=== PATIENT | female | born 1945 | race Caucasian/White ===

== ENCOUNTER → 2017-06-10 | Outpatient (CLI) | payer MEDICARE ==
--- NOTE | 2017-06-10 12:42 | CT ---
EXAMINATION TYPE: CT brain wo con DATE OF EXAM: 06/10/2017 COMPARISON: NONE HISTORY: Syncope and collapse CT DLP: 1029.90 mGycm. Automated Exposure Control for Dose Reduction was Utilized. TECHNIQUE: CT scan of the head is performed without contrast. FINDINGS: There is no acute intracranial hemorrhage or midline shift identified. There is diffuse v entricular and sulcal prominence consistent with diffuse age-related cerebral atrophy. There is low- attenuation in the periventricular white matter and subcortical white matter consistent with chronic small vessel ischemic change. 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 This is a benig n finding. No mass effect upon the temporal horn of the left lateral ventricle or evidence of hydroce phalus. The globes are intact and the visualized sinuses are clear. Chest patient is seen of the intr acranial vasculature. IMPRESSION: No acute intracranial hemorrhage, mass effect, or midline shift is seen.
--- NOTE | 2017-06-10 13:13 | US ---
EXAMINATION TYPE: US carotid duplex BILAT DATE OF EXAM: 06/10/2017 COMPARISON: NONE CLINICAL HISTORY: R55 Syncope and Collapse; Prior smoker per patient EXAM MEASUREMENTS: RIGHT: Peak Systolic Velocity (PSV) cm/sec ----- Right CCA: 45.3 ----- Right ICA: 109.9 ----- Right ECA: 118.9 ICA/CCA ratio: 2.4 RIGHT: End Diastole cm/sec ----- Right CCA: 11.3 ----- Right ICA: 15.4 ----- Right ECA: 7.4 LEFT: Peak Systolic Velocity (PSV) cm/sec ----- Left CCA: 64.4 ----- Left ICA: 69.9 ----- Left ECA: 87.5 ICA/CCA ratio: 1.1 LEFT: End Diastole cm/sec ----- Left CCA: 20.4 ----- Left ICA: 24.8 ----- Left ECA: 12.4 VERTEBRALS (direction of flow): Right Vertebral: Antegrade Left Vertebral: Antegrade Moderate intimal wall changes at bilateral carotid bifurcation, but PSV is wnl bilaterally. High resi stive waveform is noted in Right ICA throughout its course and as compared to Left ICA. IMPRESSION: 1. Peak systolic velocity within the right internal carotid artery approaching an abnormal value and abnormally elevated internal carotid artery to common carotid artery ratio relates to stenosis betwee n 50-69%, favored to be closer to 50%. 2. No evidence of hemodynamically significant stenosis within the left carotid system.
--- NOTE | 2017-06-10 17:32 | ECHOF ---
Referral Reason:R55 Sycnope and Collapse, MEASUREMENTS -------- HEIGHT: 167.6 cm WEIGHT: 86.2 kg BP: 140/92 RVIDd: 2.9 cm (< 3.3) IVSd: 1.0 cm (0.6 - 1.1) LVIDd: 4.4 cm (3.9 - 5.3) LVPWd: 1.0 cm (0.6 - 1.1) IVSs: 1.4 cm LVIDs: 2.7 cm LVPWs: 1.2 cm LA Diam: 2.9 cm (2.7 - 3.8) LAESV Index (A-L): 16.56 ml/m Ao Diam: 3.3 cm (2.0 - 3.7) AV Cusp: 2.0 cm (1.5 - 2.6) MV EXCURSION: 16.074 mm (> 18.000) MV EF SLOPE: 41 mm/s (70 - 150) EPSS: 0.7 cm MV E Rodolfo: 0.56 m/s MV DecT: 215 ms MV A Rodolfo: 0.71 m/s MV E/A Ratio: 0.79 RAP: 5.00 mmHg RVSP: 33.58 mmHg FINDINGS -------- Sinus rhythm. This was a technically adequate study. The left ventricular size is normal. There is borderline concentric left ventricular hypertrophy. Overall left ventricular systolic function is normal with, an EF between 55 - 60 %. The right ventricle is normal in size. Normal LA size by volume 22+/-6 ml/m2. The right atrium is normal in size. The aortic valve is trileaflet and appears structurally normal. Mild mitral annular calcification present. Mild tricuspid regurgitation present. Right ventricular systolic pressure is normal at < 35 mmHg. The pulmonic valve was not well visualized. The aortic root size is normal. Normal inferior vena cava with normal inspiratory collapse consistent with estimated right atrial pressure of 5 mmHg. There is no pericardial effusion. CONCLUSIONS -------- 1. Sinus rhythm. 2. Mild mitral annular calcification present. 3. Mild tricuspid regurgitation present. 4. Right ventricular systolic pressure is normal at < 35 mmHg. 5. The pulmonic valve was not well visualized. 6. The aortic root size is normal. 7. Normal inferior vena cava with normal inspiratory collapse consistent with estimated right atrial pressure of 5 mmHg. 8. There is no pericardial effusion. 9. This was a technically adequate study. 10. The left ventricular size is normal. 11. There is borderline concentric left ventricular hypertrophy. 12. Overall left ventricular systolic function is normal with, an EF between 55 - 60 %. 13. The right ventricle is normal in size. 14. Normal LA size by volume 22+/-6 ml/m2. 15. The right atrium is normal in size. 16. The aortic valve is trileaflet and appears structurally normal. SECRETARY TO THE VICE PRESIDENT: Denise Del Real RDCS
== END | disposition home or self-care (01) ==
LOC: RADCTMAIN 12:07
PROVIDERS: ATTEND Internal Medicine Geriatric Medicine
DX: I07.1 Rheumatic tricuspid insufficiency (principal); I34.8 Other nonrheumatic mitral valve disorders; R93.8 Abnormal findings on diagnostic imaging of other specified body structures; R55 Syncope and collapse
CPT/HCPCS: 70450; 93306; 93880

== ENCOUNTER → 2017-06-27 | Outpatient (CLI) | payer MEDICARE ==
[~2017-06-27] MED LIST: REGADENOSON 0.4 MG/5 ML SYRINGE IV ONE
--- NOTE | 2017-06-27 10:58 | NM ---
EXAMINATION TYPE: NM stress lexiscan cardiolite DATE OF EXAM: 06/27/2017 COMPARISON: NONE HISTORY: Syncope TECHNIQUE: After the intravenous administration of 10.5 mCi Tc 99m Sestamibi - Cardiolite resting SP ECT images acquired 45 minutes post injection. The patient received 0.4mg Lexiscan, 28.1 mCi Tc 99m Sestamibi - Stress images obtained [address] injection FINDINGS: Review of stress and rest SPECT images demonstrates no distinct perfusion abnormality. Gated analysi s shows normal wall motion with an estimated left ventricular ejection fraction of 63 %. IMPRESSION: No scintigraphic evidence for reversible ischemia.
--- NOTE | 2017-06-27 12:23 | P.STRESS ---
- Stress Test Note Stress Test Results/Findings: Exam Performed: NM stress lexiscan cardiolite Exam Date: 06/27/17 Reason for Exam: SYNCOPE Height: 5 ft 6 in Weight: 86.183 kg Protocol: Stage: Duration of Exercise: 5 Resting Heart Rate: 69 Resting Blood Pressure: 155/80 Maximum Achieved Heart Rate: 75 Maximum Achieved Blood Pressure: 162/74 85% PMHR: 125 100% PMHR: 147 METS: Technologist Comment: Stress Test Results/Findings: This is a 72-year-old female is being evaluated with the Lexiscan stress test because of hypertension and smoking and also history of syncope. An EKG showed sinus rhythm with normal HI interval, QRS duration. A standard dose of Lexiscan was infused KG taking during and after the x-ray did not reveal any changes to sized ischemia. #1. Negative legs scan stress test #2. Report on the nuclear images to be given by the radiologist
--- NOTE | 2017-06-28 09:32 | EST ---
Stress Test Results/Findings: Exam Performed: NM stress lexiscan cardiolite Exam Date: 06/27/17 Reason for Exam: SYNCOPE Height: 5 ft 6 in Weight: 86.183 kg Protocol: Stage: Duration of Exercise: 5 Resting Heart Rate: 69 Resting Blood Pressure: 155/80 Maximum Achieved Heart Rate: 75 Maximum Achieved Blood Pressure: 162/74 85% PMHR: 125 100% PMHR: 147 METS: Technologist Comment: Stress Test Results/Findings: This is a 72-year-old female is being evaluated with the Lexiscan stress test because of hypertension and smoking and also history of syncope. Baseline EKG showed sinus rhythm with normal [place] interval, QRS duration. A standard dose of Lexiscan was infused. EKG taken during and after the stess test did not reveal any changes to suggest ischemia. #1. Negative lexiscan scan stress test #2. Report on the nuclear images to be given by the radiologist BRADEN
== END | disposition home or self-care (01) ==
LOC: RADNMMAIN 08:16
PROVIDERS: ATTEND Internal Medicine Geriatric Medicine
DX: R55 Syncope and collapse (principal)
CPT/HCPCS: 93017; 78452; A9500; J2785

== ENCOUNTER → 2017-11-17 | Outpatient (CLI) | payer MEDICARE ==
--- NOTE | 2017-11-18 11:22 | MM ---
Reason for exam: screening (asymptomatic). Last mammogram was performed 1 year and 1 month ago. History: Patient is postmenopausal. Benign excisional biopsy of the right breast, November 19, 1998. Took hormonal contraceptives for 3 years beginning at age 20. Physical Findings: A clinical breast exam by your physician is recommended on an annual basis and results should be correlated with mammographic findings. MG 3D Screening Mammo W/Cad Bilateral CC and MLO view(s) were taken. Prior study comparison: October 06, 2016, bilateral MG 3d screening mammo w/cad. July 31, 2015, bilateral MG screening mammo w CAD. The breast tissue is heterogeneously dense. This may lower the sensitivity of mammography. There is chronic nodularity bilaterally. No significant changes when compared with prior studies. ASSESSMENT: Benign, BI-RAD 2 RECOMMENDATION: Routine screening mammogram of both breasts in 1 year.
== END | disposition home or self-care (01) ==
LOC: RADMAMWWP 10:00
PROVIDERS: ATTEND Internal Medicine Geriatric Medicine
DX: Z12.31 Encounter for screening mammogram for malignant neoplasm of breast (principal)
CPT/HCPCS: 77063; 77067

== ENCOUNTER → 2018-01-09 | Outpatient (CLI) | payer MEDICARE ==
[2018-01-09 17:04] LABS: HCT 45.3 % (34.0-46.0); HGB 14.3 gm/dL (11.4-16.0); MCH 28.1 pg (25.0-35.0); MCHC 31.6 g/dL (31.0-37.0); MCV 88.8 fL (80.0-100.0); Platelet Count 481 k/uL (150-450); RDW 13.7 % (11.5-15.5); WBC 13.5 k/uL (3.8-10.6)
[2018-01-09 17:16] LABS: Anion Gap 12 mmol/L; Blood Urea Nitrogen 16 mg/dL (7-17); Carbon Dioxide 26 mmol/L (22-30); Chloride 104 mmol/L (98-107); Potassium 4.9 mmol/L (3.5-5.1); Sodium 142 mmol/L (137-145)
== END | disposition home or self-care (01) ==
LOC: LABPAT 16:16
PROVIDERS: ATTEND Internal Medicine Interventional Cardiology
DX: Z01.812 Encounter for preprocedural laboratory examination (principal); R07.9 Chest pain, unspecified
CPT/HCPCS: 36415; 80051; 82565; 84520; 85027

== ENCOUNTER → 2018-01-17 | Day surgery (SDC) | payer MEDICARE ==
[2018-01-12 08:59] VITALS: BMI 29.0
[~2018-01-17] MED LIST changes: +ACETAMINOPHEN TAB 325 MG TAB ONE; +ALPRAZolam 0.25 MG TAB PO PRN; +ALPRAZolam 0.5 MG TAB PO PRN; +ASPIRIN 325 MG TAB PO STA; +ATORVASTATIN 80 MG TAB PO STA; +HEPARIN SODIUM 1,000 UN/ML (10ML VL) IV ONE; +HEPARIN SODIUM 1,000 UN/ML (10ML VL) ONE; +IOHEXOL 350 MG/ML 125ML BOTTLE INJ ONE; +LIDOCAINE 2% INJ 20 MG/ML (20 ML MDV) ONE; +LIDOCAINE 2% INJ 20 MG/ML SQ ONE; +MIDAZOLAM 2 MG/2 ML VIAL IV ONE; +MIDAZOLAM 2 MG/2 ML VIAL ONE; +NITROGLYCERIN 1000MCG/10ML SYRINGE INTRACORON ONE; +NITROGLYCERIN SL TABS 0.4 MG TAB SUBLINGUAL PRN; -REGADENOSON 0.4 MG/5 ML SYRINGE IV ONE; +RX INFO: IV CONTRAST WAS GIVEN 1 EACH MISC MISCELLANE PRN; +SODIUM CHLORIDE 0.9% 1,000 ML IV SCH; +SODIUM CHLORIDE 0.9% 1,000 ML in EMPTY BAG 1 BAG IV ONE; +VERAPAMIL 2.5 MG/ML 2 ML AMP ONE; +fentaNYL (PF) 50 MCG/ML 2 ML AMP ONE; +hydrALAZINE HCL 20 MG/ML 1 ML VIAL IVP STA; +hydrALAZINE HCL 20 MG/ML 1 ML VIAL ONE
[2018-01-17 06:59] VITALS: RESP 18; TEMP 98
[2018-01-17] MEDS: VERAPAMIL SYRINGE (5 MG/10 ML) INTRAARTER ONE ×2 (07:54→08:09)
[2018-01-17] MEDS: fentaNYL (PF) 50 MCG/ML 2 ML AMP IV ONE ×2 (07:56→07:58)
--- NOTE | 2018-01-17 08:40 | CC ---
CARDIAC CATHETERIZATION REPORT DATE OF SERVICE: 01/17/2018 PERFORMING PHYSICIAN: Kash Muniz MD, residential director. PROCEDURE PERFORMED: 1. Selective right and left coronary angiogram. 2. Left heart catheterization. INDICATION: This is a pleasant 72-year-old female patient who was experiencing chest discomfort concerning for angina. She underwent a myocardial perfusion imaging stress test in June of 2017 and that revealed no ischemia. Because of the intermittent episodes of chest discomfort, I recommended proceeding with a heart catheterization. APPROACH: Right radial artery. COMPLICATION: None. LEVEL OF SEDATION: Moderate with sedation length of 17 minutes. PROCEDURE DESCRIPTION: After obtaining an informed consent, the patient was brought to the cardiac rd lab technician. The right radial artery was cannulated using micropuncture technique, the micropuncture wire passed easily, then I placed a 6-Hungarian sheath in the right radial artery. After that I did give the patient 2 mg of verapamil IA and 10,000 units of heparin IV. After that, I did selective right and left coronary angiogram using JR4 and JL3.5 catheters. The procedure was completed without any complication. I did also left heart catheterization using 5-Hungarian pigtail catheter. The procedure was completed without any complication. SELECTIVE CORONARY ANGIOGRAM: 1. The RCA is a large caliber vessel and it is a dominant vessel. The RCA appeared to have mild disease only in the midportion. Distally, it bifurcates into PDA and PLV branches both are angiographically normal. 2. The left main is angiographically normal but is a short left main. It bifurcates into the left circumflex and left anterior descending artery. 3. Left circumflex is a large caliber vessel. It is a nondominant vessel. The proximal circ appeared to be angiographically normal. The mid circ is normal as well and gives rise into a large OM branch, which seems to be angiographically normal. The left circumflex distally is angiographically normal. 4. The LAD; the proximal LAD appeared to have mild eccentric lesion. It is calcified though. The mid LAD by the bifurcation of a large diagonal branch appeared to have a lesion in the range of 60% to 70%. The first diagonal branch which is a large caliber vessel appeared to be angiographically normal. The LAD distally becomes tortuous, but angiographically normal. HEMODYNAMICS: The left ventricular end-diastolic pressure was 14 mmHg and no gradient was identified across the aortic valve. CONCLUSION: 1. Calcified right and left coronary systems. 2. 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 PLAN: 1. Maximize medical treatment at this point of time. 2. If the patient continues to be symptomatic, I will consider doing a PCI of the LAD. DOLORES / ROBERTN: [id number] /
[2018-01-17 13:18] VITALS: BP 157/71; PULSE 67
== END ==
LOC: CATHCVL 06:17
PROVIDERS: ATTEND Internal Medicine Interventional Cardiology
DX: I25.110 Atherosclerotic heart disease of native coronary artery with unstable angina pectoris (principal); I25.84 Coronary atherosclerosis due to calcified coronary lesion; I77.1 Stricture of artery; I10 Essential (primary) hypertension; Z87.891 Personal history of nicotine dependence; E78.5 Hyperlipidemia, unspecified; Z79.899 Other long term (current) drug therapy; Z88.0 Allergy status to penicillin; Z88.8 Allergy status to other drugs, medicaments and biological substances
CPT/HCPCS: 93458; J2001; J2250; J0360; J3010; J1644; Q9967

== ENCOUNTER 2018-01-25 11:00 | Emergency (ER) | payer MEDICARE ==
[2018-01-25 11:14] VITALS: TEMP 98
[2018-01-25] MEDS ORDERED: ASPIRIN 81 MG PO STA (11:55)
[2018-01-25] MEDS ORDERED: SODIUM CHLORIDE 0.9% 1,000 ML IV STA (11:55)
[2018-01-25 12:42] VITALS: RESP 18
[2018-01-25 12:52] LABS: D-Dimer 0.3 mg/L FEU (<0.60)
[2018-01-25 12:55] LABS: Albumin 4.3 g/dL (3.5-5.0); Calcium 10.1 mg/dL (8.4-10.2); Magnesium 1.9 mg/dL (1.6-2.3); Potassium 4.4 mmol/L (3.5-5.1); Total Bilirubin 0.4 mg/dL (0.2-1.3); Total Protein 7.6 g/dL (6.3-8.2)
[2018-01-25 12:56] LABS: Partial Thromboplastin Time 24.6 sec (22.0-30.0); Prothrombin Time 10.1 sec (9.0-12.0)
--- NOTE | 2018-01-25 13:02 | XR ---
EXAMINATION TYPE: XR chest 2V DATE OF EXAM: 01/25/2018 COMPARISON: 10/07/2014 HISTORY: Right upper lobectomy. Chest pain. TECHNIQUE: Frontal and lateral views of the chest are obtained. FINDINGS: Right minor fissure is elevated secondary to right-sided hemithorax volume loss from the p rior right upper lobectomy. There is no focal consolidation, pleural effusion or pneumothorax. Cardia mediastinal silhouette is within normal limits. There was prominent bilaterally as seen on the prior 2013 and may relate to underlying coronary arterial hypertension. Mild multilevel degenerative morin es of the thoracic spine. Osseous structures are grossly intact. IMPRESSION: Chronic findings with no acute cardiopulmonary process. Hilar engorgement may relate to underlying pulmonary arterial hypertension and is similar to the prior 2013.
[2018-01-25 13:08] LABS: Creatine Kinase 33 U/L (30-135)
[2018-01-25 13:21] LABS: Creatine Kinase MB 0.6 ng/mL (0.0-2.4); Troponin I <0.012 ng/mL (0.000-0.034)
[2018-01-25 13:48] LABS: Basophils # (A) 0.1 k/uL (0-0.2); Basophils % (A) 1 %; Eosinophils # (A) 0.3 k/uL (0-0.7); Eosinophils % (A) 3 %; HCT 48.1 % (34.0-46.0); HGB 16.1 gm/dL (11.4-16.0); Lymphocytes # (A) 2.2 k/uL (1.0-4.8); Lymphocytes % (A) 22 %; MCH 28.8 pg (25.0-35.0); MCHC 33.6 g/dL (31.0-37.0); MCV 85.9 fL (80.0-100.0); Mean Platelet Volume 7.2; Monocytes # (A) 0.7 k/uL (0-1.0); Monocytes % (A) 7 %; Neutrophils # (A) 6.4 k/uL (1.3-7.7); Neutrophils % (A) 64 %; Platelet Count 422 k/uL (150-450); RDW 13.5 % (11.5-15.5)
[2018-01-25 14:11] VITALS: BP 146/75; PULSE 74
--- NOTE | 2018-01-25 14:12 | ED ---
General Adult HPI - General Chief complaint: Recheck/Abnormal Lab/Rx Stated complaint: poss blood clot, post Cath Time Seen by Provider: 01/25/18 11:41 Source: patient, RN notes reviewed Mode of arrival: ambulatory Limitations: no limitations - History of Present Illness Initial comments: Patient 72-year-old female status post heart catheterization times a week, presenting to the emergency room today with a chief complaint of right sided pain. She states that last night she felt like there was some pain behind her right eye. She states this is gone away is feeling better at this time but she woke up this morning with some right-sided pain. She states she was worried about possible blood clot. She states that she had a heart cath 1 week ago and no stents were placed. Patient denies any recent fever, chills, shortness of breath, back pain, abdominal pain, nausea or vomiting, numbness or tingling, dysuria or hematuria, constipation or diarrhea, headaches or visual changes, or any other complaints. - Related Data Home Medications Medication Instructions Recorded Confirmed Albuterol Sulfate [Proventil Hfa] 1 - 2 puff INHALATION RT-Q6H PRN 06/18/14 Levothyroxine Sodium [Synthroid] 75 mcg PO HS 06/18/14 01/25/18 Diphenox-Atrop 2.5-0.025 mg 1 tab PO DAILY PRN 10/07/17 01/25/18 [Lomotil] Ergocalciferol [Vitamin D2] 50,000 unit PO Q14D 01/25/18 01/25/18 [place] (Unknown Dose) 1 tab PO ONCE 01/25/18 01/25/18 Zolpidem Tartrate [Zolpidem 10 mg PO HS 01/25/18 01/25/18 Tartrate] Allergies Allergy/AdvReac Type Severity Reaction Status Date / Time bee pollen Allergy Anaphylaxis Verified 01/25/18 12:57 Penicillins Allergy Anaphylaxis Verified 01/25/18 12:57 adhesive AdvReac Rash/Hives Verified 01/25/18 12:57 prednisone AdvReac Nausea & Verified 01/25/18 12:57 Vomiting Review of Systems ROS Statement: Those systems with pertinent positive or pertinent negative responses have been documented in the HPI. ROS Other: All systems not noted in ROS Statement are negative. 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 History of Any Multi-Drug Resistant Organisms: None Reported Past Surgical History: Appendectomy, Cholecystectomy, Heart Catheterization, Hernia Repair, Hysterectomy Additional Past Surgical History / Comment(s): Right partial upper lobe of lung removed. Past Anesthesia/Blood Transfusion Reactions: No Reported Reaction Past Psychological History: Anxiety Smoking Status: Former smoker Past Alcohol Use History: Rare Past Drug Use History: None Reported - Past Family History Mother Family Medical History: No Reported History Father Family Medical History: Cancer Additional Family Medical History / Comment(s): Lung General Exam - General Exam Comments Initial Comments: General: The patient is awake and alert, in no distress, and does not appear acutely ill. Eye: Pupils are equal, round and reactive to light, extra-ocular movements are intact. No nystagmus. There is normal conjunctiva bilaterally. No signs of icterus. Ears, nose, mouth and throat: There are moist mucous membranes and no oral lesions. Neck: The neck is supple, there is no tenderness or JVD. Cardiovascular: There is a regular rate and rhythm. No murmur, rub or gallop is appreciated. Respiratory: Lungs are clear to auscultation, respirations are non-labored, breath sounds are equal. No wheezes, stridor, rales, or rhonchi. Gastrointestinal: Soft, non-distended, non-tender abdomen without masses or organomegaly noted. There is no rebound or guarding present. No CVA tenderness. Bowel sounds are unremarkable. Musculoskeletal: Normal ROM, no tenderness. Strength 5/5. Sensation intact. Pulses equal bilaterally 2+. Neurological: A&O x 3. CN II-XII intact, There are no obvious motor or sensory deficits. Coordination appears grossly intact. Speech is normal. Skin: Skin is warm and dry and no rashes or lesions are noted. Psychiatric: Cooperative, appropriate mood & affect, normal judgment. Limitations: no limitations Course Vital Signs 01/25/18 01/25/18 11:12 12:40 Temperature 98.0 F Pulse Rate 86 76 Respiratory 20 18 Rate Blood Pressure 148/103 169/79 O2 Sat by Pulse 98 97 Oximetry Medical Decision Making - Medical Decision Making Patient labs been reviewed and negative d-dimer. Cardiac enzymes are negative. EKG shows no acute changes. Results were discussed with patient. Vitals are stable. She is feeling better at this time. Case discussed with attending physician Dr. Garcia. Patient is advised follow-up the statue maker tomorrow. Advised return if any symptoms increase worsen. - Lab Data Result diagrams: 01/25/18 12:20 01/25/18 12:20 Lab Results 01/25/18 01/25/18 01/25/18 Range/Units 12:20 12:20 12:20 WBC 10.0 (3.8-10.6) k/uL RBC 5.60 H (3.80-5.40) m/uL Hgb 16.1 H (11.4-16.0) gm/dL Hct 48.1 H (34.0-46.0) % MCV 85.9 (80.0-100.0) fL MCH 28.8 (25.0-35.0) pg MCHC 33.6 (31.0-37.0) g/dL RDW 13.5 (11.5-15.5) % Plt Count 422 (150-450) k/uL Neutrophils % 64 % Lymphocytes % 22 % Monocytes % 7 % Eosinophils % 3 % Basophils % 1 % Neutrophils # 6.4 (1.3-7.7) k/uL Lymphocytes # 2.2 (1.0-4.8) k/uL Monocytes # 0.7 (0-1.0) k/uL Eosinophils # 0.3 (0-0.7) k/uL Basophils # 0.1 (0-0.2) k/uL PT (9.0-12.0) sec INR (<1.2) APTT (22.0-30.0) sec D-Dimer (<0.60) mg/L FEU Sodium 140 (137-145) mmol/L Potassium 4.4 (3.5-5.1) mmol/L Chloride 104 (98-107) mmol/L Carbon Dioxide 25 (22-30) mmol/L Anion Gap 11 mmol/L BUN 15 (7-17) mg/dL Creatinine 0.85 (0.52-1.04) mg/dL Est GFR (CKD-EPI)AfAm 79 (>60 ml/min/1.73 sqM) Est GFR (CKD-EPI)NonAf 68 (>60 ml/min/1.73 sqM) Glucose 95 (74-99) mg/dL Calcium 10.1 (8.4-10.2) mg/dL Magnesium 1.9 (1.6-2.3) mg/dL Total Bilirubin 0.4 (0.2-1.3) mg/dL AST 38 H (14-36) U/L ALT 37 (9-52) U/L Alkaline Phosphatase 97 (38-126) U/L Total Creatine Kinase 33 (30-135) U/L CK-MB (CK-2) 0.6 (0.0-2.4) ng/mL CK-MB (CK-2) Rel Index 1.8 Troponin I <0.012 (0.000-0.034) ng/mL NT-Pro-B Natriuret Pep pg/mL Total Protein 7.6 (6.3-8.2) g/dL Albumin 4.3 (3.5-5.0) g/dL 01/25/18 01/25/18 Range/Units 12:20 12:20 WBC (3.8-10.6) k/uL RBC (3.80-5.40) m/uL Hgb (11.4-16.0) gm/dL Hct (34.0-46.0) % MCV (80.0-100.0) fL MCH (25.0-35.0) pg MCHC (31.0-37.0) g/dL RDW (11.5-15.5) % Plt Count (150-450) k/uL Neutrophils % % Lymphocytes % % Monocytes % % Eosinophils % % Basophils % % Neutrophils # (1.3-7.7) k/uL Lymphocytes # (1.0-4.8) k/uL Monocytes # (0-1.0) k/uL Eosinophils # (0-0.7) k/uL Basophils # (0-0.2) k/uL PT 10.1 (9.0-12.0) sec INR 1.0 (<1.2) APTT 24.6 (22.0-30.0) sec D-Dimer 0.30 (<0.60) mg/L FEU Sodium (137-145) mmol/L Potassium (3.5-5.1) mmol/L Chloride (98-107) mmol/L Carbon Dioxide (22-30) mmol/L Anion Gap mmol/L BUN (7-17) mg/dL Creatinine (0.52-1.04) mg/dL Est GFR (CKD-EPI)AfAm (>60 ml/min/1.73 sqM) Est GFR (CKD-EPI)NonAf (>60 ml/min/1.73 sqM) Glucose (74-99) mg/dL Calcium (8.4-10.2) mg/dL Magnesium (1.6-2.3) mg/dL Total Bilirubin (0.2-1.3) mg/dL AST (14-36) U/L ALT (9-52) U/L Alkaline Phosphatase (38-126) U/L Total Creatine Kinase (30-135) U/L CK-MB (CK-2) (0.0-2.4) ng/mL CK-MB (CK-2) Rel Index Troponin I (0.000-0.034) ng/mL NT-Pro-B Natriuret Pep 44 pg/mL Total Protein (6.3-8.2) g/dL Albumin (3.5-5.0) g/dL Disposition Clinical Impression: Right-sided chest pain Disposition: HOME SELF-CARE Condition: Good Instructions: Flank Pain (ED) Additional Instructions: Please follow-up with statue maker tomorrow as discussed. Please return to emergency room if the symptoms increase or worsen or for any other concerns. Referrals: Celio Pollard MD [Primary Care Provider] - 1-2 days Kash Muniz MD [STAFF PHYSICIAN] - 1-2 days Time of Disposition: 14:11
== END 2018-01-25 14:34 | disposition home or self-care (01) ==
LOC: EC 11:00
DX: R07.9 Chest pain, unspecified (principal); H57.11 Ocular pain, right eye; E07.9 Disorder of thyroid, unspecified; Z87.891 Personal history of nicotine dependence; Z79.891 Long term (current) use of opiate analgesic; Z79.899 Other long term (current) drug therapy; Z88.0 Allergy status to penicillin; Z88.8 Allergy status to other drugs, medicaments and biological substances; Z91.018 Allergy to other foods; Z91.048 Other nonmedicinal substance allergy status; Z95.9 Presence of cardiac and vascular implant and graft, unspecified
CPT/HCPCS: 36415; 71046; 80053; 82550; 82553; 83735; 83880; 84484; 85025; 85379; 85610; 85730; 93005; 96360; 96361; 99284

== ENCOUNTER → 2018-06-08 | Outpatient (CLI) | payer MEDICARE ==
[2018-06-08 11:24] LABS: HCT 42.9 % (34.0-46.0); HGB 13.7 gm/dL (11.4-16.0); MCH 28.4 pg (25.0-35.0); MCHC 31.9 g/dL (31.0-37.0); MCV 89.1 fL (80.0-100.0); Mean Platelet Volume 6.7; Platelet Count 419 k/uL (150-450); RBC 4.82 m/uL (3.80-5.40); RDW 13.8 % (11.5-15.5)
[2018-06-08 11:35] LABS: Potassium 4.5 mmol/L (3.5-5.1)
== END | disposition home or self-care (01) ==
LOC: LABPAT 10:36
PROVIDERS: ATTEND Internal Medicine Interventional Cardiology
DX: Z01.812 Encounter for preprocedural laboratory examination (principal); I25.10 Atherosclerotic heart disease of native coronary artery without angina pectoris; I10 Essential (primary) hypertension; E78.1 Pure hyperglyceridemia
CPT/HCPCS: 36415; 80051; 82565; 84520; 85027

== ENCOUNTER 2018-06-12 07:48 | Day surgery (SDC) | payer MEDICARE ==
[2018-06-09 09:31] VITALS: BMI 28.5
[~2018-06-12 07:48] MED LIST changes: -ACETAMINOPHEN TAB 325 MG TAB ONE; -HEPARIN SODIUM 1,000 UN/ML (10ML VL) IV ONE; -HEPARIN SODIUM 1,000 UN/ML (10ML VL) ONE; -IOHEXOL 350 MG/ML 125ML BOTTLE INJ ONE; -LIDOCAINE 2% INJ 20 MG/ML (20 ML MDV) ONE; -LIDOCAINE 2% INJ 20 MG/ML SQ ONE; -MIDAZOLAM 2 MG/2 ML VIAL IV ONE; -MIDAZOLAM 2 MG/2 ML VIAL ONE; -NITROGLYCERIN 1000MCG/10ML SYRINGE INTRACORON ONE; -RX INFO: IV CONTRAST WAS GIVEN 1 EACH MISC MISCELLANE PRN; -SODIUM CHLORIDE 0.9% 1,000 ML IV SCH; -VERAPAMIL 2.5 MG/ML 2 ML AMP ONE; -fentaNYL (PF) 50 MCG/ML 2 ML AMP ONE; -hydrALAZINE HCL 20 MG/ML 1 ML VIAL IVP STA; -hydrALAZINE HCL 20 MG/ML 1 ML VIAL ONE
[2018-06-12] MEDS ORDERED: SODIUM CHLORIDE 0.9% 1,000 ML IV ONE (08:08)
[2018-06-12 08:22] VITALS: RESP 16; TEMP 98.2
[2018-06-12] MEDS ORDERED: MIDAZOLAM 2 MG/2 ML VIAL IV ONE ×2 (09:15→09:23)
[2018-06-12] MEDS ORDERED: LIDOCAINE 1% INJ 10MG/ML (20 ML MDV) SQ ONE (09:21)
[2018-06-12] MEDS ORDERED: fentaNYL (PF) 50 MCG/ML 2 ML AMP IV ONE (09:24)
[2018-06-12] MEDS ORDERED: BIVALIRUDIN BOLUS 250 MG/50 ML IV ONE (09:26)
[2018-06-12] MEDS ORDERED: BIVALIRUDIN 250 MG in SODIUM CHLORIDE 0.9% 50 ML IV ONE (09:28)
[2018-06-12] MEDS ORDERED: ADENOSINE 90 MG in SODIUM CHLORIDE 0.9% 60 ML IVP ONE (09:48)
[2018-06-12] MEDS ORDERED: RX INFO: IV CONTRAST WAS GIVEN 1 EACH MISC MISCELLANE PRN (09:58)
[2018-06-12] MEDS ORDERED: SODIUM CHLORIDE 0.9% 1,000 ML IV SCH (10:00)
--- NOTE | 2018-06-12 10:23 | LTR ---
June 12, 2018 Dr. Pollard RE: Brittanie Lim Dear Dr. Pollard: . Brittanie Lim underwent fractional flow reserve FFR of the LAD and that came in to be at 0.85, which is nonischemic. The percutaneous coronary intervention was deferred and the patient will be treated medically. I want to thank you for allowing me to participate in her care. Please do not hesitate to call if you have any questions or concerns. Sincerely, MD DOLORES Alvarenga / GLORIA: [id number] /
--- NOTE | 2018-06-12 10:47 | CE ---
CARDIAC ELECTROPHYSIOLOGY REPORT DATE OF SERVICE: June 12, 2018 PERFORMING PHYSICIAN: Kash Muniz MD, commercial lines account manager. PROCEDURE PERFORMED: Fractional flow reserve of the LAD. INDICATION: This is a pleasant 73-year-old female patient who is known to have intermediate disease involving the mid LAD, who was experiencing chest discomfort concerning for angina. She was brought today to undergo a fractional flow reserve of the LAD, FFR. APPROACH: Right common femoral artery. COMPLICATION: None. LEVEL OF SEDATION: Moderate with sedation length of 35 minutes. PROCEDURE DESCRIPTION: After obtaining an informed consent, the patient was brought to the cardiac roofing laborer. The right common femoral artery was cannulated using micropuncture technique, the micropuncture wire passed easily then I placed a 6-Uzbek sheath in the right common femoral artery. At that point, anticoagulation was initiated using Angiomax. Subsequently zeroing the Doppler wire and equalizing between the Doppler wire and the guiding catheter which was JL3 0.5 guiding catheter with an FFR per IV adenosine infusion and the FFR came in to be 0.85 which is not ischemic. The procedure was completed without any complication. CONCLUSION: Fractional flow reserve FFR of the LAD was performed and came in to be 0.85. POSTPROCEDURE MANAGEMENT: 1. Maximize medical treatment. 2. Follow up with the patient. MMODL / IJN: [id number] /
[2018-06-12 15:00] VITALS: BP 146/72; PULSE 68
== END 2018-06-12 15:00 | disposition home or self-care (01) ==
LOC: CATHCVL 07:48
PROVIDERS: ATTEND Internal Medicine Interventional Cardiology
DX: I25.10 Atherosclerotic heart disease of native coronary artery without angina pectoris (principal); E78.1 Pure hyperglyceridemia; I10 Essential (primary) hypertension; F17.210 Nicotine dependence, cigarettes, uncomplicated; Z79.82 Long term (current) use of aspirin; Z79.890 Hormone replacement therapy; Z79.899 Other long term (current) drug therapy; Z88.0 Allergy status to penicillin; Z88.8 Allergy status to other drugs, medicaments and biological substances
CPT/HCPCS: 93571; 93454; C1887; C1894; C1769 ×2; C1760; J2250; J2001; J3010; J0583; J0153

== ENCOUNTER 2018-08-04 21:01 | Emergency (ER) | payer MEDICARE ==
[2018-08-04 21:14] VITALS: TEMP 98
--- NOTE | 2018-08-04 21:45 | ED ---
Head Injury HPI - General Chief complaint: Head Injury Stated complaint: syncope, fall Time Seen by Provider: 08/04/18 21:41 Source: patient Mode of arrival: ambulatory Limitations: no limitations - History of Present Illness Initial comments: Ismael is a 73-year-old female with a past medical history recurrent episodes of syncope which they believed to be vasovagal in nature. Patient reports that she has undergone a very thorough evaluation of her syncope over the past 2 years. She's had tilt table testing, cardiac catheterizations, she's been evaluated by cardiology as well as neurology and even saw a second opinion by a specialist in [place]. Patient reports that after seeing specialist she was ascribed a new medication that begins with an enema, she believes this medication is Midrin. Patient reports that she took her first dose around 5 PM today. Patient reports that this evening she was in the restroom, she had a bout of diarrhea and then became very lightheaded. She thought she would be able to walk to her bedroom but upon standing she had a syncopal episode when she fell to the ground. Her came to the restroom after hearing her fall , he attempted to help her up but reports that she continued to every time he assisted her and standing. He was finally able to get her to stand by the bed at which time she fell and hit her left face on the nightstand. He then later in the bed and she returned to her baseline mental status. After a few minutes patient reports she was feeling well but she did know she had a laceration to her left forehead which prompted her to come the ER for repair. Ports syncopal episodes such as this is not atypical for her. She does not have any chest pain, palpitations or shortness of breath with these episodes. She's experienced these episodes multiple times in the past. She reports she thinks today's episodes happen recurrently because she tried to stand up too quickly immediately after she syncopized. - Related Data Home Medications Medication Instructions Recorded Confirmed Albuterol Sulfate [Proventil Hfa] 1 - 2 puff INHALATION RT-Q6H PRN 06/18/14 Levothyroxine Sodium [Synthroid] 75 mcg PO QAM 06/18/14 08/04/18 Diphenox-Atrop 2.5-0.025 mg 1 tab PO DAILY PRN 10/07/17 08/04/18 [Lomotil] Zolpidem Tartrate 10 mg PO HS 01/25/18 08/04/18 Aspirin 81 mg PO DAILY 06/09/18 08/04/18 Pravastatin Sodium [Pravachol] 20 mg PO DAILY 06/09/18 08/04/18 Eye Lubricant Combination No.1 1 applic BOTH EYES HS 08/04/18 08/04/18 [Freshkote] Ibuprofen [Advil] 600 mg PO Q6HR PRN 08/04/18 08/04/18 Isosorbide Mononitrate ER [Imdur] 30 mg PO DAILY 08/04/18 08/04/18 Metoprolol Tartrate 25 mg PO BID 08/04/18 08/04/18 Allergies/Adverse reactions: Allergies Allergy/AdvReac Type Severity Reaction Status Date / Time bee pollen Allergy Anaphylaxis Verified 08/04/18 21:33 latex Allergy Rash/Hives Verified 08/04/18 21:33 Penicillins Allergy Anaphylaxis Verified 08/04/18 21:33 adhesive AdvReac Rash/Hives Verified 08/04/18 21:33 prednisone AdvReac Nausea & Verified 08/04/18 21:33 Vomiting Review of Systems ROS Statement: Those systems with pertinent positive or pertinent negative responses have been documented in the HPI. ROS Other: All systems not noted in ROS Statement are negative. 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 History of Any Multi-Drug Resistant Organisms: None Reported Past Surgical History: Appendectomy, Cholecystectomy, Heart Catheterization, Hernia Repair, Hysterectomy Additional Past Surgical History / Comment(s): Right partial upper lobe of lung removed with repair of esophageal tear Past Anesthesia/Blood Transfusion Reactions: No Reported Reaction Additional Past Anesthesia/Blood Transfusion Reaction / Comment(s): no hx blood transfusion Past Psychological History: Anxiety Smoking Status: Former smoker Past Alcohol Use History: None Reported Past Drug Use History: None Reported - Past Family History Mother Family Medical History: No Reported History Father Family Medical History: Cancer Additional Family Medical History / Comment(s): Lung General Exam - General Exam Comments Initial Comments: GENERAL: Patient is well-developed and well-nourished. Patient is nontoxic and well- hydrated and is in no distress. HENT: 1 cm laceration to the left forehead with surrounding ecchymosis Healing bruising to the right had from previous falls EYES: The sclera were anicteric and conjunctiva were pink and moist. Extraocular movements were intact and pupils were equal round and reactive to light. Eyelids were unremarkable. PULMONARY: Unlabored respirations. Good breath sounds bilaterally. No audible rales rhonchi or wheezing was noted. CARDIOVASCULAR: There is a regular rate and rhythm without any murmurs gallops or rubs. No murmur ABDOMEN: Soft and nontender with normal bowel sounds. SKIN: Skin is clear with no lesions or rashes and otherwise unremarkable. NEUROLOGIC: Patient is alert and oriented x3. Cranial nerves II through XII are grossly intact. Motor and sensory are also intact. Normal speech, volume and content. Symmetrical smile. MUSCULOSKELETAL: Normal extremities with adequate strength and full range of motion. No lower extremity swelling or edema. No calf tenderness. LYMPHATICS: No significant lymphadenopathy is noted PSYCHIATRIC: Normal psychiatric evaluation. Limitations: no limitations Limitations: no limitations Course Vital Signs 08/04/18 08/05/18 21:10 00:16 Temperature 98.0 F Pulse Rate 85 73 Respiratory 18 16 Rate Blood Pressure 146/70 174/75 O2 Sat by Pulse 98 96 Oximetry Procedures - Laceration Laceration #1 Consent Obtained: verbal consent Indication: laceration Site: face Size (cm): 2 Description: linear Depth: simple, single layer Anesthetic Used: lidocaine 1% Anesthesia Technique: local infiltration Pre-repair: wound explored, irrigated extensively, deep structures intact Type of Sutures: nylon Size of Sutures: 6-0 Number of Sutures: 4 Technique: simple, interrupted Patient Tolerated Procedure: well Medical Decision Making - Medical Decision Making She was seen and evaluated history was obtained from the patient and her at bedside Patient has an extensive history of recurrent vasovagal syncopal episodes for which she was prescribed Midrin and took her first dose today. does note that she had some diarrhea and when attempting to get out of the bathroom she had a syncopal episode. Her attempted multiple times to help her stand to move her to the bed, in moving from the bathroom to the bedroom she had apparently 3 more syncopal episodes. Patient reports that she would not of come to the emergency department for this complaint however she did note that when she fell next to her bed she hit her head on her knee stand and sustained a laceration to her left forehead. No loss of consciousness with this. She woke immediately upon landing in the ground. She reports only tenderness at the laceration site. No headache, no vision changes no focal neurologic deficits no neck pain. Labs s and imaging were ordered EKG was reviewed, sinus rhythm with first- degree AV block no acute findings Labs were reviewed with no significant abnormalities Imaging with no significant injuries aside from soft tissue Laceration was repaired I offered the patient admission for syncopal episodes and further evaluation by cardiology. However at this time the patient would prefer to be discharged home. She is underwent a thorough evaluation of her syncope in the past. Reports that this episode was identical to previous she has no concerns and would like to be discharged home. All questions pertaining to care were answered the best my ability patient was discharged home in stable condition - Lab Data Result diagrams: 08/04/18 22:01 08/04/18 22:01 Lab Results 08/04/18 08/04/18 08/04/18 Range/Units 22:01 22:01 22:01 WBC 15.5 H (3.8-10.6) k/uL RBC 5.08 (3.80-5.40) m/uL Hgb 14.3 (11.4-16.0) gm/dL Hct 45.9 (34.0-46.0) % MCV 90.4 (80.0-100.0) fL MCH 28.2 (25.0-35.0) pg MCHC 31.1 (31.0-37.0) g/dL RDW 13.9 (11.5-15.5) % Plt Count 369 (150-450) k/uL Neutrophils % 72 % Lymphocytes % 16 % Monocytes % 8 % Eosinophils % 3 % Basophils % 1 % Neutrophils # 11.2 H (1.3-7.7) k/uL Lymphocytes # 2.4 (1.0-4.8) k/uL Monocytes # 1.2 H (0-1.0) k/uL Eosinophils # 0.4 (0-0.7) k/uL Basophils # 0.1 (0-0.2) k/uL PT (9.0-12.0) sec INR (<1.2) APTT (22.0-30.0) sec Sodium 140 (137-145) mmol/L Potassium 3.9 (3.5-5.1) mmol/L Chloride 103 (98-107) mmol/L Carbon Dioxide 26 (22-30) mmol/L Anion Gap 11 mmol/L BUN 19 H (7-17) mg/dL Creatinine 0.98 (0.52-1.04) mg/dL Est GFR (CKD-EPI)AfAm 66 (>60 ml/min/1.73 sqM) Est GFR (CKD-EPI)NonAf 57 (>60 ml/min/1.73 sqM) Glucose 76 (74-99) mg/dL Calcium 10.2 (8.4-10.2) mg/dL Total Bilirubin 0.3 (0.2-1.3) mg/dL AST 24 (14-36) U/L ALT 20 (9-52) U/L Alkaline Phosphatase 90 (38-126) U/L Total Creatine Kinase 34 (30-135) U/L CK-MB (CK-2) 0.6 (0.0-2.4) ng/mL CK-MB (CK-2) Rel Index 1.8 Troponin I <0.012 (0.000-0.034) ng/mL Total Protein 7.7 (6.3-8.2) g/dL Albumin 4.3 (3.5-5.0) g/dL Blood Type Blood Type Confirm Blood Type Recheck Antibody Screen Spec Expiration Date 08/04/18 08/04/18 08/04/18 Range/Units 22:01 22:01 22:02 WBC (3.8-10.6) k/uL RBC (3.80-5.40) m/uL Hgb (11.4-16.0) gm/dL Hct (34.0-46.0) % MCV (80.0-100.0) fL MCH (25.0-35.0) pg MCHC (31.0-37.0) g/dL RDW (11.5-15.5) % Plt Count (150-450) k/uL Neutrophils % % Lymphocytes % % Monocytes % % Eosinophils % % Basophils % % Neutrophils # (1.3-7.7) k/uL Lymphocytes # (1.0-4.8) k/uL Monocytes # (0-1.0) k/uL Eosinophils # (0-0.7) k/uL Basophils # (0-0.2) k/uL PT 9.6 (9.0-12.0) sec INR 1.0 (<1.2) APTT 22.7 (22.0-30.0) sec Sodium (137-145) mmol/L Potassium (3.5-5.1) mmol/L Chloride (98-107) mmol/L Carbon Dioxide (22-30) mmol/L Anion Gap mmol/L BUN (7-17) mg/dL Creatinine (0.52-1.04) mg/dL Est GFR (CKD-EPI)AfAm (>60 ml/min/1.73 sqM) Est GFR (CKD-EPI)NonAf (>60 ml/min/1.73 sqM) Glucose (74-99) mg/dL Calcium (8.4-10.2) mg/dL Total Bilirubin (0.2-1.3) mg/dL AST (14-36) U/L ALT (9-52) U/L Alkaline Phosphatase (38-126) U/L Total Creatine Kinase (30-135) U/L CK-MB (CK-2) (0.0-2.4) ng/mL CK-MB (CK-2) Rel Index Troponin I (0.000-0.034) ng/mL Total Protein (6.3-8.2) g/dL Albumin (3.5-5.0) g/dL Blood Type B Positive Blood Type Confirm B Positive Blood Type Recheck CABO Indicated Antibody Screen NEGATIVE Spec Expiration Date 08/07/2018 - 2300 - EKG Data EKG Comments: EKG obtained at 2214, rate is 73, rhythm is sinus with first-degree AV block. Normal axis, WI interval is prolonged at 222. QRS is 86, QTC is 425. There is no acute ST elevations or depressions and no evidence of acute ischemia or infarction or arrhythmia. Disposition Clinical Impression: Closed head injury, Hematoma of scalp, Facial laceration, Syncope and collapse Disposition: HOME SELF-CARE Instructions: Concussion (ED) Is patient prescribed a controlled substance at d/c from ED?: No Referrals: Celio Pollard MD [Primary Care Provider] - 1-2 days
[2018-08-04 23:13] LABS: Basophils # (A) 0.1 k/uL (0-0.2); Basophils % (A) 1 %; Eosinophils # (A) 0.4 k/uL (0-0.7); Eosinophils % (A) 3 %; HCT 45.9 % (34.0-46.0); HGB 14.3 gm/dL (11.4-16.0); Lymphocytes # (A) 2.4 k/uL (1.0-4.8); Lymphocytes % (A) 16 %; MCH 28.2 pg (25.0-35.0); MCHC 31.1 g/dL (31.0-37.0); MCV 90.4 fL (80.0-100.0); Mean Platelet Volume 6.8; Monocytes # (A) 1.2 k/uL (0-1.0); Monocytes % (A) 8 %; Neutrophils # (A) 11.2 k/uL (1.3-7.7); Neutrophils % (A) 72 %; Platelet Count 369 k/uL (150-450); RBC 5.08 m/uL (3.80-5.40); RDW 13.9 % (11.5-15.5); WBC 15.5 k/uL (3.8-10.6)
--- NOTE | 2018-08-04 23:13 | CT ---
EXAMINATION TYPE: CT brain laura han DATE OF EXAM: 08/04/2018 COMPARISON: CT brain 06/10/2017 HISTORY: syncope, fall, laceration above left eye CT DLP: 2044.2 mGycm Automated exposure control for dose reduction was used. TECHNIQUE: CT scan of the head and cervical spine are performed without contrast. FINDINGS: There is apparent old left anterior temporal lobe infarct. There is cerebral atrophy. The re is no mass effect nor midline shift. There is no sign of intracranial hemorrhage. There is moderat e patchy hypodensity in the periventricular white matter. The calvarium is intact. There is focal muc osal thickening in the right ethmoid sinus. The cervical vertebra have normal alignment. There is degenerative disc space narrowing at C5-6 C6-7 with spurring of the endplates. Posterior elements are intact. Vertebra show no evidence of a fractur e. Skull base is intact. Facet joints appear intact. IMPRESSION: Old left temporal lobe infarct. Chronic small vessel ischemia. No acute intracranial abnormality. No change. Mild spondylotic change in the lower cervical spine. No fracture.
--- NOTE | 2018-08-04 23:15 | CT ---
EXAMINATION TYPE: CT facial bones wo con DATE OF EXAM: 08/04/2018 COMPARISON: None HISTORY: syncope, fall, laceration above left eye. CT DLP: 618.1 mGycm Automated exposure control for dose reduction was used. TECHNIQUE: CT scan of the sinuses is performed without contrast, axial images are obtained, coronal r eformatted images are also reviewed. FINDINGS: The orbital margins are intact. There is 1.5 cm mucous retention cyst in the right ethmoid sinus. There is no evidence of a blowout fracture. There is bilateral patency of the ostiomeatal comp mona. Maxilla is intact. There is no evidence of orbital mass. The mandibular ring is intact. Zygomati c arches appear normal. I see no bony destructive process. IMPRESSION: No evidence of traumatic injury in the facial bones. Small mucus retention cyst right eth moid sinus.
[2018-08-04 23:27] LABS: Albumin 4.3 g/dL (3.5-5.0); Calcium 10.2 mg/dL (8.4-10.2); Partial Thromboplastin Time 22.7 sec (22.0-30.0); Potassium 3.9 mmol/L (3.5-5.1); Prothrombin Time 9.6 sec (9.0-12.0); Total Bilirubin 0.3 mg/dL (0.2-1.3); Total Protein 7.7 g/dL (6.3-8.2)
[2018-08-04 23:32] LABS: Creatine Kinase 34 U/L (30-135)
[2018-08-04] MEDS ORDERED: LIDOCAINE 1% INJ 10MG/ML (20 ML MDV) SQ STA (23:39)
[2018-08-04 23:44] LABS: Creatine Kinase MB 0.6 ng/mL (0.0-2.4); Troponin I <0.012 ng/mL (0.000-0.034)
[2018-08-05 00:27] VITALS: BP 174/75; PULSE 73; RESP 16
== END 2018-08-05 00:28 | disposition home or self-care (01) ==
LOC: EC 21:01
DX: S01.81XA Laceration without foreign body of other part of head, initial encounter (principal); R55 Syncope and collapse; I25.10 Atherosclerotic heart disease of native coronary artery without angina pectoris; E78.5 Hyperlipidemia, unspecified; Z79.82 Long term (current) use of aspirin; Z79.899 Other long term (current) drug therapy; Z88.0 Allergy status to penicillin; Z91.040 Latex allergy status; Z91.048 Other nonmedicinal substance allergy status; Z88.8 Allergy status to other drugs, medicaments and biological substances; Z91.030 Bee allergy status; Z87.891 Personal history of nicotine dependence; Z95.5 Presence of coronary angioplasty implant and graft; W18.09XA Striking against other object with subsequent fall, initial encounter; Y92.009 Unspecified place in unspecified non-institutional (private) residence as the place of occurrence of the external cause
CPT/HCPCS: 36415; 93005; 86900; 86901; 80053; 82550; 82553; 84484; 85025; 85610; 85730; 86850; 72125; 70486; 70450; 99284; 12011; J2001

== ENCOUNTER → 2018-12-18 | Outpatient (CLI) | payer MEDICARE ==
--- NOTE | 2018-12-19 10:45 | MM ---
Reason for exam: screening (asymptomatic). Last mammogram was performed 1 year and 1 month ago. History: Patient is postmenopausal. Benign excisional biopsy of the right breast, November 19, 1998. Took hormonal contraceptives for 3 years beginning at age 20. Physical Findings: A clinical breast exam by your physician is recommended on an annual basis and results should be correlated with mammographic findings. MG 3D Screening Mammo W/Cad Bilateral CC and MLO view(s) were taken. Prior study comparison: November 17, 2017, bilateral MG 3d screening mammo w/cad. October 06, 2016, bilateral MG 3d screening mammo w/cad. The breast tissue is heterogeneously dense. This may lower the sensitivity of mammography. Finding: There are typically benign vascular, round calcifications in both breasts. There is a chronic nodularity in the right lower inner quadrant and left anteriorly. There is no discrete abnormality. ASSESSMENT: Incomplete: need additional imaging evaluation, BI-RAD 0 RECOMMENDATION: Ultrasound of the right breast. (lump, palpable and dense tissue) [facility] will attempt to contact patient to return for ultrasound.
== END | disposition home or self-care (01) ==
LOC: RADMAMWWP 09:23
PROVIDERS: ATTEND Internal Medicine Geriatric Medicine
DX: Z12.31 Encounter for screening mammogram for malignant neoplasm of breast (principal)
CPT/HCPCS: 77063; 77067

== ENCOUNTER → 2018-12-28 | Outpatient (CLI) | payer MEDICARE ==
--- NOTE | 2018-12-28 14:23 | USB ---
Reason for exam: additional evaluation requested from abnormal screening. History: Patient is postmenopausal. Benign excisional biopsy of the right breast, November 19, 1998. Took hormonal contraceptives for 3 years beginning at age 20. Physical Findings: Nurse Summary: all soft, nodular, movable (nurse ts). US Breast Workup Limited RT Right limited breast ultrasound including focal area of concern, retroareolar and axilla demonstrates no cystic or solid lesion seen. Scanned 9-12 o'clock. Palpable at 12 o'clock. These results were verbally communicated with the patient and result sheet given to the patient on 12/28/18. ASSESSMENT: Negative, BI-RAD 1 RECOMMENDATION: Return to routine screening mammogram schedule for both breasts. Manage on a clinical basis with regard to any suspicious palpable abnormality.
== END | disposition home or self-care (01) ==
LOC: RADUSWWP 13:00
PROVIDERS: ATTEND Internal Medicine Geriatric Medicine
DX: R92.8 Other abnormal and inconclusive findings on diagnostic imaging of breast (principal)

== ENCOUNTER → 2019-07-23 | Outpatient (CLI) | payer MEDICARE ==
--- NOTE | 2019-07-24 07:20 | ECHOF ---
Referral Reason:R06.00 Dyspnea, unspecified MEASUREMENTS -------- HEIGHT: 167.6 cm WEIGHT: 77.1 kg BP: 150/78 RVIDd: 2.8 cm (< 3.3) IVSd: 1.4 cm (0.6 - 1.1) LVIDd: 3.7 cm (3.9 - 5.3) LVPWd: 1.2 cm (0.6 - 1.1) IVSs: 1.7 cm LVIDs: 2.4 cm LVPWs: 1.4 cm LA Diam: 2.7 cm (2.7 - 3.8) Ao Diam: 3.0 cm (2.0 - 3.7) AV Cusp: 2.1 cm (1.5 - 2.6) MV EXCURSION: 16.638 mm (> 18.000) MV EF SLOPE: 33 mm/s (70 - 150) EPSS: 0.5 cm MV E Rodolfo: 0.55 m/s MV DecT: 289 ms MV A Rodolfo: 0.83 m/s MV E/A Ratio: 0.66 RAP: 5.00 mmHg RVSP: 24.90 mmHg FINDINGS -------- Sinus rhythm. This was a technically adequate study. The left ventricular size is normal. There is moderate concentric left ventricular hypertrophy. O verall left ventricular systolic function is normal with, an EF between 55 - 60 %. The right ventricle is normal in size. The left atrial size is normal. The right atrial size is normal. Interatrial and interventricular septum intact. The aortic valve is trileaflet, and appears structurally normal. No aortic stenosis or regurgitation. The mitral valve is normal. No mitral regurgitation. The tricuspid valve appears structurally normal. Mild tricuspid regurgitation present. Right vent ricular systolic pressure is normal at < 35 mmHg. Trace/mild (physiologic) pulmonic regurgitation. The aortic root size is normal. Normal inferior vena cava with normal inspiratory collapse consistent with estimated right atrial pre ssure of 5 mmHg. There is no pericardial effusion. CONCLUSIONS -------- 1. Sinus rhythm. 2. This was a technically adequate study. 3. The left ventricular size is normal. 4. There is moderate concentric left ventricular hypertrophy. 5. Overall left ventricular systolic function is normal with, an EF between 55 - 60 %. 6. The left atrial size is normal. 7. The aortic valve is trileaflet, and appears structurally normal. No aortic stenosis or regurgitati on. 8. The mitral valve is normal. 9. Mild tricuspid regurgitation present. 10. Right ventricular systolic pressure is normal at < 35 mmHg. 11. Trace/mild (physiologic) pulmonic regurgitation. 12. The aortic root size is normal. 13. Normal inferior vena cava with normal inspiratory collapse consistent with estimated right atrial pressure of 5 mmHg. 14. There is no pericardial effusion. FILTER CHANGING TECHNICIAN: Denise Del Real RDCS
== END | disposition home or self-care (01) ==
LOC: RADECHMAIN 15:54
PROVIDERS: ATTEND Internal Medicine
DX: I07.1 Rheumatic tricuspid insufficiency (principal); I37.1 Nonrheumatic pulmonary valve insufficiency; R06.00 Dyspnea, unspecified; Z91.030 Bee allergy status; Z88.8 Allergy status to other drugs, medicaments and biological substances; Z88.1 Allergy status to other antibiotic agents; Z88.0 Allergy status to penicillin
CPT/HCPCS: 93306

== ENCOUNTER 2020-04-29 12:13 | Day surgery (SDC) | payer MEDICARE ==
[2020-04-28 13:38] VITALS: BMI 28.0
[2020-04-29] MEDS: SODIUM CHLORIDE 0.9% 1,000 ML IV SCH (13:00)
[2020-04-29 13:21] LABS: Basophils # (A) 0.1 k/uL (0-0.2); Basophils % (A) 1 %; Eosinophils # (A) 0.3 k/uL (0-0.7); Eosinophils % (A) 3 %; HGB 14.2 gm/dL (11.4-16.0); Lymphocytes % (A) 19 %; MCH 28.4 pg (25.0-35.0); MCHC 31.6 g/dL (31.0-37.0); MCV 90.1 fL (80.0-100.0); Mean Platelet Volume 7.1; Monocytes # (A) 0.7 k/uL (0-1.0); Monocytes % (A) 7 %; Neutrophils # (A) 7.3 k/uL (1.3-7.7); Neutrophils % (A) 69 %; Platelet Count 484 k/uL (150-450); WBC 10.5 k/uL (3.8-10.6)
[2020-04-29 13:33] LABS: Calcium 9.8 mg/dL (8.4-10.2); Potassium 4.5 mmol/L (3.5-5.1)
[2020-04-29] MEDS ORDERED: CLINDAMYCIN 900 MG in DEXTROSE 5% IN WATER 50 ML IVPB ONE ×2 (14:00)
[2020-04-29] MEDS ORDERED: HYDROmorphone (PF) 1 MG/ML ONE (14:51)
[2020-04-29] MEDS ORDERED: hydrALAZINE HCL 20 MG/ML 1 ML VIAL ONE (14:51)
[2020-04-29] MEDS ORDERED: fentaNYL (PF) 50 MCG/ML 2 ML AMP ONE (14:51)
[2020-04-29] MEDS ORDERED: PROPOFOL 10 MG/ML 20 ML VIAL IV ONE (14:51)
[2020-04-29] MEDS ORDERED: ISOPROTERENOL 250 MCG/1.25 ML SYR IV ONE (14:51)
[2020-04-29] MEDS ORDERED: MIDAZOLAM 2 MG/2 ML VIAL ONE (14:51)
[2020-04-29] MEDS ORDERED: LIDOCAINE 1% INJ 10MG/ML (20 ML MDV) SQ ONE ×3 (15:14→17:51)
[2020-04-29] MEDS ORDERED: PROCAINAMIDE 100 MG/ML 10 ML VIAL IV ONE (17:19)
[2020-04-29] MEDS ORDERED: LIDOCAINE 1% INJ 10MG/ML (20 ML MDV) ONE (17:40)
[2020-04-29] MEDS ORDERED: LACTATED RINGERS 1,000 ML IV ONE (17:44)
--- NOTE | 2020-04-29 17:44 | P.PRLE ---
RE: Brittanie Lim Ambrosio Dear Imad Brittanie has a history of recurrent syncope and one particular type is particularly worrisome. She has had at least 3 episodes over the last 2 years these episodes are not associated with a prodrome. She has 2 types of syncope The more frequent 1 she describes as a hot episode and she passes out very briefly The other one she describes as a violent episode where she completely loses consciousness without a prodrome She underwent a diagnostic EP study with both Isuprel stimulation as well as with procainamide infusion Sinus node function is normal AV node function is normal Her baseline MN interval is mildly prolonged and so is her baseline AH interval There was no inducible sustained SVT or VT which could explain her syncope. Procainamide stress test for the His bundle was performed and the longest HV interval was 65 ms Therefore at this time a loop monitor was implanted It is quite likely that bradycardia will be noted during her episodes of syncope associated with the prodrome of feeling hot and flushed, typical for neurocardiogenic syncope However I'm interested in the ECG rhythm when she has her episodes which she describes as violent and without a prodrome So far she has had 3 such unheralded episodes I will keep you posted on her progress Thank you for entrusting me with the care of the patient Warm regards Sincerely Hugo Vences
--- NOTE | 2020-04-29 18:07 | P.PCN ---
Preoperative Diagnosis: Loop monitor implant Primary physicians: Dr. Pollard Multimedia Engineer: Dr. Muniz and Dr. Vences Indication: Recurrent syncope of 2 different types. Loop monitor implanted to diagnose any rhythm abnormalities associated with her'violent syncopal spells' She describes the first which is frequent, associated with warmth and flushing and she calls it the 'HOT" episodes. 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 She has had 3 such episodes We're looking for the rhythm during this particular syncopal spell "THE VIOLENT SPELLS ASSOCIATED WITH TRAUMA" Patient was brought to the EP lab in a fasting state. Written informed consent was obtained prior to the procedure. The left pectoral area was prepped and draped per protocol. Intravenous antibiotic was administered preoperatively. A subcutaneous Loop monitor was implanted successfully and the wound was closed per protocol. The device was programmed to detect significant sheela- arrhythmic and tachy-arrhythmic events, per protocol. Device and programming details: Syncope protocol Anesthesia was in attendance as this was performed after her diagnostic EP study No inducible arrhythmias noted HV interval was stressed with procainamide. Longest HV interval was 65 ms after 1 g of procainamide
[2020-04-29] MEDS ORDERED: ACETAMINOPHEN TAB 325 MG TAB PO PRN (18:17)
--- NOTE | 2020-04-29 18:21 | P.DS ---
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 very different from the above Diagnostic EP study was performed to evaluate for this type of a syncopal spells Procainamide challenge was also performed Longest HV interval was 65 ms Baseline HV interval was 52 ms No sustained inducible arrhythmias noted on her off Isuprel that could explain her syncopal spells A loop monitor was therefore implanted to diagnose any tachycardia or bradycardia arrhythmias during her malignant syncopal spells which she describes as the "violent episodes" Plan - Discharge Summary Discharge Rx Participant: No New Discharge Prescriptions: Continue Albuterol Sulfate [Proventil Hfa] 1 - 2 puff INHALATION RT-Q6H PRN PRN Reason: Shortness Of Breath Levothyroxine Sodium [Synthroid] 75 mcg PO QAM Diphenox-Atrop 2.5-0.025 mg [Lomotil] 1 tab PO DAILY PRN PRN Reason: Diarrhea Zolpidem Tartrate 10 mg PO HS Pravastatin Sodium [Pravachol] 40 mg PO HS Ergocalciferol [Vitamin D2 (DRISDOL)] 50,000 unit PO Q14D Olopatadine HCl [Pataday] 1 drop BOTH EYES DAILY Discharge Medication List Albuterol Sulfate [Proventil Hfa] 1 - 2 puff INHALATION RT-Q6H PRN 06/18/14 [History] Levothyroxine Sodium [Synthroid] 75 mcg PO QAM 06/18/14 [History] Diphenox-Atrop 2.5-0.025 mg [Lomotil] 1 tab PO DAILY PRN 10/07/17 [History] Zolpidem Tartrate 10 mg PO HS 01/25/18 [History] Pravastatin Sodium [Pravachol] 40 mg PO HS 06/09/18 [History] Ergocalciferol [Vitamin D2 (DRISDOL)] 50,000 unit PO Q14D 04/28/20 [History] Olopatadine HCl [Pataday] 1 drop BOTH EYES DAILY 04/28/20 [History] Follow up Appointment(s)/Referral(s): Kash Muniz MD [STAFF PHYSICIAN] - 1 Week (Device clinic follow-up in 5-[address] Muniz within one month) Activity/Diet/Wound Care/Special Instructions: Post EP study - Ablation instructions 1. Keep access sites dry for 2 days. 2. No heavy lifting or straining for 2 days. 3. Avoid bending the hips repeatedly for 2 days. 4. You may go up and down stairs slowly Call if the following is noted 1. Bleeding, increasing swelling or pain at the access sites. 2. Increasing chest discomfort, especially upon taking a deep breath. 3. Increasing shortness of breath, at rest or with exertion. 4. Undue cough / phlegm 5. Difficulty or pain while swallowing. 6. Pain or change in color in the extremities. 7. Fever, chills, rigors. 8. Increasing headache or neurologic symptoms. 9. Dizziness, fainting, palpitations Discharge Disposition: HOME SELF-CARE
[2020-04-29] MEDS ORDERED: ACETAMINOPHEN IV (For NPO) 1,000 MG in EMPTY BAG 1 BAG IVPB ONE (19:00)
[2020-04-29] MEDS: LACTATED RINGERS 1,000 ML IV SCH (19:56)
[2020-04-30] MEDS ORDERED: ONDANSETRON 4 MG/2 ML VIAL IVP STA (00:12)
[2020-04-30] MEDS: SODIUM CHLORIDE 0.9% 1,000 ML IV SCH (05:12)
[2020-04-30] MEDS: LACTATED RINGERS 1,000 ML IV SCH (05:12)
--- NOTE | 2020-04-30 06:01 | CE ---
CARDIAC ELECTROPHYSIOLOGY REPORT Brittanie Lim is a 75-year-old female with recurrent syncope of 2 different types. The first type is consistent with neurocardiogenic syncope and associated with a prodrome with feeling hot, flushed. She calls this the frequent heart episodes associated with brief loss of consciousness. However, she has a more malignant variety, which is not associated with any prodrome. The diagnostic EP study was performed to see if there was any inducible tachy or sheela arrhythmias that could explain this type of her syncope. Patient was brought to the EP lab in a fasting state. Written informed consent was obtained prior to the procedure. The right groin was prepped and draped as per protocol. Venous sheaths were placed in the right femoral vein. Via this, diagnostic catheters were placed in the coronary sinus, high right atrium, His bundle area, right ventricle. A complete diagnostic EP study was performed. Baseline measurements were as follows: Sinus cycle length 802 milliseconds, AR interval 206 milliseconds, QRS 112 milliseconds, QT 401 milliseconds. AH interval 100 milliseconds, HV interval 52 milliseconds. AV node Wenckebach block from the coronary sinus 340 milliseconds. Atrial ERP from the coronary sinus 600\270 milliseconds. No SVT induced burst stimulation of the coronary sinus from 400 milliseconds down to 200 milliseconds. No SVT induced ERP in the coronary sinus 400\220 milliseconds. Pacing maneuvers were performed from the high right atrium. Straight pacing was performed. Extra stimulation was performed. No arrhythmias induced. Ventricular extra stimulation was performed up to double extrastimuli at two different drive trains from the right ventricle. No arrhythmias were induced. Isuprel was then started wide open and then at 2 mcg. Later, ventricular stimulation was performed during the washout phase. AV node Wenckebach block 240 milliseconds. AV node ERP 400\200 milliseconds. Burst stimulation from the right ventricle from 400 milliseconds down to 200 milliseconds performed. No arrhythmias induced. Ventricular extra stimulation was performed at two different drive trains up to double extra stimuli. No arrhythmias induced. Burst stimulation was once again performed. Burst stimulation was performed from the right ventricle. No arrhythmias induced during the washout phase. There was one episode of nonsustained PMVT lasting for a few seconds, but no sustained arrhythmias. There was one nonsustained episode of nonsustained atrial tachycardia also. Isuprel was stopped. Procainamide infusion was started. The baseline HV interval was 52 milliseconds. A full gram of procainamide was infused over 30 minutes and the longest HV interval at the end of 35 minutes was 65 milliseconds. No other abnormalities were noted. All catheters were then removed and preparation was made for implantation of a loop monitor. IMPRESSION: 1. Normal sinus node function. 2. Mildly abnormal AR interval with normal AH interval and normal HV interval at baseline. 3. Provokable prolongation of the HV interval only up to 65 milliseconds with a full gram of procainamide. 4. Nonsustained atrial tachycardia and one episode of nonsustained ventricular tachycardia. Both were nonreproducible findings. 5. Mechanical right bundle branch block induced with catheter placement in the His bundle area. PLAN: Proceed with loop monitor implantation to diagnose her malignant episodes that occur without any warning associated with trauma. Her second more frequent episodes are associated with brief syncope preceded by a typical prodrome of neurocardiogenic syncope. Her tilt table test in the past has shown dysautonomia. MMODL / IJN: [id number] /
[2020-04-30 07:39] VITALS: BP 143/66; PULSE 69; RESP 18; TEMP 98.1
== END 2020-04-30 11:58 | disposition home or self-care (01) ==
LOC: CATHEP 12:13 → 1SOBS 17:58 → CATHEP 04-30 11:58
PROVIDERS: ATTEND Internal Medicine Clinical Cardiac Electrophysiology
DX: R55 Syncope and collapse (principal); I10 Essential (primary) hypertension; I25.10 Atherosclerotic heart disease of native coronary artery without angina pectoris; E07.9 Disorder of thyroid, unspecified; G90.1 Familial dysautonomia [Riley-Day]; E78.5 Hyperlipidemia, unspecified; Z79.890 Hormone replacement therapy; Z79.82 Long term (current) use of aspirin; Z79.899 Other long term (current) drug therapy; Z88.0 Allergy status to penicillin; Z88.8 Allergy status to other drugs, medicaments and biological substances; Z72.0 Tobacco use
CPT/HCPCS: 93005; 93623; 93620; 33285; 80048; 85025; C1894; C1769 ×2; C1730; C1764; C1893; J2690; J2001

== ENCOUNTER 2020-06-26 11:17 | Observation (INO) | payer MEDICARE ==
[2020-06-26] MEDS ORDERED: SODIUM CHLORIDE 0.9% 500 ML 500 ML IV ONE (11:33)
--- NOTE | 2020-06-26 11:59 | ED ---
General Adult HPI - General Chief complaint: Altered Mental Status Stated complaint: confusion Time Seen by Provider: 06/26/20 11:20 Source: patient, EMS, RN notes reviewed, old records reviewed Mode of arrival: EMS Limitations: no limitations - History of Present Illness Initial comments: This is a 75-year-old female presents emergency department by EMS because family called them and told them that she had altered mental status. Patient fell out of bed on Tuesday night and hit her head but the states after that she seemed to be fine. Last night at midnight she woke up and was talking to people in the room that weren't there and becoming hostile to the telling the she would hit him with a hammer area this morning she called her brother and was talking to him about things that were not actually happening. So she's been significantly altered off and on since midnight. Currently she seems alert and oriented 3 family does agree. She does not remember any of the events of last night as the family has described. Patient herself has no complaints and does not think she needs to be here but she does agree if her family says this she believes. Patient has no history of any headache she denies fever chills she denies any new neck pain. Patient denies chest pain difficulty breathing shortness of breath per patient denies abdominal pain patient has not vomiting diarrhea. - Related Data Home Medications Medication Instructions Recorded Confirmed Albuterol Sulfate [Proventil Hfa] 1 - 2 puff INHALATION RT-Q6H PRN 06/18/14 06/26/20 Levothyroxine Sodium [Synthroid] 75 mcg PO QAM 06/18/14 06/26/20 Diphenox-Atrop 2.5-0.025 mg 1 tab PO BID PRN 10/07/17 06/26/20 [Lomotil] Pravastatin Sodium [Pravachol] 40 mg PO HS 06/09/18 06/26/20 Ergocalciferol [Vitamin D2 50,000 unit PO Q14D 04/28/20 06/26/20 (DRISDOL)] Olopatadine HCl [Pataday] 1 drop BOTH EYES DAILY 04/28/20 06/26/20 Temazepam [Restoril] 7.5 mg PO HS PRN 06/26/20 06/26/20 Allergies Allergy/AdvReac Type Severity Reaction Status Date / Time adhesive Allergy Rash/Hives Verified 06/26/20 12:36 bee pollen Allergy Anaphylaxis Verified 06/26/20 12:36 latex Allergy Rash/Hives Verified 06/26/20 12:36 Penicillins Allergy Anaphylaxis Verified 06/26/20 12:36 prednisone AdvReac Nausea & Verified 06/26/20 12:36 Vomiting Review of Systems ROS Statement: Those systems with pertinent positive or pertinent negative responses have been documented in the HPI. ROS Other: All systems not noted in ROS Statement are negative. 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 History of Any Multi-Drug Resistant Organisms: None Reported Past Surgical History: Appendectomy, Cholecystectomy, Heart Catheterization, Hernia Repair, Hysterectomy Additional Past Surgical History / Comment(s): Right partial upper lobe of lung removed with repair of esophageal tear Past Anesthesia/Blood Transfusion Reactions: No Reported Reaction Additional Past Anesthesia/Blood Transfusion Reaction / Comment(s): no hx blood transfusion Past Psychological History: No Psychological Hx Reported Past Alcohol Use History: None Reported Past Drug Use History: None Reported - Past Family History Mother Family Medical History: No Reported History Father Family Medical History: Cancer Additional Family Medical History / Comment(s): Lung General Exam - General Exam Comments Initial Comments: GENERAL: Patient is well-developed and well-nourished. Patient is nontoxic and well- hydrated and is in no acute distress. ENT: Neck is soft and supple. No significant lymphadenopathy is noted. Oropharynx is clear. Moist mucous membranes. Neck has full range of motion without eliciting any pain. EYES: The sclera were anicteric and conjunctiva were pink and moist. Extraocular movements were intact and pupils were equal round and reactive to light. Eyelids were unremarkable. PULMONARY: Unlabored respirations. Good breath sounds bilaterally. No audible rales rhonchi or wheezing was noted. CARDIOVASCULAR: There is a regular rate and rhythm without any murmurs gallops or rubs. ABDOMEN: Soft and nontender with normal bowel sounds. No palpable organomegaly was noted. There is no palpable pulsatile mass. SKIN: Skin is clear with no lesions or rashes and otherwise unremarkable. NEUROLOGIC: Patient is alert and oriented x3. Cranial nerves II through XII are grossly intact. Motor and sensory are also intact. Normal speech, volume and content. Symmetrical smile. MUSCULOSKELETAL: Normal extremities with adequate strength and full range of motion. No lower extremity swelling or edema. No calf tenderness. LYMPHATICS: No significant lymphadenopathy is noted PSYCHIATRIC: Normal psychiatric evaluation. Limitations: no limitations Course Vital Signs 06/26/20 11:18 Temperature 98.8 F Pulse Rate 77 Respiratory 16 Rate Blood Pressure 153/78 O2 Sat by Pulse 96 Oximetry Medical Decision Making - Medical Decision Making EKG shows normal sinus rhythm at 76 bpm ND interval is 206 QRS is 86 QT interval 392 QTC is 441. Patient's EKG shows no ST segment elevation or depression or T wave abnormalities are noted. CT of the brain shows no acute abnormality. Patient does seem improved but she does continue to have some altered mental status. I spoke with Dr. Pollard he agreed to admit the patient admitted the patient wrote admitting orders. - Lab Data Result diagrams: 06/26/20 11:43 06/26/20 11:43 Lab Results 06/26/20 06/26/20 06/26/20 Range/Units 11:43 11:43 11:43 WBC 11.0 H (3.8-10.6) k/uL RBC 4.44 (3.80-5.40) m/uL Hgb 12.5 (11.4-16.0) gm/dL Hct 39.6 (34.0-46.0) % MCV 89.0 (80.0-100.0) fL MCH 28.2 (25.0-35.0) pg MCHC 31.7 (31.0-37.0) g/dL RDW 13.7 (11.5-15.5) % Plt Count 413 (150-450) k/uL Neutrophils % 70 % Lymphocytes % 17 % Monocytes % 6 % Eosinophils % 4 % Basophils % 1 % Neutrophils # 7.7 (1.3-7.7) k/uL Lymphocytes # 1.9 (1.0-4.8) k/uL Monocytes # 0.7 (0-1.0) k/uL Eosinophils # 0.4 (0-0.7) k/uL Basophils # 0.1 (0-0.2) k/uL PT 9.6 (9.0-12.0) sec INR 0.9 (<1.2) APTT 24.7 (22.0-30.0) sec Sodium 139 (137-145) mmol/L Potassium 4.6 (3.5-5.1) mmol/L Chloride 107 (98-107) mmol/L Carbon Dioxide 25 (22-30) mmol/L Anion Gap 7 mmol/L BUN 17 (7-17) mg/dL Creatinine 0.89 (0.52-1.04) mg/dL Est GFR (CKD-EPI)AfAm 73 (>60 ml/min/1.73 sqM) Est GFR (CKD-EPI)NonAf 63 (>60 ml/min/1.73 sqM) Glucose 111 H (74-99) mg/dL Calcium 9.3 (8.4-10.2) mg/dL Total Bilirubin 0.4 (0.2-1.3) mg/dL AST 29 (14-36) U/L ALT 20 (4-34) U/L Alkaline Phosphatase 76 (38-126) U/L Troponin I (0.000-0.034) ng/mL Total Protein 6.8 (6.3-8.2) g/dL Albumin 3.9 (3.5-5.0) g/dL Urine Color Urine Appearance (Clear) Urine pH (5.0-8.0) Ur Specific [place] (1.001-1.035) Urine Protein (Negative) Urine Glucose (UA) (Negative) Urine Ketones (Negative) Urine Blood (Negative) Urine Nitrite (Negative) Urine Bilirubin (Negative) Urine Urobilinogen (<2.0) mg/dL Ur Leukocyte Esterase (Negative) Urine Opiates Screen (NotDetected) Ur Oxycodone Screen (NotDetected) Urine Methadone Screen (NotDetected) Ur Propoxyphene Screen (NotDetected) Ur Barbiturates Screen (NotDetected) U Tricyclic Antidepress (NotDetected) Ur Phencyclidine Scrn (NotDetected) Ur Amphetamines Screen (NotDetected) U Methamphetamines Scrn (NotDetected) U Benzodiazepines Scrn (NotDetected) Urine Cocaine Screen (NotDetected) U Marijuana (THC) Screen (NotDetected) Serum Alcohol <10 mg/dL 06/26/20 06/26/20 Range/Units 11:43 12:09 WBC (3.8-10.6) k/uL RBC (3.80-5.40) m/uL Hgb (11.4-16.0) gm/dL Hct (34.0-46.0) % MCV (80.0-100.0) fL MCH (25.0-35.0) pg MCHC (31.0-37.0) g/dL RDW (11.5-15.5) % Plt Count (150-450) k/uL Neutrophils % % Lymphocytes % % Monocytes % % Eosinophils % % Basophils % % Neutrophils # (1.3-7.7) k/uL Lymphocytes # (1.0-4.8) k/uL Monocytes # (0-1.0) k/uL Eosinophils # (0-0.7) k/uL Basophils # (0-0.2) k/uL PT (9.0-12.0) sec INR (<1.2) APTT (22.0-30.0) sec Sodium (137-145) mmol/L Potassium (3.5-5.1) mmol/L Chloride (98-107) mmol/L Carbon Dioxide (22-30) mmol/L Anion Gap mmol/L BUN (7-17) mg/dL Creatinine (0.52-1.04) mg/dL Est GFR (CKD-EPI)AfAm (>60 ml/min/1.73 sqM) Est GFR (CKD-EPI)NonAf (>60 ml/min/1.73 sqM) Glucose (74-99) mg/dL Calcium (8.4-10.2) mg/dL Total Bilirubin (0.2-1.3) mg/dL AST (14-36) U/L ALT (4-34) U/L Alkaline Phosphatase (38-126) U/L Troponin I <0.012 (0.000-0.034) ng/mL Total Protein (6.3-8.2) g/dL Albumin (3.5-5.0) g/dL Urine Color Light Yellow Urine Appearance Clear (Clear) Urine pH 5.5 (5.0-8.0) Ur Specific [place] 1.007 (1.001-1.035) Urine Protein Negative (Negative) Urine Glucose (UA) Negative (Negative) Urine Ketones Negative (Negative) Urine Blood Negative (Negative) Urine Nitrite Negative (Negative) Urine Bilirubin Negative (Negative) Urine Urobilinogen <2.0 (<2.0) mg/dL Ur Leukocyte Esterase Negative (Negative) Urine Opiates Screen Detected H (NotDetected) Ur Oxycodone Screen Not Detected (NotDetected) Urine Methadone Screen Not Detected (NotDetected) Ur Propoxyphene Screen Not Detected (NotDetected) Ur Barbiturates Screen Not Detected (NotDetected) U Tricyclic Antidepress Detected H (NotDetected) Ur Phencyclidine Scrn Not Detected (NotDetected) Ur Amphetamines Screen Not Detected (NotDetected) U Methamphetamines Scrn Not Detected (NotDetected) U Benzodiazepines Scrn Detected H (NotDetected) Urine Cocaine Screen Not Detected (NotDetected) U Marijuana (THC) Screen Not Detected (NotDetected) Serum Alcohol mg/dL Disposition Clinical Impression: Altered mental status Disposition: ADMITTED IP TO THIS HOSP Referrals: Celio Pollard MD [Primary Care Provider] - 1-2 days Time of Disposition: 13:42
[2020-06-26 12:14] LABS: INR 0.9 (<1.2); Partial Thromboplastin Time 24.7 sec (22.0-30.0); Prothrombin Time 9.6 sec (9.0-12.0)
--- NOTE | 2020-06-26 12:19 | CT ---
EXAMINATION TYPE: CT brain cspine wo con DATE OF EXAM: 06/26/2020 COMPARISON: 08/04/[address] chest 04/09/2016 HISTORY: 75-year-old female with pain, Confusion, falls. CT DLP: 1420.1 mGycm Automated exposure control for dose reduction was used. Technique: Examination of the head was done in axial plane without intravenous contrast. Coronal and sagittal reconstructions performed. CT of the cervical spine was obtained in axial plane without intravenous injection of contrast mater ial. Coronal and sagittal reformatted images were obtained from the axial views for evaluation of f ractures, spinal alignment and canal. FINDINGS: Head: There is no evidence of acute intracranial hemorrhage, acute ischemic changes, mass, mass-effect, or extra-axial fluid collection. There is no effacement of cerebral sulci or basal subarachnoid cister ns. There is [id number] ventriculomegaly with evidence of ratio calculated at 0.36 as compared to 0 .34, previously. There is no midline shift. Reilly-white matter distinction is preserved. Probable area of encephalomalacia anterior left temporal lobe. Moderate confluent white matter hypode nsities in posterior left hemisphere is redemonstrated. Mild mucosal thickening posterior right ethmoid air cells. Mastoid air cells are pneumatized. Orbits and globes appear intact. Cervical spine: Surgical change in pleural parenchymal scarring along the medial right upper lobe appears similar to 2016. No craniocervical junction abnormality, predental space widening, or prevertebral soft tissue s welling. The patient's head is turned slightly toward the left. Moderate disc/endplate degenerative change C5-C7 levels. Scattered facet and uncovertebral joint arthropathy also noted especially mid to lower cervical spine . No acute fracture of the cervical spine. Alignment is maintained. Mild multilevel neuroforaminal narr owing. More moderate on the left at C6-C7. The alignment of the cervical spine is normal on coronal and reformatted images. There is no cranial vertebral abnormality. Fracture of the cervical spine is not seen. . There is no evidence of focal d isk herniation. There is no central spinal canal stenosis. Sagittal and coronal reformatted images confirm above findings. COMBINED IMPRESSION: 1. Mild to moderate ventriculomegaly minimally increased from 2018 with Roni's ratio calculated at 0. 36. Findings probably secondary to central cerebral atrophy. Correlate to exclude a component of NPH. 2. Moderate confluent burden of chronic small vessel ischemic disease. 3. Stable anterior left temporal lobe encephalomalacia suggesting sequela of prior vascular or trauma tic insult. No acute intracranial abnormality seen. 4. No acute fracture or malalignment of the cervical spine. Moderate spondylotic change C5-C7 levels.
[2020-06-26 12:21] LABS: Basophils # (A) 0.1 k/uL (0-0.2); Basophils % (A) 1 %; Eosinophils # (A) 0.4 k/uL (0-0.7); Eosinophils % (A) 4 %; HCT 39.6 % (34.0-46.0); HGB 12.5 gm/dL (11.4-16.0); Lymphocytes # (A) 1.9 k/uL (1.0-4.8); Lymphocytes % (A) 17 %; MCH 28.2 pg (25.0-35.0); MCHC 31.7 g/dL (31.0-37.0); Mean Platelet Volume 7.5; Monocytes # (A) 0.7 k/uL (0-1.0); Monocytes % (A) 6 %; Neutrophils # (A) 7.7 k/uL (1.3-7.7); Neutrophils % (A) 70 %; Platelet Count 413 k/uL (150-450); RBC 4.44 m/uL (3.80-5.40); RDW 13.7 % (11.5-15.5)
[2020-06-26 12:23] LABS: Appearance,Urine Clear (Clear); Bilirubin,Urine Negative (Negative); Blood,Urine Negative (Negative); Color,Urine Light Yellow; Glucose,Urine (UA) Negative (Negative); Ketones,Urine Negative (Negative); Leukocyte Esterase,Urine Negative (Negative); Nitrite,Urine Negative (Negative); PH, Urine 5.5 (5.0-8.0); Protein,Urine Negative (Negative); Specific Gravity,Urine 1.007 (1.001-1.035); Urobilinogen,Urine <2.0 mg/dL (<2.0)
[2020-06-26 12:23] LABS: ALT 20 U/L (4-34); AST 29 U/L (14-36); African American GFR (CKD) 73 (>60 ml/min/1.73 sqM); Albumin 3.9 g/dL (3.5-5.0); Alcohol <10 mg/dL; Alkaline Phosphatase 76 U/L (38-126); Anion Gap 7 mmol/L; Blood Urea Nitrogen 17 mg/dL (7-17); Calcium 9.3 mg/dL (8.4-10.2); Carbon Dioxide 25 mmol/L (22-30); Chloride 107 mmol/L (98-107); Glucose 111 mg/dL (74-99); Non-African American GFR(CKD) 63 (>60 ml/min/1.73 sqM); Potassium 4.6 mmol/L (3.5-5.1); Sodium 139 mmol/L (137-145); Total Bilirubin 0.4 mg/dL (0.2-1.3); Total Protein 6.8 g/dL (6.3-8.2)
--- NOTE | 2020-06-26 12:26 | XR ---
EXAMINATION TYPE: XR chest 2V DATE OF EXAM: 06/26/2020 COMPARISON: 01/25/2018 HISTORY: 75-year-old female confusion, altered mental status TECHNIQUE: AP and lateral views FINDINGS: Low lung volumes. Strandy atelectasis at the left base. Loop recorder device projecting over the hear t. Calcified right hilar lymph nodes. Heart is upper limits of normal in size. No consolidation or pl eural effusion seen. IMPRESSION: Limitations due to hypoventilatory changes. Strandy left basilar atelectasis. Prior granulomatous dis ease with calcified mediastinal lymph nodes. No definite acute process.
[2020-06-26 12:35] LABS: Amphetamine Screen,Urine Not Detected (NotDetected); Benzodiazepines Screen,Urine Detected (NotDetected); Cocaine Screen,Urine Not Detected (NotDetected); Opiate Screen,Urine Detected (NotDetected); Phencyclidine Screen,Urine Not Detected (NotDetected); Urn Cannabinoid Scrn Not Detected (NotDetected)
[2020-06-26 12:36] LABS: Barbiturate Screen,Urine Not Detected (NotDetected); Methadone Screen, Urine Not Detected (NotDetected); Oxycodone Screen, Urine Not Detected (NotDetected); Tricyclic Antidepressant,Urine Detected (NotDetected)
[2020-06-26] MEDS ORDERED: SODIUM CHLORIDE 0.9% 1,000 ML IV ONE (13:42)
[2020-06-26] MEDS ORDERED: ALBUTEROL NEBULIZED 2.5 MG/3 ML INHALATION PRN (16:00)
[2020-06-26] MEDS ORDERED: PRAVASTATIN SODIUM 20 MG TAB PO SCH (21:00)
--- NOTE | 2020-06-26 22:25 | P.HPIM ---
History of Present Illness H&P Date: 06/26/20 Chief Complaint: Altered mental status, bizarre behavioral, diffusion and co nfusion 75-year-old female one of my office patient is known to have multiple medical problem known to have history of multiple syncope, history of CAD, hypertension hyperlipidemia hypothyroidism who has arrhythmia as well and history of histoplasmosis 2007 was treated. Patient has been study by multiple subspecialists for the last 2 years for recurrent syncope had multiple study and testing included not limited to heart cath, tilt table study, multiple CT MRI, heart monitor, event monitor, loop recorder, seizure testing, referral to neurology as well. No major finding with all her testing was concluded. Apparently patient developed to have significant pain and discomfort in the middle of the night last night she remember taking 1 of her hydrocodone and Flexeril but developed to have worsening symptoms she had 2 syncopal episode had severe confusion and delusion Patient was in the office a week ago for UTI and was in yesterday for repeat UA came back negative but she mentioned to the nurse practitioner she had slight trauma did not was talking to people in the room were not there and become very annoyed by her she told him with have hit him with a hammer if she c ould, also talk to her brother about event did not exist at the time describing some event with her family. Family brought patient to the emergency department at [facility] for the above problem was complaining of no headache at the time but she mentioned close head trauma over 2 weeks ago with CAT scan of the brain failed to show any abnormality except? Off possible normal pressure hydrocephalus. Patient was started on hydration drug screen showed opiates with benzodiazepine. Patient is on temazepam and Lomotil for diarrhea can explain partially both finding also from which he mention about taking her mention any fall or head trauma at the time. Review of Systems CONSTITUTIONAL: Well-developed no acute respiratory distress. EYES: No icterus sclerae, no conjunctivitis. EARS, NOSE, MOUTH, THROAT, and FACE: No sore throat, lymphadenopathy, carotid bruits or deformity. RESPIRATORY: Mild shortness of breath no cough or wheezes. CARDIOVASCULAR: No chest pain positive PND or to and palpitation. Possible multiple syncopal episode. GASTROINTESTINAL: No Abd pain, Nausea or vomiting, no Diarrhea or constipation, No GI Bleed, no distention or masses. GENITOURINARY: Negative for Hematuria or UTI, no kidney stones. INTEGUMENT/BREAST: Negative for any muscular injury with mild osteoarthritis.. HEMATOLOGIC/LYMPHATIC: Negative for bleed or purpura. MUSCULOSKELTAL: Negative for Myalgia or arthralgia. NEURLOGICAL: Closed head trauma recently with? Of concussion multiple syncope today, no seizure, generalized weakness no focal deficit. BEHAVIORAL/PSYCH: Bizarre behavior with worsening confusion and effusion and hallucination. ENDOCRINE: Negative. 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 Father was an exsmoker. Medications and Allergies Home Medications Medication Instructions Recorded Confirmed Type Albuterol Sulfate [Proventil Hfa] 1 - 2 puff INHALATION RT-Q6H PRN 06/18/14 History Levothyroxine Sodium [Synthroid] 75 mcg PO QAM 06/18/14 06/26/20 History Diphenox-Atrop 2.5-0.025 mg 1 tab PO BID PRN 10/07/17 06/26/20 History [Lomotil] Pravastatin Sodium [Pravachol] 40 mg PO HS 06/09/18 06/26/20 History Ergocalciferol [Vitamin D2 50,000 unit PO Q14D 04/28/20 06/26/20 History (DRISDOL)] Olopatadine HCl [Pataday] 1 drop BOTH EYES DAILY 04/28/20 06/26/20 History Temazepam [Restoril] 7.5 mg PO HS PRN 06/26/20 06/26/20 History Allergies Allergy/AdvReac Type Severity Reaction Status Date / Time adhesive Allergy Rash/Hives Verified 06/26/20 12:36 bee pollen Allergy Anaphylaxis Verified 06/26/20 12:36 latex Allergy Rash/Hives Verified 06/26/20 12:36 Penicillins Allergy Anaphylaxis Verified 06/26/20 12:36 prednisone AdvReac Nausea & Verified 06/26/20 12:36 Vomiting Physical Exam Vitals: Vital Signs Temp Pulse Pulse Resp BP BP Pulse Ox 06/26/20 15:31 97.8 F 75 18 153/63 99 06/26/20 14:41 76 18 158/78 98 06/26/20 11:18 98.8 F 77 16 153/78 96 Intake and Output 06/26/20 06/26/20 06/26/20 06:59 14:59 22:59 Other: Voiding Method Toilet # Voids 1 Weight 77.111 kg 77.111 kg General Appearance: Alert, cooperative, no distress, appears stated age. Neck HEENT: Supple, no lymphadenopathy, no thyroid enlargement, no carotid bruits. Lungs: Decreased breath some relative final rhonchi no crackles or wheezes. Chest Wall: Decrease expansion with deep inspiration no tenderness and no deformity was found on exam, no costochondral pain or discomfort. Heart: Regular rate and rhythm, S1, S2 normal, no murmur, rub or gallop. Back: Symmetric, no curvature, ROM normal, no CVA tenderness. Abdomen: Soft, non-tender, bowel sounds active all four quadrants, no masses, no organomegaly. Extremities: Extremities normal, atraumatic, no cyanosis or edema. Pulses: 2+ and symmetric. Skin: Skin color, texture, tugor normal, no rashes or lesions. Neurologic: Alert, slightly confused moving all her 4 extremity has generalized weakness no focal deficit. She is back to her almost baseline at the time was exam which was 3 hours after admission. Results CBC & Chem 7: 06/26/20 11:43 06/26/20 11:43 Labs: Abnormal Lab Results - Last 24 Hours (Table) 06/26/20 06/26/20 06/26/20 Range/Units 11:43 11:43 12:09 WBC 11.0 H (3.8-10.6) k/uL Glucose 111 H (74-99) mg/dL Urine Opiates Screen Detected H (NotDetected) U Tricyclic Antidepress Detected H (NotDetected) U Benzodiazepines Scrn Detected H (NotDetected) Thrombosis Risk Factor Assmnt - DVT/VTE Prophylaxis DVT/VTE Prophylaxis: Pharmacologic Prophylaxis ordered, Mechanical Prophylaxis ordered - Choose All That Apply Any of the Below Risk Factors Present?: Yes Each Factor Represents 1 point: Obesity (BMI >25) Other Risk Factors: Yes Each Risk Factor Represents 3 Points: Age 75 years or older Other congenital or acquired thrombophilia - If yes, enter type in comment: No Thrombosis Risk Factor Assessment Total Risk Factor Score: 4 Thrombosis Risk Factor Assessment Level: Moderate Risk Assessment and Plan Assessment: 1 altered mental status: Most likely combination of medication specially Flexeril and hydrocodone for someone has not been on it, also close head trauma with head concussion with no sign of bleed. Also the possibility of normal pressure hydrocephalus. Try to exclude any other possibility such as a stroke or mini stroke infection process or other. 2 close head trauma with negative for bleeding, continue Tylenol and avoid muscle relaxer or narcotics possible. 3 severe diffusion and confusion with bizarre behavioral: Could be explained by the narcotic she is taking with patient is not on anything regular at the time. 4 coronary artery disease: Has been seen cardiology on regular basis. 5 hyperlipidemia: Continue Pravachol at 40 mg daily. 6 hypothyroidism: Continue levothyroxine 75 g daily. 7 chronic irritable bowel syndrome with diarrhea has been on Lomotil as needed. 8 reactive airway/asthma: Still on Proventil HFA as needed. 9 multiple syncopal episode: Mostly vasovagal could be medication related or arrhythmia patient still seen electrophysiology and might need pacemaker in the future. 10 possible normal pressure hydrocephalus: Will be seen neurology if patient need to have CSF pressure measure I'll refer to Niro for possible need for shunt can be managed as an outpatient. 11 History of histoplasmosis: With no active or reactive disease at this point 12 GI prophylaxis: Patient be on Pepcid. 13 DVT prophylaxis: Knee-high GLORIA hose and early mobilization. CODE STATUS: Full code. Admit patient to observation status for 1-2 nights stay.
[2020-06-27] MEDS ORDERED: LEVOTHYROXINE 75 MCG TAB PO SCH (06:30)
[2020-06-27] MEDS ORDERED: KETOTIFEN 0.025% OPHTH DROPS 5 ML BTL BOTH EYES SCH (09:00)
--- NOTE | 2020-06-27 12:56 | P.CRDCN ---
History of Present Illness Consult date: 06/27/20 Chief complaint: Syncope History of present illness: This is a very pleasant 75-year-old female patient with a past medical history significant for coronary artery disease with known disease involving the LAD based on heart catheterization in 2018, hypertension, dyslipidemia, and recurrent syncope, presented to the hospital again with another episode of syncope. The patient is known to have recurrent syncope probably related to vasovagal. She underwent an EP study and subsequently appropriate order placement by Dr. Vences and according to her she was told that she needs to have a permanent pacemaker. She was in her usual state of health until yesterday when she did have 2 episodes of syncope at home witnessed by her family. She was brought to the hospital. The patient does not recall having any symptoms of dizziness or lightheadedness or any symptoms of chest pain or chest discomfort around the episode. The EKG showed sinus rhythm without any significant ST or T-wave abnormalities. Enzymes were checked and came in to be unremarkable. The chest x-ray did not show any acute abnormalities. Computed tomography scan of the brain was performed and revealed evidence of chronic vessel disease without any acute abnormality. The patient underwent extensive cardiovascular workup for the syncope. In 2018 she underwent a heart catheterization and that revealed intermediate to severe disease involving the LAD and at that point and FFR was performed and came in to be an 0.85. Also she underwent an echocardiogram in 2018 at that revealed normal left ventricular systolic function. Then she underwent an EP study which revealed multiple short episode of nonsustained ventricular tachycardia and SVT and subsequently she un derwent a loop recorder placement. When she was seen and examined this morning she stated that she not having any symptoms of chest pain or chest discomfort or shortness of breath. No significant arrhythmia was noted throughout her hospital stay Past Medical History Past Medical History: Coronary Artery Disease (CAD), GERD/Reflux, Hyperlipidemia, Hypertension, Respiratory Disorder, Syncope, Thyroid Disorder Additional Past Medical History / Comment(s): Syncope-neurocardiogenic and malignant/vasovagal syndrome/pt states she was to get a pacemaker but had a recent UTI, falls, 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 and infection had went into her esophagus causing fistula that was repaired, hypothyroid. History of Any Multi-Drug Resistant Organisms: None Reported Past Surgical History: Appendectomy, Breast Surgery, Cholecystectomy, Heart Catheterization, Hernia Repair, Hysterectomy Additional Past Surgical History / Comment(s): Right partial upper lobe of lung removed with repair of esophageal fistula, hernia surgery as an infant, LOOP recoder, EPS, EGDs, colonoscopies, L breast benign bx Past Anesthesia/Blood Transfusion Reactions: No Reported Reaction Additional Past Anesthesia/Blood Transfusion Reaction / Comment(s): no hx blood transfusion Smoking Status: Former smoker - Past Family History Mother Family Medical History: No Reported History Additional Family Medical History / Comment(s): Mother was healthy Father Family Medical History: Cancer Additional Family Medical History / Comment(s): Lung. Father was an exsmoker. Medications and Allergies Home Medications Medication Instructions Recorded Confirmed Type Albuterol Sulfate [Proventil Hfa] 1 - 2 puff INHALATION RT-Q6H PRN 06/18/14 06/26/20 History Levothyroxine Sodium [Synthroid] 75 mcg PO QAM 06/18/14 06/26/20 History Diphenox-Atrop 2.5-0.025 mg 1 tab PO BID PRN 10/07/17 06/26/20 History [Lomotil] Pravastatin Sodium [Pravachol] 40 mg PO HS 06/09/18 06/26/20 History Ergocalciferol [Vitamin D2 50,000 unit PO Q14D 04/28/20 06/26/20 History (DRISDOL)] Olopatadine HCl [Pataday] 1 drop BOTH EYES DAILY 04/28/20 06/26/20 History Temazepam [Restoril] 7.5 mg PO HS PRN 06/26/20 06/26/20 History Allergies Allergy/AdvReac Type Severity Reaction Status Date / Time adhesive Allergy Rash/Hives Verified 06/26/20 12:36 bee pollen Allergy Anaphylaxis Verified 06/26/20 12:36 latex Allergy Rash/Hives Verified 06/26/20 12:36 Penicillins Allergy Anaphylaxis Verified 06/26/20 12:36 prednisone AdvReac Nausea & Verified 06/26/20 12:36 Vomiting Physical Exam Vitals: Vital Signs Temp Pulse Pulse Resp BP BP Pulse Ox 06/27/20 07:00 97.6 F 63 95 H 148/83 06/27/20 02:07 98.0 F 69 157/72 95 06/26/20 21:00 97.9 F 77 18 167/81 98 06/26/20 15:31 97.8 F 75 18 153/63 99 06/26/20 14:41 76 18 158/78 98 Intake and Output 06/26/20 06/27/20 06/27/20 22:59 06:59 14:59 Intake Total 262.5 Balance 262.5 Intake: Intake, IV Titration 262.5 Amount Sodium Chloride 0.9% 1, 262.5 000 ml @ 75 mls/hr IV . [id number] ONE Rx#:[id number] Other: Voiding Method Toilet Toilet # Voids 1 2 Weight 77.111 kg - Constitutional General appearance: no acute distress - Respiratory Respiratory: bilateral: CTA - Cardiovascular Rhythm: regular Heart sounds: normal: S1, S2 Results 06/26/20 11:43 06/26/20 11:43 Current Medications Generic Name Dose Route Start Last Admin Trade Name Freq PRN Reason Stop Dose Admin Albuterol Sulfate 2.5 mg 06/26/20 16:00 Ventolin Nebulized INHALATION RT-Q6H PRN Shortness Of Breath Ketotifen Fumarate 1 drops 06/27/20 09:00 06/27/20 07:24 Zaditor BOTH EYES Not Given BID RONNY Levothyroxine Sodium 75 mcg 06/27/20 06:30 06/27/20 05:17 Synthroid PO 75 mcg DAILY@0630 RONNY Administration Pravastatin Sodium 40 mg 06/26/20 21:00 06/26/20 19:51 Pravachol PO 40 mg HS RONNY Administration Intake and Output 06/26/20 06/27/20 06/27/20 22:59 06:59 14:59 Intake Total 262.5 Balance 262.5 Intake: Intake, IV Titration 262.5 Amount Sodium Chloride 0.9% 1, 262.5 000 ml @ 75 mls/hr IV . [id number] ONE Rx#:[id number] Other: Voiding Method Toilet Toilet # Voids 1 2 Weight 77.111 kg 06/26/20 11:43 06/26/20 11:43 Assessment and Plan Assessment: Assessment #1 syncopal episode of unknown etiology but probably vasovagal #2 known recurrent syncope #3 intermediate to severe disease involving the LAD #4 hypertension #5 dyslipidemia #6 multiple comorbid conditions Plan #1 is no precordial knee to be interrogated to rule out any cardiac arrhythmia #2 I am concerned about the progression in the severity of the CAD in the LAD which could be related to her syncope #3 I am going to discuss her case with Dr. Vences and the concern regarding severe or progression in the severity of the CAD #4 at this point and from the cardiac standpoint, she can be discharged home. Thank you for allowing us participate in her care
--- NOTE | 2020-06-27 14:15 | P.DS ---
Providers Date of admission: 06/26/20 13:43 Expected date of discharge: 06/27/20 Attending physician: Celio Pollard Consults: 06/26/20 16:04 Consult Physician Routine Consulting Provider: Hugo Vences Consult Reason/Comments: vasovagal episodes Do you want consulting provider notified?: Yes 06/26/20 16:05 Consult Physician Routine Consulting Provider: Francisco Bradley Consult Reason/Comments: ams Do you want consulting provider notified?: Yes Primary care physician: Celio Pollard [facility] Course: 75-year-old female one of my office patient is known to have multiple medical problem known to have history of multiple syncope, history of CAD, hypertension hyperlipidemia hypothyroidism who has arrhythmia as well and history of histoplasmosis 2007 was treated. Patient has been study by multiple subspecialists for the last 2 years for recurrent syncope had multiple study and testing included not limited to heart cath, tilt table study, multiple CT MRI, heart monitor, event monitor, loop recorder, seizure testing, referral to neurology as well. No major finding with all her testing was concluded. Apparently patient developed to have significant pain and discomfort in the middle of the night last night she remember taking 1 of her hydrocodone and Flexeril but developed to have worsening symptoms she had 2 syncopal episode had severe confusion and delusion Patient was in the office a week ago for UTI and was in yesterday for repeat UA came back negative but she mentioned to the nurse practitioner she had slight trauma did not was talking to people in the room were not there and become very annoyed by her she told him with have hit him with a hammer if she could, also talk to her brother about event did not exist at the time describing some event with her family. Family brought patient to the emergency department at [facility] for the above problem was complaining of no headache at the time but she mentioned close head trauma over 2 weeks ago with CAT scan of the brain failed to show any abnormality except? Off possible normal pressure hydrocephalus. Patient was started on hydration drug screen showed opiates with benzodiazepine. Patient is on temazepam and Lomotil for diarrhea can explain partially both finding also from which he mention about taking her mention any fall or head trauma at the time. 06/27: Patient states that she feels she has completely back to normal. She's had no syncopal, lightheadedness or dizziness episodes while here. She has been afebrile, heart rate 63, blood pressure 140/83, pulse ox 95% on room air. Patient has been seen by cardiology and concerned that there is progression of her coronary artery disease. Plan to discuss with Dr. Vences and patient is cleared for discharge from cardiology with plan to follow-up with Dr. Vences in the office. Patient also been seen by neurology and has been cleared for discharge. Patient will be discharged home today in stable condition. Discharge diagnoses: 1 metabolic encephalopathy most likely secondary to combination of medication effect with Flexeril and hydrocodone. 2 close head trauma with negative for bleeding 3 syncopal episode thought to be related to medication effect with Flexeril and hydrocodone. Cannot rule out progression of coronary artery disease. 4 coronary artery disease 5 hyperlipidemia 6 hypothyroidism 7 chronic irritable bowel syndrome with diarrhea 8 reactive airway/ mild intermittent asthma 9 multiple syncopal episode, history of 10 possible normal pressure hydrocephalus 11 History of histoplasmosis Discharge plan: Home Impression and plan of care have been directed as dictated by the signing physician. [place] nurse practitioner acting as scribe for signing ph ysician. Patient Condition at Discharge: Good Plan - Discharge Summary Discharge Rx Participant: No New Discharge Prescriptions: Continue Albuterol Sulfate [Proventil Hfa] 1 - 2 puff INHALATION RT-Q6H PRN PRN Reason: Shortness Of Breath Levothyroxine Sodium [Synthroid] 75 mcg PO QAM Diphenox-Atrop 2.5-0.025 mg [Lomotil] 1 tab PO BID PRN PRN Reason: Diarrhea Pravastatin Sodium [Pravachol] 40 mg PO HS Ergocalciferol [Vitamin D2 (DRISDOL)] 50,000 unit PO Q14D Olopatadine HCl [Pataday] 1 drop BOTH EYES DAILY Temazepam [Restoril] 7.5 mg PO HS PRN PRN Reason: Insomnia Discharge Medication List Albuterol Sulfate [Proventil Hfa] 1 - 2 puff INHALATION RT-Q6H PRN 06/18/14 [History] Levothyroxine Sodium [Synthroid] 75 mcg PO QAM 06/18/14 [History] Diphenox-Atrop 2.5-0.025 mg [Lomotil] 1 tab PO BID PRN 10/07/17 [History] Pravastatin Sodium [Pravachol] 40 mg PO HS 08/03/18 [History] Ergocalciferol [Vitamin D2 (DRISDOL)] 50,000 unit PO Q14D 04/28/20 [History] Olopatadine HCl [Pataday] 1 drop BOTH EYES DAILY 04/28/20 [History] Temazepam [Restoril] 7.5 mg PO HS PRN 06/26/20 [History] Follow up Appointment(s)/Referral(s): Celio Pollard MD [Primary Care Provider] - 1 Week Hugo Vences MD [STAFF PHYSICIAN] - 1 Week Discharge Disposition: HOME SELF-CARE
[2020-06-27 14:48] VITALS: BP 144/80; PULSE 70; RESP 18; TEMP 98.1
--- NOTE | 2020-06-27 15:27 | P.CNNES ---
History of Present Illness Consult date: 06/27/20 Requesting physician: Celio Pollard Reason for Consult: Altered mental status History of Present Illness: Patient is a 75-year-old female came to the hospital yesterday at 11:17 AM for altered mental status. Patient fell out of bed on Tuesday night and hit her head but the states after that she seemed to be fine. Patient states she has history of syncopal spells for several years. She has been diagnosed with v asovagal syncope, and also is in the process of getting a pacemaker. Patient states that she had a fall a few days ago. Her back was hurting. She took her 's Shannock 10/325 tablet few days ago and after that patient developed altered mental status. As per EMS flow sheet patient had increased confusion over the past several days along with hallucinations. Patient has been staying up all night, not sleeping. She was cooking for people who were not there are coming over. Her blood pressure at the scene was 148/84, pulse rate 75 blood sugar 110. Patient's blood pressure on arrival was 153/78, pulse is 77 temperature 98.8. Patient underwent CT head showed mild to moderate ventriculomegaly minimally increased from 2018 with evidence ratio regulated and 0.36. Findings probably secondary to central cerebral atrophy. Clinically correlate to exclude component of NPH. Moderate confluent burden of chronic small vessel ischemic disease. Stable anterior left temporal lobe encephalomalacia suggesting sequela of prior vascular or traumatic insults. No acute intracranial abnormality. CT of the cervical spine showed no acute fracture or malalignment of the cervical spine. Moderate spondylitic changes C5 7 levels. Chest x-ray showed limitations due to hypoventilatory changes. Strandy left basilar atelectasis. Prior granulomatous disease with calcified mediastinal lymph nodes. No acute process. EKG shows normal sinus rhythm, minimal voltage criteria for LVH. Patient's 2-D echo from 07/23/2019 showed sinus rhythm, left ventricular size is normal. Moderate concentric LVH, EF is 55-60%. Left atrial size is normal. Mitral valve normal. Patient's previous carotid Doppler from 06/10/2017 showed peak systolic velocity within the right ICA approaching an abnormal value and abnormally elevated internal carotid artery to common carotid artery ratio relates to stenosis between 50-69%, favored to be closer to 50%. No significant stenosis left carotid system. Patient's urine drug screen positive for opiates, tricyclic antidepressant, benzodiazepine. UA negative. Chem-20, PT/PTT normal. CBC with WBC 11.0, hemoglobin 12.5. Patient denies any focal symptoms like slurred speech facial droop or loss of vision double vision. Patient denies any problems with memory. Patient states that she does have syncopal spells, but denies any problem with balance otherwi se. She denies any problem with control of bladder, leaking urgency or incontinence. Does not use any diapers. No clinical stigmata of NPH. Patient was a light smoker in the past, quit at age 29. Denies any alcohol abuse. Patient has hyperlipidemia. 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 Review of Systems As above. All other 14 point of review of systems reviewed, noncontributory and unremarkable. 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 Father was an exsmoker. Medications and Allergies Home Medications Medication Instructions Recorded Confirmed Type Albuterol Sulfate [Proventil Hfa] 1 - 2 puff INHALATION RT-Q6H PRN 06/18/14 06/26/20 History Levothyroxine Sodium [Synthroid] 75 mcg PO QAM 06/18/14 06/26/20 History Diphenox-Atrop 2.5-0.025 mg 1 tab PO BID PRN 10/07/17 06/26/20 History [Lomotil] Pravastatin Sodium [Pravachol] 40 mg PO HS 06/09/18 06/26/20 History Ergocalciferol [Vitamin D2 50,000 unit PO Q14D 04/28/20 06/26/20 History (DRISDOL)] Olopatadine HCl [Pataday] 1 drop BOTH EYES DAILY 04/28/20 06/26/20 History Temazepam [Restoril] 7.5 mg PO HS PRN 06/26/20 06/26/20 History Allergies Allergy/AdvReac Type Severity Reaction Status Date / Time adhesive Allergy Rash/Hives Verified 06/26/20 12:36 bee pollen Allergy Anaphylaxis Verified 06/26/20 12:36 latex Allergy Rash/Hives Verified 06/26/20 12:36 Penicillins Allergy Anaphylaxis Verified 06/26/20 12:36 prednisone AdvReac Nausea & Verified 06/26/20 12:36 Vomiting Physical Examination - Vital Signs Vital Signs: Vital Signs Temp Pulse Pulse Resp BP BP Pulse Ox 06/27/20 07:00 97.6 F 63 95 H 148/83 06/27/20 02:07 98.0 F 69 157/72 95 06/26/20 21:00 97.9 F 77 18 167/81 98 06/26/20 15:31 97.8 F 75 18 153/63 99 06/26/20 14:41 76 18 158/78 98 06/26/20 11:18 98.8 F 77 16 153/78 96 Intake and Output 06/26/20 06/27/20 06/27/20 22:59 06:59 14:59 Intake Total 262.5 Balance 262.5 Intake: Intake, IV Titration 262.5 Amount Sodium Chloride 0.9% 1, 262.5 000 ml @ 75 mls/hr IV . [id number] Rx#:[id number] Other: Voiding Method Toilet Toilet # Voids 1 2 Weight 77.111 kg On examination patient is an elderly female, in no acute distress. Patient is fully alert and awake, oriented to time place and person. Patient knows it is 06/27/2020 and that she is in [facility]. Speech and language functions are normal. Attention and concentration fund of knowledge is adequate. On cranial nerve examination pupils are round and reactive to light, visual reynoso are full on confrontation, extraocular muscles are intact with no nystagmus. Face is symmetric, tongue protrudes to midline. Palatal elevation sensation normal. Hearing and shoulder shrug normal. On muscle strength testing there is no pronator drift and the strength is normal in arms and legs distally and proximally. Reflexes are 1+ and plantars downgoing. Sensory to touch is equal. No ataxia for [id number] testing tone and bulk of muscles normal. Patient's gait appears fairly normal. Patient walks with a normal stride, normal base. No parkinsonian feature, no magnetic gait. Results - Laboratory Findings CBC and BMP: 06/26/20 11:43 06/26/20 11:43 Abnormal Lab Findings: Abnormal Labs 06/26/20 06/26/20 06/26/20 11:43 11:43 12:09 WBC 11.0 H Glucose 111 H Urine Opiates Screen Detected H U Tricyclic Antidepress Detected H U Benzodiazepines Scrn Detected H Assessment and Plan Assessment: * Altered mental status, likely due to delirium from taking 's Shannock tablet. * No clinical evidence of normal pressure hydrocephalus. * History of recurrent syncope, possible sheela-arrhythmia. * History of carotid stenosis. * Hypertension * Hyperlipidemia Plan: * Patient's altered mental status was likely due to delirium, from ingesting her 's Shannock. At this time her mentation is completely clear. Patient was counseled not to take her 's prescriptions particularly narcotics. * Patient has no clinical signs of normal pressure hydrocephalus. Her gait is normal. Denies any bladder or memory issues. * Suggest checking carotid Doppler, B12 and folate level. * Follow up with cardiology regarding vasovagal syncope/arrhythmia. * Neurologically clear for discharge.
== END 2020-06-27 15:08 | disposition home or self-care (01) ==
LOC: EC 11:17 → 1SOBS 13:43 → 4SSUR 14:28
PROVIDERS: ADMIT Internal Medicine Geriatric Medicine; ATTEND Internal Medicine Geriatric Medicine
DX: G93.41 Metabolic encephalopathy (principal); S09.90XA Unspecified injury of head, initial encounter; R55 Syncope and collapse; I25.10 Atherosclerotic heart disease of native coronary artery without angina pectoris; E78.5 Hyperlipidemia, unspecified; E03.9 Hypothyroidism, unspecified; K58.0 Irritable bowel syndrome with diarrhea; J45.20 Mild intermittent asthma, uncomplicated; K21.9 Gastro-esophageal reflux disease without esophagitis; I10 Essential (primary) hypertension; I49.9 Cardiac arrhythmia, unspecified; G93.89 Other specified disorders of brain; I67.82 Cerebral ischemia; M47.892 Other spondylosis, cervical region; J98.11 Atelectasis; J84.10 Pulmonary fibrosis, unspecified; I89.8 Other specified noninfective disorders of lymphatic vessels and lymph nodes; E66.9 Obesity, unspecified; Z68.28 Body mass index [BMI] 28.0-28.9, adult; Z91.81 History of falling; Z87.09 Personal history of other diseases of the respiratory system; Z79.899 Other long term (current) drug therapy; Z79.890 Hormone replacement therapy; Z91.09 Other allergy status, other than to drugs and biological substances; Z91.030 Bee allergy status; Z91.040 Latex allergy status; Z88.0 Allergy status to penicillin; Z88.8 Allergy status to other drugs, medicaments and biological substances; Z90.49 Acquired absence of other specified parts of digestive tract; Z98.890 Other specified postprocedural states; Z87.19 Personal history of other diseases of the digestive system; Z90.710 Acquired absence of both cervix and uterus; Z90.2 Acquired absence of lung [part of]; Z87.440 Personal history of urinary (tract) infections; Z87.891 Personal history of nicotine dependence; Z80.1 Family history of malignant neoplasm of trachea, bronchus and lung; Z81.2 Family history of tobacco abuse and dependence; W06.XXXA Fall from bed, initial encounter
CPT/HCPCS: 99285; 36415; 93005; 80053; 84484; 85025; 85610; 85730; 81003; 80306; 71046; 72125; 70450; G0378 ×2; G0480; 80320

== ENCOUNTER 2020-07-29 08:40 | Day surgery (SDC) | payer MEDICARE ==
[2020-07-28 09:09] VITALS: BMI 27.7
[~2020-07-29 08:40] MED LIST changes: -ALPRAZolam 0.25 MG TAB PO PRN; -ALPRAZolam 0.5 MG TAB PO PRN; -ASPIRIN 325 MG TAB PO STA; -ATORVASTATIN 80 MG TAB PO STA; +CLINDAMYCIN 600 MG in SODIUM CHLORIDE 0.9% IRRIGATIO 250 ML IRRIGATION ONE; +CLINDAMYCIN 900 MG in DEXTROSE 5% IN WATER 50 ML IVPB ONE; -NITROGLYCERIN SL TABS 0.4 MG TAB SUBLINGUAL PRN; -SODIUM CHLORIDE 0.9% 1,000 ML in EMPTY BAG 1 BAG IV ONE
[2020-07-29] MEDS ORDERED: SODIUM CHLORIDE 0.9% 1,000 ML IV ONE (09:17)
[2020-07-29 09:28] LABS: Basophils # (A) 0.1 k/uL (0-0.2); Basophils % (A) 1 %; Eosinophils # (A) 0.4 k/uL (0-0.7); Eosinophils % (A) 3 %; HCT 48.2 % (34.0-46.0); HGB 15.4 gm/dL (11.4-16.0); Lymphocytes # (A) 2.5 k/uL (1.0-4.8); Lymphocytes % (A) 20 %; MCH 28.5 pg (25.0-35.0); MCHC 31.9 g/dL (31.0-37.0); MCV 89.2 fL (80.0-100.0); Mean Platelet Volume 6.8; Monocytes # (A) 0.9 k/uL (0-1.0); Monocytes % (A) 8 %; Neutrophils # (A) 8.3 k/uL (1.3-7.7); Neutrophils % (A) 66 %; Platelet Count 503 k/uL (150-450); RBC 5.41 m/uL (3.80-5.40); RDW 13.5 % (11.5-15.5); WBC 12.5 k/uL (3.8-10.6)
--- NOTE | 2020-07-29 09:34 | P.PCN ---
Preoperative Diagnosis: Procedure: Loop explant under sedation and local anesthesia. Diagnosis: Loop monitor at [facility] Patient was brought to the EP lab in a fasting state. Written informed consent was obtained prior to the procedure. The subcutaneous device was successfully explanted under local anesthesia. Preoperative antibiotics were administered. The wound was closed in layers and dressed per protocol. Result: Successful loop monitor explantation. Patient underwent EP procedure under conscious sedation/moderate sedation, monitoring of the level of consciousness and physiologic parameters including but not limited to vital signs and oxygenation. Patient tolerated the procedure well without any acute complications. Start time: 916 Stop time: 925
[2020-07-29] MEDS ORDERED: ONDANSETRON 4 MG/2 ML VIAL ONE (10:11)
[2020-07-29] MEDS ORDERED: diphenhydrAMINE 50 MG/ML 1 ML VIAL ONE (10:11)
[2020-07-29] MEDS ORDERED: KETAMINE 10 MG/ML 20 ML VIAL ONE (10:11)
[2020-07-29] MEDS ORDERED: PROPOFOL 10 MG/ML 20 ML VIAL IV ONE (10:11)
[2020-07-29] MEDS ORDERED: MIDAZOLAM 2 MG/2 ML VIAL ONE (10:11)
[2020-07-29] MEDS ORDERED: SCOPOLAMINE 1.5MG/72HR PATCH TRANSDERM STA (10:23)
[2020-07-29] MEDS ORDERED: IOPAMIDOL-370 50ML BTL INJ ONE (10:29)
[2020-07-29] MEDS ORDERED: LIDOCAINE 1% INJ 10MG/ML (20 ML MDV) ONE ×2 (10:37→13:08)
[2020-07-29] MEDS ORDERED: LIDOCAINE 1% INJ 10MG/ML (20 ML MDV) SQ ONE ×2 (11:01→13:11)
--- NOTE | 2020-07-29 13:01 | P.PCN ---
Preoperative Diagnosis: Increase procedures services Patient has an abnormal AV node function with bradycardia with intermittent paroxysmal complete AV block. A biventricular device, pacemaker was implanted Physical except pacing was performed The right atrium was large and His bundle mapping was prolonged on account of sheath instability in the region of the tricuspid annulus This was a deep His bundle, His bundle became prominent only after the lead was screwed in Greater than 1 hour was spent in mapping and positioning this lead
[2020-07-29] MEDS ORDERED: ACETAMINOPHEN TAB 325 MG TAB PO PRN (13:02)
--- NOTE | 2020-07-29 13:34 | P.PCN ---
Preoperative Diagnosis: Procedure: Loop explant under sedation and local anesthesia. Diagnosis: Loop monitor at [facility]. Patient complains of a lot of pain around the Loop insertion site Patient was brought to the EP lab in a fasting state. Written informed consent was obtained prior to the procedure. The subcutaneous device was successfully explanted under local anesthesia. Preoperative antibiotics were administered. The wound was closed in layers and dressed per protocol. Device was deep and had to be located under fluoroscopy first, the skin marked at the appropriate position and then an incision of 2 cm made We had to make a 2 cm incision to find the device. This was located deep very close to the costal chondral cartilage and ribs Result: Successful loop monitor explantation. Wound closed in 2 layers
[2020-07-29] MEDS ORDERED: ACETAMINOPHEN IV (For NPO) 1,000 MG in EMPTY BAG 1 BAG IVPB ONE (14:00)
[2020-07-29 15:11] LABS: Calcium 9.5 mg/dL (8.4-10.2); Potassium 4.8 mmol/L (3.5-5.1)
[2020-07-29] MEDS: SODIUM CHLORIDE 0.9% 1,000 ML IV SCH ×2 (16:00→16:01)
[2020-07-29] MEDS: HYDROcodone/APAP 5-325MG 1 EACH TAB PO PRN ×3 (16:25→23:30)
--- NOTE | 2020-07-29 16:33 | XR ---
EXAMINATION TYPE: XR chest 1V portable DATE OF EXAM: 07/29/2020 COMPARISON: 06/26/2020 HISTORY: Pacemaker TECHNIQUE: Single frontal view of the chest is obtained. FINDINGS: There is no focal air space opacity, pleural effusion, or pneumothorax seen. The cardiac silhouette size is within normal limits. The osseous structures are intact. MultiLink pacemaker is seen. No overt failure. Diffuse osteopenia. Degenerative changes spine and arthropathy of the shoulde rs. IMPRESSION: No postprocedural complication.
[2020-07-29] MEDS: CLINDAMYCIN 900 MG in DEXTROSE 5% IN WATER 50 ML IVPB SCH ×4 (17:00→23:31)
[2020-07-29] MEDS ORDERED: ZOLPIDEM 5 MG TAB PO SCH (21:00)
[2020-07-29] MEDS ORDERED: PRAVASTATIN SODIUM 40 MG TAB PO SCH (21:00)
--- NOTE | 2020-07-29 21:31 | PCN ---
PROCEDURE NOTE Brittanie is a 75-year-old female with recurrent dizzy spells, presyncope and syncope, who has a loop monitor implanted. This showed episodes of paroxysmal AV block. At baseline during one-to-one conduction, she has a right bundle branch block with a prolonged p.r.n. interval. She is brought in for a biventricular pacing to minimize high RV pacing percentage. Patient was brought to the EP lab in a fasting state. Written informed consent was obtained prior to the procedure. The left shoulder area was prepped and draped as per protocol. 1% lidocaine was used for local anesthesia. A 4 cm incision was made parallel to the deltopectoral groove, about 1.5 cm medial to it. The incision was carried down to the level of the pectoralis muscle. A subfascial pocket was made. Hemostasis was assured. The left axillary vein was accessed at 3 separate points and via appropriately-sized introducer sheaths, 3 leads were positioned. The atrial lead was a Medtronic model #4574, 53 cm length and serial number [id number]. This was a passive lead that was positioned in the right atrial appendage. P waves were 2 mV. Pacing impedance 1140 ohms, and pacing threshold 0.8 V at 0.4 milliseconds. The RV lead was Medtronic 58 cm, passive lead model #4074, 58 cm in length and serial number [id number]. This was positioned in the RV apex. R-waves 14 mV, pacing impedance 1125 ohms, pacing threshold 0.4 V at 0.5 milliseconds. 10 V test negative. The His bundle lead was positioned in the His bundle area. Mapping to considerable time on account of excessive tricuspid valve motion that affected stability of the lead. In addition, the His bundle was deep. However, we were able to secure the lead in a position with excellent His bundle signals with a current of injury. Nonselective capture was noted up to 1 V at 1 millisecond. Pacing impedance 437 ohms, R-waves 2 mV. Nonselective His bundle capture, loss of threshold occurred at 1 V at 1 millisecond. Loss of ventricular capture at 0.8 V at 1 millisecond. All 3 leads were secured to the underlying pectoralis fascia using 2 nonabsorbable sutures. Pocket was irrigated with antibiotic solution. Leads were connected to the generator (Medtronic biventricular pacemaker, Anastasia CRTP model number W1PR02, serial number [id number]. The leads and generator were then placed in subfascial pocket. The wound was closed in 3 layers and dressed per protocol. The device was programmed to DDD mode with preferential HIS bundle pacing with RV pacing 80 milliseconds following HIS bundle pacing. The patient tolerated the procedure well without any acute complications. DOLORES / ROBERTN: [id number] /
[2020-07-30 01:41] VITALS: RESP 16
[2020-07-30] MEDS: SODIUM CHLORIDE 0.9% 1,000 ML IV SCH ×2 (04:31→04:32)
[2020-07-30] MEDS: HYDROcodone/APAP 5-325MG 1 EACH TAB PO PRN ×2 (05:14→09:08)
[2020-07-30] MEDS ORDERED: LEVOTHYROXINE 75 MCG TAB PO SCH (06:30)
[2020-07-30 07:56] VITALS: BP 164/79; PULSE 67; TEMP 97.7
[2020-07-30] MEDS ORDERED: ONDANSETRON 4 MG/2 ML VIAL IVP PRN (08:12)
== END 2020-07-30 10:31 | disposition home or self-care (01) ==
LOC: CATHEP 08:40 → 3NCARDOBS 12:48 → CATHEP 07-30 10:31
PROVIDERS: ATTEND Internal Medicine Clinical Cardiac Electrophysiology
DX: I44.2 Atrioventricular block, complete (principal); I45.10 Unspecified right bundle-branch block; I48.0 Paroxysmal atrial fibrillation; T82.847A Pain due to cardiac prosthetic devices, implants and grafts, initial encounter; I77.89 Other specified disorders of arteries and arterioles; I25.10 Atherosclerotic heart disease of native coronary artery without angina pectoris; I11.0 Hypertensive heart disease with heart failure; I50.9 Heart failure, unspecified; E78.5 Hyperlipidemia, unspecified; K21.9 Gastro-esophageal reflux disease without esophagitis; E07.9 Disorder of thyroid, unspecified; Z91.048 Other nonmedicinal substance allergy status; Z91.040 Latex allergy status; Z88.0 Allergy status to penicillin; Z91.030 Bee allergy status; Z88.8 Allergy status to other drugs, medicaments and biological substances; Z79.890 Hormone replacement therapy; Z79.899 Other long term (current) drug therapy; Z86.19 Personal history of other infectious and parasitic diseases; Z98.890 Other specified postprocedural states; Z87.440 Personal history of urinary (tract) infections; Z72.0 Tobacco use
CPT/HCPCS: 33225; 33208; 33286; 80048; 85025; 71045; C1769 ×3; C1892; C1898; C2621; J2250; J1200; J2405; J2001; J0131; J2704; Q9967

== ENCOUNTER → 2021-05-06 | Outpatient (CLI) | payer MEDICARE ==
--- NOTE | 2021-05-08 14:13 | MM ---
Reason for exam: screening (asymptomatic). Last mammogram was performed 2 years and 5 months ago. History: Patient is postmenopausal. Benign excisional biopsy of the right breast, November 19, 1998. Took hormonal contraceptives for 3 years beginning at age 20. Physical Findings: A clinical breast exam by your physician is recommended on an annual basis and results should be correlated with mammographic findings. MG 3D Screening Mammo W/Cad Bilateral CC and MLO view(s) were taken. XCCL view(s) were taken of the right breast. Prior study comparison: December 18, 2018, bilateral MG 3d screening mammo w/cad. November 17, 2017, bilateral MG 3d screening mammo w/cad. The breast tissue is heterogeneously dense. This may lower the sensitivity of mammography. Left pacemaker axilla. ASSESSMENT: Benign, BI-RAD 2 RECOMMENDATION: Routine screening mammogram of both breasts in 1 year.
== END | disposition home or self-care (01) ==
LOC: RADMAMWWP 14:01
PROVIDERS: ATTEND Internal Medicine Geriatric Medicine
DX: Z12.31 Encounter for screening mammogram for malignant neoplasm of breast (principal); Z78.0 Asymptomatic menopausal state; Z79.3 Long term (current) use of hormonal contraceptives
CPT/HCPCS: 77063; 77067

== ENCOUNTER → 2022-07-13 | Outpatient (CLI) | payer MEDICARE ==
--- NOTE | 2022-07-13 10:49 | US ---
EXAMINATION TYPE: US carotid duplex BILAT DATE OF EXAM: 07/13/2022 COMPARISON: US 2017 CLINICAL HISTORY: I65.23 Occlusion and stenosis of bilateral carotid. TECHNIQUE: Carotid duplex ultrasound examination. Indirect Doppler criteria was utilized. FINDINGS: EXAM MEASUREMENTS: RIGHT: Peak Systolic Velocity (PSV) cm/sec ----- Right CCA: 44.7 ----- Right ICA: 136.6 ----- Right ECA: 116.2 ICA/CCA ratio: 3.1 RIGHT: End Diastole cm/sec ----- Right CCA: 8.5 ----- Right ICA: 13.9 ----- Right ECA: 6.2 LEFT: Peak Systolic Velocity (PSV) cm/sec ----- Left CCA: 56.4 ----- Left ICA: 81.1 ----- Left ECA: 158.1 ICA/CCA ratio: 1.4 LEFT: End Diastole cm/sec ----- Left CCA: 10.8 ----- Left ICA: 21.7 ----- Left ECA: 0.0 VERTEBRALS (direction of flow): Right Vertebral: Antegrade Left Vertebral: Antegrade Rhythm: Normal Increased peak systolic velocity and abnormal ratio on the right with grayscale images showing modera te to severe shadowing plaque at right carotid bulb. Moderate peripheral plaque left carotid bulb wit hout elevated velocities. IMPRESSION: Moderate to severe atherosclerotic changes bilaterally. Hemodynamically significant stenosis proximal right internal carotid artery cannot be excluded. Furth er investigation with CTA or MRA of the neck is advised. Criteria for Assigning % of Stenosis / Diameter reduction (Estimation based on the indirect measurements of the internal carotid artery velocities (ICA PSV). 1. Normal (no stenosis)=ICA PSV < 125 cm/s: ratio < 2.0: ICA EDV<40 cm/s. 2. Less than 50% stenosis=ICA PSV < 125 cm/s: ratio < 2.0: ICA EDV<40 cm/s. 3. 50 to 69% stenosis=ICA PSV of 125 to 230 cm/s: ration 2.0 ? 4.0: ICA EDV 40-100 cm/s. 4. Greater than 70% stenosis to near occlusion= ICA PSV > 230 cm/s: ratio > 4.0: ICA EDV > 100 cm/s. 5. Near occlusion= ICA PSV velocities may be low or undetectable: variable ratio and ICA EDV. 6. Total occlusion=unable to detect flow.
== END | disposition home or self-care (01) ==
LOC: RADUSWWP 10:09
PROVIDERS: ATTEND Internal Medicine Geriatric Medicine
DX: I65.23 Occlusion and stenosis of bilateral carotid arteries (principal)
CPT/HCPCS: 93880

== ENCOUNTER → 2022-07-20 | Outpatient (CLI) | payer MEDICARE ==
--- NOTE | 2022-07-20 15:54 | CT ---
EXAMINATION TYPE: CT brain wo/w con DATE OF EXAM: 07/20/2022 COMPARISON: June 26, [address] brain report. Direct correlation cannot be performed due to PACS downtime HISTORY: possible stroke CT DLP: 2197.6 mGycm Automated exposure control for dose reduction was used. CONTRAST: CT scan of the head is performed without and with IV Contrast, patient injected with 65 mL of Isovue 370. FINDINGS: There is mild to moderate ventricular and sulcal prominence. Degree of ventricular prominence out of proportion to degree of sulcal effacement as detailed on prior report. Severe low attenuation in the deep and periventricular white matter. Focal encephalomalacia anterior aspect left temporal lobe dis cussed on prior report. Postcontrast images show no suspicious enhancing masses. The globes are intac t and the visualized sinuses are clear. 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 No abnormal enhancement noted.
--- NOTE | 2022-07-20 16:00 | CT ---
EXAMINATION TYPE: CT angio neck DATE OF EXAM: 07/20/2022 HISTORY: possible stroke COMPARISON: Carotid ultrasound one week ago CT DLP: 2197.6 mGycm. Automated Exposure Control for Dose Reduction was Utilized. TECHNIQUE: CTA scan of the head and neck is performed without and with IV Contrast, patient injected with 65 mL of Isovue 370, axial images are obtained, coronal and sagittal reformatted images are rev iewed. 3D reconstructed images are created on an independent workstation and reviewed. FINDINGS: Carotid/Vascular Structures: Mild peripheral calcified plaque in the aortic arch . Mild calcified joanne que anterior left common carotid origin. No significant stenosis and three-vessel takeoff. Mild to mo derate noncalcified plaque anteriorly in the midportion of the left common carotid artery medially. M oderate mixed plaque right carotid bulb extending into the proximal internal carotid artery without s ignificant stenosis. Similar moderate peripheral plaque left carotid bulb extending into proximal int ernal carotid artery without significant stenosis. Patent External carotid arteries bilaterally with significant stenosis on the left present. There are codomi nant vertebral arteries patent to the basilar junction. Other: Partial visualization of left sided pacemaker and pacemaker leads. Calcified right hilar and s ubcarinal lymph nodes suggest old granulomatous disease. Coronary artery calcification is partially i steven. Somewhat small size thyroid gland noted. Moderate disc space narrowing C5-C6 and C6-C7 levels. IMPRESSION: No hemodynamically significant stenosis in either internal carotid artery. NASCET criteria was used in interpretation of this exam?
== END ==
LOC: RADCTMAIN 12:58
PROVIDERS: ATTEND Internal Medicine Geriatric Medicine
DX: G31.9 Degenerative disease of nervous system, unspecified (principal); I67.82 Cerebral ischemia; I65.23 Occlusion and stenosis of bilateral carotid arteries
CPT/HCPCS: 82565; 84520; 70470; 70498; 36415; Q9967

== ENCOUNTER 2022-08-19 02:45 | Emergency (ER) | payer MEDICARE ==
[2022-08-19 02:53] VITALS: BP 133/88; PULSE 76; RESP 16; TEMP 98
[2022-08-19] MEDS ORDERED: SODIUM CHLORIDE 0.9% 1,000 ML IV ONE (02:57)
--- NOTE | 2022-08-19 03:17 | ED ---
Altered Mental Status HPI - General Chief Complaint: Altered Mental Status Stated Complaint: Altered Mental Status Time Seen by Provider: 08/19/22 02:47 Source: patient, EMS, RN notes reviewed, old records reviewed Mode of arrival: EMS Limitations: altered mental status - History of Present Illness Initial Comments: This is a 77-year-old female to the emergency room for evaluation. Patient's called EMS because patient was acting inappropriately last night. Patient may or may not have taken too much over nighttime medication or sleeping medication. Patient is going in and out of alertness, she remains responsive but sometimes confused. She had no trauma. No recent fevers or illness. No change in medications. MD Complaint: altered mental status, confusion, weakness -: hour(s) Severity: moderate Consistency of Symptoms: waxing and waning, getting worse, constant Context: history of similar presentation Associated Symptoms: weakness - Related Data Home Medications Medication Instructions Recorded Confirmed Albuterol Sulfate [Proventil Hfa] 1 - 2 puff INHALATION RT-Q6H PRN 06/18/14 07/28/20 Levothyroxine Sodium [Synthroid] 75 mcg PO QAM 06/18/14 07/28/20 Diphenox-Atrop 2.5-0.025 mg 1 tab PO BID PRN 10/07/17 07/28/20 [Lomotil] Pravastatin Sodium [Pravachol] 40 mg PO HS 06/09/18 07/28/20 Ergocalciferol [Vitamin D2 50,000 unit PO Q14D 04/28/20 07/28/20 (DRISDOL)] Soothe Xp 1 drop BOTH EYES HS 07/28/20 07/28/20 Zolpidem [Ambien] 10 mg PO HS 07/28/20 07/28/20 Allergies Allergy/AdvReac Type Severity Reaction Status Date / Time adhesive Allergy Rash/Hives Verified 07/28/20 08:45 bee pollen Allergy Anaphylaxis Verified 07/28/20 08:45 latex Allergy Rash/Hives Verified 07/28/20 08:45 Penicillins Allergy Anaphylaxis Verified 07/28/20 08:45 prednisone AdvReac Nausea & Verified 07/28/20 08:45 Vomiting Review of Systems ROS Statement: Those systems with pertinent positive or pertinent negative responses have been documented in the HPI. ROS Other: All systems not noted in ROS Statement are negative. 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 Past Psychological History: No Psychological Hx Reported Additional Psychological History / Comment(s): . Smoking Status: Former smoker Past Alcohol Use History: None Reported Additional Past Alcohol Use History / Comment(s): Pt started smoking in 1962 and quit in 1972. Past Drug Use History: None Reported - Past Family History Father Family Medical History: Cancer Additional Family Medical History / Comment(s): Lung. General Exam Limitations: altered mental status General appearance: alert, in no apparent distress Head exam: Present: atraumatic, normocephalic, normal inspection Eye exam: Present: normal appearance, PERRL, EOMI. Absent: scleral icterus, conjunctival injection, periorbital swelling ENT exam: Present: normal exam, mucous membranes moist Neck exam: Present: normal inspection. Absent: tenderness, meningismus, lymphadenopathy Respiratory exam: Present: normal lung sounds bilaterally. Absent: respiratory distress, wheezes, rales, rhonchi, stridor Cardiovascular Exam: Present: regular rate, normal rhythm, normal heart sounds. Absent: systolic murmur, diastolic murmur, rubs, gallop, clicks GI/Abdominal exam: Present: soft, normal bowel sounds. Absent: distended, ten derness, guarding, rebound, rigid Extremities exam: Present: normal inspection, full ROM, normal capillary refill. Absent: tenderness, pedal edema, joint swelling, calf tenderness Back exam: Present: normal inspection Neurological exam: Present: alert, oriented X3, CN II-XII intact Psychiatric exam: Present: normal affect, normal mood Skin exam: Present: warm, dry, intact, normal color. Absent: rash Course Vital Signs 08/19/22 02:47 Temperature 98 F Pulse Rate 76 Respiratory 16 Rate Blood Pressure 133/88 O2 Sat by Pulse 94 L Oximetry - Reevaluation(s) Reevaluation #1: 08/19/22 05:27 Medical record is reviewed Reevaluation #2: 08/19/22 05:27 Patient informed results and questions answered Reevaluation #3: 08/19/22 05:27 Patient symptoms are gradually improving Reevaluation #4: 08/19/22 06:27 at bedside willing to take patient home Medical Decision Making - Medical Decision Making 77 female to the ER for evaluation of altered mental status. Likely too much over nighttime sleeping medication. Patient symptoms are improving here in the ER she can be discharged home - Lab Data Result diagrams: 08/19/22 03:48 08/19/22 03:20 Lab Results 08/19/22 08/19/22 08/19/22 Range/Units 03:20 03:20 03:20 WBC (3.8-10.6) k/uL RBC (3.80-5.40) m/uL Hgb (11.4-16.0) gm/dL Hct (34.0-46.0) % MCV (80.0-100.0) fL MCH (25.0-35.0) pg MCHC (31.0-37.0) g/dL RDW (11.5-15.5) % Plt Count (150-450) k/uL MPV Neutrophils % % Lymphocytes % % Monocytes % % Eosinophils % % Basophils % % Neutrophils # (1.3-7.7) k/uL Lymphocytes # (1.0-4.8) k/uL Monocytes # (0-1.0) k/uL Eosinophils # (0-0.7) k/uL Basophils # (0-0.2) k/uL PT (9.0-12.0) sec INR (<1.2) APTT (22.0-30.0) sec Sodium 139 (137-145) mmol/L Potassium 3.3 L (3.5-5.1) mmol/L Chloride 106 (98-107) mmol/L Carbon Dioxide 19 L (22-30) mmol/L Anion Gap 14 mmol/L BUN 29 H (7-17) mg/dL Creatinine 1.37 H (0.52-1.04) mg/dL Est GFR (CKD-EPI)AfAm 43 (>60 ml/min/1.73 sqM) Est GFR (CKD-EPI)NonAf 37 (>60 ml/min/1.73 sqM) Glucose 131 H (74-99) mg/dL Calcium 9.5 (8.4-10.2) mg/dL Total Bilirubin 0.4 (0.2-1.3) mg/dL AST 26 (14-36) U/L ALT 18 (4-34) U/L Alkaline Phosphatase 70 (38-126) U/L Ammonia 49 H (<30) umol/L Troponin I <0.012 (0.000-0.034) ng/mL Total Protein 7.1 (6.3-8.2) g/dL Albumin 4.1 (3.5-5.0) g/dL Serum Alcohol <10 mg/dL 08/19/22 08/19/22 Range/Units 03:48 03:48 WBC 13.5 H (3.8-10.6) k/uL RBC 4.78 (3.80-5.40) m/uL Hgb 13.9 (11.4-16.0) gm/dL Hct 42.9 (34.0-46.0) % MCV 89.7 (80.0-100.0) fL MCH 29.1 (25.0-35.0) pg MCHC 32.4 (31.0-37.0) g/dL RDW 13.7 (11.5-15.5) % Plt Count 371 (150-450) k/uL MPV 7.8 Neutrophils % 80 % Lymphocytes % 7 % Monocytes % 8 % Eosinophils % 3 % Basophils % 1 % Neutrophils # 10.8 H (1.3-7.7) k/uL Lymphocytes # 1.0 (1.0-4.8) k/uL Monocytes # 1.1 H (0-1.0) k/uL Eosinophils # 0.4 (0-0.7) k/uL Basophils # 0.1 (0-0.2) k/uL PT 11.1 (9.0-12.0) sec INR 1.0 (<1.2) APTT 22.3 (22.0-30.0) sec Sodium (137-145) mmol/L Potassium (3.5-5.1) mmol/L Chloride (98-107) mmol/L Carbon Dioxide (22-30) mmol/L Anion Gap mmol/L BUN (7-17) mg/dL Creatinine (0.52-1.04) mg/dL Est GFR (CKD-EPI)AfAm (>60 ml/min/1.73 sqM) Est GFR (CKD-EPI)NonAf (>60 ml/min/1.73 sqM) Glucose (74-99) mg/dL Calcium (8.4-10.2) mg/dL Total Bilirubin (0.2-1.3) mg/dL AST (14-36) U/L ALT (4-34) U/L Alkaline Phosphatase (38-126) U/L Ammonia (<30) umol/L Troponin I (0.000-0.034) ng/mL Total Protein (6.3-8.2) g/dL Albumin (3.5-5.0) g/dL Serum Alcohol mg/dL - EKG Data -: EKG Interpreted by Me (EKG shows paced 71 CT 155 QRS 20 QTc 457) Disposition Clinical Impression: Delirium due to general medical condition, Altered mental status Disposition: HOME SELF-CARE Condition: Good Instructions (If sedation given, give patient instructions): Altered Mental Status (ED) Is patient prescribed a controlled substance at d/c from ED?: No Referrals: Celio Pollard MD [Primary Care Provider] - 1-2 days Time of Disposition: 05:35
[2022-08-19 03:41] LABS: ALT 18 U/L (4-34); AST 26 U/L (14-36); African American GFR (CKD) 43 (>60 ml/min/1.73 sqM); Albumin 4.1 g/dL (3.5-5.0); Alcohol <10 mg/dL; Alkaline Phosphatase 70 U/L (38-126); Anion Gap 14 mmol/L; Blood Urea Nitrogen 29 mg/dL (7-17); Calcium 9.5 mg/dL (8.4-10.2); Carbon Dioxide 19 mmol/L (22-30); Chloride 106 mmol/L (98-107); Glucose 131 mg/dL (74-99); Non-African American GFR(CKD) 37 (>60 ml/min/1.73 sqM); Potassium 3.3 mmol/L (3.5-5.1); Sodium 139 mmol/L (137-145); Total Bilirubin 0.4 mg/dL (0.2-1.3); Total Protein 7.1 g/dL (6.3-8.2)
[2022-08-19 04:09] LABS: Basophils # (A) 0.1 k/uL (0-0.2); Basophils % (A) 1 %; Eosinophils # (A) 0.4 k/uL (0-0.7); Eosinophils % (A) 3 %; HCT 42.9 % (34.0-46.0); HGB 13.9 gm/dL (11.4-16.0); Lymphocytes % (A) 7 %; MCH 29.1 pg (25.0-35.0); MCHC 32.4 g/dL (31.0-37.0); MCV 89.7 fL (80.0-100.0); Mean Platelet Volume 7.8; Monocytes # (A) 1.1 k/uL (0-1.0); Monocytes % (A) 8 %; Neutrophils # (A) 10.8 k/uL (1.3-7.7); Neutrophils % (A) 80 %; Platelet Count 371 k/uL (150-450); RBC 4.78 m/uL (3.80-5.40); RDW 13.7 % (11.5-15.5); WBC 13.5 k/uL (3.8-10.6)
[2022-08-19 04:29] LABS: Partial Thromboplastin Time 22.3 sec (22.0-30.0); Prothrombin Time 11.1 sec (9.0-12.0)
[2022-08-19 05:38] LABS: Amphetamine Screen,Urine Not Detected (NotDetected); Appearance,Urine Clear (Clear); Barbiturate Screen,Urine Not Detected (NotDetected); Benzodiazepines Screen,Urine Not Detected (NotDetected); Bilirubin,Urine Negative (Negative); Blood,Urine Negative (Negative); Cocaine Screen,Urine Not Detected (NotDetected); Color,Urine Yellow; Glucose,Urine (UA) Negative (Negative); Ketones,Urine Negative (Negative); Leukocyte Esterase,Urine Moderate (Negative); Methadone Screen, Urine Not Detected (NotDetected); Mucus,Urine Rare /hpf; Nitrite,Urine Negative (Negative); Opiate Screen,Urine Not Detected (NotDetected); Oxycodone Screen, Urine Not Detected (NotDetected); PH, Urine 5.5 (5.0-8.0); Phencyclidine Screen,Urine Not Detected (NotDetected); Protein,Urine Trace (Negative); Specific Gravity,Urine 1.016 (1.001-1.035); Squamous Epithelial Cell,Urine 1 /hpf (0-4); Tricyclic Antidepressant,Urine Not Detected (NotDetected); Urn Cannabinoid Scrn Not Detected (NotDetected); Urobilinogen,Urine <2.0 mg/dL (<2.0); WBC,Urine 16 /hpf (0-5)
== END 2022-08-19 07:13 | disposition home or self-care (01) ==
LOC: EC 02:45
DX: R41.82 Altered mental status, unspecified (principal); F05 Delirium due to known physiological condition; I25.10 Atherosclerotic heart disease of native coronary artery without angina pectoris; K21.9 Gastro-esophageal reflux disease without esophagitis; E78.5 Hyperlipidemia, unspecified; I10 Essential (primary) hypertension; E07.9 Disorder of thyroid, unspecified; Z88.8 Allergy status to other drugs, medicaments and biological substances; Z91.030 Bee allergy status; Z91.040 Latex allergy status; Z87.891 Personal history of nicotine dependence; Z88.0 Allergy status to penicillin; Z79.890 Hormone replacement therapy; Z79.899 Other long term (current) drug therapy
CPT/HCPCS: 99285 ×2; 96360 ×2; 36415; 93005; 80053; 82140; 84484; 85025; 85610; 85730; 81001; 80306; G0480; 80320

== ENCOUNTER 2022-09-16 12:27 | Observation (INO) | payer MEDICARE ==
[2022-09-16 13:04] LABS: Basophils # (A) 0.1 k/uL (0-0.2); Basophils % (A) 1 %; Eosinophils # (A) 0.4 k/uL (0-0.7); Eosinophils % (A) 5 %; HCT 43.7 % (34.0-46.0); HGB 14.5 gm/dL (11.4-16.0); Lymphocytes # (A) 1.5 k/uL (1.0-4.8); Lymphocytes % (A) 19 %; MCH 29.3 pg (25.0-35.0); MCHC 33.1 g/dL (31.0-37.0); MCV 88.7 fL (80.0-100.0); Monocytes # (A) 0.5 k/uL (0-1.0); Monocytes % (A) 7 %; Neutrophils # (A) 5.1 k/uL (1.3-7.7); Neutrophils % (A) 65 %; Platelet Count 429 k/uL (150-450); RBC 4.93 m/uL (3.80-5.40); RDW 14.2 % (11.5-15.5); WBC 7.8 k/uL (3.8-10.6)
[2022-09-16 13:13] LABS: Partial Thromboplastin Time 24.1 sec (22.0-30.0); Prothrombin Time 10.6 sec (9.0-12.0)
[2022-09-16 13:15] LABS: Albumin 4.4 g/dL (3.5-5.0); Calcium 9.1 mg/dL (8.4-10.2); Potassium 3.4 mmol/L (3.5-5.1); Total Bilirubin 0.6 mg/dL (0.2-1.3)
--- NOTE | 2022-09-16 13:27 | ED ---
General Adult HPI - General Chief complaint: Altered Mental Status Stated complaint: Syncope Time Seen by Provider: 09/16/22 12:32 Source: patient Mode of arrival: EMS Limitations: altered mental status - History of Present Illness Initial comments: Dictation was produced using [employer] dictation software. please excuse any grammatical, word or spelling errors. Chief Complaint: 77-year-old female past medical history of pacer/AICD, syncope presents to the ER for syncopal episode History of Present Illness: Patient is 69-year-old female she has extensive cardiac history. Patient has history of AICD and ventricular pacer. Patient was at the store going grocery shopping when all of a sudden she syncopized. According to EMS they were called to the scene several minutes after the event. EMS reports the patient did appear to be postictal. There was an however any observed tonic-clonic activity. Patient has been evaluated multiple times for syncopal episodes in the past. After several minutes and while en route to the emergency department patient's mentation improved. Patient has any complaints at the bedside. States that she does not know why she keeps passing out. Mrs. Price with states that patient takes medications before she goes shopping and oriented prevent syncopal episodes. Patient was in her usual state of health this morning over the last several days. The ROS documented in this emergency department record has been reviewed and confirmed by me. Those systems with pertinent positive or negative responses have been documented in the HPI. All other systems are other negative and/or noncontributory. PHYSICAL EXAM: General Impression: Alert and oriented x3, not in acute distress HEENT: Normocephalic atraumatic, extra-ocular movements intact, pupils equal and reactive to light bilaterally, mucous membranes moist. Cardiovascular: Heart regular rate and rhythm Chest: Able to complete full sentences, no retractions, no tachypnea Abdomen: abdomen soft, non-tender, non-distended, no organomegaly Musculoskeletal: Pulses present and equal in all extremities, no peripheral edema Motor: no focal deficits noted Neurological: CN II-XII grossly intact, no focal motor or sensory deficits noted Skin: Intact with no visualized rashes Psych: Normal affect and mood ED course: 77-year-old female presents emergency department for syncopal episode. She has extensive cardiac history. She does have a AICD/pacer. Vital signs upon arrival are within acceptable limits. EKG shows ventricular paced rhythm with no ice abnormalities. My EKG interpretation: Ventricular rate 77, paced rhythm,. 174, Q is 116, QTc 447. No [place] prolongation, no QTC prolongation, no ST or T-wave changes noted. Overall, this EKG is unremarkable Laboratory evaluation obtained. CBC unremarkable. Hemoglobin stable. No leukocytosis. Coag panel is unremarkable. Metabolic panel is negative. El ectrolytes normal. Troponin is negative. Patient observed in emergency department for one hour and 52 minutes. Reevaluated bedside at 2:20 PM on the be in stable medical condition. Given the patient has extensive cardiac history she'll be admitted to observation with cardiology consult, cardiac monitoring and pacer interrogation. - Related Data Home Medications Medication Instructions Recorded Confirmed Albuterol Sulfate [Proventil Hfa] 1 - 2 puff INHALATION RT-Q6H PRN 06/18/14 07/28/20 Levothyroxine Sodium [Synthroid] 75 mcg PO QAM 06/18/14 07/28/20 Diphenox-Atrop 2.5-0.025 mg 1 tab PO BID PRN 10/07/17 07/28/20 [Lomotil] Pravastatin Sodium [Pravachol] 40 mg PO HS 06/09/18 07/28/20 Ergocalciferol [Vitamin D2 50,000 unit PO Q14D 04/28/20 07/28/20 (DRISDOL)] Soothe Xp 1 drop BOTH EYES HS 07/28/20 07/28/20 Zolpidem [Ambien] 10 mg PO HS 07/28/20 07/28/20 Allergies Allergy/AdvReac Type Severity Reaction Status Date / Time adhesive Allergy Rash/Hives Verified 09/16/22 12:38 bee pollen Allergy Anaphylaxis Verified 09/16/22 12:38 latex Allergy Rash/Hives Verified 09/16/22 12:38 Penicillins Allergy Anaphylaxis Verified 09/16/22 12:38 prednisone AdvReac Nausea & Verified 09/16/22 12:38 Vomiting Review of Systems ROS Statement: Those systems with pertinent positive or pertinent negative responses have been documented in the HPI. ROS Other: All systems not noted in ROS Statement are negative. 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 Past Psychological History: No Psychological Hx Reported Smoking Status: Former smoker Past Alcohol Use History: None Reported Past Drug Use History: None Reported - Past Family History Father Family Medical History: Cancer Additional Family Medical History / Comment(s): Lung. General Exam Limitations: altered mental status Course Vital Signs 09/16/22 09/16/22 12:30 13:46 Temperature 97.9 F Pulse Rate 81 75 Respiratory 20 18 Rate Blood Pressure 139/80 149/79 O2 Sat by Pulse 97 97 Oximetry Medical Decision Making - Lab Data Result diagrams: 09/16/22 12:47 09/16/22 12:47 Lab Results 09/16/22 09/16/22 09/16/22 Range/Units 12:47 12:47 12:47 WBC 7.8 (3.8-10.6) k/uL RBC 4.93 (3.80-5.40) m/uL Hgb 14.5 (11.4-16.0) gm/dL Hct 43.7 (34.0-46.0) % MCV 88.7 (80.0-100.0) fL MCH 29.3 (25.0-35.0) pg MCHC 33.1 (31.0-37.0) g/dL RDW 14.2 (11.5-15.5) % Plt Count 429 (150-450) k/uL MPV 8.0 Neutrophils % 65 % Lymphocytes % 19 % Monocytes % 7 % Eosinophils % 5 % Basophils % 1 % Neutrophils # 5.1 (1.3-7.7) k/uL Lymphocytes # 1.5 (1.0-4.8) k/uL Monocytes # 0.5 (0-1.0) k/uL Eosinophils # 0.4 (0-0.7) k/uL Basophils # 0.1 (0-0.2) k/uL PT 10.6 (9.0-12.0) sec INR 1.0 (<1.2) APTT 24.1 (22.0-30.0) sec Sodium 140 (137-145) mmol/L Potassium 3.4 L (3.5-5.1) mmol/L Chloride 109 H (98-107) mmol/L Carbon Dioxide 24 (22-30) mmol/L Anion Gap 7 mmol/L BUN 11 (7-17) mg/dL Creatinine 0.96 (0.52-1.04) mg/dL Est GFR (CKD-EPI)AfAm 66 (>60 ml/min/1.73 sqM) Est GFR (CKD-EPI)NonAf 57 (>60 ml/min/1.73 sqM) Glucose 107 H (74-99) mg/dL Plasma Lactic Acid Yuri (0.7-2.0) mmol/L Calcium 9.1 (8.4-10.2) mg/dL Magnesium 2.0 (1.6-2.3) mg/dL Total Bilirubin 0.6 (0.2-1.3) mg/dL AST 35 (14-36) U/L ALT 27 (4-34) U/L Alkaline Phosphatase 81 (38-126) U/L Troponin I (0.000-0.034) ng/mL Total Protein 7.0 (6.3-8.2) g/dL Albumin 4.4 (3.5-5.0) g/dL 09/16/22 09/16/22 Range/Units 12:47 12:47 WBC (3.8-10.6) k/uL RBC (3.80-5.40) m/uL Hgb (11.4-16.0) gm/dL Hct (34.0-46.0) % MCV (80.0-100.0) fL MCH (25.0-35.0) pg MCHC (31.0-37.0) g/dL RDW (11.5-15.5) % Plt Count (150-450) k/uL MPV Neutrophils % % Lymphocytes % % Monocytes % % Eosinophils % % Basophils % % Neutrophils # (1.3-7.7) k/uL Lymphocytes # (1.0-4.8) k/uL Monocytes # (0-1.0) k/uL Eosinophils # (0-0.7) k/uL Basophils # (0-0.2) k/uL PT (9.0-12.0) sec INR (<1.2) APTT (22.0-30.0) sec Sodium (137-145) mmol/L Potassium (3.5-5.1) mmol/L Chloride (98-107) mmol/L Carbon Dioxide (22-30) mmol/L Anion Gap mmol/L BUN (7-17) mg/dL Creatinine (0.52-1.04) mg/dL Est GFR (CKD-EPI)AfAm (>60 ml/min/1.73 sqM) Est GFR (CKD-EPI)NonAf (>60 ml/min/1.73 sqM) Glucose (74-99) mg/dL Plasma Lactic Acid Yuri 1.4 (0.7-2.0) mmol/L Calcium (8.4-10.2) mg/dL Magnesium (1.6-2.3) mg/dL Total Bilirubin (0.2-1.3) mg/dL AST (14-36) U/L ALT (4-34) U/L Alkaline Phosphatase (38-126) U/L Troponin I <0.012 (0.000-0.034) ng/mL Total Protein (6.3-8.2) g/dL Albumin (3.5-5.0) g/dL Disposition Clinical Impression: Syncope Disposition: ADMITTED IP TO THIS [facility] Condition: Fair Referrals: Celio Pollard MD [Primary Care Provider] - 1-2 days Decision Time: 14:21
[2022-09-16] MEDS ORDERED: NALOXONE 0.4 MG/ML 1 ML VIAL IV PRN (14:18)
[2022-09-16] MEDS ORDERED: SODIUM CHLORIDE 0.9% 1,000 ML IV SCH (14:30)
[2022-09-16] MEDS: HEPARIN SODIUM,PORCINE/PF 5,000 UNIT/0.5 ML SYRINGE SQ SCH ×2 (17:17→23:19)
[2022-09-16] MEDS ORDERED: Potassium Replacement Protocol 1 EACH MISC MISCELLANE PRN ×2 (18:32→20:12)
[2022-09-16] MEDS: POTASSIUM CHLORIDE ER 20 MEQ TAB.ER PO SCH ×3 (20:21→23:20)
[2022-09-16] MEDS ORDERED: PRAVASTATIN SODIUM 40 MG TAB PO SCH (21:00)
[2022-09-16] MEDS ORDERED: ZOLPIDEM 5 MG TAB PO SCH (21:00)
[2022-09-17] MEDS: POTASSIUM CHLORIDE ER 20 MEQ TAB.ER PO SCH (01:02)
[2022-09-17 07:47] VITALS: BP 177/91; PULSE 73; RESP 18; TEMP 97.9
[2022-09-17] MEDS: HEPARIN SODIUM,PORCINE/PF 5,000 UNIT/0.5 ML SYRINGE SQ SCH (08:50)
[2022-09-17 08:51] LABS: BUN/Creat Ratio 12.22 Ratio (12.00-20.00); Calcium 9.7 mg/dL (8.7-10.3); Non-African American GFR(CKD) 61.2 (60.0-200.0); Potassium 4.8 mmol/L (3.5-5.5)
[2022-09-17] MEDS ORDERED: CLOPIDOGREL 75 MG TAB PO SCH (09:00)
[2022-09-17] MEDS ORDERED: FLUDROCORTISONE 0.1 MG TAB PO SCH (09:00)
[2022-09-17] MEDS ORDERED: MIDODRINE 5 MG TAB PO SCH (09:00)
--- NOTE | 2022-09-17 09:07 | P.CRDCN ---
History of Present Illness History of present illness: HISTORY OF PRESENT ILLNESS: This is a 77-year-old female with a past medical history significant for dysautonomia with syncope, hypertension, complete heart block with permanent pacemaker, and coronary artery disease. Patient follows in the office with Dr. Vences. We have been asked to see the patient in consultation for syncope. Patient examined at the bedside. Patient states that she was at the grocery story yesterday and was in the checkout naz. She states that she felt hot and sweaty and felt like she was going to pass out. The next thing she room or was laying on the floor and had a syncopal episode. She does report having loss of consciousness. She states that she began to have a headache about 2-3 hours after the episode. The patient does have a history of recurrent syncope secondary to her dysautonomia. She states the last time that this happened was in July. Orthostatic blood pressures were checked and were unremarkable. * EKG reveals paced rhythm * Laboratory data: WBC 7.8. Hemoglobin 14.5. Platelet count 429. Sodium 141. Potassium 4.8. BUN 11. Creatinine 0.9. Troponin negative 1. * Current home cardiac medications include Pravachol 40 mg at night, Plavix 75 mg daily, Florinef 0.1 mg daily, and Midodrine 5 mg daily * Most recent echocardiogram obtained in April 2020 revealing ejection fraction 55%, mild LVH * Cardiac catheterization history: 2018 with FFR of the LAD resulting in 0.85. * Patient underwent Lexiscan stress test in November 2020 which was negative for ischemia REVIEW OF SYSTEMS: At the time of my exam: CONSTITUTIONAL: Denies fever or chills. HEENT: Denies blurred vision, vision changes, or eye pain. Denies hemoptysis CARDIOVASCULAR: Denies chest pain. Denies orthopnea. Denies PND. Denies palpitations RESPIRATORY: Denies shortness of breath. GASTROINTESTINAL: Denies abdominal pain. Denies nausea or vomiting. HEMATOLOGIC: Denies bleeding disorders. GENITOURINARY: Denies any blood in urine. SKIN: Denies pruitis. Denies rash. PHYSICAL EXAM: VITAL SIGNS: Reviewed. GENERAL: Well-developed in no acute distress. HEENT: Head is normocephalic. Pupils are equal, round. Sclerae anicteric. Mucous membranes of the mouth are moist. Neck supple. No JVD or thyromegaly LUNGS: Respirations even and unlabored. Lungs essentially clear to auscultation bilaterally. HEART: Regular rate and rhythm. S1 and S2 heard. ABDOMEN: Soft. Nondistended. Nontender. EXTREMITIES: Normal range of motion. No clubbing or cyanosis. Peripheral pulses intact. No lower extremity edema NEUROLOGIC: Awake and alert. Oriented x 3. ASSESSMENT: Syncope secondary to dysautonomia History of complete heart block with permanent pacemaker insertion Coronary artery disease Hypertension Hyperlipidemia PLAN: Orthostatics obtained and reviewed Pacemaker interrogated with no events noted Continue home cardiac medications Patient may be discharged home today from a cardiac standpoint and follow up outpatient Nurse practitioner note has been reviewed by physician. Signing provider agrees with the documented findings, assessment, and plan of care. 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 Type of Cardiac Device: Permanent Pacemaker Device Placement Date:: 07/29/20 Past Psychological History: No Psychological Hx Reported Additional Psychological History / Comment(s): . Smoking Status: Former smoker Past Alcohol Use History: None Reported Additional Past Alcohol Use History / Comment(s): Pt started smoking in 1962 and quit in 1972. Past Drug Use History: None Reported - Past Family History Father Family Medical History: Cancer Additional Family Medical History / Comment(s): Lung. Medications and Allergies Home Medications Medication Instructions Recorded Confirmed Type Zolpidem [Ambien] 10 mg PO HS 07/28/20 09/16/22 History Clopidogrel [Plavix] 75 mg PO DAILY 09/16/22 09/16/22 History Fludrocortisone [Florinef] 0.1 mg PO DAILY 09/16/22 09/16/22 History Midodrine [ProAmatine] 5 mg PO DAILY 09/16/22 09/16/22 History Pravastatin Sodium [Pravachol] 40 mg PO HS 09/16/22 09/16/22 History Allergies Allergy/AdvReac Type Severity Reaction Status Date / Time adhesive Allergy Rash/Hives Verified 09/16/22 14:42 bee pollen Allergy Anaphylaxis Verified 09/16/22 14:42 latex Allergy Rash/Hives Verified 09/16/22 14:42 Penicillins Allergy Anaphylaxis Verified 09/16/22 14:42 prednisone AdvReac Nausea & Verified 09/16/22 14:42 Vomiting Physical Exam Vitals: Vital Signs Temp Pulse Pulse Pulse Pulse Pulse Resp 09/17/22 07:00 97.9 F 73 18 09/17/22 02:04 98.3 F 70 17 09/16/22 18:47 98.1 F 70 19 09/16/22 16:25 97.4 F L 89 16 09/16/22 15:00 97.4 F L 76 93 80 16 09/16/22 14:50 98.1 F 71 18 09/16/22 13:46 75 18 09/16/22 12:30 97.9 F 81 20 BP BP BP BP Pulse Ox 09/17/22 07:00 177/91 94 L 09/17/22 02:04 161/72 97 09/16/22 18:47 179/91 97 09/16/22 16:25 187/82 169/86 206/76 99 09/16/22 15:00 187/82 169/86 206/76 100 09/16/22 14:50 174/91 153/81 151/83 09/16/22 13:46 149/79 97 09/16/22 12:30 139/80 97 Intake and Output 09/16/22 09/17/22 09/17/22 22:59 06:59 14:59 Intake Total 118 Balance 118 Intake: Oral 118 Other: # Voids 2 1 Weight 75.7 kg Results 09/16/22 12:47 09/17/22 05:40 Cardiac Enzymes 09/16/22 09/16/22 Range/Units 12:47 12:47 AST 35 (14-36) U/L Troponin I <0.012 (0.000-0.034) ng/mL Coagulation 09/16/22 Range/Units 12:47 PT 10.6 (9.0-12.0) sec APTT 24.1 (22.0-30.0) sec CBC 09/16/22 Range/Units 12:47 WBC 7.8 (3.8-10.6) k/uL RBC 4.93 (3.80-5.40) m/uL Hgb 14.5 (11.4-16.0) gm/dL Hct 43.7 (34.0-46.0) % Plt Count 429 (150-450) k/uL Comprehensive Metabolic Panel 09/16/22 09/16/22 Range/Units 12:47 22:41 Sodium 140 (137-145) mmol/L Potassium 3.4 L 3.4 L (3.5-5.1) mmol/L Chloride 109 H (98-107) mmol/L Carbon Dioxide 24 (22-30) mmol/L BUN 11 (7-17) mg/dL Creatinine 0.96 (0.52-1.04) mg/dL Glucose 107 H (74-99) mg/dL Calcium 9.1 (8.4-10.2) mg/dL AST 35 (14-36) U/L ALT 27 (4-34) U/L Alkaline Phosphatase 81 (38-126) U/L Total Protein 7.0 (6.3-8.2) g/dL Albumin 4.4 (3.5-5.0) g/dL Current Medications Generic Name Dose Route Start Last Admin Trade Name Basia PRN Reason Stop Dose Admin Clopidogrel Bisulfate 75 mg 09/17/22 09:00 Clopidogrel 75 Mg Tab PO DAILY RONNY Fludrocortisone Acetate 0.1 mg 09/17/22 09:00 Fludrocortisone 0.1 Mg Tab PO DAILY [facility] Heparin Sodium (Porcine) 5,000 unit 09/16/22 16:00 09/16/22 23:19 Heparin Sodium,Porcine/Pf 5,000 Unit/0.5 Ml Syringe SQ 5,000 unit Q8HR RONNY Administration Sodium Chloride 1,000 mls @ 20 mls/hr 09/16/22 14:30 09/16/22 15:06 Saline 0.9% IV 20 mls/hr .Q24H RONNY Administration Midodrine 5 mg 09/17/22 09:00 Midodrine 5 Mg Tab PO DAILY RONNY Miscellaneous Information 1 each 09/16/22 18:32 Potassium Replacement Protocol 1 Each Misc MISCELLANE DAILY PRN Per Protocol Protocol Miscellaneous Information 1 each 09/16/22 20:12 Potassium Replacement Protocol 1 Each Misc MISCELLANE DAILY PRN Per Protocol Protocol Naloxone HCl 0.2 mg 09/16/22 14:18 Naloxone 0.4 Mg/Ml 1 Ml Vial IV Q2M PRN Opioid Reversal Pravastatin Sodium 40 mg 09/16/22 21:00 09/16/22 20:02 Pravastatin Sodium 40 Mg Tab PO 40 mg HS RONNY Administration Zolpidem Tartrate 10 mg 09/16/22 21:00 09/16/22 20:05 Zolpidem 5 Mg Tab PO 10 mg HS RONNY Administration Intake and Output 09/16/22 09/17/22 09/17/22 22:59 06:59 14:59 Intake Total 118 Balance 118 Intake: Oral 118 Other: # Voids 2 1 Weight 75.7 kg 09/16/22 12:47 09/16/22 22:41
--- NOTE | 2022-09-17 11:03 | P.HPIM ---
History of Present Illness H&P Date: 09/16/22 Chief Complaint: Syncope Patient is a 77-year-old female with a known history of coronary artery disease, recurrent syncopal episodes, history of pacemaker placement, hypothyroidism, prior history of smoking presents to ER status post syncopal episode. Patient states that she went to the market and while she was She felt very warm and dizzy and lost his consciousness. Bystander was able to hold her and she did not sustain a fall. Last consciousness about 2-3 seconds. No compressive chest pain. No palpitations. No nausea vomiting abdominal pain or diarrhea. No recent illnesses. No cough is from production. No fever no chills. EKG showed electronic ventricular paced rhythm., sodium 140 potassium 3.4 chloride 109 bicarb is 24 BUN 11 and creatinine 0.96 Blood sugar is 107, liver enzymes are not elevated. Troponin 1 negative. Lactic acid 1.4. Currently denied any complaints of dizziness or lightheadedness. Review of Systems Constitutional: Patient denies any fever or chills . No generalized weakness or weight loss. Abdomen: Patient denied nausea vomiting and diarrhea and abdominal pain. Cardiovascular: Patient denies any chest pain or short of breath no palpitations. Respiratory: patient denied any cough is from production. No shortness of breath Neurologic: Patient denied any numbness or tingling headache. Musculoskeletal: Patient denies any complaints of joint swelling or deformity. Skin: Negative Psychiatric: Negative Endocrine: No heat or cold intolerance. No recent weight gain. Genitourinary: No dysuria or hematuria. 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 Past Psychological History: No Psychological Hx Reported Smoking Status: Former smoker Past Alcohol Use History: None Reported Past Drug Use History: None Reported - Past Family History Father Family Medical History: Cancer Additional Family Medical History / Comment(s): Lung. Medications and Allergies Home Medications Medication Instructions Recorded Confirmed Type Zolpidem [Ambien] 10 mg PO HS 07/28/20 09/16/22 History Clopidogrel [Plavix] 75 mg PO DAILY 09/16/22 09/16/22 History Fludrocortisone [Florinef] 0.1 mg PO DAILY 09/16/22 09/16/22 History Midodrine [ProAmatine] 5 mg PO DAILY 09/16/22 09/16/22 History Pravastatin Sodium [Pravachol] 40 mg PO HS 09/16/22 09/16/22 History Allergies Allergy/AdvReac Type Severity Reaction Status Date / Time adhesive Allergy Rash/Hives Verified 09/16/22 14:42 bee pollen Allergy Anaphylaxis Verified 09/16/22 14:42 latex Allergy Rash/Hives Verified 09/16/22 14:42 Penicillins Allergy Anaphylaxis Verified 09/16/22 14:42 prednisone AdvReac Nausea & Verified 09/16/22 14:42 Vomiting Physical Exam Vitals: Vital Signs Temp Pulse Pulse Resp BP BP BP 09/16/22 14:50 98.1 F 71 18 174/91 153/81 09/16/22 13:46 75 18 149/79 09/16/22 12:30 97.9 F 81 20 139/80 BP Pulse Ox 09/16/22 14:50 151/83 09/16/22 13:46 97 09/16/22 12:30 97 Intake and Output 09/16/22 09/16/22 09/16/22 06:59 14:59 22:59 Other: Weight 75.7 kg PHYSICAL EXAMINATION: Patient is lying in the bed comfortably, no acute distress, awake alert and oriented.. HEENT: Normocephalic. Neck is supple. Pupils reactive. Nostrils clear. Oral cavity is moist. Neck reveals no JVD, carotid bruits, or thyromegaly. CHEST EXAMINATION: Trachea is central. Symmetrical expansion. Lung reynoso clear to auscultation and percussion. CARDIAC: Normal S1, S2 with no gallops. No murmurs ABDOMEN: Soft. Bowel sounds normal. No organomegaly. No abdominal bruits. Extremities: reveal no edema. No clubbing or cyanosis Neurologically awake, alert, oriented x3 with well-coordinated movements. No focal deficits noted Skin: No rash or skin lesions. Psychiatric: Coperative. Nonsuicidal Musculoskeletal: No joint swelling or deformity. Normal range of motion. Results CBC & Chem 7: 09/16/22 12:47 09/17/22 05:40 Labs: Abnormal Lab Results - Last 24 Hours (Table) 09/16/22 Range/Units 12:47 Potassium 3.4 L (3.5-5.1) mmol/L Chloride 109 H (98-107) mmol/L Glucose 107 H (74-99) mg/dL Thrombosis Risk Factor Assmnt - DVT/VTE Prophylaxis DVT/VTE Prophylaxis: Pharmacologic Prophylaxis ordered Assessment and Plan Assessment: Acute syncopal episode likely due to orthostatic hypotension. History of complete heart block status post permanent pacemaker placement Coronary artery disease with no prior PCI. History of cardiac catheterization in 2018 Uncontrolled hypertension Hyperlipidemia Hypothyroidism History of right lung lobectomy due to infection and is esophageal fistula Prior history of smoking DVT prophylaxis with heparin subcu Plan: Patient will be current on telemetry monitoring. Follow-up orthostatic vitals. Continue with home medications including Florinef and Midodrin and cardiology consultation for pacemaker interrogation. Continue to follow closely. Replace potassium. Time with Patient: Greater than 30
== END 2022-09-17 11:52 | disposition home or self-care (01) ==
LOC: EC 12:27 → 6NMEDSUR 14:19 → INTOOBSV 14:19 → 6NMEDSUR 14:47
PROVIDERS: ADMIT Hospitalist; ATTEND Hospitalist
DX: R55 Syncope and collapse (principal); G90.1 Familial dysautonomia [Riley-Day]; I44.2 Atrioventricular block, complete; I25.10 Atherosclerotic heart disease of native coronary artery without angina pectoris; K21.9 Gastro-esophageal reflux disease without esophagitis; E78.5 Hyperlipidemia, unspecified; I10 Essential (primary) hypertension; E03.9 Hypothyroidism, unspecified; Z95.810 Presence of automatic (implantable) cardiac defibrillator; Z79.890 Hormone replacement therapy; Z79.899 Other long term (current) drug therapy; Z91.040 Latex allergy status; Z88.0 Allergy status to penicillin; Z90.49 Acquired absence of other specified parts of digestive tract; Z90.710 Acquired absence of both cervix and uterus; Z87.891 Personal history of nicotine dependence; Z80.1 Family history of malignant neoplasm of trachea, bronchus and lung; Z79.02 Long term (current) use of antithrombotics/antiplatelets; Z79.52 Long term (current) use of systemic steroids; Z90.2 Acquired absence of lung [part of]
CPT/HCPCS: 96372 ×2; 99285; 36415; 93005; 80053; 80048; 83605; 83735; 84132; 84484; 85025; 85610; 85730; G0378 ×2; J1644 ×2

== ENCOUNTER 2022-11-05 12:24 | Inpatient (IN) | payer MEDICARE ==
--- NOTE | 2022-11-05 13:04 | ED ---
General Adult HPI - General Chief complaint: Syncope Stated complaint: Syncope Time Seen by Provider: 11/05/22 12:32 Source: patient, family, EMS, RN notes reviewed Mode of arrival: EMS Limitations: no limitations - History of Present Illness Initial comments: Patient is a pleasant 77-year-old female brought to the emergency room by EMS for dizziness and potential syncopal event. Patient is a poor historian regarding the events but is currently alert and orientated 4. She reports that she recalls the room spinning and being out with her and then here in the emergency room. She denies any pain in any extremity. She denies falling. She denies any dizziness, focal neurological deficits, abdominal pain, chest pain, shortness of breath, nausea, vomiting, fevers or chills. Her who has arrived to the bedside does confirm her story of becoming dizzy and staff at the [employer] where she was escorted her to a chair. They consequently called EMS for transportation to the emergency room. According to the spouse has had similar events where she becomes dizzy and unresponsive without any convulsive activity. He reports that she was here in the emergency room approximately one month ago for similar symptoms; report reviewed from 09/16/2022 where she had presentation for syncopal event and admission with further workup at that time. 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 - Related Data Home Medications Medication Instructions Recorded Confirmed Zolpidem [Ambien] 10 mg PO HS 07/28/20 11/05/22 Clopidogrel [Plavix] 75 mg PO DIRECTED 09/16/22 11/05/22 Fludrocortisone [Florinef] 0.05 mg PO Q2D 09/16/22 11/05/22 Midodrine [ProAmatine] 5 mg PO DAILY 09/16/22 11/05/22 Pravastatin Sodium [Pravachol] 40 mg PO HS 09/16/22 11/05/22 Diphenoxylate HCl/Atropine 1 tab PO BID PRN 11/05/22 11/05/22 [Lomotil 2.5-0.025 mg Tablet] Donepezil [Aricept] 5 mg PO HS 11/05/22 11/05/22 Allergies Allergy/AdvReac Type Severity Reaction Status Date / Time adhesive Allergy Rash/Hives Verified 11/05/22 14:18 bee pollen Allergy Anaphylaxis Verified 11/05/22 14:18 latex Allergy Rash/Hives Verified 11/05/22 14:18 Penicillins Allergy Anaphylaxis Verified 11/05/22 14:18 prednisone AdvReac Nausea & Verified 11/05/22 14:18 Vomiting Review of Systems ROS Statement: Those systems with pertinent positive or pertinent negative responses have been documented in the HPI. ROS Other: All systems not noted in ROS Statement are negative. 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 Type of Cardiac Device: Permanent Pacemaker Device Placement Date:: 07/29/20 Past Psychological History: No Psychological Hx Reported Smoking Status: Former smoker Past Alcohol Use History: None Reported Past Drug Use History: None Reported - Past Family History Father Family Medical History: Cancer Additional Family Medical History / Comment(s): Lung. General Exam - General Exam Comments Initial Comments: GENERAL: No acute distress, well developed, well nourished. HEENT: Normocephalic, atraumatic. Pupils equal, round, reactive to light. Moist mucous membranes. Full range of motion neck. EOMI. LUNGS: No respiratory distress. Clear to auscultation, no adventitious sounds, no use of accessory muscles. HEART: Regular rate and rhythm without murmur, rub, or gallop. ABDOMEN: Normal bowel sounds. Soft, non-tender, non-distended. BACK: Normal inspection. EXTREMITIES: No edema. No tenderness. Moves all extremities. Bilateral upper and lower extremity strength equal and strong. NEUROLOGIC: Poor historian of event prior to arrival to hospital via EMS otherwise alert & oriented x 3. CN II-XII grossly intact. NIH 0 PSYCHIATRIC: Normal affect and behavior. DERMATOLOGIC: Skin intact, without rashes or lesions noted. Course Vital Signs 11/05/22 11/05/22 11/05/22 12:30 12:36 16:00 Temperature 97.9 F Pulse Rate 71 62 Pulse Rate [ 66 [employer] ] Respiratory 18 18 Rate Blood Pressure 172/95 160/75 O2 Sat by Pulse 96 98 Oximetry 11/05/22 17:00 Temperature Pulse Rate 63 Pulse Rate [ [employer] ] Respiratory 18 Rate Blood Pressure 112/90 O2 Sat by Pulse 98 Oximetry Medical Decision Making - Medical Decision Making Was pt. sent in by a medical professional or institution? @ -No Did you speak to anyone other than the patient for history? @ -EMS and spouse Did you review nursing and triage notes? @ -Yes and agree Were old charts reviewed? @ -Previous admission records and EKG Differential Diagnosis? @ -Differential Syncope: Valvular disease, hypertrophic cardiomyopathy, pulmonary embolism, tamponade, tachycardia, bradycardia, DE, hypovolemia, hemorrhage, dissection, anemia, intracranial hemorrhage, seizure, hypoglycemia, carbon monoxide poisoning, this is not meant to be an all-inclusive list. EKG interpreted by me (3pts min.)? @ -AV paced, ventricular rate 61 bpm, OR interval 174 ms, QRS duration 106 ms QT/QTC 474/177 ms, PRT axes 59, 12, 85 X-rays interpreted by me (1pt min.)? @ -None CT interpreted by me (1pt min.)? @ -Area of concerning ischemia left occipital lobe report received by [facility] . Findings discussed with my attending Dr. Garcia. Left temporal lobe white matter changes noted as well. Likely remote. U/S interpreted by me (1pt. min.)? @ -None What testing was considered but not performed? (CT, X-rays, U/S, labs)? Why? @ CTA head and neck considered but deferred due to return to baseline and previous symptomatology presentation and unknown last well. What meds were considered but not given? Why? @ -None Did you discuss the management of the patient with other professionals? @ -Dr. martínez with [facility] admission provider. Did you reconcile home meds? @ -Reviewed not reconciled Was smoking cessation discussed for >3mins.? @ -Not Applicable Was critical care preformed (if so, how long)? @ -None Were there social determinants of health that impacted care today? How? (Homelessness, low income, unemployed, alcoholism, drug addiction, transportation, low edu. Level, literacy, decrease access to med. care, custodial, rehab)? @ -No Was there de-escalation of care discussed even if they declined? (Discuss DNR or withdrawal of care, Hospice)? @ -No What co-morbidities impacted this encounter? (DM, HTN, Smoking, COPD, CAD, Cancer, CVA, Hep., AIDS, mental health diagnosis, sleep apnea, morbid obesity)? @ -Prior syncope Was patient admitted / discharged? @ -Syncopal workup revealed acute ischemic stroke to occipital region with unknown last well NIH score of 0 with back to baseline presentation upon arrival to the emergency room. Not a candidate for TPA as risks outweigh benefits with an age scale of 0 and unknown last well. Labs of CBC and coags unremarkable CMP reveals slightly elevated BUN at 20 otherwise no abnormalities. Troponin negative. Glucose normal. Urinalysis with large leukocyte Estrace without bacteria sent for culture will defer antibiotic treatment at this time. Patient resting comfortably in back at baseline no indication for further diagnostic imaging or laboratory studies will plan for admission for further monitoring and evaluation. Spoke with Dr. Martínez with [facility] who is accepting of admission requesting neurology consult no further orders received at this time. Patient to be admitted to [facility] in stable condition. Undiagnosed new problem with uncertain prognosis? @ -None Drug Therapy requiring intensive monitoring for toxicity (Heparin, Nitro, Insulin, Cardizem)? @ -None Were any procedures done? @ -None Diagnosis/symptom? @ -Syncope Acute, or Chronic, or Acute on Chronic? @ -Acute Uncomplicated (without systemic symptoms) or Complicated (systemic symptoms)? @ -Uncomplicated back to baseline mental status without neurological deficits Side effects of treatment? @ -None Exacerbation, Progression, or Severe Exacerbation] @ -No Poses a threat to life or bodily function? @ -no Diagnosis/symptom? @ -Left occipital lobe acute ischemia Chronic, or Acute on Chronic? @ -acute Uncomplicated (without systemic symptoms) or Complicated (systemic symptoms)? @ -uncomplicated Side effects of treatment? @ -none Exacerbation, Progression, or Severe Exacerbation] @ -no Poses a threat to life or bodily function? @ -yes Case discussed with Dr. Garcia. - Lab Data Result diagrams: 11/05/22 13:16 11/05/22 13:16 Lab Results 11/05/22 11/05/22 11/05/22 Range/Units 13:16 13:16 13:16 WBC 9.5 (3.8-10.6) k/uL RBC 5.12 (3.80-5.40) m/uL Hgb 15.3 (11.4-16.0) gm/dL Hct 45.0 (34.0-46.0) % MCV 87.9 (80.0-100.0) fL MCH 29.9 (25.0-35.0) pg MCHC 34.0 (31.0-37.0) g/dL RDW 13.9 (11.5-15.5) % Plt Count 375 (150-450) k/uL MPV 7.7 Neutrophils % 71 % Lymphocytes % 15 % Monocytes % 7 % Eosinophils % 4 % Basophils % 1 % Neutrophils # 6.7 (1.3-7.7) k/uL Lymphocytes # 1.4 (1.0-4.8) k/uL Monocytes # 0.7 (0-1.0) k/uL Eosinophils # 0.4 (0-0.7) k/uL Basophils # 0.1 (0-0.2) k/uL PT 10.4 (9.0-12.0) sec INR 1.0 (<1.2) APTT 24.1 (22.0-30.0) sec Sodium 141 (137-145) mmol/L Potassium 3.9 (3.5-5.1) mmol/L Chloride 105 (98-107) mmol/L Carbon Dioxide 29 (22-30) mmol/L Anion Gap 7 mmol/L BUN 20 H (7-17) mg/dL Creatinine 0.85 (0.52-1.04) mg/dL Est GFR (CKD-EPI)AfAm 76 (>60 ml/min/1.73 sqM) Est GFR (CKD-EPI)NonAf 66 (>60 ml/min/1.73 sqM) Glucose 98 (74-99) mg/dL Calcium 9.2 (8.4-10.2) mg/dL Total Bilirubin 0.4 (0.2-1.3) mg/dL AST 28 (14-36) U/L ALT 19 (4-34) U/L Alkaline Phosphatase 73 (38-126) U/L Troponin I (0.000-0.034) ng/mL Total Protein 7.1 (6.3-8.2) g/dL Albumin 4.2 (3.5-5.0) g/dL Urine Color Urine Appearance (Clear) Urine pH (5.0-8.0) Ur Specific [place] (1.001-1.035) Urine Protein (Negative) Urine Glucose (UA) (Negative) Urine Ketones (Negative) Urine Blood (Negative) Urine Nitrite (Negative) Urine Bilirubin (Negative) Urine Urobilinogen (<2.0) mg/dL Ur Leukocyte Esterase (Negative) Urine RBC (0-5) /hpf Urine WBC (0-5) /hpf Ur Squamous Epith Cells (0-4) /hpf Amorphous Sediment (None) /hpf Hyaline Casts (0-2) /lpf Urine Mucus (None) /hpf 11/05/22 11/05/22 Range/Units 13:16 13:16 WBC (3.8-10.6) k/uL RBC (3.80-5.40) m/uL Hgb (11.4-16.0) gm/dL Hct (34.0-46.0) % MCV (80.0-100.0) fL MCH (25.0-35.0) pg MCHC (31.0-37.0) g/dL RDW (11.5-15.5) % Plt Count (150-450) k/uL MPV Neutrophils % % Lymphocytes % % Monocytes % % Eosinophils % % Basophils % % Neutrophils # (1.3-7.7) k/uL Lymphocytes # (1.0-4.8) k/uL Monocytes # (0-1.0) k/uL Eosinophils # (0-0.7) k/uL Basophils # (0-0.2) k/uL PT (9.0-12.0) sec INR (<1.2) APTT (22.0-30.0) sec Sodium (137-145) mmol/L Potassium (3.5-5.1) mmol/L Chloride (98-107) mmol/L Carbon Dioxide (22-30) mmol/L Anion Gap mmol/L BUN (7-17) mg/dL Creatinine (0.52-1.04) mg/dL Est GFR (CKD-EPI)AfAm (>60 ml/min/1.73 sqM) Est GFR (CKD-EPI)NonAf (>60 ml/min/1.73 sqM) Glucose (74-99) mg/dL Calcium (8.4-10.2) mg/dL Total Bilirubin (0.2-1.3) mg/dL AST (14-36) U/L ALT (4-34) U/L Alkaline Phosphatase (38-126) U/L Troponin I <0.012 (0.000-0.034) ng/mL Total Protein (6.3-8.2) g/dL Albumin (3.5-5.0) g/dL Urine Color Yellow Urine Appearance Clear (Clear) Urine pH 6.5 (5.0-8.0) Ur Specific [place] 1.015 (1.001-1.035) Urine Protein Trace H (Negative) Urine Glucose (UA) Negative (Negative) Urine Ketones Negative (Negative) Urine Blood Negative (Negative) Urine Nitrite Negative (Negative) Urine Bilirubin Negative (Negative) Urine Urobilinogen <2.0 (<2.0) mg/dL Ur Leukocyte Esterase Large H (Negative) Urine RBC 1 (0-5) /hpf Urine WBC 19 H (0-5) /hpf Ur Squamous Epith Cells 1 (0-4) /hpf Amorphous Sediment Occasional H (None) /hpf Hyaline Casts 46 H (0-2) /lpf Urine Mucus Occasional H (None) /hpf - Radiology Data Radiology results: report reviewed, image reviewed Disposition Clinical Impression: Syncope, Occipitotemporal infarct, acute Disposition: ADMITTED IP TO THIS HOSP Condition: Stable Is patient prescribed a controlled substance at d/c from ED?: No Time of Disposition: 14:20
[2022-11-05 13:24] LABS: Basophils # (A) 0.1 k/uL (0-0.2); Basophils % (A) 1 %; Eosinophils # (A) 0.4 k/uL (0-0.7); Eosinophils % (A) 4 %; HGB 15.3 gm/dL (11.4-16.0); Lymphocytes # (A) 1.4 k/uL (1.0-4.8); Lymphocytes % (A) 15 %; MCH 29.9 pg (25.0-35.0); MCV 87.9 fL (80.0-100.0); Mean Platelet Volume 7.7; Monocytes # (A) 0.7 k/uL (0-1.0); Monocytes % (A) 7 %; Neutrophils # (A) 6.7 k/uL (1.3-7.7); Neutrophils % (A) 71 %; Platelet Count 375 k/uL (150-450); RBC 5.12 m/uL (3.80-5.40); RDW 13.9 % (11.5-15.5); WBC 9.5 k/uL (3.8-10.6)
[2022-11-05 13:33] LABS: Albumin 4.2 g/dL (3.5-5.0); Calcium 9.2 mg/dL (8.4-10.2); Total Bilirubin 0.4 mg/dL (0.2-1.3); Total Protein 7.1 g/dL (6.3-8.2)
[2022-11-05 13:43] LABS: Potassium 3.9 mmol/L (3.5-5.1)
--- NOTE | 2022-11-05 13:46 | CT ---
EXAMINATION TYPE: CT brain wo con CT DLP: 1099.4 mGycm, Automated exposure control for dose reduction was used. DATE OF EXAM: 11/05/2022 1:33 PM COMPARISON: Prior CT Brain from 07/20/2022. CLINICAL INDICATION:Female, 77 years old with history of syncope, TECHNIQUE: Brain: Multiple axial CT images of the brain were obtained without IV contrast. Coronal and sagittal reformats reviewed FINDINGS: Brain: Extra-axial spaces: No abnormal extra-axial fluid collections. Ventricular system: Dilatation in proportion to cerebral atrophy. Cerebral parenchyma: No acute intraparenchymal hemorrhage region of low attenuation with loss of jacobs -white differentiation within the left occipital lobe. Focal encephalomalacia redemonstrated within t he anterior aspect of the left upper lobe. The remaining jacobs-white junction is well differentiated. Scattered hypoattenuating areas are seen within the periventricular subcortical white matter. Cerebellum: Unremarkable. Mass effect: No evidence of midline shift. Intracranial vasculature: Atherosclerotic calcifications of the intracranial vessels. Soft tissues: Normal. Calvarium/osseous structures: No depressed skull fracture. Paranasal sinuses and mastoid air cells: Clear Visualized orbits: Orbital contents are intact. IMPRESSION: 1. New region of low attenuation with loss of jacobs-white differentiation within the left occipital l obe concerning for acute ischemia. 2. 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 Findings called to and discussed with ELIJAH Jauregui at 1:43 PM on 11/05/2022
[2022-11-05 14:42] LABS: Partial Thromboplastin Time 24.1 sec (22.0-30.0); Prothrombin Time 10.4 sec (9.0-12.0)
[2022-11-05 14:45] LABS: Amorphous Sediment,Urine Occasional /hpf; Appearance,Urine Clear (Clear); Bilirubin,Urine Negative (Negative); Blood,Urine Negative (Negative); Color,Urine Yellow; Glucose,Urine (UA) Negative (Negative); Hyaline Casts,Urine 46 /lpf (0-2); Ketones,Urine Negative (Negative); Leukocyte Esterase,Urine Large (Negative); Mucus,Urine Occasional /hpf; Nitrite,Urine Negative (Negative); PH, Urine 6.5 (5.0-8.0); Protein,Urine Trace (Negative); RBC,Urine 1 /hpf (0-5); Specific Gravity,Urine 1.015 (1.001-1.035); Squamous Epithelial Cell,Urine 1 /hpf (0-4); Urobilinogen,Urine <2.0 mg/dL (<2.0); WBC,Urine 19 /hpf (0-5)
--- NOTE | 2022-11-05 14:52 | P.HPIM ---
History of Present Illness This is a pleasant 77 years old female with significant past history of syncope thought secondary to presence of a cough and thought to bradycardia arrhythmia has been evaluated by urogynecology physician and neurologist services before for similar complaint. Her PCP is Dr. Burleson This time presents with another episode of blacking out. Patient was standing in the queue of [employer] market today when she started feeling dizzy and asked staff for chair, once she sat in the chair she passed out and the next thing she remembers she is not hospital. Patient estimated she's been off for about half an hour or so, was at bedside, no reports of seizure- like activity, no tongue biting, no urine or bowel incontinence. Also she denies weakness numbness blurred vision or double vision, no other neurological symptoms. She states she still been feeling well for the last 3-4 weeks, she was feeling somewhat stomach hurt like flu, no appetite for the last 2-3 weeks, she lost about 7 pounds and yesterday also she was not eating and drinking well, she had some mild episodes of diarrhea for the last 2 days, this once per day, loose but no abdominal pain, no vomiting. Also she has been feeling some vague pain in her right side of the chest which she rated as less than 1/10. She went to see her urogynecology physician Dr. Caal, she saw his nurse practitioner and she supposed to get echocardiogram in 2 weeks. Also patient supposed to be on baby aspirin and fludrocortisone but she forgot about them for the last few weeks, yesterday and her appointment she was reminded about these medication, but they instructed her to take the fludrocortisone every other day because her blood pressure was on the high side. Currently patient feels thirsty and she looks somewhat dehydrated Patient has been forgetful since last September. She denies any urinary symptoms like urgency or dysuria. No vertigo-like symptoms. No smoking alcohol or illicit drugs. Blood pressure slightly elevated 172/95, rest of Vitas looks stable and patient is afebrile. She has unremarkable labs including CBC, INR, BMP, liver enzymes and troponin. CT of the brain without contrast showing new region of low attenuation with loss of jacobs-white differentiation within the left occipital lobe concerning for acute ischemia. Her mental left temporal infarct, nonspecific could be related to chronic microangiopathic Review of Systems Review of systems CONSTITUTIONAL: No fever, no malaise, no fatigue. HEENT: No recent visual problems or hearing problems. Denied any sore throat. CARDIOVASCULAR: No orthopnea, PND, no palpitations, no syncope. PULMONARY: No shortness of breath, no cough, no hemoptysis. GASTROINTESTINAL: No diarrhea, no nausea, no vomiting, no abdominal pain. Normoactive bowel sounds. NEUROLOGICAL: No headaches, no weakness, no numbness. HEMATOLOGICAL: Denies any bleeding or petechiae. GENITOURINARY: Denies any burning micturition, frequency, or urgency. MUSCULOSKELETAL/RHEUMATOLOGICAL: Denies any joint pain, swelling, or any muscle pain. ENDOCRINE: Denies any polyuria or polydipsia. 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 Type of Cardiac Device: Permanent Pacemaker Device Placement Date:: 07/29/20 Past Psychological History: No Psychological Hx Reported Smoking Status: Former smoker Past Alcohol Use History: None Reported Past Drug Use History: None Reported - Past Family History Father Family Medical History: Cancer Additional Family Medical History / Comment(s): Lung. Medications and Allergies Home Medications Medication Instructions Recorded Confirmed Type Zolpidem [Ambien] 10 mg PO HS 07/28/20 09/16/22 History Clopidogrel [Plavix] 75 mg PO DAILY 09/16/22 09/16/22 History Fludrocortisone [Florinef] 0.1 mg PO DAILY 09/16/22 09/16/22 History Midodrine [ProAmatine] 5 mg PO DAILY 09/16/22 09/16/22 History Pravastatin Sodium [Pravachol] 40 mg PO HS 09/16/22 09/16/22 History Allergies Allergy/AdvReac Type Severity Reaction Status Date / Time adhesive Allergy Rash/Hives Verified 11/05/22 14:18 bee pollen Allergy Anaphylaxis Verified 11/05/22 14:18 latex Allergy Rash/Hives Verified 11/05/22 14:18 Penicillins Allergy Anaphylaxis Verified 11/05/22 14:18 prednisone AdvReac Nausea & Verified 11/05/22 14:18 Vomiting Physical Exam Vitals: Vital Signs Temp Pulse Pulse Resp BP Pulse Ox 11/05/22 12:36 66 11/05/22 12:30 97.9 F 71 18 172/95 96 Intake and Output 11/04/22 11/05/22 11/05/22 22:59 06:59 14:59 Other: Weight 58.967 kg GENERAL: The patient is alert and oriented x3, not in any acute distress. Well developed, well nourished. HEENT: Pupils are round and equally reacting to light. EOMI. No scleral icterus. No conjunctival pallor. Normocephalic, atraumatic. No pharyngeal erythema. No thyromegaly. -CARDIOVASCULAR: S1 and S2 present. No murmurs, rubs, or gallops. Left upper chest pacemaker in place PULMONARY: Chest is clear to auscultation, no wheezing or crackles. ABDOMEN: Soft, nontender, nondistended, normoactive bowel sounds. No palpable organomegaly. MUSCULOSKELETAL: No joint swelling or deformity. EXTREMITIES: No cyanosis, clubbing, or pedal edema. NEUROLOGICAL: Gross neurological examination did not reveal any focal deficits. SKIN: No rashes. no petechiae. Results CBC & Chem 7: 11/05/22 13:16 11/05/22 13:16 Labs: Abnormal Lab Results - Last 24 Hours (Table) 11/05/22 Range/Units 13:16 BUN 20 H (7-17) mg/dL Assessment and Plan Assessment: Recurrent syncope Acute left occipital stroke is suspected with Acute occipital ischemia on CAT scan of the brain History of coronary artery disease, status post pacemaker Hypertension Hyperlipidemia History of GERD Hypothyroidism Plan: We'll give her gentle hydration of D5 normal saline 24 hours Check orthostatic vitals Check TSH again check serum cortisol in the morning Cardiology and pulmonary consult Labs and medication were reviewed.. Continue same treatment. Continue with symptomatic treatment. Resume home medication. Monitor labs and vitals. DVT and GI prophylaxis. Further recommendations as per clinical course of the patient DVT prophylaxis: Subcutaneous heparin GI Prophylaxis: Pepcid PT/OT: Pending Prognosis is guarded
[2022-11-05] MEDS ORDERED: NALOXONE 0.4 MG/ML 1 ML VIAL IV PRN (15:23)
[2022-11-05] MEDS: DEXTROSE 5%-0.9% NACL 1,000 ML IV SCH (15:40)
--- NOTE | 2022-11-05 21:03 | P.CNNES ---
History of Present Illness Consult date: 11/05/22 Requesting physician: Joanna Grimes Reason for Consult: Acute occipital ischemia and syncope History of Present Illness: Patient is a 77-year-old female who came to the hospital by ambulance today at 12:24 PM for recurrent syncopal spells. Patient states that she has been having syncopal spells off and on for last 2 years. She underwent pacemaker placement about a year ago, but the syncopal spells have not resolved. Patient states that she was walking to the grocery stores, bought some food from [employer] and was i n the [employer] market when she was standing, suddenly felt it coming, and she asked the staff "can you get me the chair". She sat in the chair, and then she started to fall. Other shoppers helped her, and she did not fall, hit her head. Patient was brought to the hospital. She says that she is "tired of passing out". Patient's last syncopal spell was on 09/16/2022, when she was going to grocery store, shopping when all of a sudden she she had a syncopal spell. It was reported the patient did appear to be postictal. No observed tonic-clonic activity. Patient was seen by promotions firm accounts manager and her syncope was felt to be related to dysautonomia. Pacemaker was interrogated with no events noted. Patient was cleared for discharge. Patient had another ER visit on 08/19/2022 for some confusional spell. She was released from the ER. Vital signs on arrival blood pressure 172/95, pulse rate 71 temperature 97.9. Blood test shows normal CBC, PT/PTT, normal CMP. Troponin negative. UA shows large amount of leukocyte esterase and [address] head showed new region of low attenuation with loss of jacobs-white differentiation within the left occipital lobe concerning for acute ischemia. I personally reviewed CT head, appears chronic in nature, although the lower part may have subacute component. Also evidence of old encephalomalacia in the left anterior temporal lobe. EKG shows AV dual paced rhythm. Patient states that she has been taking Florinef 0.1 mg, one tablet every day for last 1 month. She was called by the nurse practitioner from cardiology office to decrease the dose of Florinef to half tablet every other day. Patient states that she was also informed to stop Plavix, which she has been on for last 2 years. She has not done it so far. Patient denies any focal symptoms Speech, facial droop, or loss of vision. Home medications include Ambien 10 mg, Lipitor 40 mg, midodrine 5 mg daily, Plavix 75 mg, Florinef 0.05 mg every 2 days, donepezil 5 mg at bedtime and Lo motil. Patient has been seen by myself on 06/27/2020, when she had developed altered mental status, which was felt to be related to accidentally taking her 's [place] tablet. Review of Systems Constitutional: Denies chills, Denies fever Eyes: denies blurred vision, denies pain Ears: bilateral: decreased hearing Ears, nose, mouth and throat: Denies headache, Denies sore throat Cardiovascular: Denies chest pain, Denies shortness of breath Respiratory: Denies cough Gastrointestinal: Denies abdominal pain, Denies diarrhea, Denies nausea, Denies vomiting Musculoskeletal: Denies myalgias Integumentary: Denies pruritus, Denies rash Neurological: Reports as per HPI Endocrine: Denies fatigue, Denies weight change 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 and 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 Type of Cardiac Device: Permanent Pacemaker Device Placement Date:: 07/29/20 Past Psychological History: No Psychological Hx Reported Smoking Status: Former smoker Past Alcohol Use History: None Reported Past Drug Use History: None Reported - Past Family History Father Family Medical History: Cancer Additional Family Medical History / Comment(s): Lung. Medications and Allergies Home Medications Medication Instructions Recorded Confirmed Type Zolpidem [Ambien] 10 mg PO HS 07/28/20 11/05/22 History Clopidogrel [Plavix] 75 mg PO DIRECTED 09/16/22 11/05/22 History Fludrocortisone [Florinef] 0.05 mg PO Q2D 09/16/22 11/05/22 History Midodrine [ProAmatine] 5 mg PO DAILY 09/16/22 11/05/22 History Pravastatin Sodium [Pravachol] 40 mg PO HS 09/16/22 11/05/22 History Diphenoxylate HCl/Atropine 1 tab PO BID PRN 11/05/22 11/05/22 History [Lomotil 2.5-0.025 mg Tablet] Donepezil [Aricept] 5 mg PO HS 11/05/22 11/05/22 History Allergies Allergy/AdvReac Type Severity Reaction Status Date / Time adhesive Allergy Rash/Hives Verified 11/05/22 14:18 bee pollen Allergy Anaphylaxis Verified 11/05/22 14:18 latex Allergy Rash/Hives Verified 11/05/22 14:18 Penicillins Allergy Anaphylaxis Verified 11/05/22 14:18 prednisone AdvReac Nausea & Verified 11/05/22 14:18 Vomiting Physical Examination - Vital Signs Vital Signs: Vital Signs Temp Pulse Pulse Resp BP Pulse Ox 11/05/22 12:36 66 11/05/22 12:30 97.9 F 71 18 172/95 96 Intake and Output 11/05/22 11/05/22 11/05/22 06:59 14:59 22:59 Other: Weight 58.967 kg Patient is an elderly female, very pleasant, in no acute distress. Patient is alert awake oriented to time place and person. Speech and language functions are normal. Patient can name and repeat very well. No aphasia or dysarthria. Attention, concentration and fund of knowledge is adequate. On cranial nerve examination, pupils are equal, round and reacting to light, visual ryenoso reveal right homonymous hemianopia. Extraocular muscles are intact with no nystagmus. Face is symmetric, tongue protrudes to the midline. Palatal elevation and sensation normal, hearing is slightly decreased and shoulder shrug normal, facial sensation normal. On muscle strength testing, there is no pronator drift and the strength is normal in arms and legs distally and proximally. Deep tendon reflexes are symmetric 1 all over and plantars downgoing bilaterally. Sensory to touch is equal with no neglect on double simultaneous stimulation. Cerebellar function showed no ataxia for [id number] testing. No dysdiadochokinesia. No ataxia for [id number] testing on either side. Tone and bulk of muscles normal. Gait deferred.. On general examination, there is no carotid bruit or murmur, S1-S2 audible. Chest is clear on consultation. Abdomen is soft nontender. No organomegaly, bowel sounds present. Peripheral pulses are present. No edema. 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 This may have occurred in August 2022, when she presented with some confusional spell. * Recurrent syncope, all occurring while standing, therefore orthostatics likely possibility. * Hypertension * Hyperlipidemia * Coronary artery disease Plan: * 2-D echo with bubble study to rule out PFO. * Carotid Doppler on 07/13/2022 revealed moderate to severe atherosclerotic changes bilaterally. Hemodynamically significant stenosis proximal right ICA cannot be excluded. Antegrade flow in both vertebral arteries. * CTA of the neck on 07/20/2022 showed no hemodynamically significant stenosis in either ICA. * Continue Plavix 75 mg daily. * Check B12, folate, lipid panel, hemoglobin A1c * Orthostatics. * Suggest tilt table test. * Patient currently on midodrine 5 mg daily and Florinef 0.1 mg daily. Her b lood pressure is running high. Cardiology on board, recommending to decrease Florinef to 0.05 mg every other day.. * EEG rule out epileptiform activity * Neurology will follow. Thank you for the consult Time with Patient: Greater than 30
[2022-11-05] MEDS ORDERED: DIPHENOX-ATROP 2.5-0.025 MG 1 EACH TAB PO PRN (21:10)
[2022-11-05] MEDS ORDERED: CLOPIDOGREL 75 MG TAB PO SCH (21:15)
[2022-11-05] MEDS: CLOPIDOGREL 75 MG TAB PO SCH (21:59)
--- NOTE | 2022-11-06 07:08 | P.CRDCN ---
History of Present Illness Consult date: 11/06/22 Chief complaint: syncope History of present illness: The patient is a pleasant 77-year-old female patient with a past medical history significant for CAD as well as permanent pacemaker for complete heart block as well as dysautonomia was admitted to the hospital with syncope. This is another admission for her with syncope. She was in her usual state of over she was doing shopping at the store when she felt dizzy and subsequently she lost her consciousness. She lost her consciousness for a few minutes. No symptoms of chest pain or chest discomfort and no feeling of heart racing or fluttering. She was admitted to the hospital for further evaluation that she underwent a workup including orthostatic blood pressure and that came to be abnormal. She was seen by the neurology service and she underwent also workup and in process of having more workup to rule out any neurology etiology for her syncope. She is known to have severe dysautonomia and she was on fludrocortisone as an outpatient. Also she did have history of TIA/stroke in the past and for that reason she is taking Plavix. Currently she is mechanically stable. We are going to interrogate her pacemaker. 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 Type of Cardiac Device: Permanent Pacemaker Device Placement Date:: 07/29/20 Past Psychological History: No Psychological Hx Reported Smoking Status: Former smoker Past Alcohol Use History: None Reported Past Drug Use History: None Reported - Past Family History Father Family Medical History: Cancer Additional Family Medical History / Comment(s): Lung. Medications and Allergies Home Medications Medication Instructions Recorded Confirmed Type Zolpidem [Ambien] 10 mg PO HS 07/28/20 11/05/22 History Clopidogrel [Plavix] 75 mg PO DIRECTED 09/16/22 11/05/22 History Fludrocortisone [Florinef] 0.05 mg PO Q2D 09/16/22 11/05/22 History Midodrine [ProAmatine] 5 mg PO DAILY 09/16/22 11/05/22 History Pravastatin Sodium [Pravachol] 40 mg PO HS 09/16/22 11/05/22 History Diphenoxylate HCl/Atropine 1 tab PO BID PRN 11/05/22 11/05/22 History [Lomotil 2.5-0.025 mg Tablet] Donepezil [Aricept] 5 mg PO HS 11/05/22 11/05/22 History Allergies Allergy/AdvReac Type Severity Reaction Status Date / Time adhesive Allergy Rash/Hives Verified 11/05/22 14:18 bee pollen Allergy Anaphylaxis Verified 11/05/22 14:18 latex Allergy Rash/Hives Verified 11/05/22 14:18 Penicillins Allergy Anaphylaxis Verified 11/05/22 14:18 prednisone AdvReac Nausea & Verified 11/05/22 14:18 Vomiting Physical Exam Vitals: Vital Signs Temp Pulse Pulse Resp BP BP BP 11/06/22 04:00 97.5 F L 64 18 195/88 166/82 11/06/22 00:00 98.1 F 66 18 11/05/22 20:00 98.3 F 69 18 11/05/22 17:00 63 18 112/90 11/05/22 16:00 62 18 160/75 11/05/22 12:36 66 11/05/22 12:30 97.9 F 71 18 172/95 BP Pulse Ox 11/06/22 04:00 190/87 97 11/06/22 00:00 168/77 94 L 11/05/22 20:00 184/84 95 11/05/22 17:00 98 11/05/22 16:00 98 11/05/22 12:36 11/05/22 12:30 96 Intake and Output 11/05/22 11/06/22 11/06/22 22:59 06:59 14:59 Other: Voiding Method Toilet # Voids 1 Weight 58.967 kg - Constitutional General appearance: no acute distress - Respiratory Respiratory: bilateral: CTA - Cardiovascular Rhythm: regular Heart sounds: normal: S1, S2 Results 11/05/22 13:16 11/05/22 13:16 Cardiac Enzymes 11/05/22 11/05/22 Range/Units 13:16 13:16 AST 28 (14-36) U/L Troponin I <0.012 (0.000-0.034) ng/mL Coagulation 11/05/22 Range/Units 13:16 PT 10.4 (9.0-12.0) sec APTT 24.1 (22.0-30.0) sec CBC 11/05/22 Range/Units 13:16 WBC 9.5 (3.8-10.6) k/uL RBC 5.12 (3.80-5.40) m/uL Hgb 15.3 (11.4-16.0) gm/dL Hct 45.0 (34.0-46.0) % Plt Count 375 (150-450) k/uL Comprehensive Metabolic Panel 11/05/22 Range/Units 13:16 Sodium 141 (137-145) mmol/L Potassium 3.9 (3.5-5.1) mmol/L Chloride 105 (98-107) mmol/L Carbon Dioxide 29 (22-30) mmol/L BUN 20 H (7-17) mg/dL Creatinine 0.85 (0.52-1.04) mg/dL Glucose 98 (74-99) mg/dL Calcium 9.2 (8.4-10.2) mg/dL AST 28 (14-36) U/L ALT 19 (4-34) U/L Alkaline Phosphatase 73 (38-126) U/L Total Protein 7.1 (6.3-8.2) g/dL Albumin 4.2 (3.5-5.0) g/dL Current Medications Generic Name Dose Route Start Last Admin Trade Name Freq PRN Reason Stop Dose Admin Clopidogrel Bisulfate 75 mg 11/05/22 21:15 11/05/22 21:59 Clopidogrel 75 Mg Tab PO 75 mg DAILY RONNY Administration Diphenoxylate HCl/Atropine 1 each 11/05/22 21:10 Diphenox-Atrop 2.5-0.025 Mg 1 Each Tab PO BID PRN Diarrhea Donepezil HCl 5 mg 11/06/22 21:00 Donepezil 5 Mg Tab PO HS RONNY Fludrocortisone Acetate 0.05 mg 11/06/22 09:00 Fludrocortisone 0.1 Mg Tab PO Q2D RONNY Dextrose/Sodium Chloride 1,000 mls @ 75 mls/hr 11/05/22 16:00 11/05/22 15:40 Dextrose 5%-Ns Iv Soln IV 11/06/22 16:01 75 mls/hr .[id number] RONNY Administration Midodrine 5 mg 11/06/22 09:00 Midodrine 5 Mg Tab PO DAILY RONNY Naloxone HCl 0.2 mg 11/05/22 15:23 Naloxone 0.4 Mg/Ml 1 Ml Vial IV Q2M PRN Opioid Reversal Pravastatin Sodium 40 mg 11/06/22 21:00 Pravastatin Sodium 40 Mg Tab PO HS RONNY Zolpidem Tartrate 10 mg 11/05/22 21:43 Zolpidem 5 Mg Tab PO HS RONNY Intake and Output 11/05/22 11/06/22 11/06/22 22:59 06:59 14:59 Other: Voiding Method Toilet # Voids 1 Weight 58.967 kg 11/05/22 13:16 11/05/22 13:16 Assessment and Plan Assessment: Assessment Syncopal episode Orthostatic hypertension Dyslipidemia CAD Permanent pacemaker Plan Follow-up with the neurology workup Pacemaker interrogation Follow-up with the patient
[2022-11-06] MEDS: ZOLPIDEM 5 MG TAB PO SCH ×2 (08:00→19:47)
[2022-11-06] MEDS: DEXTROSE 5%-0.9% NACL 1,000 ML IV SCH (08:46)
[2022-11-06] MEDS: FLUDROCORTISONE 0.1 MG TAB PO SCH (08:47)
[2022-11-06] MEDS: CLOPIDOGREL 75 MG TAB PO SCH (08:47)
[2022-11-06] MEDS ORDERED: MIDODRINE 5 MG TAB PO SCH (09:00)
[2022-11-06 09:22] LABS: Basophils # (A) 0.1 k/uL (0-0.2); Basophils % (A) 1 %; Eosinophils # (A) 0.3 k/uL (0-0.7); Eosinophils % (A) 4 %; HCT 44.5 % (34.0-46.0); HGB 14.4 gm/dL (11.4-16.0); Hypochromasia Slight; Lymphocytes # (A) 1.1 k/uL (1.0-4.8); Lymphocytes % (A) 15 %; MCH 29.3 pg (25.0-35.0); MCHC 32.3 g/dL (31.0-37.0); MCV 90.5 fL (80.0-100.0); Mean Platelet Volume 7.7; Monocytes # (A) 0.3 k/uL (0-1.0); Monocytes % (A) 5 %; Neutrophils # (A) 5.3 k/uL (1.3-7.7); Neutrophils % (A) 74 %; Platelet Count 368 k/uL (150-450); RBC 4.91 m/uL (3.80-5.40); RDW 13.5 % (11.5-15.5); WBC 7.1 k/uL (3.8-10.6)
[2022-11-06 09:44] LABS: African American GFR (CKD) 87 (>60 ml/min/1.73 sqM); Anion Gap 5 mmol/L; Blood Urea Nitrogen 12 mg/dL (7-17); Carbon Dioxide 30 mmol/L (22-30); Chloride 106 mmol/L (98-107); Glucose 103 mg/dL (74-99); Non-African American GFR(CKD) 76 (>60 ml/min/1.73 sqM); Potassium 3.5 mmol/L (3.5-5.1); Sodium 141 mmol/L (137-145)
--- NOTE | 2022-11-06 11:37 | P.PN ---
Subjective This is a pleasant 77 years old female with significant past history of syncope thought secondary to presence of a cough and thought to bradycardia arrhythmia has been evaluated by medical insurance collector and neurologist services before for similar complaint. Her PCP is Dr. Burleson This time presents with another episode of blacking out. Patient was standing in the queue of [employer] market today when she started feeling dizzy and asked staff for chair, once she sat in the chair she passed out and the next thing she remembers she is not hospital. Patient estimated she's been off for about half an hour or so, was at bedside, no reports of seizure-like activity, no tongue biting, no urine or bowel incontinence. Also she denies weakness numbness blurred vision or double vision, no other neurological symptoms. She states she still been feeling well for the last 3-4 weeks, she was feeling somewhat stomach hurt like flu, no appetite for the last 2-3 weeks, she lost about 7 pounds and yesterday also she was not eating and drinking well, she had some mild episodes of diarrhea for the last 2 days, this once per day, loose but no abdominal pain, no vomiting. Also she has been feeling some vague pain in her right side of the chest which she rated as less than 1/10. She went to see her medical insurance collector Dr. Caal, she saw his nurse practitioner and she supposed to get echocardiogram in 2 weeks. Also patient supposed to be on baby aspirin and fludrocortisone but she forgot about them for the last few weeks, yesterday and her appointment she was reminded about these medication, but they instructed her to take the fludrocortisone every other day because her blood pressure was on the high side. Currently patient feels thirsty and she looks somewhat dehydrated Patient has been forgetful since last September. She denies any urinary symptoms like urgency or dysuria. No vertigo-like symptoms. No smoking alcohol or illicit drugs. Blood pressure slightly elevated 172/95, rest of Vitas looks stable and patient is afebrile. She has unremarkable labs including CBC, INR, BMP, liver enzymes and troponin. CT of the brain without contrast showing new region of low attenuation with loss of jacobs-white differentiation within the left occipital lobe concerning for acute ischemia. Her mental left temporal infarct, nonspecific could be related to chronic microangiopathic 11/06/2022 Patient generally doing well clinically with no more episodes of syncope or dizziness. No other new complaints. Also patient denies any specific urinary symptoms, her urinalysis was suspicious for UTI and she is hemodynamically covered with Rocephin pending urine culture final result. Neurology team on the case and they recommended EEG which is pending, however she was started on the Plavix. Also patient have evidence with bilateral significant significant internal carotid artery stenosis based on old carotid Doppler duplex done on 07/13/2022, patient informed we will go to consult vascular surgery team for further recommendation given the patient subacute stroke. Also shows some evidence of mild systolic postural hypotension with blood pressure dropped from 190s got 160s, blood pressure on the high side. We stopped her midodrine. She remains on the fludrocortisone. Also she was on dementia medication. Discontinue IV fluids Patient may need pacemaker interrogation for medical insurance collector Objective - Vital Signs Vital signs: Vital Signs Temp 97.4 F L 11/06/22 08:41 Pulse 68 11/06/22 09:52 Resp 18 11/06/22 09:52 BP 189/89 11/06/22 08:41 Pulse Ox 95 11/06/22 08:45 FiO2 Intake & Output 11/05/22 11/06/22 11/06/22 18:59 06:59 18:59 Weight 58.967 kg 58.967 kg Other: Voiding Method Toilet Toilet # Voids 1 - Labs CBC & Chem 7: 11/06/22 08:25 11/06/22 08:25 Labs: Abnormal Lab Results - Last 24 Hours (Table) 11/05/22 11/05/22 11/06/22 Range/Units 13:16 13:16 08:25 BUN 20 H (7-17) mg/dL Glucose 103 H (74-99) mg/dL Urine Protein Trace H (Negative) Ur Leukocyte Esterase Large H (Negative) Urine WBC 19 H (0-5) /hpf Amorphous Sediment Occasional H (None) /hpf Hyaline Casts 46 H (0-2) /lpf Urine Mucus Occasional H (None) /hpf Microbiology - Last 24 Hours (Table) 11/05/22 13:16 Urine Culture - Preliminary Urine,Voided
--- NOTE | 2022-11-06 12:56 | P.GSCN ---
History of Present Illness Consult date: 11/06/22 Reason for Consult: Carotid stenosis History of present illness: 77-year-old female presented to the hospital secondary to passing out. Patient states she has been passing out occasionally over the last several months and does not understand why. She states currently she feels good and wants to go home. Her previous admission to the hospital and workup demonstrated some mild stenosis of the right internal carotid artery. She denies any lateralizing symptoms such as weakness, vision changes or speech issues. She denies any pain with ambulation or at rest. 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 She denies any fevers, chills, chest pain or shortness of breath. 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 Type of Cardiac Device: Permanent Pacemaker Device Placement Date:: 07/29/20 Past Psychological History: No Psychological Hx Reported Smoking Status: Former smoker Past Alcohol Use History: None Reported Past Drug Use History: None Reported - Past Family History Father Family Medical History: Cancer Additional Family Medical History / Comment(s): Lung. Medications and Allergies Home Medications Medication Instructions Recorded Confirmed Type Zolpidem [Ambien] 10 mg PO HS 07/28/20 11/05/22 History Clopidogrel [Plavix] 75 mg PO DIRECTED 09/16/22 11/05/22 History Fludrocortisone [Florinef] 0.05 mg PO Q2D 09/16/22 11/05/22 History Midodrine [ProAmatine] 5 mg PO DAILY 09/16/22 11/05/22 History Pravastatin Sodium [Pravachol] 40 mg PO HS 09/16/22 11/05/22 History Diphenoxylate HCl/Atropine 1 tab PO BID PRN 11/05/22 11/05/22 History [Lomotil 2.5-0.025 mg Tablet] Donepezil [Aricept] 5 mg PO HS 11/05/22 11/05/22 History Allergies Allergy/AdvReac Type Severity Reaction Status Date / Time adhesive Allergy Rash/Hives Verified 11/05/22 14:18 bee pollen Allergy Anaphylaxis Verified 11/05/22 14:18 latex Allergy Rash/Hives Verified 11/05/22 14:18 Penicillins Allergy Anaphylaxis Verified 11/05/22 14:18 prednisone AdvReac Nausea & Verified 11/05/22 14:18 Vomiting Surgical - Exam Vital Signs Temp Pulse Resp BP Pulse Ox 97.9 F 71 18 172/95 96 11/05/22 12:30 11/05/22 12:30 11/05/22 12:30 11/05/22 12:30 11/05/22 12:30 - General well developed, well nourished, no distress - Eyes PERRL - ENT normal pinna - Neck no masses - Respiratory normal expansion, normal respiratory effort - Cardiovascular Rhythm: regular - Abdomen Abdomen: soft, non tender - Neurologic normal coordination, normal sensation - Psychiatric oriented to time, oriented to person, oriented to place, speech is normal Palpable radial, DP and PT pulses bilaterally Results - Labs 11/06/22 08:25 11/06/22 08:25 Abnormal Lab Results - Last 24 Hours (Table) 11/05/22 11/05/22 11/06/22 Range/Units 13:16 13:16 08:25 BUN 20 H (7-17) mg/dL Glucose 103 H (74-99) mg/dL Folate (4.40-31.00) ng/mL Urine Protein Trace H (Negative) Ur Leukocyte Esterase Large H (Negative) Urine WBC 19 H (0-5) /hpf Amorphous Sediment Occasional H (None) /hpf Hyaline Casts 46 H (0-2) /lpf Urine Mucus Occasional H (None) /hpf 11/06/22 Range/Units 08:25 BUN (7-17) mg/dL Glucose (74-99) mg/dL Folate 3.60 L (4.40-31.00) ng/mL Urine Protein (Negative) Ur Leukocyte Esterase (Negative) Urine WBC (0-5) /hpf Amorphous Sediment (None) /hpf Hyaline Casts (0-2) /lpf Urine Mucus (None) /hpf Microbiology - Last 24 Hours (Table) 11/05/22 13:16 Urine Culture - Preliminary Urine,Voided Diabetes panel 11/05/22 11/06/22 11/06/22 Range/Units 13:16 08:25 08:25 Sodium 141 141 (137-145) mmol/L Potassium 3.9 3.5 (3.5-5.1) mmol/L Chloride 105 106 (98-107) mmol/L Carbon Dioxide 29 30 (22-30) mmol/L BUN 20 H 12 (7-17) mg/dL Creatinine 0.85 0.76 (0.52-1.04) mg/dL Glucose 98 103 H (74-99) mg/dL Hemoglobin A1c 5.3 (0.0-6.0) % Calcium 9.2 9.0 (8.4-10.2) mg/dL AST 28 (14-36) U/L ALT 19 (4-34) U/L Alkaline Phosphatase 73 (38-126) U/L Total Protein 7.1 (6.3-8.2) g/dL Albumin 4.2 (3.5-5.0) g/dL Thyroid panel 11/06/22 Range/Units 08:25 TSH 1.160 (0.465-4.680) mIU/L Calcium panel 11/05/22 11/06/22 Range/Units 13:16 08:25 Calcium 9.2 9.0 (8.4-10.2) mg/dL Albumin 4.2 (3.5-5.0) g/dL Pituitary panel 11/05/22 11/06/22 Range/Units 13:16 08:25 Sodium 141 141 (137-145) mmol/L Potassium 3.9 3.5 (3.5-5.1) mmol/L Chloride 105 106 (98-107) mmol/L Carbon Dioxide 29 30 (22-30) mmol/L BUN 20 H 12 (7-17) mg/dL Creatinine 0.85 0.76 (0.52-1.04) mg/dL Glucose 98 103 H (74-99) mg/dL Calcium 9.2 9.0 (8.4-10.2) mg/dL TSH 1.160 (0.465-4.680) mIU/L Adrenal panel 11/05/22 11/06/22 Range/Units 13:16 08:25 Sodium 141 141 (137-145) mmol/L Potassium 3.9 3.5 (3.5-5.1) mmol/L Chloride 105 106 (98-107) mmol/L Carbon Dioxide 29 30 (22-30) mmol/L BUN 20 H 12 (7-17) mg/dL Creatinine 0.85 0.76 (0.52-1.04) mg/dL Glucose 98 103 H (74-99) mg/dL Calcium 9.2 9.0 (8.4-10.2) mg/dL Total Bilirubin 0.4 (0.2-1.3) mg/dL AST 28 (14-36) U/L ALT 19 (4-34) U/L Alkaline Phosphatase 73 (38-126) U/L Total Protein 7.1 (6.3-8.2) g/dL Albumin 4.2 (3.5-5.0) g/dL Assessment and Plan Assessment: Syncope Mild carotid stenosis Plan: Reviewed previous imaging from her last visit carotid Doppler and CTA of the neck which demonstrated some mild stenosis. When reviewed the carotid Doppler demonstrates less than 50% stenosis of bilateral internal carotid arteries. CTA demonstrates mild stenosis of the right internal carotid artery. No surgical intervention at this time is required. Agree with current medications and continue syncope workup per cardiology and internal medicine. follow up as outpatient in 6 months. thank you for allowing me to participate in your patient's care.
[2022-11-06] MEDS: FOLIC ACID 1 MG TAB PO SCH (12:58)
[2022-11-06] MEDS: amLODIPine 2.5 MG TAB PO SCH (13:28)
[2022-11-06 18:12] LABS: Chol/HDL Ratio 2.42 Ratio; LDL Cholesterol,Calculated 74.8 mg/dL (0.0-131.0); VLDL Calculation 19.24 mg/dL (5.00-40.00)
[2022-11-06] MEDS: PRAVASTATIN SODIUM 40 MG TAB PO SCH (19:47)
[2022-11-06] MEDS: DONEPEZIL 5 MG TAB PO SCH (19:47)
[2022-11-06] MEDS ORDERED: ZOLPIDEM 5 MG TAB PO SCH (21:00)
[2022-11-06] MEDS: hydrALAZINE HCL 20 MG/ML 1 ML VIAL IVP PRN (21:27)
[2022-11-07] MEDS ORDERED: ALPRAZolam 0.5 MG TAB PO STA (08:02)
[2022-11-07] MEDS: amLODIPine 2.5 MG TAB PO SCH (08:55)
[2022-11-07] MEDS: CLOPIDOGREL 75 MG TAB PO SCH (08:55)
[2022-11-07] MEDS: FOLIC ACID 1 MG TAB PO SCH (08:55)
--- NOTE | 2022-11-07 09:25 | P.PN ---
Subjective Progress Note Date: 11/07/22 Principal diagnosis: Syncopal episode The patient is a pleasant 77-year-old female patient with a past medical history significant for CAD as well as permanent pacemaker for complete heart block as well as dysautonomia was admitted to the hospital with syncope. This is another admission for her with syncope. She was in her usual state of over she was doing shopping at the store when she felt dizzy and subsequently she lost her consciousness. She lost her consciousness for a few minutes. No symptoms of chest pain or chest discomfort and no feeling of heart racing or fluttering. She was admitted to the hospital for further evaluation that she underwent a workup including orthostatic blood pressure and that came to be abnormal. She was seen by the neurology service and she underwent also workup and in process of having more workup to rule out any neurology etiology for her syncope. She is known to have severe dysautonomia and she was on fludrocortisone as an ou tpatient. Also she did have history of TIA/stroke in the past and for that reason she is taking Plavix. Currently she is mechanically stable. We are going to interrogate her pacemaker. November 07 The patient was seen and evaluated this morning. She remains stable. She remains asymptomatic. No work episode of syncope. No arrhythmia was detected. The echo still pending but the patient can be discharged home from the cardiovascular standpoint of view which is her request which is fine. Objective - Vital Signs Vital signs: Vital Signs Temp 97.6 F 11/07/22 08:00 Pulse 70 11/07/22 08:00 Resp 16 11/07/22 08:00 BP 188/81 11/07/22 08:00 Pulse Ox 96 11/07/22 08:22 FiO2 Intake & Output 11/06/22 11/07/22 11/07/22 18:59 06:59 18:59 Intake Total 150 120 Balance 150 120 Intake: Intake, IV Titration 150 Amount Dextrose 5%-0.9% NaCl 1, 150 000 ml @ 75 mls/hr IV . [id number] [facility] Rx#:[id number] Oral 120 Other: Voiding Method Toilet Toilet # Voids 1 1 1 - Constitutional General appearance: Present: no acute distress - Respiratory Respiratory: bilateral: CTA - Cardiovascular Rhythm: regular - Labs CBC & Chem 7: 11/06/22 08:25 11/06/22 08:25 Labs: Abnormal Lab Results - Last 24 Hours (Table) 11/06/22 11/06/22 Range/Units 08:25 08:25 Glucose 103 H (74-99) mg/dL HDL Cholesterol 66.00 H (40.00-60.00) mg/dL Folate 3.60 L (4.40-31.00) ng/mL Assessment and Plan Assessment: Assessment Syncopal episode Orthostatic hypertension Dyslipidemia CAD Permanent pacemaker Plan Continue the current medical regimen The patient can be discharged home
[2022-11-07] MEDS ORDERED: CYANOCOBALAMIN 1,000 MCG/ML 1 ML VIAL IM ONE (09:57)
--- NOTE | 2022-11-07 10:01 | P.PN ---
Subjective Progress Note Date: 11/06/22 Patient was seen for a follow-up. Patient wants to go home. Patient's blood pressure has been running high. Patient was started on Norvasc by primary physician. Denies any focal symptoms. No new concerns. Patient desperate to go home. Objective - Vital Signs Vital signs: Vital Signs Temp 97.4 F L 11/06/22 08:41 Pulse 73 11/06/22 16:08 Resp 18 11/06/22 16:08 BP 145/96 11/06/22 16:08 Pulse Ox 94 L 11/06/22 16:08 FiO2 Intake & Output 11/05/22 11/06/22 11/06/22 18:59 06:59 18:59 Weight 58.967 kg 58.967 kg Other: Voiding Method Toilet Toilet # Voids 1 1 - Exam Examination significant for right homonymous hemianopia, otherwise nonfocal. 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 This may have occurred in August 2022, when she presented with some confusional spell. * Recurrent syncope, all occurring while standing, therefore orthostatics likely possibility. * Hypertension * Hyperlipidemia * Coronary artery disease Plan: * 2-D echo with bubble study to rule out PFO. * Carotid Doppler on 07/13/2022 revealed moderate to severe atherosclerotic changes bilaterally. Hemodynamically significant stenosis proximal right ICA cannot be excluded. Antegrade flow in both vertebral arteries. * CTA of the neck on 07/20/2022 showed no hemodynamically significant stenosis in either ICA. * Continue Plavix 75 mg daily. * B12 206, folate 3.6, patient will need B12, folate replacement. Patient to be given B12 1000 g IM 1 dose. Suggest B12 injections if possible weekly for a month and then twice a month. Start folic acid 1 mg daily. * Lipid panel cholesterol 160, LDL 74, HDL 66 and triglycerides 160. Lipids well controlled, continue Pravachol 40 mg at bedtime. * Hemoglobin A1c 5.3. * Orthostatics with supine blood pressure 145/96, sitting 168/86 and standing 182/90. Orthostatics are negative. * Control of blood pressure as per cardiology and IM. * Suggest tilt table test, may be done as an outpatient. * Patient currently on midodrine 5 mg daily and Florinef 0.1 mg daily. Her blood pressure is running high. Cardiology on board, recommending to decrease Florinef to 0.05 mg every other day, and midodrine has been stopped. * EEG rule out epileptiform activity. Suggest performing it preferably while inpatient, but if deemed discharge, then may be performed as an outpatient. . * Neurologically clear, if cleared by cardiology.
[2022-11-07 12:00] LABS: Glucose,Whole Blood 92 mg/dL (70-110)
--- NOTE | 2022-11-07 12:38 | P.PN ---
Subjective This is a pleasant 77 years old female with significant past history of syncope thought secondary to presence of a cough and thought to bradycardia arrhythmia has been evaluated by digital media analyst and neurologist services before for similar complaint. Her PCP is Dr. Burleson This time presents with another episode of blacking out. Patient was standing in the queue of meat market today when she started feeling dizzy and asked staff for chair, once she sat in the chair she passed out and the next thing she remembers she is not hospital. Patient estimated she's been off for about half an hour or so, was at bedside, no reports of seizure-like activity, no tongue biting, no urine or bowel incontinence. Also she denies weakness numbness blurred vision or double vision, no other neurological symptoms. She states she still been feeling well for the last 3-4 weeks, she was feeling somewhat stomach hurt like flu, no appetite for the last 2-3 weeks, she lost about 7 pounds and yesterday also she was not eating and drinking well, she had some mild episodes of diarrhea for the last 2 days, this once per day, loose but no abdominal pain, no vomiting. Also she has been feeling some vague pain in her right side of the chest which she rated as less than 1/10. She went to see her digital media analyst Dr. Caal, she saw his nurse practitioner and she supposed to get echocardiogram in 2 weeks. Also patient supposed to be on baby aspirin and fludrocortisone but she forgot about them for the last few weeks, yesterday and her appointment she was reminded about these medication, but they instructed her to take the fludrocortisone every other day because her blood pressure was on the high side. Currently patient feels thirsty and she looks somewhat dehydrated Patient has been forgetful since last September. She denies any urinary symptoms like urgency or dysuria. No vertigo-like symptoms. No smoking alcohol or illicit drugs. Blood pressure slightly elevated 172/95, rest of Vitas looks stable and patient is afebrile. She has unremarkable labs including CBC, INR, BMP, liver enzymes and troponin. CT of the brain without contrast showing new region of low attenuation with loss of jacobs-white differentiation within the left occipital lobe concerning for acute ischemia. Her mental left temporal infarct, nonspecific could be related to chronic microangiopathic 11/06/2022 Patient generally doing well clinically with no more episodes of syncope or dizziness. No other new complaints. Also patient denies any specific urinary symptoms, her urinalysis was suspicious for UTI and she is hemodynamically covered with Rocephin pending urine culture final result. Neurology team on the case and they recommended EEG which is pending, however she was started on the Plavix. Also patient have evidence with bilateral significant significant internal carotid artery stenosis based on old carotid Doppler duplex done on 07/13/2022, patient informed we will go to consult vascular surgery team for further recommendation given the patient subacute stroke. Also shows some evidence of mild systolic postural hypotension with blood pressure dropped from 190s got 160s, blood pressure on the high side. We stopped her midodrine. She remains on the fludrocortisone. Also she was on dementia medication. Discontinue IV fluids Patient may need pacemaker interrogation for digital media analyst 11/07/2022 Patient denies any more dizziness or syncope, she denies chest pain or any other symptoms. Patient was eager to go home today, I have elected discussion with the patient, patient is medically not ready for discharge although she has been cleared by digital media analyst later on. Patient also does not want to leave [facility] because of insurance billing. I updated the patient about the problems, not only syncope but also patient has subacute stroke Patient blood pressure still uncontrolled, this morning 188/81, we started small dose of Norvasc 2.5 mg we will keep close monitoring of blood pressure. We are going to increase medication slowly because of her risk of postural hypotension and recurrent syncope. Vitals and labs are reviewed. Cortisol level is 14, vitamin B12 is low-normal 206 and injection of vitamin B12 is provided by neurologist, we will defer to neurology service management of vitamin deficiency. TSH is normal, urine culture is negative. Vascular surgery already evaluated the patient and patient has mild carotid artery disease and the recommend no need for surgical intervention for now and follow-up as an outpatient, patient informed about his updates. Patient currently on Plavix. Also she is on fludrocortisone. Midodrine was stopped. Patient's currently off IV fluids Objective - Vital Signs Vital signs: Vital Signs Temp 97.6 F 11/07/22 08:00 Pulse 70 11/07/22 08:00 Resp 16 11/07/22 08:00 BP 188/81 11/07/22 08:00 Pulse Ox 96 11/07/22 08:22 FiO2 Intake & Output 11/06/22 11/07/22 11/07/22 18:59 06:59 18:59 Intake Total 150 120 Balance 150 120 Intake: Intake, IV Titration 150 Amount Dextrose 5%-0.9% NaCl 1, 150 000 ml @ 75 mls/hr IV . [id number] [facility] Rx#:[id number] Oral 120 Other: Voiding Method Toilet Toilet # Voids 1 1 1 - Exam GENERAL: The patient is alert and oriented x3, not in any acute distress. Well developed, well nourished. HEENT: Pupils are round and equally reacting to light. EOMI. No scleral icterus. No conjunctival pallor. Normocephalic, atraumatic. No pharyngeal erythema. No thyromegaly. CARDIOVASCULAR: S1 and S2 present. No murmurs, rubs, or gallops. PULMONARY: Chest is clear to auscultation, no wheezing or crackles. ABDOMEN: Soft, nontender, nondistended, normoactive bowel sounds. No palpable organomegaly. MUSCULOSKELETAL: No joint swelling or deformity. EXTREMITIES: No cyanosis, clubbing, or pedal edema. NEUROLOGICAL: Gross neurological examination did not reveal any focal deficits. SKIN: No rashes. no petechiae. - Labs CBC & Chem 7: 11/06/22 08:25 11/06/22 08:25 Labs: Abnormal Lab Results - Last 24 Hours (Table) 11/06/22 11/06/22 Range/Units 08:25 08:25 Glucose 103 H (74-99) mg/dL HDL Cholesterol 66.00 H (40.00-60.00) mg/dL Folate 3.60 L (4.40-31.00) ng/mL Assessment and Plan Assessment: Recurrent syncope Subacute left occipital stroke is suspected with subacute occipital ischemia on CAT scan of the brain. To rule out seizure given her prolonged period being unconscious upon admission History of coronary artery disease, status post pacemaker Hypertension Hyperlipidemia History of GERD Hypothyroidism Anxiety Plan: Patient currently off IV fluids Echocardiogram with PFO is pending, EEG is pending. Vitamin B12 been replaced by neurologist. Folic acid a started. Start Norvasc 2.5 mg for better blood pressure control, however when doing slowly because of her risk of postural hypotension. Xanax when necessary for anxiety, patient informed and she agrees Cardiology and neurology consult Cardiology and vascular surgery team ordered. The patient Labs and medication were reviewed.. Continue same treatment. Continue with symptomatic treatment. Resume home medication. Monitor labs and vitals. DVT and GI prophylaxis. Further recommendations as per clinical course of the patient DVT prophylaxis: Subcutaneous heparin GI Prophylaxis: Pepcid Prognosis is guarded
[2022-11-07] MEDS: ALPRAZolam 0.5 MG TAB PO PRN ×2 (12:57→20:51)
[2022-11-07] MEDS: hydrALAZINE HCL 20 MG/ML 1 ML VIAL IVP PRN ×2 (12:58→23:48)
--- NOTE | 2022-11-07 15:19 | P.PN ---
Subjective Progress Note Date: 11/07/22 Patient was seen for a follow-up. Patient wants to go home. Patient's blood pressure has been running high. Patient was started on Norvasc by primary physician. Also receiving hydralazine. Denies any focal symptoms. No new concerns. Patient desperate to go home. Patient's discharge canceled because blood pressure running very high. Blood pressure right at this moment was 219/96 at rest. When she was talking, it was up to 230 systolic. Telemetry monitoring showing sinus rhythm, biventricular paced rhythm, dual paced. Some PVCs and couplets. Objective - Vital Signs Vital signs: Vital Signs Temp 97.6 F 11/07/22 08:00 Pulse 70 11/07/22 08:00 Resp 16 11/07/22 08:00 BP 188/81 11/07/22 08:00 Pulse Ox 96 11/07/22 08:22 FiO2 Intake & Output 11/06/22 11/07/22 11/07/22 18:59 06:59 18:59 Intake Total 150 120 Balance 150 120 Intake: Intake, IV Titration 150 Amount Dextrose 5%-0.9% NaCl 1, 150 000 ml @ 75 mls/hr IV . [id number] [facility] Rx#:[id number] Oral 120 Other: Voiding Method Toilet Toilet Toilet # Voids 1 1 1 - Exam Examination significant for right homonymous hemianopia, otherwise nonfocal. Speech and language functions are normal. 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 This may have occurred in August 2022, when she presented with some confusional spell. * Recurrent syncope, all occurring while standing, therefore orthostatics likely possibility. * Hypertension accelerated/uncontrolled * Hyperlipidemia * Coronary artery disease Plan: * 2-D echo with bubble study to rule out PFO completed, results pending. * Carotid Doppler on 07/13/2022 revealed moderate to severe atherosclerotic changes bilaterally. Hemodynamically significant stenosis proximal right ICA cannot be excluded. Antegrade flow in both vertebral arteries. * CTA of the neck on 07/20/2022 showed no hemodynamically significant stenosis in either ICA. * Vascular surgery input appreciated. Patient's stenosis less than 50%. No surgical intervention necessary. * Continue Plavix 75 mg daily. * B12 206, folate 3.6, patient will need B12, folate replacement. Patient to be given B12 1000 g IM 1 dose. Suggest B12 injections if possible weekly for a month and then twice a month. Start folic acid 1 mg daily. * Lipid panel cholesterol 160, LDL 74, HDL 66 and triglycerides 160. Lipids well controlled, continue Pravachol 40 mg at bedtime. * Hemoglobin A1c 5.3. * Orthostatics with supine blood pressure 145/96, sitting 168/86 and standing 182/90. Orthostatics are negative. * Optimize control of blood pressure as per cardiology and IM. * Suggest tilt table test, may be done as an outpatient. * Patient was previously taking midodrine 5 mg daily and Florinef 0.1 mg daily. Her blood pressure is running high. Cardiology on board, recommending to decrease Florinef to 0.05 mg every other day, and midodrine has been stopped. * EEG rule out epileptiform activity. * Dr. Fredi Amaral to resume neurology service in the morning.
[2022-11-07 16:35] LABS: Glucose,Whole Blood 89 mg/dL (70-110)
[2022-11-07] MEDS: PRAVASTATIN SODIUM 40 MG TAB PO SCH (20:13)
[2022-11-07] MEDS: DONEPEZIL 5 MG TAB PO SCH (20:13)
[2022-11-07] MEDS: ZOLPIDEM 5 MG TAB PO SCH (20:13)
[2022-11-07 23:46] VITALS: TEMP 96.7
[2022-11-08 03:45] VITALS: RESP 16
--- NOTE | 2022-11-08 07:41 | P.PN ---
Subjective Progress Note Date: 11/08/22 Principal diagnosis: Syncopal episode The patient is a pleasant 77-year-old female patient with a past medical history significant for CAD as well as permanent pacemaker for complete heart block as well as dysautonomia was admitted to the hospital with syncope. This is another admission for her with syncope. She was in her usual state of over she was doing shopping at the store when she felt dizzy and subsequently she lost her consciousness. She lost her consciousness for a few minutes. No symptoms of chest pain or chest discomfort and no feeling of heart racing or fluttering. She was admitted to the hospital for further evaluation that she underwent a workup including orthostatic blood pressure and that came to be abnormal. She was seen by the neurology service and she underwent also workup and in process of having more workup to rule out any neurology etiology for her syncope. She is known to have severe dysautonomia and she was on fludrocortisone as an ou tpatient. Also she did have history of TIA/stroke in the past and for that reason she is taking Plavix. Currently she is mechanically stable. We are going to interrogate her pacemaker. November 07 The patient was seen and evaluated this morning. She remains stable. She remains asymptomatic. No work episode of syncope. No arrhythmia was detected. The echo still pending but the patient can be discharged home from the cardiovascular standpoint of view which is her request which is fine. 11/08/2022 The patient was seen this morning. She remains asymptomatic. Her pressure is elevated but that can be managed as an outpatient. From the cardiovascular standpoint of view, the patient can go home. We'll follow-up with the patient on when necessary Objective - Vital Signs Vital signs: Vital Signs Temp 96.7 F L 11/07/22 23:44 Pulse 82 11/08/22 03:43 Resp 16 11/08/22 03:43 BP 173/79 11/08/22 03:43 Pulse Ox 96 11/08/22 03:43 FiO2 Intake & Output 11/07/22 11/08/22 11/08/22 18:59 06:59 18:59 Intake Total 420 Balance 420 Intake: Oral 420 Other: Voiding Method Toilet Toilet # Voids 1 1 - Constitutional General appearance: Present: no acute distress - Respiratory Respiratory: bilateral: CTA - Cardiovascular Rhythm: regular - Labs CBC & Chem 7: 11/06/22 08:25 11/06/22 08:25 Labs: Microbiology - Last 24 Hours (Table) 11/05/22 13:16 Urine Culture - Final Urine,Voided Assessment and Plan Assessment: Assessment Syncopal episode Orthostatic hypertension Dyslipidemia CAD Permanent pacemaker Plan Continue the current medical regimen The patient can be discharged home. We'll follow-up with the patient on when necessary
[2022-11-08] MEDS: amLODIPine 2.5 MG TAB PO SCH (09:07)
[2022-11-08] MEDS: FOLIC ACID 1 MG TAB PO SCH (09:07)
[2022-11-08] MEDS: CLOPIDOGREL 75 MG TAB PO SCH (09:07)
[2022-11-08] MEDS: ALPRAZolam 0.5 MG TAB PO PRN (09:07)
[2022-11-08] MEDS: FLUDROCORTISONE 0.1 MG TAB PO SCH (09:10)
--- NOTE | 2022-11-08 10:28 | P.PN ---
Subjective Progress Note Date: 11/08/22 I am seeing the patient for the first time during this admission. It seems patient has recurrent syncope all occurring while standing and seems likely orthostatic. Also patient has subacute to chronic ischemic stroke over the left occipital lobe and seems occurred in 08/2022. Upon seeing the patient, she stated she is feeling drastically better and denies of headache, neck pain, focal weakness. She is asking of wanting to leave home. Please refer to Dr. Bradley notes for further details. Objective - Vital Signs Vital signs: Vital Signs Temp 96.7 F L 11/07/22 23:44 Pulse 82 11/08/22 03:43 Resp 16 11/08/22 03:43 BP 173/79 11/08/22 03:43 Pulse Ox 96 11/08/22 03:43 FiO2 Intake & Output 11/07/22 11/08/22 11/08/22 18:59 06:59 18:59 Intake Total 420 180 Balance 420 180 Intake: Oral 420 180 Other: Voiding Method Toilet Toilet # Voids 1 1 - Exam GENERAL: The patient is lying in bed and is not in acute distress. NEUROLOGICAL: Higher mental function: The patient is awake, alert, oriented to self, place and time. Patient is following commands. No aphasia and no neglect. Cranial nerves: The pupils are round, equal and reactive to light. Visual reynoso has right homonymous hemianopsia. Extraocular movement is intact no nystagmus is noted. Facial sensation is normal to touch throughout. The facial strength is normal throughout. No dysarthria is noted. Shoulder shrug is normal bilaterally. Motor: The strength is 5 over 5 throughout. Normal tone and bulk. Cerebellum: Normal finger to nose bilaterally. Sensation: Sensation is normal to touch throughout. - Labs CBC & Chem 7: 11/06/22 08:25 11/06/22 08:25 Labs: Microbiology - Last 24 Hours (Table) 11/05/22 13:16 Urine Culture - Final Urine,Voided Assessment and Plan Assessment: * Subacute to chronic ischemic (feel more chronic) stroke involving the left occipital lobe with right homonymous hemianopia. This may have occurred in August 2022, when she presented with some confusional spell. * Recurrent syncope, all occurring while standing, therefore orthostatics likely possibility. * Hypertension accelerated/uncontrolled * Hyperlipidemia * Coronary artery disease Plan: * 2-D echo with bubble study to rule out PFO completed, results pending. * Carotid Doppler on 07/13/2022 revealed moderate to severe atherosclerotic changes bilaterally. Hemodynamically significant stenosis proximal right ICA cannot be excluded. Antegrade flow in both vertebral arteries. * CTA of the neck on 07/20/2022 showed no hemodynamically significant stenosis in either ICA. * Vascular surgery input appreciated. Patient's stenosis less than 50%. No surgical intervention necessary. * Lipid panel cholesterol 160, LDL 74, HDL 66 and triglycerides 160. * Hemoglobin A1c 5.3. * B12 206, folate 3.6, patient will need B12, folate replacement. Patient to be given B12 1000 g IM 1 dose. Suggest B12 injections if possible weekly for a month and then twice a month. Start folic acid 1 mg daily. * On Plavix 75 mg daily and Pravachol 40 mg at bedtime and are sufficient for secondary stroke prophylaxis. * Orthostatics with supine blood pressure 145/96, sitting 168/86 and standing 182/90. Orthostatics are negative. Dr. Bradley suggested tilt table test, may be done as an outpatient. * Optimize control of blood pressure as per cardiology and IM. * Patient was previously taking midodrine 5 mg daily and Florinef 0.1 mg daily. Her blood pressure is running high. Cardiology on board, recommending to decrease Florinef to 0.05 mg every other day, and midodrine has been stopped. * Pending EEG rule out epileptiform activity. * Recommend patient to follow-up with neurologist as outpatient within 1-2 weeks. Otherwise no additional work-up besides pending EEG. Plan is discussed with patient. Preliminary EEG: Normal. Time with Patient: Less than 30
[2022-11-08] MEDS: hydrALAZINE HCL 20 MG/ML 1 ML VIAL IVP PRN (11:39)
[2022-11-08 11:43] VITALS: BP 192/99; PULSE 76
--- NOTE | 2022-11-08 13:52 | CA ---
Transthoracic Echo Report Name: Brittanie Lim Age: 77 Gender: F : 1945 Exam Date: 11/06/2022 10:15 Exam Location: [facility] Ht (in): 65 Wt (lb): 130 Ordering Physician: Francisco Bradley MD Attending/Referring Phys: [employer] Marine Engineer Steffi Rivera RDCS Procedure CPT: Indications: Syncope, CVA Cardiac Hx: Technical Quality: Contrast 1: Total Dose (mL): Contrast 2: Total Dose (mL): MEASUREMENTS (Male / Female) Normal Values 2D ECHO LV Diastolic Diameter PLAX 3.8 cm 4.2 - 5.9 / 3.9 - 5.3 cm LV Systolic Diameter PLAX 2.5 cm IVS Diastolic Thickness 1.1 cm 0.6 - 1.0 / 0.6 - 0.9 cm LVPW Diastolic Thickness 1.4 cm 0.6 - 1.0 / 0.6 - 0.9 cm LV Relative Wall Thickness 0.7 RV Internal Dim ED PLAX 2.4 cm M-MODE Aortic Root Diameter MM 3.1 cm LA Systolic Diameter MM 2.7 cm LA Ao Ratio MM 0.9 MV E Point Septal Separation 0.6 cm AV Cusp Separation MM 1.6 cm DOPPLER Mitral E Point Velocity 34.5 cm/s Mitral A Point Velocity 91.8 cm/s Mitral E to A Ratio 0.4 MV E' Velocity 3.1 cm/s Mitral E to MV E' Ratio 11.0 TR Peak Velocity 228.9 cm/s TR Peak Gradient 21.0 mmHg FINDINGS Left Ventricle Mildly increased septal wall thickness. Moderately increased posterior wall thickness. Left ventricular cavity size normal. Left ventricular ejection fraction is estimated at 55 %. Right Ventricle Normal right ventricular size and function. Right ventricular systolic pressure within normal limits. Right Atrium Normal right atrial size. Left Atrium Normal left atrial size. BUBBLE STUDY NOT PERFORMED DUE TO TDS IMAGES. Mitral Valve Structurally normal mitral valve. Mild mitral regurgitation. Aortic Valve Trileaflet aortic valve. Tricuspid Valve Structurally normal tricuspid valve. Mild tricuspid regurgitation. Pulmonic Valve Structurally normal pulmonic valve. Pericardium Normal pericardium. Aorta Normal size aortic root and proximal ascending aorta. CONCLUSIONS Normal biventricular dimension and systolic function No significant valvular abnormalities Overall technically difficult study Previewed by: Dr. Kash Muniz MD (Electronically Signed) Final Date: 08 November 2022 13:51
--- NOTE | 2022-11-08 16:09 | P.DS ---
Providers Date of admission: 11/05/22 15:23 Expected date of discharge: 11/08/22 Attending physician: Mino Flores MD Consults: 11/05/22 15:23 Consult Physician Routine Consulting Provider: Fredi Amaral Consult Reason/Comments: Acute occipital ischemia and syncope Do you want consulting provider notified?: Yes Consult Physician Routine Consulting Provider: Hugo Vences Consult Reason/Comments: syncope Do you want consulting provider notified?: Yes Primary care physician: [facility] Course: 77-year-old female who came to the hospital by ambulance today at 12:24 PM for recurrent syncopal spells. Patient states that she has been having syncopal spells off and on for last 2 years. She underwent pacemaker placement about a year ago, but the syncopal spells have not resolved. Patient states that she was walking to the grocery stores, bought some food from [employer] and was in the meat market when she was standing, suddenly felt it coming, and she asked the staff "can you get me the chair". She sat in the chair, and then she started to fall. Other shoppers helped her, and she did not fall, hit her head. Patient was brought to the hospital. She says that she is "tired of passing out". Patient's last syncopal spell was on 09/16/2022, when she was going to grocery store, shopping when all of a sudden she she had a syncopal spell. It was reported the patient did appear to be postictal. No observed tonic-clonic activity. Patient was seen by retail loan originator and her syncope was felt to be related to dysautonomia. Pacemaker was interrogated with no events noted. Patient was cleared for discharge. Patient had another ER visit on 08/19/2022 for some confusional spell. She was released from the ER. Vital signs on arrival blood pressure 172/95, pulse rate 71 temperature 97.9. Blood test shows normal CBC, PT/PTT, normal CMP. Troponin negative. UA shows large amount of leukocyte esterase and [address] head showed new region of low attenuation with loss of jacobs-white differentiation within the left occipital lobe concerning for acute ischemia. I personally reviewed CT head, appears chronic in nature, although the lower part may have subacute component. Also evidence of old encephalomalacia in the left anterior temporal lobe. EKG shows AV dual paced rhythm. Patient states that she has been taking Florinef 0.1 mg, one tablet every day for last 1 month. She was called by the nurse practitioner from cardiology office to decrease the dose of Florinef to half tablet every other day. Patient states that she was also informed to stop Plavix, which she has Subacute to chronic ischemic (feel more chronic) stroke involving the left occipital lobe with right homonymous hemianopia. This may have occurred in August 2022, when she presented with some confusional spell. * Recurrent syncope, all occurring while standing, therefore orthostatics likely possibility. * Hypertension accelerated/uncontrolled * Hyperlipidemia * Coronary artery disease Plan: * 2-D echo with bubble study to rule out PFO completed, results pending. * Carotid Doppler on 07/13/2022 revealed moderate to severe atherosclerotic ch anges bilaterally. Hemodynamically significant stenosis proximal right ICA cannot be excluded. Antegrade flow in both vertebral arteries. * CTA of the neck on 07/20/2022 showed no hemodynamically significant stenosis in either ICA. * Vascular surgery input appreciated. Patient's stenosis less than 50%. No surgical intervention necessary. * Lipid panel cholesterol 160, LDL 74, HDL 66 and triglycerides 160. * Hemoglobin A1c 5.3. * B12 206, folate 3.6, patient will need B12, folate replacement. Patient to be given B12 1000 g IM 1 dose. Suggest B12 injections if possible weekly for a month and then twice a month. Start folic acid 1 mg daily. * On Plavix 75 mg daily and Pravachol 40 mg at bedtime and are sufficient for secondary stroke prophylaxis. * Orthostatics with supine blood pressure 145/96, sitting 168/86 and standing 182/90. Orthostatics are negative. Dr. Bradley suggested tilt table test, may be done as an outpatient. * Optimize control of blood pressure as per cardiology and IM. * Patient was previously taking midodrine 5 mg daily and Florinef 0.1 mg daily. Her blood pressure is running high. Cardiology on board, recommending to decrease Florinef to 0.05 mg every other day, and midodrine has been stopped. * Pending EEG rule out epileptiform activity. * Recommend patient to follow-up with neurologist as outpatient within 1-2 weeks. EEG is completed and is unremarkable Patient Condition at Discharge: Stable Plan - Discharge Summary Discharge Rx Participant: No New Discharge Prescriptions: New Fludrocortisone [Florinef] 0.05 mg PO Q2D 30 Days #30 tab Folic Acid 1 mg PO DAILY tab amLODIPine [Norvasc] 2.5 mg PO DAILY 30 Days #30 tab Clopidogrel [Plavix] 75 mg PO DAILY tab Continue Zolpidem [Ambien] 10 mg PO HS Pravastatin Sodium [Pravachol] 40 mg PO HS Midodrine [ProAmatine] 5 mg PO DAILY Donepezil [Aricept] 5 mg PO HS Diphenoxylate HCl/Atropine [Lomotil 2.5-0.025 mg Tablet] 1 tab PO BID PRN PRN Reason: Diarrhea Clopidogrel [Plavix] 75 mg PO DIRECTED Discontinued Fludrocortisone [Florinef] 0.05 mg PO Q2D Discharge Medication List Zolpidem [Ambien] 10 mg PO HS 07/28/20 [History] Clopidogrel [Plavix] 75 mg PO DIRECTED 09/16/22 [History] Midodrine [ProAmatine] 5 mg PO DAILY 09/16/22 [History] Pravastatin Sodium [Pravachol] 40 mg PO HS 09/16/22 [History] Diphenoxylate HCl/Atropine [Lomotil 2.5-0.025 mg Tablet] 1 tab PO BID PRN 11/05/22 [History] Donepezil [Aricept] 5 mg PO HS 11/05/22 [History] Clopidogrel [Plavix] 75 mg PO DAILY tab 11/08/22 [Rx] Fludrocortisone [Florinef] 0.05 mg PO Q2D 30 Days #30 tab 11/08/22 [Rx] Folic Acid 1 mg PO DAILY tab 11/08/22 [Rx] amLODIPine [Norvasc] 2.5 mg PO DAILY 30 Days #30 tab 11/08/22 [Rx] Follow up Appointment(s)/Referral(s): Kyrie Upton DO [STAFF PHYSICIAN] - As Needed (set up 6 month follow up appointment) Celio Pollard MD [Primary Care Provider] - 1-2 days Discharge Disposition: HOME SELF-CARE
--- NOTE | 2022-11-08 17:45 | EEG ---
ELECTROENCEPHALOGRAM REPORT CLINICAL HISTORY: This is a 77-year-old woman with a syncopal episode. The video EEG is obtained to evaluate for seizure and epileptiform activity. RELEVANT MEDICATION: Xanax as needed. EEG TYPE: A routine 21-channel EEG is performed with video using the 10/20 electrode placement system. DESCRIPTION: Wakefulness is only obtained. During awake state, the posterior-dominant rhythm consists of [id number] voltage of 10.5 to 11.5 Hz activity, that is well modulated and well sustained. There is no physiological sleep architecture seen. There is no focal slowing. Interictal and ictal, none. ACTIVATION PROCEDURE: Photic stimulation did not evoke a posterior driving response. There was no abnormality during the photic stimulation. Hyperventilation ws not performed. CLINICAL INTERPRETATION: This is a normal routine EEG during awake state. There is no focal slowing, epileptiform discharge, or seizure on the EEG. A normal routine EEG does not rule out underlying epilepsy. Clinical correlation is recommended. MMDONNIE / GLORIA: [id number] /
== END 2022-11-08 16:54 | disposition home or self-care (01) | DRG 312 ==
LOC: EC 12:24 → 3SCARD 15:23
PROVIDERS: ADMIT Internal Medicine; ATTEND Internal Medicine
PROC: 4B02XSZ Measurement of Cardiac Pacemaker, External Approach (ICD-10-PCS; principal; 2022-11-06)
PROC: 4A10X4Z Monitoring of Central Nervous Electrical Activity, External Approach (ICD-10-PCS; 2022-11-08)
DX: I95.1 Orthostatic hypotension (principal); H53.461 Homonymous bilateral field defects, right side; I69.398 Other sequelae of cerebral infarction; D64.9 Anemia, unspecified; I25.10 Atherosclerotic heart disease of native coronary artery without angina pectoris; G90.1 Familial dysautonomia [Riley-Day]; I10 Essential (primary) hypertension; R19.7 Diarrhea, unspecified; E03.9 Hypothyroidism, unspecified; I08.1 Rheumatic disorders of both mitral and tricuspid valves; G93.89 Other specified disorders of brain; I65.23 Occlusion and stenosis of bilateral carotid arteries; Z79.890 Hormone replacement therapy; I49.3 Ventricular premature depolarization; E78.5 Hyperlipidemia, unspecified; E86.0 Dehydration; Z91.030 Bee allergy status; Z91.040 Latex allergy status; Z91.048 Other nonmedicinal substance allergy status; Z87.19 Personal history of other diseases of the digestive system; Z90.49 Acquired absence of other specified parts of digestive tract
CPT/HCPCS: 36415; 70450; 80048; 80053; 80061; 81001; 82533; 82607; 82746; 83036; 84443; 84484; 85025; 85610; 85730; 87086; 93005; 93306; 94760; 95816; 96360; 96361; 99285

== ENCOUNTER 2022-11-15 11:11 | Emergency (ER) | payer MEDICARE ==
[2022-11-15 11:18] VITALS: RESP 18
--- NOTE | 2022-11-15 11:46 | ED ---
General Adult HPI - General Chief complaint: Syncope Stated complaint: syncope Time Seen by Provider: 11/15/22 11:21 Source: patient Mode of arrival: EMS Limitations: altered mental status - History of Present Illness Initial comments: Dictation was produced using [employer] dictation software. please excuse any grammatical, word or spelling errors. Chief Complaint: 77-year-old female presents emergency department for syncope History of Present Illness: Is a 69-year-old female she was at the neurologist's office just prior to arrival. Patient allegedly had a syncopal episode there. Patient has been having more frequent episodes of syncope. She has a syncopal event for which EMS was called. Patient is brought to the emergency room. Patient is uncooperative. Clinic chart was reviewed suggesting that patient has medications that are used to treat dementia. Patient denies any complaints and repeatedly says clinical home. Survey to contact patient's family members for further HPI however they did not answer her phone calls. Unable to obtain secondary to patient's mental status PHYSICAL EXAM: General Impression: Alert and oriented x3/4, not in acute distress HEENT: Normocephalic atraumatic, extra-ocular movements intact, pupils equal and reactive to light bilaterally, mucous membranes moist. Cardiovascular: Heart regular rate and rhythm Chest: Able to complete full sentences, no retractions, no tachypnea Abdomen: abdomen soft, non-tender, non-distended, no organomegaly Musculoskeletal: Pulses present and equal in all extremities, no peripheral edema Motor: no focal deficits noted Neurological: CN II-XII grossly intact, no focal motor or sensory deficits noted Skin: Intact with no visualized rashes Psych: Normal affect and mood ED course: 77-year-old female presents to the emergency room for syncopal episode. Vital signs upon arrival are within acceptable limits. Chart review was performed. Patient allegedly has history of vasovagal syncope. Patient was just discharged from the hospital 6 days ago. She was admitted for syncope. Neurology and cardiology consultation note from 10 days ago was reviewed. Nursing notes and chart review was performed EKG interpreted by me: Ventricular rate 84, paced rhythm, MI interval 172, QRS 111, QTc 45. No MI prolongation, no QTC prolongation, no ST or T-wave changes noted. Laboratory evaluation obtained. CBC, metabolic panel is unremarkable. Abdominal labs are negative. Chart review was performed. chart summary from 7 days ago is reviewed showing the patient had extensive workup for syncope with recommendations by neurology and cardiology. Disposition options were discussed with son and patient at the bedside. They preferred discharge. States that she has a chronic history of syncopal episodes being monitored by her outpatient doctors. Was pt. sent in by a medical professional or institution (, PA, PHYSICIAN PRESIDENT, urgent care, hospital, or prison...) When possible be specific @ -Yes, neurology clinic Did you speak to anyone other than the patient for history (EMS, parent, family, police, friend...)? What history was obtained from this source @ -Son, EMS Did you review nursing and triage notes (agree or disagree)? Why? @ -I reviewed and agree with nursing and triage notes Were old charts reviewed (outside hosp., previous admission, EMS record, old EKG, old radiological studies, urgent care reports/EKG's, prison records)? Report findings @ -Yes, see above Differential Diagnosis (chest pain, altered mental status, abdominal pain women, abdominal pain men, vaginal bleeding, weakness, fever, dyspnea, syncope, headache, dizziness, GI bleed, back pain, seizure, CVA, palpatations, mental health)? @ -Differential Syncope: Valvular disease, hypertrophic cardiomyopathy, pulmonary embolism, tamponade, tachycardia, bradycardia, ID, hypovolemia, hemorrhage, dissection, anemia, intracranial hemorrhage, seizure, hypoglycemia, carbon monoxide poisoning, this is not meant to be an all-inclusive list. EKG interpreted by me (3pts min.). @ -See above X-rays interpreted by me (1pt min.). @ -None done CT interpreted by me (1pt min.). @ -None done U/S interpreted by me (1pt. min.). @ -None done What testing was considered but not performed or refused? (CT, X-rays, U/S, labs)? Why? @ -None What meds were considered but not given or refused? Why? @ -None Did you discuss the management of the patient with other professionals (professionals i.e. , MADELIN, PHYSICIAN PRESIDENT, lab, RT, psych nurse, clinical social work therapist, photonics engineer, teacher, aerospace engineer officer armament, rn case manager)? Give summary @ -No Was smoking cessation discussed for >3mins.? @ -No Was critical care preformed (if so, how long)? @ -No Were there social determinants of health that impacted care today? How? (Homelessness, low income, unemployed, alcoholism, drug addiction, transportation, low edu. Level, literacy, decrease access to med. care, care home, rehab)? @ -No Was there de-escalation of care discussed even if they declined (Discuss DNR or withdrawal of care, Hospice)? DNR status @ -No What co-morbidities impacted this encounter? (DM, HTN, Smoking, COPD, CAD, Cancer, CVA, ARF, Chemo, Hep., AIDS, mental health diagnosis, sleep apnea, morbi d obesity)? @ -Dementia Was patient admitted / discharged? Hospital course, mention meds given and route, prescriptions, significant lab abnormalities, going to OR and other pertinent info. @ -Discharged Undiagnosed new problem with uncertain prognosis? @ -No Drug Therapy requiring intensive monitoring for toxicity (Heparin, Nitro, Insulin, Cardizem)? @ -No Were any procedures done? @ -No Diagnosis/symptom? @ -default Acute, or Chronic, or Acute on Chronic? @ -Chronic Uncomplicated (without systemic symptoms) or Complicated (systemic symptoms)? @ -Uncomplicated Side effects of treatment? @ -No Exacerbation, Progression, or Severe Exacerbation? @ -No Poses a threat to life or bodily function? How? (Chest pain, USA, ID, pneumonia, PE, COPD, DKA, ARF, appy, cholecystitis, CVA, Diverticulitis, Homicidal, Suicidal, threat to staff... and all critical care pts) @ -No - Related Data Home Medications Medication Instructions Recorded Confirmed Zolpidem [Ambien] 10 mg PO HS 07/28/20 11/05/22 Clopidogrel [Plavix] 75 mg PO DIRECTED 09/16/22 11/05/22 Midodrine [ProAmatine] 5 mg PO DAILY 09/16/22 11/05/22 Pravastatin Sodium [Pravachol] 40 mg PO HS 09/16/22 11/05/22 Diphenoxylate HCl/Atropine 1 tab PO BID PRN 11/05/22 11/05/22 [Lomotil 2.5-0.025 mg Tablet] Donepezil [Aricept] 5 mg PO HS 11/05/22 11/05/22 Previous Rx's Medication Instructions Recorded Clopidogrel [Plavix] 75 mg PO DAILY tab 11/08/22 Fludrocortisone [Florinef] 0.05 mg PO Q2D 30 Days #30 tab 11/08/22 Folic Acid 1 mg PO DAILY tab 11/08/22 amLODIPine [Norvasc] 2.5 mg PO DAILY 30 Days #30 tab 11/08/22 Allergies Allergy/AdvReac Type Severity Reaction Status Date / Time adhesive Allergy Rash/Hives Verified 11/05/22 14:18 bee pollen Allergy Anaphylaxis Verified 11/05/22 14:18 latex Allergy Rash/Hives Verified 11/05/22 14:18 Penicillins Allergy Anaphylaxis Verified 11/05/22 14:18 prednisone AdvReac Nausea & Verified 11/05/22 14:18 Vomiting Review of Systems ROS Statement: Those systems with pertinent positive or pertinent negative responses have been documented in the HPI. ROS Other: All systems not noted in ROS Statement are negative. 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 Type of Cardiac Device: Permanent Pacemaker Device Placement Date:: 07/29/20 Past Psychological History: No Psychological Hx Reported Smoking Status: Former smoker Past Alcohol Use History: None Reported Past Drug Use History: None Reported - Past Family History Father Family Medical History: Cancer Additional Family Medical History / Comment(s): Lung. General Exam Limitations: altered mental status Course Vital Signs 11/15/22 11/15/22 11:14 13:06 Temperature 97.8 F Pulse Rate 77 78 Respiratory 18 18 Rate Blood Pressure 125/74 O2 Sat by Pulse 93 L 94 L Oximetry Medical Decision Making - Lab Data Result diagrams: 11/15/22 12:10 11/15/22 12:10 Lab Results 11/15/22 11/15/22 Range/Units 12:10 12:10 WBC 11.6 H (3.8-10.6) k/uL RBC 5.18 (3.80-5.40) m/uL Hgb 15.3 (11.4-16.0) gm/dL Hct 46.7 H (34.0-46.0) % MCV 90.1 (80.0-100.0) fL MCH 29.4 (25.0-35.0) pg MCHC 32.7 (31.0-37.0) g/dL RDW 13.4 (11.5-15.5) % Plt Count 396 (150-450) k/uL MPV 7.8 Neutrophils % 82 % Lymphocytes % 8 % Monocytes % 6 % Eosinophils % 2 % Basophils % 1 % Neutrophils # 9.5 H (1.3-7.7) k/uL Lymphocytes # 0.9 L (1.0-4.8) k/uL Monocytes # 0.7 (0-1.0) k/uL Eosinophils # 0.3 (0-0.7) k/uL Basophils # 0.1 (0-0.2) k/uL Hypochromasia Slight Sodium 141 (137-145) mmol/L Potassium 5.5 H (3.5-5.1) mmol/L Chloride 106 (98-107) mmol/L Carbon Dioxide 24 (22-30) mmol/L Anion Gap 11 mmol/L BUN 13 (7-17) mg/dL Creatinine 0.84 (0.52-1.04) mg/dL Est GFR (CKD-EPI)AfAm 77 (>60 ml/min/1.73 sqM) Est GFR (CKD-EPI)NonAf 67 (>60 ml/min/1.73 sqM) Glucose 103 H (74-99) mg/dL Calcium 9.4 (8.4-10.2) mg/dL Total Bilirubin 0.8 (0.2-1.3) mg/dL AST 38 H (14-36) U/L ALT 26 (4-34) U/L Alkaline Phosphatase 84 (38-126) U/L Total Protein 7.7 (6.3-8.2) g/dL Albumin 4.2 (3.5-5.0) g/dL Disposition Clinical Impression: Syncope Disposition: HOME SELF-CARE Condition: Fair Instructions (If sedation given, give patient instructions): Syncope (ED) Is patient prescribed a controlled substance at d/c from ED?: No Referrals: Celio Pollard MD [Primary Care Provider] - 1-2 days Forms: Personal Assistant Field Hockey Coach Time of Disposition: 13:47
[2022-11-15 12:23] LABS: Basophils # (A) 0.1 k/uL (0-0.2); Basophils % (A) 1 %; Eosinophils # (A) 0.3 k/uL (0-0.7); Eosinophils % (A) 2 %; HCT 46.7 % (34.0-46.0); HGB 15.3 gm/dL (11.4-16.0); Hypochromasia Slight; Lymphocytes # (A) 0.9 k/uL (1.0-4.8); Lymphocytes % (A) 8 %; MCH 29.4 pg (25.0-35.0); MCHC 32.7 g/dL (31.0-37.0); MCV 90.1 fL (80.0-100.0); Mean Platelet Volume 7.8; Monocytes # (A) 0.7 k/uL (0-1.0); Monocytes % (A) 6 %; Neutrophils # (A) 9.5 k/uL (1.3-7.7); Neutrophils % (A) 82 %; Platelet Count 396 k/uL (150-450); RBC 5.18 m/uL (3.80-5.40); RDW 13.4 % (11.5-15.5); WBC 11.6 k/uL (3.8-10.6)
[2022-11-15 12:34] LABS: Albumin 4.2 g/dL (3.5-5.0); Calcium 9.4 mg/dL (8.4-10.2); Total Bilirubin 0.8 mg/dL (0.2-1.3); Total Protein 7.7 g/dL (6.3-8.2)
[2022-11-15 12:35] LABS: Potassium 5.5 mmol/L (3.5-5.1)
--- NOTE | 2022-11-15 12:49 | CT ---
EXAMINATION TYPE: CT brain cspine wo con CT DLP: 1378.7 mGycm, Automated exposure control for dose reduction was used. DATE OF EXAM: 11/15/2022 12:30 PM COMPARISON: 11/05/2022 CLINICAL INDICATION:Female, 77 years old with history of fall; TECHNIQUE: Brain: Multiple axial CT images of the brain were obtained without IV contrast. Cspine: Axial CT images from the skull base to the inferior aspect of T2 we obtained without intraven ous contrast. Coronal and sagittal reformatted images were also reviewed. FINDINGS: Brain: Extra-axial spaces: No abnormal extra-axial fluid collections. Ventricular system: Dilatation in proportion to cerebral atrophy. Cerebral parenchyma: Similar region of low attenuation within the left occipital lobe. Similar left t emporal lobe encephalomalacia. Cerebral atrophy. No acute intraparenchymal hemorrhage or mass effect. The remainder of the jacobs-white junctions are well differentiated. Scattered hypoattenuating areas are seen within the white matter. Cerebellum: Cerebellar atrophy Mass effect: No evidence of midline shift. Intracranial vasculature: unremarkable Soft tissues: Normal. Calvarium/osseous structures: No depressed skull fracture. Paranasal sinuses and mastoid air cells: Mild scattered mucosal thickening and or secretions. Visualized orbits: Orbital contents are intact. Cervical spine: Fracture: None. Osseous structures: Multilevel degenerative disc disease changes with endplate spurring and disc oste ophyte complex's. Vertebral alignment: Within normal limits. Spinal canal/Neural Foramina: No evidence of significant spinal canal narrowing. No evidence for sign ificant neural foraminal stenosis. Neck soft tissues: Prevertebral soft tissues are within normal limits. Other: The airway is patent. The lung apices are clear. IMPRESSION: 1. No acute intracranial process. 2. Similar left occipital lobe region of low attenuation dating back to at least 11/05/2022 concerni ng for subacute to chronic infarct. 3. Similar left temporal lobe encephalomalacia. 4. No evidence of cervical spine fracture. 5. Mild multilevel degenerative disc disease.
[2022-11-15 14:05] VITALS: BP 155/70; PULSE 83; TEMP 98.4
== END 2022-11-15 14:05 | disposition home or self-care (01) ==
LOC: EC 11:11
DX: R55 Syncope and collapse (principal); I25.10 Atherosclerotic heart disease of native coronary artery without angina pectoris; E78.5 Hyperlipidemia, unspecified; I10 Essential (primary) hypertension; Z87.891 Personal history of nicotine dependence; Z88.0 Allergy status to penicillin; Z91.048 Other nonmedicinal substance allergy status; Z91.030 Bee allergy status; Z91.040 Latex allergy status; Z88.8 Allergy status to other drugs, medicaments and biological substances; Z79.899 Other long term (current) drug therapy
CPT/HCPCS: 36415; 70450; 72125; 80053; 85025; 93005; 99285

== ENCOUNTER 2023-03-02 07:59 | Observation (INO) | payer MEDICARE ==
[2023-03-02] MEDS ORDERED: SODIUM CHLORIDE 0.9% 500 ML 500 ML IV STA (08:18)
--- NOTE | 2023-03-02 08:30 | ED ---
General Adult HPI - General Chief complaint: Fall Stated complaint: Fall, altered mental status Time Seen by Provider: 03/02/23 08:03 Source: patient, family, EMS, RN notes reviewed, old records reviewed Mode of arrival: EMS Limitations: altered mental status - History of Present Illness Initial comments: 77-year-old female presents for evaluation generalized weakness, possible fall. History is predominantly obtained from the patient's was at bedside. Around Midnight the patient had crawled from the bathroom to the bedroom. There was no definitive fall and the patient is not able to give this history. She lay on the floor with inability to stand and ultimately required EMS for transfer to the hospital. The states that she's had increased generalized weakness. Patient denies any new focal pain but states she does have pain all over. No chest pain. - Related Data Home Medications Medication Instructions Recorded Confirmed Zolpidem [Ambien] 10 mg PO HS 07/28/20 03/02/23 Midodrine [ProAmatine] 5 mg PO DAILY 09/16/22 03/02/23 Pravastatin Sodium [Pravachol] 40 mg PO HS 09/16/22 03/02/23 Diphenoxylate HCl/Atropine 1 tab PO BID PRN 11/05/22 03/02/23 [Lomotil 2.5-0.025 mg Tablet] Donepezil [Aricept] 5 mg PO HS 11/05/22 03/02/23 LORazepam [Ativan] 0.5 mg PO QAM 03/02/23 03/02/23 LORazepam [Ativan] 1 mg PO HS 03/02/23 03/02/23 Levothyroxine Sodium [Synthroid] 75 mcg PO DAILY 03/02/23 03/02/23 risperiDONE [RisperDAL] 0.5 mg PO BID 03/02/23 03/02/23 traZODone HCL [Desyrel] 50 mg PO BID@1800,2100 03/02/23 03/02/23 Previous Rx's Medication Instructions Recorded Clopidogrel [Plavix] 75 mg PO DAILY tab 11/08/22 Fludrocortisone [Florinef] 0.05 mg PO Q2D 30 Days #30 tab 11/08/22 Folic Acid 1 mg PO DAILY tab 11/08/22 amLODIPine [Norvasc] 2.5 mg PO DAILY 30 Days #30 tab 11/08/22 Allergies Allergy/AdvReac Type Severity Reaction Status Date / Time adhesive Allergy Rash/Hives Verified 03/02/23 10:20 bee pollen Allergy Anaphylaxis Verified 03/02/23 10:20 latex Allergy Rash/Hives Verified 03/02/23 10:20 Penicillins Allergy Anaphylaxis Verified 03/02/23 10:20 prednisone AdvReac Nausea & Verified 03/02/23 10:20 Vomiting Review of Systems ROS Statement: Those systems with pertinent positive or pertinent negative responses have been documented in the HPI. ROS Other: All systems not noted in ROS Statement are negative. 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 Type of Cardiac Device: Permanent Pacemaker Device Placement Date:: 07/29/20 Past Psychological History: No Psychological Hx Reported Smoking Status: Former smoker Past Alcohol Use History: None Reported Past Drug Use History: None Reported - Past Family History Father Family Medical History: Cancer Additional Family Medical History / Comment(s): Lung. General Exam Limitations: altered mental status General appearance: alert, in no apparent distress Head exam: Present: atraumatic, normocephalic Eye exam: Present: normal appearance, PERRL ENT exam: Present: mucous membranes dry Neck exam: Present: other (c-collar) Respiratory exam: Present: normal lung sounds bilaterally. Absent: respiratory distress Cardiovascular Exam: Present: regular rate, normal rhythm GI/Abdominal exam: Present: soft. Absent: distended, tenderness, guarding Extremities exam: Present: tenderness (Pain with range of motion of the right hip). Absent: full ROM Neurological exam: Present: alert. Absent: oriented X3, motor sensory deficit Skin exam: Present: warm, dry, intact. Absent: cyanosis, diaphoretic Course Vital Signs 03/02/23 03/02/23 08:01 11:00 Temperature 98.0 F Pulse Rate 83 70 Respiratory 16 20 Rate Blood Pressure 183/85 176/76 O2 Sat by Pulse 94 L 96 Oximetry - Reevaluation(s) Reevaluation #1: 03/02/23 11:[address] ordered of the adrenal glands. This was performed in the emergency department, for patient's convenience. EKG Findings - EKG Comments: EKG Findings:: Paced rhythm rate of 72, CT interval 160, QRS duration 116, QTC 383 Medical Decision Making - Medical Decision Making Was pt. sent in by a medical professional or institution (MADELIN Batista, HOSPITAL ACCOUNT MANAGER, urgent care, hospital, or skilled nursing...) When possible be specific @ -No Did you speak to anyone other than the patient for history (EMS, parent, family, police, friend...)? What history was obtained from this source @ - Did you review nursing and triage notes (agree or disagree)? Why? @ -I reviewed and agree with nursing and triage notes Were old charts reviewed (outside hosp., previous admission, EMS record, old EKG, old radiological studies, urgent care reports/EKG's, skilled nursing records)? Report findings @ -No old charts were reviewed Differential Diagnosis (chest pain, altered mental status, abdominal pain women, abdominal pain men, vaginal bleeding, weakness, fever, dyspnea, syncope, headache, dizziness, GI bleed, back pain, seizure, CVA, palpatations, mental health, musculoskeletal)? @ -Differential Weakness: Hypoglycemia, shock, sepsis, hyponatremia, anemia, infection, IL, ETOH, adverse medicine reaction, overdose, stroke, this is not meant to be an all-inclusive list. EKG interpreted by me (3pts min.). @ -As above X-rays interpreted by me (1pt min.). @ -Pelvis x-ray negative for fracture dislocation, chest x-ray shows questionable infiltrate. CT interpreted by me (1pt min.). @ -Negative for intracranial hemorrhage or mass effect U/S interpreted by me (1pt. min.). @ -None done What testing was considered but not performed or refused? (CT, X-rays, U/S, labs)? Why? @ -None What meds were considered but not given or refused? Why? @ -None Did you discuss the management of the patient with other professionals (professionals i.e. , PA, HOSPITAL ACCOUNT MANAGER, lab, RT, psych nurse, psychiatric social worker, compress trucker, teacher, promotion officer, case therapist)? Give summary @ -Case discussed with sound physician group Was smoking cessation discussed for >3mins.? @ -No Was critical care preformed (if so, how long)? @ -No Were there social determinants of health that impacted care today? How? (Homelessness, low income, unemployed, alcoholism, drug addiction, transportation, low edu. Level, literacy, decrease access to med. care, usp, rehab)? @ -No Was there de-escalation of care discussed even if they declined (Discuss DNR or withdrawal of care, Hospice)? DNR status @ -No What co-morbidities impacted this encounter? (DM, HTN, Smoking, COPD, CAD, Cancer, CVA, ARF, Chemo, Hep., AIDS, mental health diagnosis, sleep apnea, morbid obesity)? @ -Dementia Was patient admitted / discharged? Hospital course, mention meds given and route, prescriptions, significant lab abnormalities, going to OR and other pertinent info. @ -77-year-old female with fall, generalized weakness. No external signs of trauma. Head CT and cervical spine negative for fracture or subluxation negative for intracranial hemorrhage. Chest x-ray shows questionable infiltrate. Urinalysis is pending. She has a mild leukocytosis. She has potassium 2.7. This is replaced with 40 mEq of IV potassium and will require further supplementation. Patient will be admitted for generalized weakness and falls as well as hypokalemia. Undiagnosed new problem with uncertain prognosis? @ -No Drug Therapy requiring intensive monitoring for toxicity (Heparin, Nitro, Insulin, Cardizem)? @ -No Were any procedures done? @ -No Diagnosis/symptom? @ -Generalized weakness, hypokalemia, pneumonia Acute, or Chronic, or Acute on Chronic? @ -Acute Uncomplicated (without systemic symptoms) or Complicated (systemic symptoms)? @ -Complicated Side effects of treatment? @ -No Exacerbation, Progression, or Severe Exacerbation? @ -No Poses a threat to life or bodily function? How? (Chest pain, USA, IL, pneumonia, PE, COPD, DKA, ARF, appy, cholecystitis, CVA, Diverticulitis, Homicidal, Suicidal, threat to staff... and all critical care pts) @ -YES, arrhythmia, sepsis - Lab Data Result diagrams: 03/02/23 08:45 03/02/23 08:45 Lab Results 03/02/23 03/02/23 03/02/23 Range/Units 08:45 08:45 08:45 WBC 11.3 H (3.8-10.6) k/uL RBC 5.27 (3.80-5.40) m/uL Hgb 14.8 (11.4-16.0) gm/dL Hct 44.8 (34.0-46.0) % MCV 85.0 (80.0-100.0) fL MCH 28.0 (25.0-35.0) pg MCHC 32.9 (31.0-37.0) g/dL RDW 14.2 (11.5-15.5) % Plt Count 497 H (150-450) k/uL MPV 7.3 Neutrophils % 88 % Lymphocytes % 6 % Monocytes % 4 % Eosinophils % 1 % Basophils % 0 % Neutrophils # 9.9 H (1.3-7.7) k/uL Lymphocytes # 0.7 L (1.0-4.8) k/uL Monocytes # 0.4 (0-1.0) k/uL Eosinophils # 0.1 (0-0.7) k/uL Basophils # 0.0 (0-0.2) k/uL PT 10.7 (9.0-12.0) sec INR 1.0 (<1.2) APTT 23.1 (22.0-30.0) sec Sodium 141 (137-145) mmol/L Potassium 2.7 L* (3.5-5.1) mmol/L Chloride 100 (98-107) mmol/L Carbon Dioxide 32 H (22-30) mmol/L Anion Gap 9 mmol/L BUN 16 (7-17) mg/dL Creatinine 0.84 (0.52-1.04) mg/dL Est GFR (CKD-EPI)AfAm 77 (>60 ml/min/1.73 sqM) Est GFR (CKD-EPI)NonAf 67 (>60 ml/min/1.73 sqM) Glucose 116 H (74-99) mg/dL Calcium 9.6 (8.4-10.2) mg/dL Magnesium 2.0 (1.6-2.3) mg/dL Total Bilirubin 0.4 (0.2-1.3) mg/dL AST 45 H (14-36) U/L ALT 19 (4-34) U/L Alkaline Phosphatase 71 (38-126) U/L Troponin I (0.000-0.034) ng/mL Total Protein 7.1 (6.3-8.2) g/dL Albumin 4.1 (3.5-5.0) g/dL 03/02/23 Range/Units 08:45 WBC (3.8-10.6) k/uL RBC (3.80-5.40) m/uL Hgb (11.4-16.0) gm/dL Hct (34.0-46.0) % MCV (80.0-100.0) fL MCH (25.0-35.0) pg MCHC (31.0-37.0) g/dL RDW (11.5-15.5) % Plt Count (150-450) k/uL MPV Neutrophils % % Lymphocytes % % Monocytes % % Eosinophils % % Basophils % % Neutrophils # (1.3-7.7) k/uL Lymphocytes # (1.0-4.8) k/uL Monocytes # (0-1.0) k/uL Eosinophils # (0-0.7) k/uL Basophils # (0-0.2) k/uL PT (9.0-12.0) sec INR (<1.2) APTT (22.0-30.0) sec Sodium (137-145) mmol/L Potassium (3.5-5.1) mmol/L Chloride (98-107) mmol/L Carbon Dioxide (22-30) mmol/L Anion Gap mmol/L BUN (7-17) mg/dL Creatinine (0.52-1.04) mg/dL Est GFR (CKD-EPI)AfAm (>60 ml/min/1.73 sqM) Est GFR (CKD-EPI)NonAf (>60 ml/min/1.73 sqM) Glucose (74-99) mg/dL Calcium (8.4-10.2) mg/dL Magnesium (1.6-2.3) mg/dL Total Bilirubin (0.2-1.3) mg/dL AST (14-36) U/L ALT (4-34) U/L Alkaline Phosphatase (38-126) U/L Troponin I 0.013 (0.000-0.034) ng/mL Total Protein (6.3-8.2) g/dL Albumin (3.5-5.0) g/dL Disposition Clinical Impression: Hypokalemia, Weakness, Pneumonia Disposition: ADMITTED IP TO THIS HOSP Condition: Stable Is patient prescribed a controlled substance at d/c from ED?: No Referrals: Celio Pollard MD [Primary Care Provider] - 1-2 days Forms: Adult Foster Detention List, Assisted Living Facilities Time of Disposition: 11:39
[2023-03-02 08:55] LABS: Basophils % (A) 0 %; Eosinophils # (A) 0.1 k/uL (0-0.7); Eosinophils % (A) 1 %; HCT 44.8 % (34.0-46.0); HGB 14.8 gm/dL (11.4-16.0); Lymphocytes # (A) 0.7 k/uL (1.0-4.8); Lymphocytes % (A) 6 %; MCHC 32.9 g/dL (31.0-37.0); Mean Platelet Volume 7.3; Monocytes # (A) 0.4 k/uL (0-1.0); Monocytes % (A) 4 %; Neutrophils # (A) 9.9 k/uL (1.3-7.7); Neutrophils % (A) 88 %; Platelet Count 497 k/uL (150-450); RBC 5.27 m/uL (3.80-5.40); RDW 14.2 % (11.5-15.5); WBC 11.3 k/uL (3.8-10.6)
[2023-03-02 09:05] LABS: Partial Thromboplastin Time 23.1 sec (22.0-30.0); Prothrombin Time 10.7 sec (9.0-12.0)
[2023-03-02 09:16] LABS: Albumin 4.1 g/dL (3.5-5.0); Calcium 9.6 mg/dL (8.4-10.2); Total Bilirubin 0.4 mg/dL (0.2-1.3); Total Protein 7.1 g/dL (6.3-8.2)
[2023-03-02 09:21] LABS: Potassium 2.7 mmol/L (3.5-5.1)
--- NOTE | 2023-03-02 09:37 | CT ---
EXAMINATION TYPE: CT brain cspine wo con DATE OF EXAM: 03/02/2023 COMPARISON: Prior trauma CT November 15, 2022 HISTORY: Fall injury with headache and neck pain CT DLP: 1387.1 mGycm. Automated Exposure Control for Dose Reduction was Utilized. TECHNIQUE: CT scan of the head and cervical spine are performed without contrast. FINDINGS: There is no acute intracranial hemorrhage or midline shift identified. Mild to moderate v entricular and sulcal prominence redemonstrated. Moderate to severe low-attenuation in the deep and p eriventricular white matter redemonstrated. 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 The calvarium is intact. Globes are intact and visualized sinuses are clear. Cervical spine is visualized in its entirety from C1 through upper thoracic levels and demonstrates l evoconvex scoliosis centered in the thoracic spine without evidence of acute fracture or dislocation. Prevertebral soft tissue appears within normal limits. The C1-C2 articulation is within normal duncan its on the coronal images. Vertebral body heights are preserved. Moderate disc space narrowing C5-C6 and C6-C7 level is redemonstrated. Posterior spur disc complex is mildly effacing the anterior theca l sac at these levels similar to prior. Review of axial images shows multilevel uncovertebral facet degenerative changes bilaterally. There i s moderate calcified plaque bilateral carotid bulb level redemonstrated. Thyroid gland appears within normal limits. Lung apices show no pneumothorax. IMPRESSION: 1. There is no acute fracture or dislocation evident in the cervical spine. 2. No acute intracranial hemorrhage or midline shift is seen. No significant change from most recent CT.
--- NOTE | 2023-03-02 10:18 | XR ---
EXAMINATION TYPE: XR chest 1V portable DATE OF EXAM: 03/02/2023 COMPARISON: Chest x-ray July 29, 2020 HISTORY: Syncope and weakness. TECHNIQUE: Single frontal upright view of the chest is obtained. FINDINGS: Right lateral patchy mid lung increased opacity. Left lung is clear. The cardiac silhouet te size is stable and upper limits of normal with multilead pacemaker redemonstrated. The osseous s tructures are intact. Cholecystectomy clips are noted on current study. IMPRESSION: Possible developing lateral right midlung acute infiltrate. Consider progress study.
--- NOTE | 2023-03-02 10:53 | CT ---
EXAMINATION TYPE: CT adrenal glands wo/w con DATE OF EXAM: 03/02/2023 HISTORY: adrenocortical insufficiency CT DLP: 1442.7mGycm Automated Exposure Control for Dose Reduction was Utilized. CONTRAST: CT scan of the abdomen is performed without oral and without and with IV Contrast, patient injected w ith 100 mL of Isovue 300. Adrenal gland protocol. COMPARISON: Chest CT 2016 FINDINGS: LUNG BASES: Partial visualization of pacemaker leads in the heart. Partial visualization of coronary artery calcification. Mild cardiomegaly. Pectus excavatum deformity inferiorly. LIVER/GB: Cholecystectomy clips are redemonstrated. Occasional calcification throughout the liver ag ain seen. PANCREAS: No significant abnormality is seen. SPLEEN: More prominent round calcifications in the spleen are redemonstrated. Liver and spleen findin gs consistent with product of old granulomatous disease. ADRENALS: Adrenal glands are normal in size. No suspicious solid or cystic mass KIDNEYS: No nephrolithiasis on noncontrast images. Symmetric cortical uptake and excretion without hy dronephrosis seen bilaterally. There are single small simple-appearing thin-walled cysts in both kidn eys. BOWEL: Visualized bowel unremarkable. LYMPH NODES: No greater than 1cm abdominal lymph nodes are appreciated. OSSEOUS STRUCTURES: Facet Arthropathy lower lumbar levels. Severe disc space narrowing with vacuum di sc phenomenon at L4-L5 level. OTHER: Moderate to severe peripheral calcified plaque of the aorta extends into branch vessels. Signi ficant stenosis difficult to exclude at the right renal artery origin due to prominent calcified plaq ue. IMPRESSION: No suspicious adrenal masses. No acute findings are seen.
[2023-03-02] MEDS: POTASSIUM CHLORIDE 10 MEQ in WATER FOR INJECTION 1 100ML.BAG IVPB SCH ×6 (11:01→23:22)
[2023-03-02] MEDS ORDERED: AZITHROMYCIN 500 MG in SODIUM CHLORIDE 0.9% 250 ML IVPB STA (11:24)
[2023-03-02] MEDS ORDERED: NALOXONE 0.4 MG/ML 1 ML VIAL IV PRN (11:26)
[2023-03-02] MEDS ORDERED: ACETAMINOPHEN TAB 325 MG TAB PO PRN (11:26)
--- NOTE | 2023-03-02 11:35 | XR ---
EXAMINATION TYPE: XR Hip RT and AP Pelvis DATE OF EXAM: 03/02/2023 11:20 AM INDICATION: Patient age:Female; 77 years old; Reason for study: fall; COMPARISON: None. TECHNIQUE: The right hip was examined in the frontal and lateral projections and a AP pelvis. FINDINGS: No evidence for acute process, joint dislocation or significant soft tissue swelling. IMPRESSION: No acute process.
[2023-03-02] MEDS ORDERED: amLODIPine 2.5 MG TAB PO SCH (11:45)
[2023-03-02] MEDS: SODIUM CHLORIDE 0.9% 1,000 ML IV SCH (11:45)
[2023-03-02] MEDS: CLOPIDOGREL 75 MG TAB PO SCH (12:41)
[2023-03-02] MEDS: LEVOTHYROXINE 75 MCG TAB PO SCH (12:41)
--- NOTE | 2023-03-02 13:22 | P.HPIM ---
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 Patient presented to the emergency department today secondary to weakness. Patient was initially reported as a potential fall per EMS with altered mentation, however upon patient's husbands arrival to facility he clarified that patient is currently at her baseline mentation and had been falling recently but had not fallen in the past couple days and that that she was sent to the emergency department today because last night when she got up to use the restroom she was feeling weak and decided to lay down on the floor refusing to get up, resulting in her sleeping on the floor overnight and c rawling all around. Patient currently denies having any pain or injuries at this time and is moving all extremities without any noted difficulties. Patient underwent full evaluation in the emergency department. Labs completed and reviewed. CBC showing leukocytosis with WBC count of 11.3 and thrombocytosis with platelet count of 497. BMP revealing hypokalemia with potassium of 2.7 and hypercarbia with bicarb of 32. Liver profile revealing slightly elevated AST of 45. Urinalysis negative for infection. CT head negative for acute intercranial hemorrhage or midline shift showing no acute intercranial process. CT cervical spine negative for acute fracture or dislocation. Chest x-ray concerning for possible developing lateral right mid lung infiltrate. CT abdomen and pelvis showing no suspicious adrenal masses. EKG showing ventricular paced rhythm at 72 bpm. X-ray right hip negative for acute process. Discussed with ED physician, patient being admitted under our services to observation unit for treatment of mild dehydration and hypokalemia. Review of systems: Pertinent positives and negatives as discussed in HPI, a complete review of systems was performed and all other systems are negative. Physical exam: Vital signs reviewed and stable. General: Nontoxic, no distress and appears stated age. Derm: Skin warm and dry, normal coloration for ethnicity. Head: Atraumatic, normocephalic and symmetric. Eyes: EOMs intact, no lid lag, and anicteric sclera Mouth: no lip lesions, mucus membranes moist Cardiovascular: regular rate and rhythm with normal S1S2, systolic murmur, positive posterior tibial pulses bilaterally, and cap refill < 2 seconds. Pacemaker left anterior chest Lungs: Respirations even, regular, and unlabored on room air. Lungs CTA bilaterally, no rhonchi, no rales, no wheezing, and no accessory muscle usage. Abdominal: soft, nontender to palpation, no guarding, no appreciable organomegaly Ext: ROM intact. No gross muscle atrophy, no edema, no contractures Neuro: Speech clear, face symmetrical and CN II-XII grossly intact with no noted focal neuro deficits Psych: Alert and oriented to person and place only, confused to time and situation. Appropriate and pleasant affect. Assessment and Plan of Care: Dehydration Hypokalemia Weakness Dementia History of CAD status post stents and pacemaker placement Hypertension Hyperlipidemia -Patient presented to the emergency department today secondary to weakness. -Patient underwent full evaluation in the emergency department. -Labs completed and reviewed. CBC showing leukocytosis with WBC count of 11.3 and thrombocytosis with platelet count of 497. BMP revealing hypokalemia with potassium of 2.7 and hypercarbia with bicarb of 32. Liver profile revealing slightly elevated AST of 45. -Urinalysis negative for infection. -Imaging completed and reviewed. -CT head negative for acute intercranial hemorrhage or midline shift showing no acute intercranial process. -CT cervical spine negative for acute fracture or dislocation. -Chest x-ray concerning for possible developing lateral right mid lung infiltrate. -CT abdomen and pelvis showing no suspicious adrenal masses. -EKG showing ventricular paced rhythm at 72 bpm. -X-ray right hip negative for acute process. -Discussed with ED physician, patient being admitted under our services for observation unit for treatment of mild dehydration and hypokalemia. -As stated above potassium 2.7, patient receiving 40 mEq of potassium in order placed for repeat potassium levels 8 PM and repeat BMP and magnesium with a.m. labs. -Continue with gentle IV fluid hydration with 0.9% normal saline at 75 mL's per hour. -Fall precautions -Consult PT/OT The patient is admitted with an anticipated less than 2 midnight stay for evaluation of dehydration and hypokalemia CODE STATUS: Full code DVT prophylaxis: Lovenox Discussed with: Patient, RN, and ED physician Anticipated discharge date: 1-[address]: Home with Patient was seen independently by Nurse Practitioner. This document was prepared using Dragon dictation software. Please allow for errors in commercial credit reviewer while rare they do occur. 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 and infection had went into her esophagus causing fistula that was repaired, History of Any Multi-Drug Resistant Organisms: None Reported Past Surgical History: Appendectomy, Breast Surgery, Cholecystectomy, EPS, Heart Catheterization, Hernia Repair, Hysterectomy, Pacemaker Additional Past Surgical History / Comment(s): Right partial upper lobe of lung removed with repair of esophageal fistula, hernia surgery as an , LOOP recoder, EGDs, colonoscopies, L breast biopsy Past Anesthesia/Blood Transfusion Reactions: Postoperative Nausea & Vomiting (PONV) Additional Past Anesthesia/Blood Transfusion Reaction / Comment(s): . Type of Cardiac Device: Permanent Pacemaker Device Placement Date:: 07/29/20 Past Psychological History: No Psychological Hx Reported Smoking Status: Former smoker Past Alcohol Use History: None Reported Past Drug Use History: None Reported - Past Family History Father Family Medical History: Cancer Additional Family Medical History / Comment(s): Lung. Medications and Allergies Home Medications Medication Instructions Recorded Confirmed Type Zolpidem [Ambien] 10 mg PO HS 07/28/20 03/02/23 History Midodrine [ProAmatine] 5 mg PO DAILY 09/16/22 03/02/23 History Pravastatin Sodium [Pravachol] 40 mg PO HS 09/16/22 03/02/23 History Diphenoxylate HCl/Atropine 1 tab PO BID PRN 11/05/22 03/02/23 History [Lomotil 2.5-0.025 mg Tablet] Donepezil [Aricept] 5 mg PO HS 11/05/22 03/02/23 History Clopidogrel [Plavix] 75 mg PO DAILY tab 11/08/22 03/02/23 Rx Fludrocortisone [Florinef] 0.05 mg PO Q2D 30 Days #30 tab 11/08/22 03/02/23 Rx Folic Acid 1 mg PO DAILY tab 11/08/22 03/02/23 Rx amLODIPine [Norvasc] 2.5 mg PO DAILY 30 Days #30 tab 11/08/22 03/02/23 Rx LORazepam [Ativan] 0.5 mg PO QAM 03/02/23 03/02/23 History LORazepam [Ativan] 1 mg PO HS 03/02/23 03/02/23 History Levothyroxine Sodium [Synthroid] 75 mcg PO DAILY 03/02/23 03/02/23 History risperiDONE [RisperDAL] 0.5 mg PO BID 03/02/23 03/02/23 History traZODone HCL [Desyrel] 50 mg PO BID@1800,2100 03/02/23 03/02/23 History Allergies Allergy/AdvReac Type Severity Reaction Status Date / Time adhesive Allergy Rash/Hives Verified 03/02/23 10:20 bee pollen Allergy Anaphylaxis Verified 03/02/23 10:20 latex Allergy Rash/Hives Verified 03/02/23 10:20 Penicillins Allergy Anaphylaxis Verified 03/02/23 10:20 prednisone AdvReac Nausea & Verified 03/02/23 10:20 Vomiting Physical Exam Vitals: Vital Signs Temp Pulse Resp BP Pulse Ox 03/02/23 11:00 70 20 176/76 96 03/02/23 08:01 98.0 F 83 16 183/85 94 L Intake and Output 03/01/23 03/02/23 03/02/23 22:59 06:59 14:59 Other: Weight 78.925 kg Results CBC & Chem 7: 03/02/23 08:45 03/02/23 08:45 Labs: Abnormal Lab Results - Last 24 Hours (Table) 03/02/23 03/02/23 Range/Units 08:45 08:45 WBC 11.3 H (3.8-10.6) k/uL Plt Count 497 H (150-450) k/uL Neutrophils # 9.9 H (1.3-7.7) k/uL Lymphocytes # 0.7 L (1.0-4.8) k/uL Potassium 2.7 L* (3.5-5.1) mmol/L Carbon Dioxide 32 H (22-30) mmol/L Glucose 116 H (74-99) mg/dL AST 45 H (14-36) U/L
[2023-03-02] MEDS: risperiDONE 0.5 MG TAB PO SCH ×2 (13:25→22:05)
[2023-03-02 14:12] LABS: Appearance,Urine Clear (Clear); Bilirubin,Urine Negative (Negative); Blood,Urine Trace (Negative); Color,Urine Yellow; Glucose,Urine (UA) Negative (Negative); Ketones,Urine 1+ (Negative); Leukocyte Esterase,Urine Negative (Negative); Mucus,Urine Rare /hpf; Nitrite,Urine Negative (Negative); PH, Urine 6.5 (5.0-8.0); Protein,Urine Trace (Negative); RBC,Urine 1 /hpf (0-5); Squamous Epithelial Cell,Urine <1 /hpf (0-4); Urobilinogen,Urine <2.0 mg/dL (<2.0); WBC,Urine 6 /hpf (0-5)
[2023-03-02 14:47] LABS: Specific Gravity,Urine 1.048 (1.001-1.035)
[2023-03-02] MEDS: traZODone HCL 50 MG TAB PO SCH ×2 (18:33→22:04)
[2023-03-02] MEDS ORDERED: amLODIPine 5 MG TAB PO STA (18:48)
[2023-03-02] MEDS ORDERED: DONEPEZIL 5 MG TAB PO SCH (21:00)
[2023-03-02] MEDS ORDERED: PRAVASTATIN SODIUM 40 MG TAB PO SCH (21:00)
[2023-03-02] MEDS ORDERED: POTASSIUM CHLORIDE ER 20 MEQ TAB.ER PO STA (21:04)
[2023-03-03] MEDS: SODIUM CHLORIDE 0.9% 1,000 ML IV SCH ×2 (00:28→16:34)
[2023-03-03 00:45] LABS: African American GFR (CKD) >90 (>60 ml/min/1.73 sqM); Anion Gap 4 mmol/L; Blood Urea Nitrogen 10 mg/dL (7-17); Calcium 8.2 mg/dL (8.4-10.2); Carbon Dioxide 32 mmol/L (22-30); Chloride 100 mmol/L (98-107); Glucose 97 mg/dL (74-99); Non-African American GFR(CKD) 87 (>60 ml/min/1.73 sqM); Sodium 136 mmol/L (137-145)
[2023-03-03 01:45] LABS: Potassium 2.7 mmol/L (3.5-5.1)
[2023-03-03] MEDS ORDERED: POTASSIUM CHLORIDE ER 20 MEQ TAB.ER PO STA (01:56)
[2023-03-03] MEDS: POTASSIUM CHLORIDE 10 MEQ in WATER FOR INJECTION 1 100ML.BAG IVPB SCH ×4 (02:23→05:32)
[2023-03-03] MEDS: LEVOTHYROXINE 75 MCG TAB PO SCH (05:32)
[2023-03-03 06:08] LABS: HCT 39.7 % (34.0-46.0); HGB 12.9 gm/dL (11.4-16.0); MCH 28.1 pg (25.0-35.0); MCHC 32.4 g/dL (31.0-37.0); MCV 86.6 fL (80.0-100.0); Mean Platelet Volume 7.6; Platelet Count 361 k/uL (150-450); RBC 4.59 m/uL (3.80-5.40); RDW 14.3 % (11.5-15.5); WBC 7.5 k/uL (3.8-10.6)
[2023-03-03 06:17] LABS: African American GFR (CKD) >90 (>60 ml/min/1.73 sqM); Anion Gap 6 mmol/L; Blood Urea Nitrogen 9 mg/dL (7-17); Calcium 8.1 mg/dL (8.4-10.2); Carbon Dioxide 30 mmol/L (22-30); Chloride 102 mmol/L (98-107); Glucose 89 mg/dL (74-99); Magnesium 1.9 mg/dL (1.6-2.3); Non-African American GFR(CKD) 88 (>60 ml/min/1.73 sqM); Potassium 3.8 mmol/L (3.5-5.1); Sodium 138 mmol/L (137-145)
[2023-03-03 07:07] VITALS: RESP 18
[2023-03-03] MEDS: CLOPIDOGREL 75 MG TAB PO SCH (08:16)
[2023-03-03] MEDS: risperiDONE 0.5 MG TAB PO SCH (08:16)
[2023-03-03] MEDS ORDERED: amLODIPine 5 MG TAB PO SCH (09:00)
[2023-03-03] MEDS ORDERED: FOLIC ACID 1 MG TAB PO SCH (09:00)
[2023-03-03] MEDS ORDERED: ENOXAPARIN 40 MG/0.4 ML SYRINGE SQ SCH (09:00)
[2023-03-03 09:35] VITALS: BMI 28.9
[2023-03-03 13:43] VITALS: BP 147/77; PULSE 81; TEMP 98.4
[2023-03-03] MEDS ORDERED: MAGNESIUM OXIDE 400 MG TAB PO STA (15:48)
--- NOTE | 2023-03-03 15:58 | P.DS ---
Providers Date of admission: 03/02/23 11:26 Expected date of discharge: 03/03/23 Attending physician: Jyotsna Nguyễn DO Primary care physician: [facility] Course: Discharge Diagnosis: Dehydration, resolved after IV fluid hydration. Hypokalemia, replaced. Potassium stable 3.8 upon discharge. Weakness, Patient was evaluated by physical therapy and was found to have slow short choppy steps, unsteady gait,, and difficulty physical therapy recommending subacute rehabilitation to assist and strength and patient's strength, balance, transfers, endurance, and ambulation. This was discussed with patient's , Abelardo. Case management has arranged for patient to go to [facility] nursing [facility]. Dementia, Patient requires supervision to provide safe supportive care with reorientation and assistance as needed. History of CAD status post stents and pacemaker placement. Continue cardiac medication regimen. Hypertension. 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 Patient presented to the emergency department today secondary to weakness. Patient was initially reported as a potential fall per EMS with altered mentation, however upon patient's husbands arrival to facility he clarified that patient is currently at her baseline mentation and had been falling recently but had not fallen in the past couple days and that that she was sent to the emergency department today because last night when she got up to use the restroom she was feeling weak and decided to lay down on the floor refusing to get up, resulting in her sleeping on the floor overnight and crawling all around. Patient currently denies having any pain or injuries at this time and is moving all extremities without any noted difficulties. Patient underwent full evaluation in the emergency department. Labs completed and reviewed. CBC showing leukocytosis with WBC count of 11.3 and thrombocytosis with platelet count of 497. BMP revealing hypokalemia with potassium of 2.7 and hypercarbia with bicarb of 32. Liver profile revealing slightly elevated AST of 45. Urinalysis negative for infection. CT head negative for acute intercranial hemorrhage or midline shift showing no acute intercranial process. CT cervical spine negative for acute fracture or dislocation. Chest x-ray concerning for possible developing lateral right mid lung infiltrate. CT abdomen and pelvis showing no suspicious adrenal masses. EKG showing ventricular paced rhythm at 72 bpm. X-ray right hip negative for acute process. Discussed with ED physician, patient was admitted under our services to observation unit for treatment of mild dehydration and hypokalemia consult was placed PT/OT for evaluation. Potassium was replaced and patient received gentle IV fluid hydration. Repeat morning labs unremarkable with CBC showing resolution of leukocytosis and thrombocytosis with WBC count decreasing from 11.3 down to 7.5 and platelet count decreasing from 497 down to 361. BMP revealing sodium of 138, potassium of 3.8, and magnesium of 1.9. Patient given Mag-Ox 400 mg. Patient was evaluated by physical therapy and was found to have slow short choppy steps, unsteady gait,, and difficulty physical therapy recommending subacute rehabilitation to assist and strength and patient's strength, balance, transfers, endurance, and ambulation. This was discussed with patient's , Abelardo. Case management has arranged for patient to go to [facility]. Medically, patient is stable for discharge to [facility] facility for rehabilitation at this time. Physical exam: Vital signs reviewed and stable. General: Nontoxic, no distress and appears stated age. Derm: Skin warm and dry, normal coloration for ethnicity. Head: Atraumatic, normocephalic and symmetric. Eyes: EOMs intact, no lid lag, and anicteric sclera Mouth: no lip lesions, mucus membranes moist Cardiovascular: regular rate and rhythm with normal S1S2, systolic murmur, positive posterior tibial pulses bilaterally, and cap refill < 2 seconds. Pacemaker left anterior chest Lungs: Respirations even, regular, and unlabored on room air. Lungs CTA bilaterally, no rhonchi, no rales, no wheezing, and no accessory muscle usage. Abdominal: soft, nontender to palpation, no guarding, no appreciable organomegaly Ext: ROM intact. No gross muscle atrophy, no edema, no contractures Neuro: Speech clear, face symmetrical and CN II-XII grossly intact with no noted focal neuro deficits Psych: Alert and oriented to person and place only, confused to time and situation. Appropriate and pleasant affect. A total of 34 minutes of time were spent preparing this complex discharge summary. Pt was discharged on 03/03/23 at 3:31 PM Patient was seen independently by Nurse Practitioner. This document was prepared using [employer] dictation software. Please allow for errors in press cleaner while rare they do occur. Patient Condition at Discharge: Stable Plan - Discharge Summary Discharge Rx Participant: Yes New Discharge Prescriptions: Continue Zolpidem [Ambien] 10 mg PO HS Pravastatin Sodium [Pravachol] 40 mg PO HS Midodrine [ProAmatine] 5 mg PO DAILY Donepezil [Aricept] 5 mg PO HS Diphenoxylate HCl/Atropine [Lomotil 2.5-0.025 mg Tablet] 1 tab PO BID PRN PRN Reason: Diarrhea Fludrocortisone [Florinef] 0.05 mg PO Q2D 30 Days #30 tab Folic Acid 1 mg PO DAILY tab amLODIPine [Norvasc] 2.5 mg PO DAILY 30 Days #30 tab Clopidogrel [Plavix] 75 mg PO DAILY tab risperiDONE [RisperDAL] 0.5 mg PO BID Levothyroxine Sodium [Synthroid] 75 mcg PO DAILY traZODone HCL [Desyrel] 50 mg PO BID@1800,2100 Discontinued LORazepam [Ativan] 0.5 mg PO QAM LORazepam [Ativan] 1 mg PO HS Discharge Medication List Zolpidem [Ambien] 10 mg PO HS 07/28/20 [History] Midodrine [ProAmatine] 5 mg PO DAILY 09/16/22 [History] Pravastatin Sodium [Pravachol] 40 mg PO HS 09/16/22 [History] Diphenoxylate HCl/Atropine [Lomotil 2.5-0.025 mg Tablet] 1 tab PO BID PRN 11/05/22 [History] Donepezil [Aricept] 5 mg PO HS 11/05/22 [History] Clopidogrel [Plavix] 75 mg PO DAILY tab 11/08/22 [Rx] Fludrocortisone [Florinef] 0.05 mg PO Q2D 30 Days #30 tab 11/08/22 [Rx] Folic Acid 1 mg PO DAILY tab 11/08/22 [Rx] amLODIPine [Norvasc] 2.5 mg PO DAILY 30 Days #30 tab 11/08/22 [Rx] Levothyroxine Sodium [Synthroid] 75 mcg PO DAILY 03/02/23 [History] risperiDONE [RisperDAL] 0.5 mg PO BID 03/02/23 [History] traZODone HCL [Desyrel] 50 mg PO BID@1800,2100 03/02/23 [History] Follow up Appointment(s)/Referral(s): Celio Pollard MD [Primary Care Provider] - 1-2 days Patient Instructions/Handouts: Dehydration (DC), Hypokalemia (DC) Activity/Diet/Wound Care/Special Instructions: Activity: Patient requires supervision. Fall precautions as patient is a high fall risk. Diet: Heart healthy and carb consistent diet. Avoid salts, or foods with hidden salts such as canned or boxed foods and frozen dinners. Extra salt makes your heart work harder and traps the fluid in your body for longer. Special Instructions: Take all of your medications as directed and remember to keep all of your doctor's appointments and follow-up as needed. Thank you for allowing us to participate in your care, it was truly a pleasure having you for our patient!!! Discharge/Stand Alone Forms: Adult Foster [facility] List, Assisted Living Facilities Discharge Disposition: TRANSFER TO SNF/ECF
[2023-03-03] MEDS: traZODone HCL 50 MG TAB PO SCH (17:43)
== END 2023-03-03 17:50 ==
LOC: EC 07:59 → 4SSUR 11:26 → INTOOBSV 11:26 → 4SSUR 17:06
PROVIDERS: ADMIT Internal Medicine; ATTEND Internal Medicine
DX: E86.0 Dehydration (principal); R53.1 Weakness; E87.6 Hypokalemia; J18.9 Pneumonia, unspecified organism; F03.90 Unspecified dementia, unspecified severity, without behavioral disturbance, psychotic disturbance, mood disturbance, and anxiety; I25.10 Atherosclerotic heart disease of native coronary artery without angina pectoris; K21.9 Gastro-esophageal reflux disease without esophagitis; E78.5 Hyperlipidemia, unspecified; I10 Essential (primary) hypertension; E03.9 Hypothyroidism, unspecified; D72.829 Elevated white blood cell count, unspecified; D75.839 Thrombocytosis, unspecified; Z87.891 Personal history of nicotine dependence; Z95.5 Presence of coronary angioplasty implant and graft; Z95.810 Presence of automatic (implantable) cardiac defibrillator; Z79.899 Other long term (current) drug therapy; Z79.890 Hormone replacement therapy; Z91.040 Latex allergy status; Z88.0 Allergy status to penicillin
CPT/HCPCS: 96366 ×3; 96372; 96361; 96365; 96367; 99285; 36415; 94760; 93005; 97162; 97166; 80053; 80048; 83605; 83735 ×2; 84132; 84484; 85025; 85027; 85610; 85730; 81001; 73502; 71045; 72125; 70450; 74170; G0378 ×3; J0456; J1650; J3480 ×2; Q9967

== ENCOUNTER 2024-01-28 09:47 | Emergency (ER) | payer MEDICARE ==
--- NOTE | 2024-01-28 10:27 | CT ---
EXAMINATION TYPE: CT brain laura wo con DATE OF EXAM: 01/28/2024 History: Trauma COMPARISON: 03/02/2023 Findings: Head CT: Ventricles, basal cisterns and sulci over convexities are markedly enlarged consistent with marked ge neralized atrophy. There is no mass effect or shift of midline structures. There is a large area encephalomalacia involving the left temporal lobe and a [id number] area of encephalomalacia involving the medial left occipital lobe. The findings are consistent with remote infarcts. There is marked decreased density in the periventricular white matter consistent with marked chronic ischemic white matter demyelination. There is no acute intra or extra-axial hemorrhage. Posterior fossa including the brainstem, fourth ventricle and cerebellar pontine angles are grossly n ormal. The intraorbital contents appear normal and symmetric. Visualized paranasal sinuses are well aerated. CT cervical spine: Craniovertebral junction relationships and prevertebral soft tissues are normal. There is mild disc s pace narrowing and spondylosis at the C5-6 and C6-7 levels indicative of mild degenerative disc disea se. The disc spaces are well-maintained in height and there is no significant degenerative disc disea se. There is minimal facet degeneration in the mid cervical spine and mild degeneration of the uncoverteb ral joints from C4 through C7. There is no bony encroachment of the cervical spinal canal. There is mild bony encroachment of the le ft C6-7 neural foramina. IMPRESSION: 1. Head CT: No acute bleed or mass effect. There are chronic ischemic white matter changes and remote infarcts in the left temporal and occipital lobes. 2. CT cervical spine: No acute trauma. Mild degenerative changes as described above.
--- NOTE | 2024-01-28 10:33 | ED ---
General Adult HPI - General Chief complaint: Fall Stated complaint: Sycope Time Seen by Provider: 01/28/24 09:49 Source: patient, family, EMS, RN notes reviewed, old records reviewed Mode of arrival: EMS Limitations: no limitations - History of Present Illness Initial comments: 78-year-old female presents from assisted living facility after a fall with minor head trauma. Patient was transported for evaluation as she is on Plavix. She has no headache. No loss consciousness. No extremity injury or other complaint. - Related Data Home Medications Medication Instructions Recorded Confirmed Midodrine [ProAmatine] 5 mg PO DAILY 09/16/22 08/01/23 Pravastatin Sodium [Pravachol] 40 mg PO HS 09/16/22 08/01/23 Diphenoxylate HCl/Atropine 1 tab PO BID PRN 11/05/22 08/01/23 [Lomotil 2.5-0.025 mg Tablet] Donepezil [Aricept] 5 mg PO HS 11/05/22 08/01/23 Levothyroxine Sodium [Synthroid] 75 mcg PO AC-BRKFST 03/02/23 08/01/23 risperiDONE [RisperDAL] 0.5 mg PO BID 03/02/23 08/01/23 ALPRAZolam [Xanax] 0.25 mg PO BID PRN 08/01/23 08/01/23 Acetaminophen Tab [Tylenol] 650 mg PO QID PRN 08/01/23 08/01/23 Fludrocortisone [Florinef] 0.05 mg PO Q48H 08/01/23 08/01/23 Potassium Chloride ER [K-Dur 20] 20 meq PO BID-W/MEALS 08/01/23 08/01/23 amLODIPine [Norvasc] 5 mg PO BID 08/01/23 08/01/23 hydrALAZINE HCL [Apresoline] 25 mg PO BID PRN 08/01/23 08/01/23 traZODone HCL [Desyrel] 100 mg PO HS 08/01/23 08/01/23 Previous Rx's Medication Instructions Recorded Clopidogrel [Plavix] 75 mg PO DAILY tab 11/08/22 Folic Acid 1 mg PO DAILY tab 11/08/22 Sulfamethox-Tmp 800-160Mg [Bactrim 1 tab PO Q12HR 7 Days #14 tab 08/01/23 DS 800-160 mg] Allergies Allergy/AdvReac Type Severity Reaction Status Date / Time adhesive Allergy Rash/Hives Verified 08/01/23 14:24 bee pollen Allergy Anaphylaxis Verified 08/01/23 14:24 latex Allergy Rash/Hives Verified 08/01/23 14:24 Penicillins Allergy Anaphylaxis Verified 08/01/23 14:24 prednisone AdvReac Nausea & Verified 08/01/23 14:24 Vomiting Review of Systems ROS Statement: Those systems with pertinent positive or pertinent negative responses have been documented in the HPI. ROS Other: All systems not noted in ROS Statement are negative. 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 Type of Cardiac Device: Permanent Pacemaker Device Placement Date:: 07/29/20 Past Psychological History: No Psychological Hx Reported Smoking Status: Former smoker Past Alcohol Use History: Rare Past Drug Use History: None Reported - Past Family History Father Family Medical History: Cancer Additional Family Medical History / Comment(s): Lung. General Exam Limitations: no limitations General appearance: alert, in no apparent distress Head exam: Present: atraumatic, normocephalic Eye exam: Present: normal appearance, PERRL ENT exam: Present: normal exam Neck exam: Present: normal inspection. Absent: tenderness, meningismus Respiratory exam: Present: normal lung sounds bilaterally. Absent: respiratory distress, wheezes Cardiovascular Exam: Present: regular rate, normal rhythm GI/Abdominal exam: Present: soft. Absent: distended, tenderness, guarding Extremities exam: Present: normal inspection Neurological exam: Present: alert Psychiatric exam: Present: normal affect, normal mood Course Vital Signs 01/28/24 09:53 Temperature 99.0 F Pulse Rate 85 Respiratory 16 Rate Blood Pressure 119/69 O2 Sat by Pulse 98 Oximetry Medical Decision Making - Medical Decision Making Was pt. sent in by a medical professional or institution (MADELIN Batista, SHOP FITTER, urgent care, hospital, or intermediate...) When possible be specific @ -No Did you speak to anyone other than the patient for history (EMS, parent, family, police, friend...)? What history was obtained from this source @ -Paramedics and the patient's . Did you review nursing and triage notes (agree or disagree)? Why? @ -I reviewed and agree with nursing and triage notes Were old charts reviewed (outside hosp., previous admission, EMS record, old EKG, old radiological studies, urgent care reports/EKG's, intermediate records)? Report findings @ -No old charts were reviewed Differential Diagnosis (chest pain, altered mental status, abdominal pain women, abdominal pain men, vaginal bleeding, weakness, fever, dyspnea, syncope, headache, dizziness, GI bleed, back pain, seizure, CVA, palpatations, mental health, musculoskeletal)? @ -Traumatic injury from fall, intracranial hemorrhage, cervical spine fracture or subluxation EKG interpreted by me (3pts min.). @ -As above X-rays interpreted by me (1pt min.). @ -None done CT interpreted by me (1pt min.). @ -CT brain and cervical spine negative for traumatic injury. U/S interpreted by me (1pt. min.). @ -None done What testing was considered but not performed or refused? (CT, X-rays, U/S, labs)? Why? @ -None What meds were considered but not given or refused? Why? @ -None Did you discuss the management of the patient with other professionals (professionals i.e. MADELIN Batista, SHOP FITTER, lab, RT, psych nurse, certified social workers in health care, outside collector, teacher, front desk officer, watch caser)? Give summary @ -No Was smoking cessation discussed for >3mins.? @ -No Was critical care preformed (if so, how long)? @ -No Were there social determinants of health that impacted care today? How? (Homelessness, low income, unemployed, alcoholism, drug addiction, transportation, low edu. Level, literacy, decrease access to med. care, care home, rehab)? @ -No Was there de-escalation of care discussed even if they declined (Discuss DNR or withdrawal of care, Hospice)? DNR status @ -No What co-morbidities impacted this encounter? (DM, HTN, Smoking, COPD, CAD, Cancer, CVA, ARF, Chemo, Hep., AIDS, mental health diagnosis, sleep apnea, morbid obesity)? @ -None Was patient admitted / discharged? Hospital course, mention meds given and route, prescriptions, significant lab abnormalities, going to OR and other pertinent info. @Patient presents from assisted living facility after fall with head injury, no loss consciousness. Patient is on Plavix. Head CT negative for intracranial hemorrhage or mass effect, cervical spine negative for fracture or subluxation. Patient is well-appearing and eager for discharge. Undiagnosed new problem with uncertain prognosis? @ -No Drug Therapy requiring intensive monitoring for toxicity (Heparin, Nitro, Insulin, Cardizem)? @ -No Were any procedures done? @ -No Diagnosis/symptom? @ -Fall, head injury Acute, or Chronic, or Acute on Chronic? @ -Default Uncomplicated (without systemic symptoms) or Complicated (systemic symptoms)? @ -Default Side effects of treatment? @ -No Exacerbation, Progression, or Severe Exacerbation? @ -No Poses a threat to life or bodily function? How? (Chest pain, [place], [place], pneumonia, PE, COPD, DKA, ARF, appy, cholecystitis, CVA, Diverticulitis, Homicidal, Suicidal, threat to staff... and all critical care pts) @ -No Disposition Clinical Impression: Fall Disposition: HOME SELF-CARE Condition: Fair Instructions (If sedation given, give patient instructions): Fall Prevention for Older Adults (ED) Is patient prescribed a controlled substance at d/c from ED?: No Referrals: Leroy Roe MD [Primary Care Provider] - 1-2 days Time of Disposition: 10:33
[2024-01-28 10:34] VITALS: RESP 16; TEMP 99
[2024-01-28 11:10] VITALS: BP 110/60; PULSE 78
== END 2024-01-28 10:56 | disposition home or self-care (01) ==
LOC: EC 09:47
DX: S09.90XA Unspecified injury of head, initial encounter (principal); Z88.0 Allergy status to penicillin; Z88.8 Allergy status to other drugs, medicaments and biological substances; Z91.040 Latex allergy status; Z91.030 Bee allergy status; Z87.891 Personal history of nicotine dependence; W01.0XXA Fall on same level from slipping, tripping and stumbling without subsequent striking against object, initial encounter
CPT/HCPCS: 72125; 70450; 99284; L0120

== ENCOUNTER 2024-07-21 07:12 | Observation (INO) | payer MEDICARE ==
--- NOTE | 2024-07-21 07:36 | ED ---
General Adult HPI - General Chief complaint: Syncope Stated complaint: Sycope/poss covid Time Seen by Provider: 07/21/24 07:18 Source: patient, EMS, RN notes reviewed, old records reviewed Mode of arrival: EMS - History of Present Illness Initial comments: Patient is an 79-year-old female who presents emergency department for a near syncopal episode at the care home. Patient has baseline ANO x 2-3 with a history of dementia. Denies any symptoms other than cough, congestion. Denies nausea, vomiting, diarrhea, abdominal pain, chest pain, shortness of breath. Patient does endorse her having COVID. Denies any weakness. Denies any other acute complaints at this time. Presents for further evaluation at this time. Apparently patient may have been mildly hypotensive immediately following the syncopal episode however has adequate vital signs at this time. - Related Data Home Medications Medication Instructions Recorded Confirmed Midodrine [ProAmatine] 5 mg PO DAILY 09/16/22 08/01/23 Pravastatin Sodium [Pravachol] 40 mg PO HS 09/16/22 08/01/23 Diphenoxylate HCl/Atropine 1 tab PO BID PRN 11/05/22 08/01/23 [Lomotil 2.5-0.025 mg Tablet] Donepezil [Aricept] 5 mg PO HS 11/05/22 08/01/23 Levothyroxine Sodium [Synthroid] 75 mcg PO AC-BRKFST 03/02/23 08/01/23 risperiDONE [RisperDAL] 0.5 mg PO BID 03/02/23 08/01/23 ALPRAZolam [Xanax] 0.25 mg PO BID PRN 08/01/23 08/01/23 Acetaminophen Tab [Tylenol] 650 mg PO QID PRN 08/01/23 08/01/23 Fludrocortisone [Florinef] 0.05 mg PO Q48H 08/01/23 08/01/23 Potassium Chloride ER [K-Dur 20] 20 meq PO BID-W/MEALS 08/01/23 08/01/23 amLODIPine [Norvasc] 5 mg PO BID 08/01/23 08/01/23 hydrALAZINE HCL [Apresoline] 25 mg PO BID PRN 08/01/23 08/01/23 traZODone HCL [Desyrel] 100 mg PO HS 08/01/23 08/01/23 Previous Rx's Medication Instructions Recorded Clopidogrel [Plavix] 75 mg PO DAILY tab 11/08/22 Folic Acid 1 mg PO DAILY tab 11/08/22 Sulfamethox-Tmp 800-160Mg [Bactrim 1 tab PO Q12HR 7 Days #14 tab 08/01/23 DS 800-160 mg] Allergies Allergy/AdvReac Type Severity Reaction Status Date / Time adhesive Allergy Rash/Hives Verified 08/01/23 14:24 bee pollen Allergy Anaphylaxis Verified 08/01/23 14:24 latex Allergy Rash/Hives Verified 08/01/23 14:24 Penicillins Allergy Anaphylaxis Verified 08/01/23 14:24 prednisone AdvReac Nausea & Verified 08/01/23 14:24 Vomiting Review of Systems ROS Statement: Those systems with pertinent positive or pertinent negative responses have been documented in the HPI. Review of Systems: CONST: Denies fever EYES: Denies blurry vision ENT: Endorses nasal congestion C/V: Denies Chest pain RESP: Denies shortness of breath GI: Denies abdominal pain : Denies dysuria SKIN: Denies rash. MSK: Denies joint pain. NEURO: Denies headache ROS Other: All systems not noted in ROS Statement are negative. 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 Type of Cardiac Device: Permanent Pacemaker Device Placement Date:: 07/29/20 Past Psychological History: No Psychological Hx Reported Smoking Status: Former smoker Past Alcohol Use History: Rare Past Drug Use History: None Reported - Past Family History Father Family Medical History: Cancer Additional Family Medical History / Comment(s): Lung. General Exam - General Exam Comments Initial Comments: General: Appears in no acute distress. HEAD: Normal with no signs of head trauma. EYES: PERRLA, EOMI, conjunctiva normal, no discharge. Pupils are 2 mm and equal bilaterally. ENT: Hearing grossly intact, normal oropharynx. RESPIRATORY: Clear breath sounds bilaterally. No wheezes, rales, or rhonchi. No significant hypoxia. No significant increased work of breathing. C/V: Regular rate and rhythm. S1 and S2 auscultated, no edema, peripheral pulses 2+ and intact throughout ABD: Abd is soft, nontender, nondistended EXT: Normal range of motion, no obvious deformity SKIN: No rashes or lesions observed on exposed skin. NEURO: Alert and oriented x 2-3 which appears to be her baseline. Able to move all 4 extremities. No obvious focal deficits. GCS of 15. Course Vital Signs 07/21/24 07/21/24 07/21/24 07:18 08:53 10:13 Temperature 99.2 F Pulse Rate 108 H 81 76 Respiratory 16 16 16 Rate Blood Pressure 109/66 120/59 O2 Sat by Pulse 93 L 96 Oximetry Medical Decision Making - Medical Decision Making Was pt. sent in by a medical professional or institution (MADELIN Batista, PHILANTHROPY OFFICER, urgent care, hospital, or care home...) When possible be specific @ -Patient sent by [facility] for near syncopal episode and possible COVID. Did you speak to anyone other than the patient for history (EMS, parent, family, police, friend...)? What history was obtained from this source @ -No Did you review nursing and triage notes (agree or disagree)? Why? @ -I reviewed and agree with nursing and triage notes Were old charts reviewed (outside hosp., previous admission, EMS record, old EKG, old radiological studies, urgent care reports/EKG's, care home records)? Report findings @ -Reviewed [facility] paperwork. On it, it has a crossed out full code with DNR written. This will be verified with family. Differential Diagnosis (chest pain, altered mental status, abdominal pain women, abdominal pain men, vaginal bleeding, weakness, fever, dyspnea, syncope, headache, dizziness, GI bleed, back pain, seizure, CVA, palpatations, mental health, musculoskeletal)? @ -Differential Syncope: Valvular disease, hypertrophic cardiomyopathy, pulmonary embolism, tamponade, tachycardia, bradycardia, CA, hypovolemia, hemorrhage, dissection, anemia, intracranial hemorrhage, seizure, hypoglycemia, carbon monoxide poisoning, this is not meant to be an all-inclusive list. EKG interpreted by me (3pts min.). @ -As above X-rays interpreted by me (1pt min.). @ -Chest x-ray reveals no obvious acute cardiopulmonary process. CT interpreted by me (1pt min.). @ -CT brain reveals no obvious acute intracranial process or injury. Patient has chronic degenerative changes and encephalomalacia which is chronic. U/S interpreted by me (1pt. min.). @ -None done What testing was considered but not performed or refused? (CT, X-rays, U/S, labs)? Why? @ -None What meds were considered but not given or refused? Why? @ -None Did you discuss the management of the patient with other professionals (professionals i.e. , PA, PHILANTHROPY OFFICER, lab, RT, psych nurse, social scientist, roll cutting operator, teacher, philanthropy officer, case advocate)? Give summary @ -No Was smoking cessation discussed for >3mins.? @ -No Was critical care preformed (if so, how long)? @ -No Were there social determinants of health that impacted care today? How? (Homelessness, low income, unemployed, alcoholism, drug addiction, transportation, low edu. Level, literacy, decrease access to med. care, senior living, rehab)? @ -No Was there de-escalation of care discussed even if they declined (Discuss DNR or withdrawal of care, Hospice)? DNR status @ -Confirmed with patient's daughter, Lashawn that patient is DNR. She spoke with nursing staff. What co-morbidities impacted this encounter? (DM, HTN, Smoking, COPD, CAD, Cancer, CVA, ARF, Chemo, Hep., AIDS, mental health diagnosis, sleep apnea, morbid obesity)? @ -Dementia Was patient admitted / discharged? Hospital course, mention meds given and route, prescriptions, significant lab abnormalities, going to OR and other pertinent info. @ -Based on the patient's presentation and physical exam, presents emergency department for near syncopal episode while at her intermediate facility. Akhil mejian for possible COVID infection as her who she lives with has COVID infection. Vitals currently within acceptable limits. We will obtain syncopal workup. I will reach out to family. Patient will be given 1 L fluid bolus as well as a dose Tylenol. She was in agreement this plan. Initial attempts to contact family, both Abelardo who is the legal guardian as well as son Fransisco were unsuccessful. We will continue to attempt to contact them. Confirmed with patient's daughter, Lashawn that patient is DNR. She spoke with nursing staff. Laboratory studies are remarkable for positive COVID test. Imaging unremarkable. EKG shows no signs of acute ischemia. On reevaluation, vital signs are improved.However orthostatic vital signs when patient stands shows that blood pressure drops with systolics into the 80s. This is after a liter and a half of fluids. Urinalysis returned positive for UTI. Minimal white count. At this time, we will admit the patient observation for dehydration, UTI, COVID-19 infection and weakness. She was in agreement this plan. She was started on IV Rocephin. Urine culture signed. I spoke with the admitting physician, Precaution accepted the admission. Nursing staff updated family. Undiagnosed new problem with uncertain prognosis? @ -No Drug Therapy requiring intensive monitoring for toxicity (Heparin, Nitro, Insulin, Cardizem)? @ -No Were any procedures done? @ -No Diagnosis/symptom? @ -Weakness, COVID-19, UTI, orthostatic hypotension Acute, or Chronic, or Acute on Chronic? @ -Acute Uncomplicated (without systemic symptoms) or Complicated (systemic symptoms)? @ -Complicated Side effects of treatment? @ -None Exacerbation, Progression, or Severe Exacerbation] @ -No Poses a threat to life or bodily function? @ -Yes - Lab Data Result diagrams: 07/21/24 08:06 07/21/24 08:06 Lab Results 07/21/24 07/21/24 07/21/24 Range/Units 08:06 08:06 08:06 WBC 10.9 H (3.8-10.6) k/uL RBC 4.58 (3.80-5.40) m/uL Hgb 13.6 (11.4-16.0) gm/dL Hct 43.5 (34.0-46.0) % MCV 95.0 (80.0-100.0) fL MCH 29.8 (25.0-35.0) pg MCHC 31.3 (31.0-37.0) g/dL RDW 13.5 (11.5-15.5) % Plt Count 466 H (150-450) k/uL MPV 7.4 Neutrophils % 81 % Lymphocytes % 5 % Monocytes % 11 % Eosinophils % 1 % Basophils % 1 % Neutrophils # 8.8 H (1.3-7.7) k/uL Lymphocytes # 0.5 L (1.0-4.8) k/uL Monocytes # 1.2 H (0-1.0) k/uL Eosinophils # 0.1 (0-0.7) k/uL Basophils # 0.1 (0-0.2) k/uL Hypochromasia Slight PT 10.5 (10.0-12.5) sec INR 1.0 (<1.2) APTT 23.5 (22.0-30.0) sec Sodium 138 (137-145) mmol/L Potassium 4.4 (3.5-5.1) mmol/L Chloride 104 (98-107) mmol/L Carbon Dioxide 27 (22-30) mmol/L Anion Gap 7 mmol/L BUN 22 H (7-17) mg/dL Creatinine 0.91 (0.52-1.04) mg/dL Est GFR (CKD-EPI)AfAm 69 (>60 ml/min/1.73 sqM) Est GFR (CKD-EPI)NonAf 60 (>60 ml/min/1.73 sqM) Glucose 97 (74-99) mg/dL Calcium 9.5 (8.4-10.2) mg/dL Magnesium 2.0 (1.6-2.3) mg/dL Total Bilirubin 0.8 (0.2-1.3) mg/dL AST 31 (14-36) U/L ALT 14 (4-34) U/L Alkaline Phosphatase 64 (38-126) U/L Troponin I (0.000-0.034) ng/mL Total Protein 6.8 (6.3-8.2) g/dL Albumin 3.9 (3.5-5.0) g/dL Urine Color Urine Appearance (Clear) Urine pH (5.0-8.0) Ur Specific Spring (1.001-1.035) Urine Protein (Negative) Urine Glucose (UA) (Negative) Urine Ketones (Negative) Urine Blood (Negative) Urine Nitrite (Negative) Urine Bilirubin (Negative) Urine Urobilinogen (<2.0) mg/dL Ur Leukocyte Esterase (Negative) Urine RBC (0-5) /hpf Urine WBC (0-5) /hpf Urine WBC Clumps (None) /hpf Ur Squamous Epith Cells (0-4) /hpf Urine Bacteria (None) /hpf Urine Mucus (None) /hpf Influenza Type A (PCR) (Not Detectd) Influenza Type B (PCR) (Not Detectd) RSV (PCR) (Not Detectd) SARS-CoV-2 (PCR) (Not Detectd) 07/21/24 07/21/24 07/21/24 Range/Units 08:06 08:06 09:34 WBC (3.8-10.6) k/uL RBC (3.80-5.40) m/uL Hgb (11.4-16.0) gm/dL Hct (34.0-46.0) % MCV (80.0-100.0) fL MCH (25.0-35.0) pg MCHC (31.0-37.0) g/dL RDW (11.5-15.5) % Plt Count (150-450) k/uL MPV Neutrophils % % Lymphocytes % % Monocytes % % Eosinophils % % Basophils % % Neutrophils # (1.3-7.7) k/uL Lymphocytes # (1.0-4.8) k/uL Monocytes # (0-1.0) k/uL Eosinophils # (0-0.7) k/uL Basophils # (0-0.2) k/uL Hypochromasia PT (10.0-12.5) sec INR (<1.2) APTT (22.0-30.0) sec Sodium (137-145) mmol/L Potassium (3.5-5.1) mmol/L Chloride (98-107) mmol/L Carbon Dioxide (22-30) mmol/L Anion Gap mmol/L BUN (7-17) mg/dL Creatinine (0.52-1.04) mg/dL Est GFR (CKD-EPI)AfAm (>60 ml/min/1.73 sqM) Est GFR (CKD-EPI)NonAf (>60 ml/min/1.73 sqM) Glucose (74-99) mg/dL Calcium (8.4-10.2) mg/dL Magnesium (1.6-2.3) mg/dL Total Bilirubin (0.2-1.3) mg/dL AST (14-36) U/L ALT (4-34) U/L Alkaline Phosphatase (38-126) U/L Troponin I <0.012 (0.000-0.034) ng/mL Total Protein (6.3-8.2) g/dL Albumin (3.5-5.0) g/dL Urine Color Light Yellow Urine Appearance Cloudy H (Clear) Urine pH 6.0 (5.0-8.0) Ur Specific Spring 1.017 (1.001-1.035) Urine Protein Trace H (Negative) Urine Glucose (UA) Negative (Negative) Urine Ketones Negative (Negative) Urine Blood Small H (Negative) Urine Nitrite Positive H (Negative) Urine Bilirubin Negative (Negative) Urine Urobilinogen <2.0 (<2.0) mg/dL Ur Leukocyte Esterase Large H (Negative) Urine RBC 16 H (0-5) /hpf Urine WBC >182 H (0-5) /hpf Urine WBC Clumps Occasional H (None) /hpf Ur Squamous Epith Cells 1 (0-4) /hpf Urine Bacteria Few H (None) /hpf Urine Mucus Few H (None) /hpf Influenza Type A (PCR) Not Detected (Not Detectd) Influenza Type B (PCR) Not Detected (Not Detectd) RSV (PCR) Not Detected (Not Detectd) SARS-CoV-2 (PCR) Detected A (Not Detectd) - EKG Data -: EKG Interpreted by Me EKG Comments: 12-lead Electrocardiogram Interpretation Note EKG was reviewed and interpreted by myself. 12-lead ECG performed at 0812 is interpreted by me as revealing ventricular paced rhythm at a rate of 84 beats per minute. Mora is normal. PA interval is 191 ms, QRS duration is 125 ms, QTc is 414 ms.. There were no ST or T wave abnormalities to suggest myocardial ischemia or injury. R wave progression across the precordium was satisfactory. By my interpretation this EKG is non-diagnostic for acute ischemia. Disposition Clinical Impression: Orthostatic hypotension, UTI (urinary tract infection), COVID-19, Weakness Disposition: ADMITTED IP TO THIS HOSP Condition: Stable Referrals: Moo Chou MD [Primary Care Provider] - 1-2 days Time of Disposition: 10:25
[2024-07-21] MEDS: ACETAMINOPHEN TAB 500 MG TAB PO STA (07:42)
[2024-07-21] MEDS: SODIUM CHLORIDE 0.9% 1,000 ML IV STA ×3 (07:54→10:42)
[2024-07-21 08:14] LABS: Basophils # (A) 0.1 k/uL (0-0.2); Basophils % (A) 1 %; Eosinophils # (A) 0.1 k/uL (0-0.7); Eosinophils % (A) 1 %; HCT 43.5 % (34.0-46.0); HGB 13.6 gm/dL (11.4-16.0); Hypochromasia Slight; Lymphocytes # (A) 0.5 k/uL (1.0-4.8); Lymphocytes % (A) 5 %; MCH 29.8 pg (25.0-35.0); MCHC 31.3 g/dL (31.0-37.0); Mean Platelet Volume 7.4; Monocytes # (A) 1.2 k/uL (0-1.0); Monocytes % (A) 11 %; Neutrophils # (A) 8.8 k/uL (1.3-7.7); Neutrophils % (A) 81 %; Platelet Count 466 k/uL (150-450); RBC 4.58 m/uL (3.80-5.40); RDW 13.5 % (11.5-15.5); WBC 10.9 k/uL (3.8-10.6)
[2024-07-21 08:27] LABS: Partial Thromboplastin Time 23.5 sec (22.0-30.0); Prothrombin Time 10.5 sec (10.0-12.5)
[2024-07-21 08:34] LABS: ALT 14 U/L (4-34); African American GFR (CKD) 69 (>60 ml/min/1.73 sqM); Anion Gap 7 mmol/L; Blood Urea Nitrogen 22 mg/dL (7-17); Calcium 9.5 mg/dL (8.4-10.2); Carbon Dioxide 27 mmol/L (22-30); Chloride 104 mmol/L (98-107); Glucose 97 mg/dL (74-99); Non-African American GFR(CKD) 60 (>60 ml/min/1.73 sqM); Sodium 138 mmol/L (137-145); Total Bilirubin 0.8 mg/dL (0.2-1.3)
--- NOTE | 2024-07-21 08:46 | CT ---
EXAMINATION TYPE: CT brain wo con CT DLP: 1137.4 mGycm, Automated exposure control for dose reduction was used. DATE OF EXAM: 07/21/2024 8:30 AM COMPARISON: 01/28/2024.. CLINICAL INDICATION: Female, 79 years old with history of syncope, syncope, ams TECHNIQUE: Brain: Axial CT images of the brain were obtained with coronal and sagittal reformats created and rev iewed. Contrast used: None. Oral contrast used: None. FINDINGS: Brain: Extra-axial spaces: No abnormal extra-axial fluid collections. Ventricular system: Dilatation in proportion to cerebral atrophy. Cerebral parenchyma: Similar encephalomalacia the left occipital lobe and left temporal lobe. Cerebra l atrophy. No acute intraparenchymal hemorrhage or mass effect. The jacobs-white junction is well diff erentiated. Scattered hypoattenuating areas are seen within the white matter. Cerebellum: Cerebellar atrophy Mass effect: No evidence of midline shift. Intracranial vasculature: Atherosclerotic calcifications of the intracranial vessels. Soft tissues: Normal. Calvarium/osseous structures: No depressed skull fracture. Paranasal sinuses and mastoid air cells: Mild scattered paranasal sinus disease. Visualized orbits: Orbital contents are intact. IMPRESSION: 1. No acute intracranial process. 2. Nonspecific white matter changes, likely secondary to chronic small vessel ischemic disease. 3. Left occipital and temporal lobe encephalomalacia from prior injuries.
[2024-07-21 09:03] LABS: Potassium 4.4 mmol/L (3.5-5.1)
[2024-07-21 09:06] LABS: AST 31 U/L (14-36); Albumin 3.9 g/dL (3.5-5.0); Alkaline Phosphatase 64 U/L (38-126); Total Protein 6.8 g/dL (6.3-8.2)
--- NOTE | 2024-07-21 09:09 | XR ---
EXAMINATION TYPE: XR chest 2V DATE OF EXAM: 07/21/2024 8:42 AM CLINICAL INDICATION: Female, 79 years old with history of syncope; H COMPARISON: Chest radiographs from 03/02/2023 TECHNIQUE: XR chest 2V Frontal view of the chest. FINDINGS: Lungs/Pleura: There is no evidence of pleural effusion, focal consolidation, or pneumothorax. Pulmonary vascularity: Unremarkable. Heart/mediastinum: Cardiomediastinal silhouette is unremarkable. Three lead cardiac conduction device overlying the left hemithorax with lead tips projecting over the right ventricle, right atrium and c oronary sinus. Musculoskeletal: No acute osseous pathology. IMPRESSION: No acute cardiopulmonary disease/process.
[2024-07-21 09:55] LABS: Appearance,Urine Cloudy (Clear); Bacteria,Urine Few /hpf; Bilirubin,Urine Negative (Negative); Blood,Urine Small (Negative); Color,Urine Light Yellow; Glucose,Urine (UA) Negative (Negative); Ketones,Urine Negative (Negative); Leukocyte Esterase,Urine Large (Negative); Mucus,Urine Few /hpf; Nitrite,Urine Positive (Negative); Protein,Urine Trace (Negative); RBC,Urine 16 /hpf (0-5); Specific Gravity,Urine 1.017 (1.001-1.035); Squamous Epithelial Cell,Urine 1 /hpf (0-4); Urobilinogen,Urine <2.0 mg/dL (<2.0); WBC,Urine >182 /hpf (0-5)
[2024-07-21] MEDS ORDERED: ONDANSETRON 4 MG/2 ML VIAL IVP PRN (10:28)
[2024-07-21] MEDS ORDERED: NALOXONE 0.4 MG/ML 1 ML VIAL IV PRN (10:28)
[2024-07-21] MEDS ORDERED: ACETAMINOPHEN TAB 325 MG TAB PO PRN (10:28)
[2024-07-21] MEDS ORDERED: MIDODRINE 5 MG TAB PO PRN ×2 (14:05→16:39)
[2024-07-21] MEDS: ENOXAPARIN 40 MG/0.4 ML SYRINGE SQ SCH (14:58)
[2024-07-21] MEDS: FLUDROCORTISONE 0.1 MG TAB PO SCH (14:58)
--- NOTE | 2024-07-21 16:39 | P.HPIM ---
History of Present Illness H&P Date: 07/21/24 Chief Complaint: Syncope This is a pleasant 79-year-old patient, follows with visiting physician Dr. Chou. Chronic stable medical conditions include CAD, GERD, hypertension, hyperlipidemia, hypothyroid. Has known vasovagal syndrome. Right upper lobe lobectomy for histoplasmosis. Also had a esophageal fistula that was repaired. Patient lives at [facility]. Her who is a legal guardian is her main caregiver. EMS was called called out because patient had a near syncope episode. Patient's is COVID-positive. Patient normally ambulatory without any support. Is normally AO x 2 because of dementia. Last night patient vomited once. Was rather lethargic today. Was starting go to the bathroom nearly collapsed. Has been rather weak today. Not even able to really get up on her own. Vital signs noted by facility staff for blood pressure 80 x 40, pulse ox 89% and a temperature of 93. EMS noted patient to be tachycardic with a temperature of 100.5. In the ER patient is given a liter and a half of fluids. Still found to be blood pressure in the 80s systolic. Also found to have a positive UTI. Admitted for the same. Patient is able to answer simple questions but not related to give any details history. Patient has a short-term memory. Review of systems: GEN.: Tired EYES: None HEENT: None NECK: None RESPIRATORY: [Slight cough CARDIOVASCULAR: None GASTROINTESTINAL: None GENITOURINARY: None MUSCULOSKELETAL: None LYMPHATICS: None HEMATOLOGICAL: None PSYCHIATRY: Forgetful NEUROLOGICAL: None Social history: Patient smoked for 10 years stopped in 1972. Alcohol rarely. Her is a legal guardian. Lives at [facility] Physical examination: VITAL SIGNS: Afebrile, 81, 16, 87 x 53, 97% room air in ER, after 1 and half liters of fluid GENERAL: [BMI 23.4, laying in bed awake not in distress. EYES: Pupils equal. Conjunctiva onur l. HEENT: External appearance of nose and ears normal, oral cavity grossly normal. NECK: JVD not raised; masses not palpable. HEART: First and second heart sounds are normal; no edema. LUNGS: Respiratory rate normal; clear to auscultation. ABDOMEN: Soft, nontender, liver spleen not palpable, no masses palpable. PSYCH: Patient is able to answer simple questions. But really cannot give details of what happened at the assisted living. l. MUSCULOSKELETAL:No Clubbing/cyanosis;muscles-grossly intact. OA NEUROLOGICAL: Cranial nerves grossly intact; no facial asymmetry, power and sensation grossly intact. LYMPHATICS: No lymph nodes palpable in the axilla and neck INVESTIGATIONS, reviewed in the clinical context: July 21, 2024: White count 10.9 hemoglobin 13.6 platelets 466. Sodium 138 potassium 4.4 BUN 22 creatinine 0.91 UA positive for nitrite, leukoesterase, WBC COVID PCR: Detected EKG tracing personally reviewed by me-ventricular paced rhythm CT scan brain chronic nonspecific changes Chest x-ray film personally reviewed by me-no infiltrates Assessment plan: -Hypotension, from clinical dehydration.: Symptomatic Patient was still hypotensive systolic blood pressure in the 80s after getting a liter and a half of fluids in the ER. Patient had vomited once yesterday. Decreased oral intake. Has been weak not able to get up normally patient is ambulatory. IV fluids. Hold all blood pressure medications -Near syncope from hypotension dehydration. May be noted that patient has underlying knowing, vasovagal syndrome Has midodrine prescribed at home as needed. Florinef every 48 hours -COVID-19. Patient's is also positive for the same. Not found to be hypoxic here. Minimal cough if any. -Acute UTI with cystitis, contributing to dehydration -Coronary artery disease Pravachol. Plavix. -GERD Pepcid as needed -Essential hypertension Normally on amlodipine. Hold for now -Chronic insomnia Trazodone 100 mg nightly -Hyperlipidemia Pravachol -Hypothyroid Synthroid 75 mcg a day -Permanent pacemaker -Moderate cognitive impairment from late onset Alzheimer's dementia Aricept 5 mg nightly -No code Past Medical History Past Medical History: Coronary Artery Disease (CAD), GERD/Reflux, Hyperlipidemia, Hypertension, Respiratory Disorder, Syncope, Thyroid Disorder Additional Past Medical History / Comment(s): See Dr Roberts H&P, Syncope- vasovagal syndrome, hystoplasmosis diagnosed in 2006-r upper lung lobectomy and infection had went into her esophagus causing fistula that was repaired, History of Any Multi-Drug Resistant Organisms: None Reported Past Surgical History: Appendectomy, Breast Surgery, Cholecystectomy, EPS, Heart Catheterization, Hernia Repair, Hysterectomy, Pacemaker Additional Past Surgical History / Comment(s): Right partial upper lobe of lung removed with repair of esophageal fistula, hernia surgery as an infant, LOOP recoder, EGDs, colonoscopies, L breast biopsy Past Anesthesia/Blood Transfusion Reactions: Postoperative Nausea & Vomiting (PONV) Additional Past Anesthesia/Blood Transfusion Reaction / Comment(s): . Type of Cardiac Device: Permanent Pacemaker Device Placement Date:: 07/29/20 Past Psychological History: No Psychological Hx Reported Additional Psychological History / Comment(s): . Smoking Status: Former smoker Past Alcohol Use History: Rare Additional Past Alcohol Use History / Comment(s): Pt started smoking in 1962 and quit in 1972. Past Drug Use History: None Reported - Past Family History Father Family Medical History: Cancer Additional Family Medical History / Comment(s): Lung. Medications and Allergies Home Medications Medication Instructions Recorded Confirmed Type Midodrine [ProAmatine] 5 mg PO DAILY PRN 09/16/22 07/21/24 History Pravastatin Sodium [Pravachol] 40 mg PO HS@199909/16/22 07/21/24 History Diphenoxylate HCl/Atropine 1 tab PO BID PRN 11/05/22 07/21/24 History [Lomotil 2.5-0.025 mg Tablet] Donepezil [Aricept] 5 mg PO HS@199911/05/22 07/21/24 History Levothyroxine Sodium [Synthroid] 75 mcg PO AC-BRKFST 03/02/23 07/21/24 History risperiDONE [RisperDAL] 0.5 mg PO BID@0800,199903/02/23 07/21/24 History ALPRAZolam [Xanax] 0.25 mg PO BID@0800,199908/01/23 07/21/24 History Acetaminophen Tab [Tylenol] 650 mg PO QID PRN 08/01/23 07/21/24 History Fludrocortisone [Florinef] 0.05 mg PO Q48H 08/01/23 07/21/24 History Potassium Chloride ER [K-Dur 20] 20 meq PO BID@0800,199908/01/23 07/21/24 History amLODIPine [Norvasc] 5 mg PO DAILY@0800 08/01/23 07/21/24 History hydrALAZINE HCL [Apresoline] 25 mg PO BID PRN 08/01/23 07/21/24 History traZODone HCL [Desyrel] 100 mg PO HS@199908/01/23 07/21/24 History Cetirizine HCl [Zyrtec] 10 mg PO HS@199907/21/24 07/21/24 History Clopidogrel [Plavix] 75 mg PO DAILY@79907/21/24 07/21/24 History Cyanocobalamin (Vitamin B-12) 1,000 mcg PO DAILY@79907/21/24 07/21/24 History [Vitamin B-12] Folic Acid 1 mg PO DAILY@79907/21/24 07/21/24 History guaiFENesin-DM 100-10MG/5ML 10 ml PO QID PRN 07/21/24 07/21/24 History [Robitussin DM] hydroCHLOROthiazide [Hydrodiuril] 12.5 mg PO DAILY@79907/21/24 07/21/24 History Allergies Allergy/AdvReac Type Severity Reaction Status Date / Time adhesive Allergy Rash/Hives Verified 07/21/24 11:18 bee pollen Allergy Anaphylaxis Verified 07/21/24 11:18 latex Allergy Rash/Hives Verified 07/21/24 11:18 Penicillins Allergy Anaphylaxis Verified 07/21/24 11:18 prednisone AdvReac Nausea & Verified 07/21/24 11:18 Vomiting Physical Exam Vitals: Vital Signs Temp Pulse Pulse Resp BP BP BP 07/21/24 13:37 98.3 F 82 18 124/73 07/21/24 13:30 73 16 114/66 07/21/24 12:47 98.0 F 70 16 122/65 07/21/24 11:38 76 16 129/52 07/21/24 10:13 76 16 07/21/24 10:08 07/21/24 10:05 07/21/24 10:00 16 108/52 07/21/24 08:53 81 16 120/59 07/21/24 07:18 99.2 F 108 H 16 109/66 BP BP Pulse Ox 07/21/24 13:37 95 07/21/24 13:30 97 07/21/24 12:47 95 07/21/24 11:38 97 07/21/24 10:13 07/21/24 10:08 87/53 07/21/24 10:05 100/52 07/21/24 10:00 97 07/21/24 08:53 96 07/21/24 07:18 93 L Intake and Output 07/21/24 07/21/24 07/21/24 06:59 14:59 22:59 Other: Voiding Method Toilet Diaper # Voids 1 1 Weight 65.771 kg Results CBC & Chem 7: 07/21/24 08:06 07/21/24 08:06 Labs: Abnormal Lab Results - Last 24 Hours (Table) 07/21/24 07/21/24 07/21/24 Range/Units 08:06 08:06 08:06 WBC 10.9 H (3.8-10.6) k/uL Plt Count 466 H (150-450) k/uL Neutrophils # 8.8 H (1.3-7.7) k/uL Lymphocytes # 0.5 L (1.0-4.8) k/uL Monocytes # 1.2 H (0-1.0) k/uL BUN 22 H (7-17) mg/dL Urine Appearance (Clear) Urine Protein (Negative) Urine Blood (Negative) Urine Nitrite (Negative) Ur Leukocyte Esterase (Negative) Urine RBC (0-5) /hpf Urine WBC (0-5) /hpf Urine WBC Clumps (None) /hpf Urine Bacteria (None) /hpf Urine Mucus (None) /hpf SARS-CoV-2 (PCR) Detected A (Not Detectd) 07/21/24 Range/Units 09:34 WBC (3.8-10.6) k/uL Plt Count (150-450) k/uL Neutrophils # (1.3-7.7) k/uL Lymphocytes # (1.0-4.8) k/uL Monocytes # (0-1.0) k/uL BUN (7-17) mg/dL Urine Appearance Cloudy H (Clear) Urine Protein Trace H (Negative) Urine Blood Small H (Negative) Urine Nitrite Positive H (Negative) Ur Leukocyte Esterase Large H (Negative) Urine RBC 16 H (0-5) /hpf Urine WBC >182 H (0-5) /hpf Urine WBC Clumps Occasional H (None) /hpf Urine Bacteria Few H (None) /hpf Urine Mucus Few H (None) /hpf SARS-CoV-2 (PCR) (Not Detectd)
[2024-07-21] MEDS: PRAVASTATIN SODIUM 40 MG TAB PO SCH (19:53)
[2024-07-21] MEDS: ALPRAZolam 0.25 MG TAB PO SCH (19:53)
[2024-07-21] MEDS: DONEPEZIL 5 MG TAB PO SCH (19:53)
[2024-07-21] MEDS: traZODone HCL 100 MG TAB PO SCH (19:53)
[2024-07-21] MEDS: risperiDONE 0.5 MG TAB PO SCH (19:53)
[2024-07-21] MEDS: POTASSIUM CHLORIDE ER 20 MEQ TAB.ER PO SCH (19:53)
[2024-07-21] MEDS ORDERED: LORATADINE 10 MG TAB PO SCH (20:00)
[2024-07-22] MEDS: LEVOTHYROXINE 75 MCG TAB PO SCH (06:42)
[2024-07-22] MEDS ORDERED: amLODIPine 5 MG TAB PO SCH (08:00)
[2024-07-22] MEDS: CLOPIDOGREL 75 MG TAB PO SCH (08:39)
[2024-07-22] MEDS: CYANOCOBALAMIN 500 MCG TAB PO SCH (08:39)
[2024-07-22] MEDS: FOLIC ACID 1 MG TAB PO SCH (08:40)
[2024-07-22 09:29] LABS: ALT 15 U/L (8-44); AST 27 U/L (13-35); Albumin 3.6 g/dL (3.8-4.9); Albumin/Globulin Ratio 1.71 Ratio (1.60-3.17); Alkaline Phosphatase 74 U/L (41-126); BUN/Creat Ratio 17.14 Ratio (12.00-20.00); Calcium 8.4 mg/dL (8.7-10.3); Carbon Dioxide 21.2 mmol/L (21.6-31.8); Chloride 106 mmol/L (96-109); Globulin 2.1 g/dL (1.6-3.3); Glucose 84 mg/dL (70-110); Potassium 4.5 mmol/L (3.5-5.5); Sodium 138 mmol/L (135-145); Total Bilirubin <0.2 mg/dL (0.3-1.2); Total Protein 5.7 g/dL (6.2-8.2)
[2024-07-22 09:32] LABS: HCT 39.1 % (37.2-46.3); HGB 12.3 g/dL (12.0-15.0); MCH 30.3 pg (27.0-32.0); MCHC 31.5 g/dL (32.0-37.0); MCV 96.3 FL (80.0-97.0); Mean Platelet Volume 9.6 FL (9.5-12.2); NRBC Per 100 WBC 0 X 10*3/uL (0.00-0.01); Platelet Count 360 X 10*3/uL (140-440); RBC 4.06 X 10*6/uL (4.10-5.20); RDW 14.1 % (11.5-14.5); WBC 7.84 X 10*3/uL (4.50-10.00)
[2024-07-22] MEDS: amLODIPine 5 MG TAB PO SCH (10:31)
[2024-07-22 10:50] LABS: Basophils # (A) 0.06 X 10*3/uL (0.00-0.10); Basophils % (A) 0.8 %; Eosinophils # (A) 0.14 X 10*3/uL (0.04-0.35); Eosinophils % (A) 1.8 %; Lymphocytes # (A) 0.81 X 10*3/uL (0.90-5.00); Lymphocytes % (A) 10.3 %; Monocytes # (A) 1.52 X 10*3/uL (0.20-1.00); Monocytes % (A) 19.4 %; Neutrophils # (A) 5.28 X 10*3/uL (1.80-7.70); Neutrophils % (A) 67.3 %; RBC Morphology Normal (Normal)
--- NOTE | 2024-07-22 14:09 | P.PN ---
Progress Note - Text Progress Note Date: 07/22/24 Chief Complaint: Syncope This is a pleasant 79-year-old patient, follows with visiting physician Dr. Chou. Chronic stable medical conditions include CAD, GERD, hypertension, hyperlipidemia, hypothyroid. Has known vasovagal syndrome. Right upper lobe lobectomy for histoplasmosis. Also had a esophageal fistula that was repaired. Patient lives at [facility]. Her who is a legal guardian is her main caregiver. EMS was called called out because patient had a near syncope episode. Patient's is COVID-positive. Patient normally ambulatory without any support. Is normally AO x 2 because of dementia. Last night patient vomited once. Was rather lethargic today. Was starting go to the bathroom nearly collapsed. Has been rather weak today. Not even able to really get up on her own. Vital signs noted by facility staff for blood pressure 80 x 40, pulse ox 89% and a temperature of 93. EMS noted patient to be tachycardic with a temperature of 100.5. In the ER patient is given a liter and a half of fluids. Still found to be blood pressure in the 80s systolic. Also found to have a positive UTI. Admitted for the same. Patient is able to answer simple questions but not related to give any details history. Patient has a short-term memory. July 22: Comfortably. Slight cough. Blood pressures,. Home dose of amlodipine resumed. Continue IV ceftriaxone. Had about half of breakfast. Spoke to the nurse to get the patient up and ambulate. Active Medications Acetaminophen (Acetaminophen Tab 325 Mg Tab) 650 mg PO Q6HR PRN PRN Reason: Mild Pain or Fever > 100.5 Alprazolam (Alprazolam 0.25 Mg Tab) 0.25 mg PO BID@799,1999 [facility] Last Admin: 07/22/24 08:39 Dose: 0.25 mg Amlodipine Besylate (Amlodipine 5 Mg Tab) 5 mg PO DAILY [facility] Last Admin: 07/22/24 10:31 Dose: Not Given Clopidogrel Bisulfate (Clopidogrel 75 Mg Tab) 75 mg PO DAILY@0800 [facility] Last Admin: 07/22/24 08:39 Dose: 75 mg Cyanocobalamin (Cyanocobalamin 500 Mcg Tab) 1,000 mcg PO DAILY@0800 [facility] Last Admin: 07/22/24 08:39 Dose: 1,000 mcg Donepezil HCl (Donepezil 5 Mg Tab) 5 mg PO HS@1999 [facility] Last Admin: 07/21/24 19:53 Dose: 5 mg Enoxaparin Sodium (Enoxaparin 40 Mg/0.4 Ml Syringe) 40 mg SQ DAILY [facility] Last Admin: 07/22/24 08:40 Dose: 40 mg Fludrocortisone Acetate (Fludrocortisone 0.1 Mg Tab) 0.05 mg PO Q48H [facility] Last Admin: 07/21/24 14:58 Dose: 0.05 mg Folic Acid (Folic Acid 1 Mg Tab) 1 mg PO DAILY@0800 [facility] Last Admin: 07/22/24 08:40 Dose: 1 mg Ceftriaxone Sodium 1 gm/ (Sodium Chloride) 50 mls @ 100 mls/hr IVPB Q24HR [facility]; Protocol Last Admin: 07/22/24 08:39 Dose: 100 mls/hr Levothyroxine Sodium (Levothyroxine 75 Mcg Tab) 75 mcg PO AC-BRKFST [facility] Last Admin: 07/22/24 06:42 Dose: 75 mcg Midodrine (Midodrine 5 Mg Tab) 5 mg PO Q8H PRN PRN Reason: BP <110/60 Naloxone HCl (Naloxone 0.4 Mg/Ml 1 Ml Vial) 0.2 mg IV Q2M PRN PRN Reason: Opioid Reversal Ondansetron HCl (Ondansetron 4 Mg/2 Ml Vial) 4 mg IVP Q8HR PRN PRN Reason: Nausea And Vomiting Potassium Chloride (Potassium Chloride Er 20 Meq Tab.Er) 20 meq PO BID@ [facility] Last Admin: 07/22/24 08:40 Dose: 20 meq Pravastatin Sodium (Pravastatin Sodium 40 Mg Tab) 40 mg PO HS@1999 [facility] Last Admin: 07/21/24 19:53 Dose: 40 mg Risperidone (Risperidone 0.5 Mg Tab) 0.5 mg PO BID@ [facility] Last Admin: 07/22/24 08:39 Dose: 0.5 mg Trazodone HCl (Trazodone Hcl 100 Mg Tab) 100 mg PO HS@1999 [facility] Last Admin: 07/21/24 19:53 Dose: 100 mg Social history: Patient smoked for 10 years stopped in 1972. Alcohol rarely. Her is a legal guardian. Lives at [facility] Physical examination: VITAL SIGNS: 98.6, 74, 16, 151 x 80, 93% room air GENERAL: [BMI 23.4, laying in bed awake comfortable EYES: Pupils equal. Conjunctiva onur l. HEENT: External appearance of nose and ears normal, oral cavity grossly normal. NECK: JVD not raised; masses not palpable. HEART: First and second heart sounds are normal; no edema. LUNGS: Respiratory rate normal; clear to auscultation. ABDOMEN: Soft, nontender, liver spleen not palpable, no masses palpable. PSYCH: Patient is able to answer simple questions. But really cannot give details of what happened at the assisted living. l. MUSCULOSKELETAL:No Clubbing/cyanosis;muscles-grossly intact. OA INVESTIGATIONS, reviewed in the clinical context: July 22: White count 7.8 hemoglobin 12.3 platelets 360 potassium 4.5Creatinine 0.7 July 21, 2024: White count 10.9 hemoglobin 13.6 platelets 466. Sodium 138 potassium 4.4 BUN 22 creatinine 0.91 UA positive for nitrite, leukoesterase, WBC COVID PCR: Detected EKG tracing personally reviewed by me-ventricular paced rhythm CT scan brain chronic nonspecific changes Chest x-ray film personally reviewed by me-no infiltrates Assessment plan: -Hypotension, from clinical dehydration.: Symptomatic Patient was still hypotensive systolic blood pressure in the 80s after getting a liter and a half of fluids in the ER. Patient had vomited once yesterday. Decreased oral intake. Has been weak not able to get up normally patient is ambulatory. IV fluids. Hold all blood pressure medications -Near syncope from hypotension dehydration. May be noted that patient has underlying knowing, vasovagal syndrome Has midodrine prescribed at home as needed. Florinef every 48 hours -COVID-19. Patient's is also positive for the same. Not found to be hypoxic here. Minimal cough if any. -Acute UTI with cystitis, contributing to dehydration: Urine culture showing gram-negative bacilli IV ceftriaxone -Coronary artery disease Pravachol. Plavix. -GERD Pepcid as needed -Essential hypertension Resume amlodipine. -Chronic insomnia Trazodone 100 mg nightly -Hyperlipidemia Pravachol -Hypothyroid Synthroid 75 mcg a day -Permanent pacemaker -Moderate cognitive impairment from late onset Alzheimer's dementia Aricept 5 mg nightly -No code Resume amlodipine. Continue IV ceftriaxone for today. Cultures pending. Increase activity. Probably discharge tomorrow. 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 Type of Cardiac Device: Permanent Pacemaker Device Placement Date:: 07/29/20 Past Psychological History: No Psychological Hx Reported Additional Psychological History / Comment(s): . Smoking Status: Former smoker Past Alcohol Use History: Rare Additional Past Alcohol Use History / Comment(s): Pt started smoking in 1962 and quit in 1972. Past Drug Use History: None Reported
--- NOTE | 2024-07-23 21:28 | P.PN ---
Progress Note - Text Progress Note Date: 07/23/24 Chief Complaint: Syncope This is a pleasant 79-year-old patient, follows with visiting physician Dr. Chou. Chronic stable medical conditions include CAD, GERD, hypertension, hyperlipidemia, hypothyroid. Has known vasovagal syndrome. Right upper lobe lobectomy for histoplasmosis. Also had a esophageal fistula that was repaired. Patient lives at [facility]. Her who is a legal guardian is her main caregiver. EMS was called called out because patient had a near syncope episode. Patient's is COVID-positive. Patient normally ambulatory without any support. Is normally AO x 2 because of dementia. Last night patient vomited once. Was rather lethargic today. Was starting go to the bathroom nearly collapsed. Has been rather weak today. Not even able to really get up on her own. Vital signs noted by facility staff for blood pressure 80 x 40, pulse ox 89% and a temperature of 93. EMS noted patient to be tachycardic with a temperature of 100.5. In the ER patient is given a liter and a half of fluids. Still found to be blood pressure in the 80s systolic. Also found to have a positive UTI. Admitted for the same. Patient is able to answer simple questions but not related to give any details history. Patient has a short-term memory. July 22: Comfortably. Slight cough. Blood pressures,. Home dose of amlodipine resumed. Continue IV ceftriaxone. Had about half of breakfast. Spoke to the nurse to get the patient up and ambulate. July 23: Comfortable. Eating fair. Patient could not be discharged as her is also in the hospital who is the caregiver. Hence the discharge has been held.Spoke to the nurse to get the patient up in a chair. Pulse ox was good. Active Medications Acetaminophen (Acetaminophen Tab 325 Mg Tab) 650 mg PO Q6HR PRN PRN Reason: Mild Pain or Fever > 100.5 Alprazolam (Alprazolam 0.25 Mg Tab) 0.25 mg PO BID@799,1999 [facility] Last Admin: 07/23/24 20:00 Dose: 0.25 mg Amlodipine Besylate (Amlodipine 5 Mg Tab) 5 mg PO DAILY [facility] Last Admin: 07/23/24 08:27 Dose: 5 mg Clopidogrel Bisulfate (Clopidogrel 75 Mg Tab) 75 mg PO DAILY@0800 [facility] Last Admin: 07/23/24 08:26 Dose: 75 mg Cyanocobalamin (Cyanocobalamin 500 Mcg Tab) 1,000 mcg PO DAILY@799 [facility] Last Admin: 07/23/24 08:26 Dose: 1,000 mcg Donepezil HCl (Donepezil 5 Mg Tab) 5 mg PO HS@1999 [facility] Last Admin: 07/23/24 19:59 Dose: 5 mg Enoxaparin Sodium (Enoxaparin 40 Mg/0.4 Ml Syringe) 40 mg SQ DAILY [facility] Last Admin: 07/23/24 08:25 Dose: 40 mg Fludrocortisone Acetate (Fludrocortisone 0.1 Mg Tab) 0.05 mg PO Q48H [facility] Last Admin: 07/23/24 16:53 Dose: 0.05 mg Folic Acid (Folic Acid 1 Mg Tab) 1 mg PO DAILY@08 [facility] Last Admin: 07/23/24 08:26 Dose: 1 mg Ceftriaxone Sodium 1 gm/ (Sodium Chloride) 50 mls @ 100 mls/hr IVPB Q24HR [facility]; Protocol Last Admin: 07/23/24 08:25 Dose: 100 mls/hr Levothyroxine Sodium (Levothyroxine 75 Mcg Tab) 75 mcg PO AC-BRKFST [facility] Last Admin: 07/23/24 08:28 Dose: 75 mcg Midodrine (Midodrine 5 Mg Tab) 5 mg PO Q8H PRN PRN Reason: BP <110/60 Naloxone HCl (Naloxone 0.4 Mg/Ml 1 Ml Vial) 0.2 mg IV Q2M PRN PRN Reason: Opioid Reversal Ondansetron HCl (Ondansetron 4 Mg/2 Ml Vial) 4 mg IVP Q8HR PRN PRN Reason: Nausea And Vomiting Potassium Chloride (Potassium Chloride Er 20 Meq Tab.Er) 20 meq PO BID@ [facility] Last Admin: 07/23/24 20:00 Dose: 20 meq Pravastatin Sodium (Pravastatin Sodium 40 Mg Tab) 40 mg PO HS@1999 [facility] Last Admin: 07/23/24 20:00 Dose: 40 mg Risperidone (Risperidone 0.5 Mg Tab) 0.5 mg PO BID@ [facility] Last Admin: 07/23/24 19:59 Dose: 0.5 mg Trazodone HCl (Trazodone Hcl 100 Mg Tab) 100 mg PO HS@1999 [facility] Last Admin: 07/23/24 20:00 Dose: 100 mg Social history: Patient smoked for 10 years stopped in 1972. Alcohol rarely. Her is a legal guardian. Lives at assisted living [facility] Physical examination: VITAL SIGNS: 98.5, 76, 16, 143 x 79, 95% room GENERAL: [BMI 23.4, laying in bed awake comfortable EYES: Pupils equal. Conjunctiva onur l. HEENT: External appearance of nose and ears normal, oral cavity grossly normal. NECK: JVD not raised; masses not palpable. HEART: First and second heart sounds are normal; no edema. LUNGS: Respiratory rate normal; clear to auscultation. ABDOMEN: Soft, nontender, liver spleen not palpable, no masses palpable. PSYCH: Patient is able to answer simple questions. But really cannot give details of what happened at the assisted living. l. MUSCULOSKELETAL:No Clubbing/cyanosis;muscles-grossly intact. OA INVESTIGATIONS, reviewed in the clinical context: July 22: White count 7.8 hemoglobin 12.3 platelets 360 potassium 4.5Creatinine 0.7 July 21, 2024: White count 10.9 hemoglobin 13.6 platelets 466. Sodium 138 potassium 4.4 BUN 22 creatinine 0.91 UA positive for nitrite, leukoesterase, WBC. Urine culture E. coli COVID PCR: Detected EKG tracing personally reviewed by me-ventricular paced rhythm CT scan brain chronic nonspecific changes Chest x-ray film personally reviewed by me-no infiltrates Assessment plan: -Hypotension, from clinical dehydration.: Improved Patient was still hypotensive systolic blood pressure in the 80s after getting a liter and a half of fluids in the ER. Patient had vomited once yesterday. Decreased oral intake. Has been weak not able to get up normally patient is ambulatory. IV fluids. Hold all blood pressure medications -Near syncope from hypotension dehydration. May be noted that patient has underlying knowing, vasovagal syndrome Has midodrine prescribed at home as needed. Florinef every 48 hours -COVID-19. Patient's is also positive for the same. Not found to be hypoxic here. Minimal cough if any. -Acute UTI with cystitis, contributing to dehydration: Urine culture-E. coli IV ceftriaxone -Coronary artery disease Pravachol. Plavix. -GERD Pepcid as needed -Essential hypertension amlodipine. -Chronic insomnia Trazodone 100 mg nightly -Hyperlipidemia Pravachol -Hypothyroid Synthroid 75 mcg a day -Permanent pacemaker -Moderate cognitive impairment from late onset Alzheimer's dementia Aricept 5 mg nightly -No code Being better. Will be discharged when is also discharged from the hospital. Caregiver. 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 Type of Cardiac Device: Permanent Pacemaker Device Placement Date:: 07/29/20 Past Psychological History: No Psychological Hx Reported Additional Psychological History / Comment(s): . Smoking Status: Former smoker Past Alcohol Use History: Rare Additional Past Alcohol Use History / Comment(s): Pt started smoking in 1962 and quit in 1972. Past Drug Use History: None Reported
[2024-07-24] MEDS: CEFDINIR 300 MG CAP PO SCH (19:56)
--- NOTE | 2024-07-24 22:51 | P.PN ---
Progress Note - Text Progress Note Date: 07/24/24 Chief Complaint: Syncope This is a pleasant 79-year-old patient, follows with visiting physician Dr. Chou. Chronic stable medical conditions include CAD, GERD, hypertension, hyperlipidemia, hypothyroid. Has known vasovagal syndrome. Right upper lobe lobectomy for histoplasmosis. Also had a esophageal fistula that was repaired. Patient lives at [facility]. Her who is a legal guardian is her main caregiver. EMS was called called out because patient had a near syncope episode. Patient's is COVID-positive. Patient normally ambulatory without any support. Is normally AO x 2 because of dementia. Last night patient vomited once. Was rather lethargic today. Was starting go to the bathroom nearly collapsed. Has been rather weak today. Not even able to really get up on her own. Vital signs noted by facility staff for blood pressure 80 x 40, pulse ox 89% and a temperature of 93. EMS noted patient to be tachycardic with a temperature of 100.5. In the ER patient is given a liter and a half of fluids. Still found to be blood pressure in the 80s systolic. Also found to have a positive UTI. Admitted for the same. Patient is able to answer simple questions but not related to give any details history. Patient has a short-term memory. July 22: Comfortably. Slight cough. Blood pressures,. Home dose of amlodipine resumed. Continue IV ceftriaxone. Had about half of breakfast. Spoke to the nurse to get the patient up and ambulate. July 23: Comfortable. Eating fair. Patient could not be discharged as her is also in the hospital who is the caregiver. Hence the discharge has been held.Spoke to the nurse to get the patient up in a chair. Pulse ox was good. July 24: Appears comfortable. Eating fair. Cannot be discharged as patient still still in the hospital who is the caregiver. DC ceftriaxone changed to Omnicef Active Medications Acetaminophen (Acetaminophen Tab 325 Mg Tab) 650 mg PO Q6HR PRN PRN Reason: Mild Pain or Fever > 100.5 Alprazolam (Alprazolam 0.25 Mg Tab) 0.25 mg PO BID@0800,2000 [facility] Last Admin: 07/24/24 19:56 Dose: 0.25 mg Amlodipine Besylate (Amlodipine 5 Mg Tab) 5 mg PO DAILY [facility] Last Admin: 07/24/24 10:04 Dose: 5 mg Cefdinir (Cefdinir 300 Mg Cap) 300 mg PO BID [facility]; Protocol Stop: 07/25/24 21:01 Last Admin: 07/24/24 19:56 Dose: 300 mg Clopidogrel Bisulfate (Clopidogrel 75 Mg Tab) 75 mg PO DAILY@0800 [facility] Last Admin: 07/24/24 10:04 Dose: 75 mg Cyanocobalamin (Cyanocobalamin 500 Mcg Tab) 1,000 mcg PO DAILY@0800 [facility] Last Admin: 07/24/24 10:04 Dose: 1,000 mcg Donepezil HCl (Donepezil 5 Mg Tab) 5 mg PO HS@1999 [facility] Last Admin: 07/24/24 19:56 Dose: 5 mg Enoxaparin Sodium (Enoxaparin 40 Mg/0.4 Ml Syringe) 40 mg SQ DAILY [facility] Last Admin: 07/24/24 10:05 Dose: 40 mg Fludrocortisone Acetate (Fludrocortisone 0.1 Mg Tab) 0.05 mg PO Q48H [facility] Last Admin: 07/23/24 16:53 Dose: 0.05 mg Folic Acid (Folic Acid 1 Mg Tab) 1 mg PO DAILY@0800 [facility] Last Admin: 07/24/24 10:04 Dose: 1 mg Levothyroxine Sodium (Levothyroxine 75 Mcg Tab) 75 mcg PO AC-BRKFST [facility] Last Admin: 07/24/24 06:46 Dose: 75 mcg Midodrine (Midodrine 5 Mg Tab) 5 mg PO Q8H PRN PRN Reason: BP <110/60 Naloxone HCl (Naloxone 0.4 Mg/Ml 1 Ml Vial) 0.2 mg IV Q2M PRN PRN Reason: Opioid Reversal Ondansetron HCl (Ondansetron 4 Mg/2 Ml Vial) 4 mg IVP Q8HR PRN PRN Reason: Nausea And Vomiting Potassium Chloride (Potassium Chloride Er 20 Meq Tab.Er) 20 meq PO BID@ [facility] Last Admin: 07/24/24 19:56 Dose: 20 meq Pravastatin Sodium (Pravastatin Sodium 40 Mg Tab) 40 mg PO HS@1999 [facility] Last Admin: 07/24/24 19:56 Dose: 40 mg Risperidone (Risperidone 0.5 Mg Tab) 0.5 mg PO BID@ [facility] Last Admin: 07/24/24 19:56 Dose: 0.5 mg Trazodone HCl (Trazodone Hcl 100 Mg Tab) 100 mg PO HS@1999 [facility] Last Admin: 07/24/24 19:56 Dose: 100 mg Social history: Patient smoked for 10 years stopped in 1972. Alcohol rarely. Her is a legal guardian. Lives at assisted living [facility] Physical examination: VITAL SIGNS: 98.4, 68, 16, 132/78, 96% room air GENERAL: [BMI 23.4, laying in bed awake comfortable EYES: Pupils equal. Conjunctiva onur l. HEENT: External appearance of nose and ears normal, oral cavity grossly normal. NECK: JVD not raised; masses not palpable. HEART: First and second heart sounds are normal; no edema. LUNGS: Respiratory rate normal; clear to auscultation. ABDOMEN: Soft, nontender, liver spleen not palpable, no masses palpable. PSYCH: Patient is able to answer simple questions. But really cannot give details of what happened at the assisted living. l. MUSCULOSKELETAL:No Clubbing/cyanosis;muscles-grossly intact. OA INVESTIGATIONS, reviewed in the clinical context: July 22: White count 7.8 hemoglobin 12.3 platelets 360 potassium 4.5Creatinine 0.7 July 21, 2024: White count 10.9 hemoglobin 13.6 platelets 466. Sodium 138 potassium 4.4 BUN 22 creatinine 0.91 UA positive for nitrite, leukoesterase, WBC. Urine culture E. coli COVID PCR: Detected EKG tracing personally reviewed by me-ventricular paced rhythm CT scan brain chronic nonspecific changes Chest x-ray film personally reviewed by me-no infiltrates Assessment plan: -Hypotension, from clinical dehydration.: Improved Patient was still hypotensive systolic blood pressure in the 80s after getting a liter and a half of fluids in the ER. Patient had vomited once yesterday. Decreased oral intake. Has been weak not able to get up normally patient is ambulatory. IV fluids. Hold all blood pressure medications -Near syncope from hypotension dehydration. May be noted that patient has underlying knowing, vasovagal syndrome Has midodrine prescribed at home as needed. Florinef every 48 hours -COVID-19. Patient's is also positive for the same. Not found to be hypoxic here. Minimal cough if any. -Acute UTI with cystitis, contributing to dehydration: Urine culture-E. coli IV ceftriaxone-changed to Omnicef -Coronary artery disease Pravachol. Plavix. -GERD Pepcid as needed -Essential hypertension amlodipine. -Chronic insomnia Trazodone 100 mg nightly -Hyperlipidemia Pravachol -Hypothyroid Synthroid 75 mcg a day -Permanent pacemaker -Moderate cognitive impairment from late onset Alzheimer's dementia Aricept 5 mg nightly -No code Patient ready for discharge. Cannot leave until her lives in the hospital who is the caregiver 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 and infection had went into her esophagus causing fistula that was repaired, History of Any Multi-Drug Resistant Organisms: None Reported Past Surgical History: Appendectomy, Breast Surgery, Cholecystectomy, EPS, Heart Catheterization, Hernia Repair, Hysterectomy, Pacemaker Additional Past Surgical History / Comment(s): Right partial upper lobe of lung removed with repair of esophageal fistula, hernia surgery as an infant, LOOP recoder, EGDs, colonoscopies, L breast biopsy Past Anesthesia/Blood Transfusion Reactions: Postoperative Nausea & Vomiting (PONV) Additional Past Anesthesia/Blood Transfusion Reaction / Comment(s): . Type of Cardiac Device: Permanent Pacemaker Device Placement Date:: 07/29/20 Past Psychological History: No Psychological Hx Reported Additional Psychological History / Comment(s): . Smoking Status: Former smoker Past Alcohol Use History: Rare Additional Past Alcohol Use History / Comment(s): Pt started smoking in 1962 and quit in 1972. Past Drug Use History: None Reported
[2024-07-25 04:43] VITALS: RESP 16
[2024-07-25 07:23] VITALS: BP 132/76; PULSE 62; TEMP 97.4
--- NOTE | 2024-07-26 20:14 | P.DS ---
Providers Date of admission: 07/21/24 10:29 Expected date of discharge: 07/25/24 Attending physician: Suman Rice Primary care physician: Moo Chou [facility] Course: Chief Complaint: Syncope This is a pleasant 79-year-old patient, follows with visiting physician Dr. Chou. Chronic stable medical conditions include CAD, GERD, hypertension, hyperlipidemia, hypothyroid. Has known vasovagal syndrome. Right upper lobe lobectomy for histoplasmosis. Also had a esophageal fistula that was repaired. Patient lives at [facility]. Her who is a legal guardian is her main caregiver. EMS was called called out because patient had a near syncope episode. Patient's is COVID-positive. Patient normally ambulatory without any support. Is normally AO x 2 because of dementia. Last night patient vomited once. Was rather lethargic today. Was starting go to the bathroom nearly collapsed. Has been rather weak today. Not even able to really get up on her own. Vital signs noted by facility staff for blood pressure 80 x 40, pulse ox 89% and a temperature of 93. EMS noted patient to be tachycardic with a temperature of 100.5. In the ER patient is given a liter and a half of fluids. Still found to be blood pressure in the 80s systolic. Also found to have a positive UTI. Admitted for the same. Patient is able to answer simple questions but not related to give any details history. Patient has a short-term memory. July 22: Comfortably. Slight cough. Blood pressures,. Home dose of amlodipine resumed. Continue IV ceftriaxone. Had about half of breakfast. Spoke to the nurse to get the patient up and ambulate. July 23: Comfortable. Eating fair. Patient could not be discharged as her is also in the hospital who is the caregiver. Hence the discharge has been held.Spoke to the nurse to get the patient up in a chair. Pulse ox was good. July 24: Appears comfortable. Eating fair. Cannot be discharged as patient still still in the hospital who is the caregiver. DC ceftriaxone changed to Omnicef July 25: Patient comfortable. Tolerating diet. Patient has been getting discharged and sober. Patient has the former is the caregiver. No further need for antibiotics. Social history: Patient smoked for 10 years stopped in 1972. Alcohol rarely. Her is a legal guardian. Lives at [facility] Physical examination: VITAL SIGNS: 97.4, 62, 16, 132 x 76, 97% room air GENERAL: [BMI 23.4, reclining in bed, comfortable EYES: Pupils equal. Conjunctiva onur l. HEENT: External appearance of nose and ears normal, oral cavity grossly normal. NECK: JVD not raised; masses not palpable. HEART: First and second heart sounds are normal; no edema. LUNGS: Respiratory rate normal; clear to auscultation. ABDOMEN: Soft, nontender, liver spleen not palpable, no masses palpable. PSYCH: Patient is able to answer simple questions. But really cannot give details of what happened at the assisted living. l. MUSCULOSKELETAL:No Clubbing/cyanosis;muscles-grossly intact. OA INVESTIGATIONS, reviewed in the clinical context: July 22: White count 7.8 hemoglobin 12.3 platelets 360 potassium 4.5Creatinine 0.7 July 21, 2024: White count 10.9 hemoglobin 13.6 platelets 466. Sodium 138 potassium 4.4 BUN 22 creatinine 0.91 UA positive for nitrite, leukoesterase, WBC. Urine culture E. coli COVID PCR: Detected EKG tracing personally reviewed by me-ventricular paced rhythm CT scan brain chronic nonspecific changes Chest x-ray film personally reviewed by me-no infiltrates Assessment plan: -Hypotension, from clinical dehydration.: Improved -Near syncope from hypotension dehydration. May be noted that patient has underlying knowing, vasovagal syndrome Has midodrine prescribed at home as needed. Florinef every 48 hours -COVID-19. Patient's is also positive for the same. Not found to be hypoxic here. Minimal cough if any. -Acute UTI with cystitis, contributing to dehydration: Urine culture-E. coli IV ceftriaxone-changed to Omnicef-completed course -Coronary artery disease Pravachol. Plavix. -GERD Pepcid as needed -Essential hypertension amlodipine. -Chronic insomnia Trazodone 100 mg nightly -Hyperlipidemia Pravachol -Hypothyroid Synthroid 75 mcg a day -Permanent pacemaker -Moderate cognitive impairment from late onset Alzheimer's dementia Aricept 5 mg nightly -No code Disposition: AF: [facility] 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 and infection had went into her esophagus causing fistula that was repaired, History of Any Multi-Drug Resistant Organisms: None Reported Past Surgical History: Appendectomy, Breast Surgery, Cholecystectomy, EPS, Heart Catheterization, Hernia Repair, Hysterectomy, Pacemaker Additional Past Surgical History / Comment(s): Right partial upper lobe of lung removed with repair of esophageal fistula, hernia surgery as an infant, LOOP recoder, EGDs, colonoscopies, L breast biopsy Past Anesthesia/Blood Transfusion Reactions: Postoperative Nausea & Vomiting (PONV) Additional Past Anesthesia/Blood Transfusion Reaction / Comment(s): . Type of Cardiac Device: Permanent Pacemaker Device Placement Date:: 07/29/20 Past Psychological History: No Psychological Hx Reported Additional Psychological History / Comment(s): . Smoking Status: Former smoker Past Alcohol Use History: Rare Additional Past Alcohol Use History / Comment(s): Pt started smoking in 1962 and quit in 1972. Past Drug Use History: None Reported Plan - Discharge Summary Discharge Rx Participant: No New Discharge Prescriptions: Continue Pravastatin Sodium [Pravachol] 40 mg PO HS@2000 Midodrine [ProAmatine] 5 mg PO DAILY PRN PRN Reason: BP <110/60 Donepezil [Aricept] 5 mg PO HS@2000 Diphenoxylate HCl/Atropine [Lomotil 2.5-0.025 mg Tablet] 1 tab PO BID PRN PRN Reason: Diarrhea risperiDONE [RisperDAL] 0.5 mg PO BID@0800,1999 hydrALAZINE HCL [Apresoline] 25 mg PO BID PRN PRN Reason: SBP >140 amLODIPine [Norvasc] 5 mg PO DAILY@0800 Acetaminophen Tab [Tylenol] 650 mg PO QID PRN PRN Reason: Pain Or Fever > 100.5 Folic Acid 1 mg PO DAILY@0800 Levothyroxine Sodium [Synthroid] 75 mcg PO AC-BRKFST Fludrocortisone [Florinef] 0.05 mg PO Q48H ALPRAZolam [Xanax] 0.25 mg PO BID@0800,2000 traZODone HCL [Desyrel] 100 mg PO HS@2000 Cyanocobalamin (Vitamin B-12) [Vitamin B-12] 1,000 mcg PO DAILY@0800 Clopidogrel [Plavix] 75 mg PO DAILY@08 guaiFENesin-DM 100-10MG/5ML [Robitussin DM] 10 ml PO QID PRN PRN Reason: Cough Changed Potassium Chloride ER [K-Dur 20] 20 meq PO DAILY #0 Discontinued Cetirizine HCl [Zyrtec] 10 mg PO HS@1999 hydroCHLOROthiazide [Hydrodiuril] 12.5 mg PO DAILY@0800 Discharge Medication List Midodrine [ProAmatine] 5 mg PO DAILY PRN 09/16/22 [History] Pravastatin Sodium [Pravachol] 40 mg PO HS@199909/16/22 [History] Diphenoxylate HCl/Atropine [Lomotil 2.5-0.025 mg Tablet] 1 tab PO BID PRN 11/05/22 [History] Donepezil [Aricept] 5 mg PO HS@199911/05/22 [History] Levothyroxine Sodium [Synthroid] 75 mcg [facility] 03/02/23 [History] risperiDONE [RisperDAL] 0.5 mg PO BID@799,199903/02/23 [History] ALPRAZolam [Xanax] 0.25 mg PO BID@799,199908/01/23 [History] Acetaminophen Tab [Tylenol] 650 mg PO QID PRN 08/01/23 [History] Fludrocortisone [Florinef] 0.05 mg PO Q48H 08/01/23 [History] amLODIPine [Norvasc] 5 mg PO DAILY@79908/01/23 [History] hydrALAZINE HCL [Apresoline] 25 mg PO BID PRN 08/01/23 [History] traZODone HCL [Desyrel] 100 mg PO HS@199908/01/23 [History] Clopidogrel [Plavix] 75 mg PO DAILY@79907/21/24 [History] Cyanocobalamin (Vitamin B-12) [Vitamin B-12] 1,000 mcg PO DAILY@0807/21/24 [History] Folic Acid 1 mg PO DAILY@79907/21/24 [History] guaiFENesin-DM 100-10MG/5ML [Robitussin DM] 10 ml PO QID PRN 07/21/24 [History] Potassium Chloride ER [K-Dur 20] 20 meq PO DAILY #0 07/23/24 [Rx] Follow up Appointment(s)/Referral(s): Moo Chou MD [Primary Care Provider] - 1-2 days Patient Instructions/Handouts: Coronavirus Disease 2019 (COVID-19), COVID-19: Slow the Coronavirus Spread (DC)
== END 2024-07-25 14:04 ==
LOC: EC 07:12 → 6NMEDSUR 10:29
PROVIDERS: ADMIT Hospitalist; ATTEND Hospitalist
DX: I95.1 Orthostatic hypotension (principal); N30.00 Acute cystitis without hematuria; E86.0 Dehydration; U07.1 COVID-19; I25.10 Atherosclerotic heart disease of native coronary artery without angina pectoris; K21.9 Gastro-esophageal reflux disease without esophagitis; E78.5 Hyperlipidemia, unspecified; I10 Essential (primary) hypertension; F51.04 Psychophysiologic insomnia; E03.9 Hypothyroidism, unspecified; G30.1 Alzheimer's disease with late onset; F02.80 Dementia in other diseases classified elsewhere, unspecified severity, without behavioral disturbance, psychotic disturbance, mood disturbance, and anxiety; Z87.891 Personal history of nicotine dependence; Z95.0 Presence of cardiac pacemaker; Z79.02 Long term (current) use of antithrombotics/antiplatelets; Z79.890 Hormone replacement therapy; Z79.899 Other long term (current) drug therapy; Z88.0 Allergy status to penicillin; Z91.040 Latex allergy status; Z87.09 Personal history of other diseases of the respiratory system
CPT/HCPCS: 36415; 70450; 71046; 80053; 81001; 83735; 84484; 85025; 85610; 85730; 87077; 87086; 87186; 87636; 93005; 96365; 96366; 96372; 99285

== ENCOUNTER 2024-07-30 13:28 | Emergency (ER) | payer MEDICARE ==
[2024-07-30 13:36] VITALS: RESP 18
--- NOTE | 2024-07-30 13:56 | ED ---
General Adult HPI - General Chief complaint: Syncope Stated complaint: Near Syncope Time Seen by Provider: 07/30/24 13:40 Source: EMS Mode of arrival: EMS - History of Present Illness Initial comments: Dictation was produced using Vuzit dictation software. please excuse any grammatical, word or spelling errors. Chief Complaint: 79-year-old female multiple comorbidities including dementia presents to the ER after presyncope History of Present Illness: Patient is an 79-year-old female she has history of dementia. She is brought in by EMS from nearby assisted living facility. Patient was on a toilet. When she was witnessed to become pale diaphoretic and minimally responsive. Unclear if patient fully became unconscious. Patient denies blacking out. States that she was having diarrhea on the toilet when this happened. Patient denies cardiac history however her assisted living facility paperwork suggest that she does have history of chronic cardiac disease. Patient Nuys any symptoms at this time requesting discharge. Paperwork shows that patient is a DNR. According to EMS patient was recently diagnosed with COVID-19. The ROS documented in this emergency department record has been reviewed and confirmed by me. Those systems with pertinent positive or negative responses have been documented in the HPI. All other systems are other negative and/or noncontributory. - Related Data Home Medications Medication Instructions Recorded Confirmed Midodrine [ProAmatine] 5 mg PO DAILY PRN 09/16/22 07/21/24 Pravastatin Sodium [Pravachol] 40 mg PO HS@199909/16/22 07/21/24 Diphenoxylate HCl/Atropine 1 tab PO BID PRN 11/05/22 07/21/24 [Lomotil 2.5-0.025 mg Tablet] Donepezil [Aricept] 5 mg PO HS@199911/05/22 07/21/24 Levothyroxine Sodium [Synthroid] 75 mcg PO AC-BRKFST 03/02/23 07/21/24 risperiDONE [RisperDAL] 0.5 mg PO BID@0800,199903/02/23 07/21/24 ALPRAZolam [Xanax] 0.25 mg PO BID@0800,199908/01/23 07/21/24 Acetaminophen Tab [Tylenol] 650 mg PO QID PRN 08/01/23 07/21/24 Fludrocortisone [Florinef] 0.05 mg PO Q48H 08/01/23 07/21/24 amLODIPine [Norvasc] 5 mg PO DAILY@79908/01/23 07/21/24 hydrALAZINE HCL [Apresoline] 25 mg PO BID PRN 08/01/23 07/21/24 traZODone HCL [Desyrel] 100 mg PO HS@199908/01/23 07/21/24 Clopidogrel [Plavix] 75 mg PO DAILY@79907/21/24 07/21/24 Cyanocobalamin (Vitamin B-12) 1,000 mcg PO DAILY@79907/21/24 07/21/24 [Vitamin B-12] Folic Acid 1 mg PO DAILY@79907/21/24 07/21/24 guaiFENesin-DM 100-10MG/5ML 10 ml PO QID PRN 07/21/24 07/21/24 [Robitussin DM] Previous Rx's Medication Instructions Recorded Potassium Chloride ER [K-Dur 20] 20 meq PO DAILY #0 07/23/24 Allergies Allergy/AdvReac Type Severity Reaction Status Date / Time adhesive Allergy Rash/Hives Verified 07/30/24 13:35 bee pollen Allergy Anaphylaxis Verified 07/30/24 13:35 latex Allergy Rash/Hives Verified 07/30/24 13:35 Penicillins Allergy Anaphylaxis Verified 07/30/24 13:35 prednisone AdvReac Nausea & Verified 07/30/24 13:35 Vomiting Review of Systems ROS Statement: Those systems with pertinent positive or pertinent negative responses have been documented in the HPI. ROS Other: All systems not noted in ROS Statement are negative. 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 Type of Cardiac Device: Permanent Pacemaker Device Placement Date:: 07/29/20 Past Psychological History: No Psychological Hx Reported Smoking Status: Former smoker Past Alcohol Use History: Rare Past Drug Use History: None Reported - Past Family History Father Family Medical History: Cancer Additional Family Medical History / Comment(s): Lung. General Exam - General Exam Comments Initial Comments: PHYSICAL EXAM: General Impression: Alert and oriented x3, not in acute distress HEENT: Normocephalic atraumatic, extra-ocular movements intact, pupils equal and reactive to light bilaterally, mucous membranes moist. Cardiovascular: Heart regular rate and rhythm Chest: Able to complete full sentences, no retractions, no tachypnea Abdomen: abdomen soft, non-tender, non-distended, no organomegaly Musculoskeletal: Pulses present and equal in all extremities, no peripheral edema Motor: no focal deficits noted Neurological: CN II-XII grossly intact, no focal motor or sensory deficits noted Skin: Intact with no visualized rashes Psych: Normal affect and mood Course Vital Signs 07/30/24 13:29 Temperature 98.1 F Pulse Rate 86 Respiratory 18 Rate Blood Pressure 116/70 O2 Sat by Pulse 97 Oximetry - Reevaluation(s) Reevaluation #1: 07/30/24 15:46 Pacemaker interrogation was performed. Date of interrogation was today. According to interrogation documentation there was 1 VT episode greater than 4 beats since 27 July 2024. There was no paced terminated episodes. Long discussion was held with patient's son Fransisco which was a person to notify. He is aware that patient is DNR. He understands that patient well-appearing would like to go home has normal labs. Patient requesting discharge. EKG Findings - EKG Comments: EKG Findings:: My EKG interpretation: Ventricular rate 74, paced ventricular rhythm,. 153, QRS 157, QTc 460. No [place] prolongation, no QTC prolongation, no ST or T-wave changes noted. Overall, this EKG is unremarkable Medical Decision Making - Medical Decision Making Was pt. sent in by a medical professional or institution (, PA, IRON AND STEEL WORK SUPERVISOR, urgent care, hospital, or jail...) When possible be specific @ -Sent in from assisted living facility Did you speak to anyone other than the patient for history (EMS, parent, family, police, friend...)? What history was obtained from this source @ -No Did you review nursing and triage notes (agree or disagree)? Why? @ -I reviewed and agree with nursing and triage notes Were old charts reviewed (outside hosp., previous admission, EMS record, old EKG, old radiological studies, urgent care reports/EKG's, jail records)? Report findings @ -No old charts were reviewed Differential Diagnosis (chest pain, altered mental status, abdominal pain women, abdominal pain men, vaginal bleeding, musculoskeletal, weakness, fever, dyspnea, syncope, headache, dizziness, GI bleed, back pain, seizure, CVA, palpatations, mental health)? @ -Differential Syncope: Valvular disease, hypertrophic cardiomyopathy, pulmonary embolism, tamponade, tachycardia, bradycardia, CT, hypovolemia, hemorrhage, dissection, anemia, intracranial hemorrhage, seizure, hypoglycemia, carbon monoxide poisoning, this is not meant to be an all-inclusive list. EKG interpreted by me (3pts min.). @ -See above X-rays interpreted by me (1pt min.). @ -None done CT interpreted by me (1pt min.). @ -None done U/S interpreted by me (1pt. min.). @ -None done What testing was considered but not performed or refused? (CT, X-rays, U/S, labs)? Why? @ -None What meds were considered but not given or refused? Why? @ -None Was smoking cessation discussed for >3mins.? @ -No Were there social determinants of health that impacted care today? How? (Homelessness, low income, unemployed, alcoholism, drug addiction, transportation, low edu. Level, literacy, decrease access to med. care, [facility], rehab)? @ -No Was there de-escalation of care discussed even if they declined (Discuss DNR or withdrawal of care, Hospice)? DNR status @ -No What co-morbidities impacted this encounter? (DM, HTN, Smoking, COPD, CAD, Cancer, CVA, ARF, Chemo, Hep., AIDS, mental health diagnosis, sleep apnea, morbid obesity)? @ -Dementia, cardiac disease Was patient admitted / discharged? Hospital course, mention meds given and route, prescriptions, significant lab abnormalities, going to OR and other pertinent info. @ -79-year-old female presents to the emergency department for syncopal versus presyncopal episode. Vital signs are stable. Patient well-appearing has no acute complaints. Laboratory evaluation is unremarkable. Apparently she had a episode witnessed by assisted living facility staff after she had reportedly some diarrhea. Patient is a DNR. Goals of care were discussed with patient's son as described above. Patient and son are requesting discharge back to assisted living facility. Did you discuss the management of the patient with other professionals (professionals i.e. , PA, IRON AND STEEL WORK SUPERVISOR, lab, RT, psych nurse, social insurance analyst, eyeglass frame truer, teacher, purchasing officer, mental health case manager)? Give summary @ -No Was critical care preformed (if so, how long)? @ -No Undiagnosed new problem with uncertain prognosis? @ -No Drug Therapy requiring intensive monitoring for toxicity (Heparin, Nitro, Insulin, Cardizem)? @ -No Were any procedures done? @ -No Diagnosis/symptom? Acute, or Chronic, or Acute on Chronic? Uncomplicated (without systemic symptoms) or Complicated (systemic symptoms)? @ -Syncope Side effects of treatment? @ -No Exacerbation, Progression, or Severe Exacerbation? @ -No Poses a threat to life or bodily function? How? (Chest pain, USA, CT, pneumonia, PE, COPD, DKA, ARF, appy, cholecystitis, CVA, Diverticulitis, Homicidal, Suicidal, threat to staff... and all critical care pts) @ -yes - Lab Data Result diagrams: 07/30/24 14:05 07/30/24 14:05 Lab Results 07/30/24 07/30/24 07/30/24 Range/Units 14:05 14:05 14:05 WBC 9.1 (3.8-10.6) k/uL RBC 4.72 (3.80-5.40) m/uL Hgb 13.8 (11.4-16.0) gm/dL Hct 44.4 (34.0-46.0) % MCV 94.1 (80.0-100.0) fL MCH 29.2 (25.0-35.0) pg MCHC 31.0 (31.0-37.0) g/dL RDW 13.4 (11.5-15.5) % Plt Count 606 H (150-450) k/uL MPV 7.2 Neutrophils % 76 % Lymphocytes % 12 % Monocytes % 7 % Eosinophils % 3 % Basophils % 1 % Neutrophils # 6.9 (1.3-7.7) k/uL Lymphocytes # 1.1 (1.0-4.8) k/uL Monocytes # 0.6 (0-1.0) k/uL Eosinophils # 0.3 (0-0.7) k/uL Basophils # 0.1 (0-0.2) k/uL Hypochromasia Slight Sodium 138 (137-145) mmol/L Potassium 4.6 (3.5-5.1) mmol/L Chloride 104 (98-107) mmol/L Carbon Dioxide 26 (22-30) mmol/L Anion Gap 8 mmol/L BUN 24 H (7-17) mg/dL Creatinine 0.99 (0.52-1.04) mg/dL Est GFR (CKD-EPI)AfAm 62 (>60 ml/min/1.73 sqM) Est GFR (CKD-EPI)NonAf 54 (>60 ml/min/1.73 sqM) Glucose 101 H (74-99) mg/dL Calcium 10.0 (8.4-10.2) mg/dL Troponin I <0.012 (0.000-0.034) ng/mL Disposition Clinical Impression: Syncope Disposition: HOME SELF-CARE Condition: Good Instructions (If sedation given, give patient instructions): Syncope (ED) Is patient prescribed a controlled substance at d/c from ED?: No Referrals: Moo Chou MD [Primary Care Provider] - 1-2 days Time of Disposition: 15:49
[2024-07-30 14:12] LABS: Basophils # (A) 0.1 k/uL (0-0.2); Basophils % (A) 1 %; Eosinophils # (A) 0.3 k/uL (0-0.7); Eosinophils % (A) 3 %; HCT 44.4 % (34.0-46.0); HGB 13.8 gm/dL (11.4-16.0); Hypochromasia Slight; Lymphocytes # (A) 1.1 k/uL (1.0-4.8); Lymphocytes % (A) 12 %; MCH 29.2 pg (25.0-35.0); MCV 94.1 fL (80.0-100.0); Mean Platelet Volume 7.2; Monocytes # (A) 0.6 k/uL (0-1.0); Monocytes % (A) 7 %; Neutrophils # (A) 6.9 k/uL (1.3-7.7); Neutrophils % (A) 76 %; Platelet Count 606 k/uL (150-450); RBC 4.72 m/uL (3.80-5.40); RDW 13.4 % (11.5-15.5); WBC 9.1 k/uL (3.8-10.6)
[2024-07-30 14:23] LABS: African American GFR (CKD) 62 (>60 ml/min/1.73 sqM); Anion Gap 8 mmol/L; Blood Urea Nitrogen 24 mg/dL (7-17); Carbon Dioxide 26 mmol/L (22-30); Chloride 104 mmol/L (98-107); Glucose 101 mg/dL (74-99); Non-African American GFR(CKD) 54 (>60 ml/min/1.73 sqM); Potassium 4.6 mmol/L (3.5-5.1); Sodium 138 mmol/L (137-145)
[2024-07-30 15:55] VITALS: BP 125/67; PULSE 63; TEMP 98.5
== END 2024-07-30 15:58 | disposition home or self-care (01) ==
LOC: EC 13:28
DX: R55 Syncope and collapse
CPT/HCPCS: 36415; 80048; 84484; 85025; 93005; 99284

== ENCOUNTER 2024-07-31 03:32 | Emergency (ER) | payer MEDICARE ==
--- NOTE | 2024-07-31 03:44 | ED ---
General Adult HPI - General Stated complaint: Fall Time Seen by Provider: 07/31/24 03:39 Source: patient, RN notes reviewed, old records reviewed Limitations: no limitations - History of Present Illness Initial comments: 79-year-old female presenting from jail after fall with head injury. Patient did have head trauma to the right forehead. And minor injury to the right knee. There was no sustained loss consciousness. Patient is on Plavix. Patient has no pain complaints at the time my evaluation. - Related Data Home Medications Medication Instructions Recorded Confirmed Midodrine [ProAmatine] 5 mg PO DAILY PRN 09/16/22 07/21/24 Pravastatin Sodium [Pravachol] 40 mg PO HS@199909/16/22 07/21/24 Diphenoxylate HCl/Atropine 1 tab PO BID PRN 11/05/22 07/21/24 [Lomotil 2.5-0.025 mg Tablet] Donepezil [Aricept] 5 mg PO HS@199911/05/22 07/21/24 Levothyroxine Sodium [Synthroid] 75 mcg PO AC-BRKFST 03/02/23 07/21/24 risperiDONE [RisperDAL] 0.5 mg PO BID@0800,199903/02/23 07/21/24 ALPRAZolam [Xanax] 0.25 mg PO BID@0800,199908/01/23 07/21/24 Acetaminophen Tab [Tylenol] 650 mg PO QID PRN 08/01/23 07/21/24 Fludrocortisone [Florinef] 0.05 mg PO Q48H 08/01/23 07/21/24 amLODIPine [Norvasc] 5 mg PO DAILY@79908/01/23 07/21/24 hydrALAZINE HCL [Apresoline] 25 mg PO BID PRN 08/01/23 07/21/24 traZODone HCL [Desyrel] 100 mg PO HS@199908/01/23 07/21/24 Clopidogrel [Plavix] 75 mg PO DAILY@79907/21/24 07/21/24 Cyanocobalamin (Vitamin B-12) 1,000 mcg PO DAILY@79907/21/24 07/21/24 [Vitamin B-12] Folic Acid 1 mg PO DAILY@79907/21/2424 guaiFENesin-DM 100-10MG/5ML 10 ml PO QID PRN 07/21/24 07/21/24 [Robitussin DM] Previous Rx's Medication Instructions Recorded Potassium Chloride ER [K-Dur 20] 20 meq PO DAILY #0 07/23/24 Allergies Allergy/AdvReac Type Severity Reaction Status Date / Time adhesive Allergy Rash/Hives Verified 07/31/24 03:47 bee pollen Allergy Anaphylaxis Verified 07/31/24 03:47 latex Allergy Rash/Hives Verified 07/31/24 03:47 Penicillins Allergy Anaphylaxis Verified 07/31/24 03:47 prednisone AdvReac Nausea & Verified 07/31/24 03:47 Vomiting Review of Systems ROS Statement: Those systems with pertinent positive or pertinent negative responses have been documented in the HPI. ROS Other: All systems not noted in ROS Statement are negative. Past Medical History Past Medical History: Coronary Artery Disease (CAD), GERD/Reflux, Hyperlipidemia, Hypertension, Respiratory Disorder, Syncope, Thyroid Disorder Additional Past Medical History / Comment(s): See Dr Roberts H&P, Syncope- vasovagal syndrome, hystoplasmosis diagnosed in 2006-r upper lung lobectomy and infection had went into her esophagus causing fistula that was repaired, History of Any Multi-Drug Resistant Organisms: None Reported Past Surgical History: Appendectomy, Breast Surgery, Cholecystectomy, EPS, Heart Catheterization, Hernia Repair, Hysterectomy, Pacemaker Additional Past Surgical History / Comment(s): Right partial upper lobe of lung removed with repair of esophageal fistula, hernia surgery as an infant, LOOP recoder, EGDs, colonoscopies, L breast biopsy Past Anesthesia/Blood Transfusion Reactions: Postoperative Nausea & Vomiting (PONV) Additional Past Anesthesia/Blood Transfusion Reaction / Comment(s): . Type of Cardiac Device: Permanent Pacemaker Device Placement Date:: 07/29/20 Past Psychological History: No Psychological Hx Reported Smoking Status: Former smoker Past Alcohol Use History: Rare Past Drug Use History: None Reported - Past Family History Father Family Medical History: Cancer Additional Family Medical History / Comment(s): Lung. General Exam General appearance: alert Head exam: Present: other (Right forehead hematoma) Eye exam: Present: PERRL Neck exam: Present: normal inspection. Absent: tenderness Respiratory exam: Present: normal lung sounds bilaterally, respiratory distress Cardiovascular Exam: Present: regular rate, normal rhythm GI/Abdominal exam: Present: soft. Absent: distended, tenderness Extremities exam: Present: other (Abrasion to the right knee) Neurological exam: Present: alert. Absent: motor sensory deficit Skin exam: Present: warm, dry Course Vital Signs 07/31/24 03:39 Temperature 97.9 F Pulse Rate 65 Respiratory 18 Rate Blood Pressure 114/57 O2 Sat by Pulse 97 Oximetry Medical Decision Making - Medical Decision Making Was pt. sent in by a medical professional or institution (MADELIN Batista, ARBOR PRESS OPERATOR, urgent care, hospital, or jail...) When possible be specific @ -No Did you speak to anyone other than the patient for history (EMS, parent, family, police, friend...)? What history was obtained from this source @ -No Did you review nursing and triage notes (agree or disagree)? Why? @ -I reviewed and agree with nursing and triage notes Were old charts reviewed (outside hosp., previous admission, EMS record, old EKG, old radiological studies, urgent care reports/EKG's, jail records)? Report findings @ -No old charts were reviewed Differential : Intracranial hemorrhage, skull fracture, cervical fracture or subluxation Musculoskeletal Muscular strain, contusion, ligament sprain, fracture, arthritis, septic arthritis, bursitis, cellulitis, muscle spasm, nerve compression, DVT, arterial occlusion, herpes zoster, electrolyte abnormality, tumor.... This is not meant to be in all inclusive list EKG interpreted by me (3pts min.). @ -As above X-rays interpreted by me (1pt min.). @X-ray of the right knee is negative for displaced fracture or dislocation CT interpreted by me (1pt min.). @ -CT of the head and neck is negative for traumatic injury U/S interpreted by me (1pt. min.). @ -None done What testing was considered but not performed or refused? (CT, X-rays, U/S, labs)? Why? @ -None What meds were considered but not given or refused? Why? @ -None Did you discuss the management of the patient with other professionals (professionals i.e. MADELIN Batista, ARBOR PRESS OPERATOR, lab, RT, psych nurse, social media content manager, plant electrical engineer, teacher, community service officer, case liner)? Give summary @ -No Was smoking cessation discussed for >3mins.? @ -No Was critical care preformed (if so, how long)? @ -No Were there social determinants of health that impacted care today? How? (Homele ssness, low income, unemployed, alcoholism, drug addiction, transportation, low edu. Level, literacy, decrease access to med. care, snf, rehab)? @ -No Was there de-escalation of care discussed even if they declined (Discuss DNR or withdrawal of care, Hospice)? DNR status @ -No What co-morbidities impacted this encounter? (DM, HTN, Smoking, COPD, CAD, Cancer, CVA, ARF, Chemo, Hep., AIDS, mental health diagnosis, sleep apnea, morbid obesity)? @ -None Was patient admitted / discharged? Hospital course, mention meds given and route, prescriptions, significant lab abnormalities, going to OR and other pertinent info. @ -[79-year-old female with fall at the jail with head injury. There is abrasion to the right knee. CT and x-rays are obtained and these are negative for traumatic injury. Patient is stable for discharge back to the jail. Undiagnosed new problem with uncertain prognosis? @ -No Drug Therapy requiring intensive monitoring for toxicity (Heparin, Nitro, Insu hernandez, Cardizem)? @ -No Were any procedures done? @ -No Diagnosis/symptom? @ -[Fall, concussion Acute, or Chronic, or Acute on Chronic? @ -Acute Uncomplicated (without systemic symptoms) or Complicated (systemic symptoms)? @ -Default Side effects of treatment? @ -No Exacerbation, Progression, or Severe Exacerbation? @ -No Poses a threat to life or bodily function? How? (Chest pain, USA, [place], pneumonia, PE, COPD, DKA, ARF, appy, cholecystitis, CVA, Diverticulitis, Homicidal, Suicidal, threat to staff... and all critical care pts) @ -[Moderate risk Disposition Clinical Impression: Fall, Concussion Disposition: HOME SELF-CARE Condition: Fair Instructions (If sedation given, give patient instructions): Fall Prevention for Older Adults (ED), Concussion (ED) Is patient prescribed a controlled substance at d/c from ED?: No Referrals: Moo Chou MD [Primary Care Provider] - 1-2 days Time of Disposition: 04:38
[2024-07-31 03:47] VITALS: RESP 18
--- NOTE | 2024-07-31 04:25 | XR ---
EXAMINATION TYPE: XR knee complete RT DATE OF EXAM: 07/31/2024 CLINICAL HISTORY: Fall with pain TECHNIQUE: Three views of the right knee are obtained. COMPARISON: None. FINDINGS: There is no acute fracture/dislocation evident in right knee. [id number] tricompartm ent joint space loss. The overlying soft tissue appears unremarkable. IMPRESSION: There is no acute fracture or dislocation in the right knee. [facility], , 07/31/2024 4:23 AM
--- NOTE | 2024-07-31 04:32 | CT ---
EXAMINATION TYPE: CT brain cspine wo con DATE OF EXAM: 07/31/2024 COMPARISON: CT brain [address] cervical spine January 28, 2024 HISTORY: Patient is coming to facility after a fall. Patient does take Plavix. Patient has complaint s of R knee pain No LOC CT DLP: 1335.9 mGycm. Automated Exposure Control for Dose Reduction was Utilized. TECHNIQUE: CT scan of the head and cervical spine are performed without contrast. FINDINGS: There is no acute intracranial hemorrhage or midline shift identified. Mild to moderate v entricular and sulcal prominence redemonstrated. Low attenuation in the deep and periventricular whi te matter redemonstrated. 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 Maxwell varium is intact. The globes are intact and the visualized sinuses are clear. Cervical spine is visualized in its entirety from C1 through upper thoracic levels and demonstrates s atisfactory alignment without evidence of acute fracture or dislocation. Prevertebral soft tissue ap pears within normal limits. The C1-C2 articulation is within normal limits on the coronal images. Ve rtebral body heights are maintained. Moderate disc space narrowing and mild spurring C5-C6 and C6-C7 levels is redemonstrated. There is moderate calcified plaque bilateral carotid bulb level redemonstra marcia. Lung apices are clear without pneumothorax IMPRESSION: 1. There is no acute fracture or dislocation evident in the cervical spine. 2. No acute intracranial hemorrhage or midline shift is seen. [facility], , 07/31/2024 4:30 AM
[2024-07-31 05:15] VITALS: BP 125/74; PULSE 64; TEMP 98.7
== END 2024-07-31 04:58 | disposition home or self-care (01) ==
LOC: EC 03:32
DX: W19.XXXA Unspecified fall, initial encounter
CPT/HCPCS: 70450; 72125; 99284